=== PATIENT | female | born 1965 | race Caucasian/White ===

== ENCOUNTER → 2023-12-14 | Outpatient (CLI) | payer BC, SELFPAY ==
--- NOTE | 2023-12-14 09:46 | NM_ITS ---
CLINICAL: Female, 58 years old. STAGING BREAST CA-NEW DX -- ARTHRITIS -- PAIN IN KNEES, HANDS WHOLE BODY NUCLEAR BONE SCAN TECHNIQUE: Following the IV administration of 26.5 mCi of Tc MDP, whole body bone imaging was performed with a gamma camera following a three hour delay. COMPARISON STUDIES : NM - None. CR - Not available for review at this time. CT - Not available for review at this time. MR - Not available for review at this time. US - Not available for review at this time. FINDINGS: Focal uptake is seen along the medial compartment of the right knee joint in comparison with the osteoarthritis. No abnormal uptake suggestive of metastatic disease present. NM/Bone Scan Whole Body IMPRESSION: Focal increased uptake along the medial compartment of the right knee joint suggestive of osteoarthritis. No evidence of metastatic deposits. Electronically Signed: Zuhair Aparicio MD at 15:29 EDT ,
== END | disposition home or self-care (01) ==
LOC: NM 09:45
PROVIDERS: PCP Student in an Organized Health Care Education/Training Program; Referring Provider Internal Medicine Medical Oncology; Visit Provider Internal Medicine Medical Oncology
DX: C50.811 Malignant neoplasm of overlapping sites of right female breast (principal)
CPT/HCPCS: 78306; A9503

== ENCOUNTER → 2023-12-17 | Outpatient (CLI) | payer BC, SELFPAY ==
--- NOTE | 2023-12-17 07:03 | CT_ITS ---
EXAM: CT CHEST, ABDOMEN AND PELVIS WITH INTRAVENOUS CONTRAST CLINICAL INDICATION: STAGING BREAST CA-IV ONLY TECHNIQUE: Helically acquired images were obtained of the chest, abdomen and pelvis with intravenous contrast. This CT exam was performed using one or more of the following dose reduction techniques: automated exposure control, adjustment of the mA and/or kV according to patient size, and/or use of iterative reconstruction technique. CONTRAST: IV 100mL Isovue-300 RADIATION DOSE: CTDIvol = 14.91 mGy, DLP = 1196.77 mGy-cm COMPARISON: No relevant prior studies available. FINDINGS: CHEST: LUNGS AND PLEURAL SPACES: Unremarkable. No mass. No consolidation or edema. No pleural effusion or thickening. No pneumothorax. HEART: Unremarkable. Heart size is normal. No pericardial effusion. MEDIASTINUM: Unremarkable. No mediastinal or hilar adenopathy. Esophagus is unremarkable. No hiatal hernia. THYROID: Unremarkable. No thyroid lesions. ABDOMEN: LIVER: Unremarkable. Homogeneous. No focal mass. GALLBLADDER AND BILE DUCTS: Unremarkable. No calcified gallstones. No gallbladder distention or wall edema. No intra- or extrahepatic biliary ductal dilation. PANCREAS: Unremarkable. No focal cystic or solid mass. SPLEEN: Unremarkable. Normal size without focal cystic or solid mass. ADRENALS: Unremarkable. No nodules. KIDNEYS AND URETERS: Unremarkable. Normal renal size and position. No hydronephrosis. STOMACH AND BOWEL: Unremarkable. No stomach or bowel distention. No focal inflammatory change. PELVIS: APPENDIX: No evidence of acute appendicitis. BLADDER: Unremarkable. REPRODUCTIVE: Hysterectomy. CHEST, ABDOMEN and PELVIS: INTRAPERITONEAL SPACE: Unremarkable. No ascites or other fluid collection. No free air. BONES/JOINTS: Unremarkable. No suspicious lytic or blastic abnormality. SOFT TISSUES: Possible spiculated mass measuring up to 1.5 cm in the left breast. No discrete abdominal or pelvic wall hernia. VASCULATURE: Unremarkable. Aorta is non-dilated. No aortic dissection. No obvious central pulmonary embolism although this study was not performed with the pulmonary embolism protocol. LYMPH NODES: Unremarkable. No enlarged lymph nodes. CT/CT Chest, Abd, Pel w/Contrast IMPRESSION: 1. No evidence of metastatic disease. 2. No acute cardiopulmonary or abdominal pelvic abnormality. 3. Possible spiculated mass measuring up to 1.5 cm in the left breast. 4. Hysterectomy. Electronically Signed: Abhi Moon MD at 7:57 EDT ,
== END | disposition home or self-care (01) ==
LOC: CT 07:03
PROVIDERS: PCP Student in an Organized Health Care Education/Training Program; Referring Provider Internal Medicine Medical Oncology; Visit Provider Internal Medicine Medical Oncology
DX: C50.811 Malignant neoplasm of overlapping sites of right female breast (principal)
CPT/HCPCS: 71260; 74177; Q9967

== ENCOUNTER → 2023-12-18 | Outpatient (CLI) | payer BC, SELFPAY ==
--- NOTE | 2023-12-18 10:12 | MRI_ITS ---
STUDY: BILATERAL BREAST MR WITHOUT AND WITH CONTRAST REASON FOR EXAM: Female, 58 years old. RIGHT BREAST CA TECHNIQUE: Multi-sequence multi-echo imaging of both breasts was performed with a dedicated breast coil. T1-weighted and T2-weighted images were performed before the administration of contrast. T1-weighted images were also performed after the intravenous administration of 15 cc of Clariscan contrast. COMPARISON: Nuclear medicine bone scan dated December 14, 2023, right mammogram for clip placement dated November 21, 2023, right breast ultrasound core biopsy dated November 21, 2023, right breast ultrasound dated December 16, 2023, coned-down compression spot views of the right breast dated October 16, 2023 and 3-D bilateral mammogram dated October 11, 2023. FINDINGS: RIGHT BREAST: Scattered fibroglandular densities with minimal background enhancement. Irregular enhancing mass in the upper outer quadrant of the right breast measuring approximately 3.5 cm x 1.5 cm x 1.7 cm with a tissue clip artifact within the central portion of the enhancing mass. This lesion represents the known breast cancer. LEFT BREAST: Scattered fibroglandular density with minimal background enhancement. An 11 mm x 8 mm x 5 mm in diameter lobulated enhancing mass at the 12:00 to 1:00 position of the left breast approximately 5.2 cm behind the nipple. No corresponding correlate is seen on the comparison mammogram of October 11, 2023. Therefore, a second look ultrasound of the left breast is recommended for further evaluation. No enlarged or abnormal lymph nodes. No abnormality in the visualized regions of the chest or liver. MRI/Breast Bilateral W/O and W IMPRESSION: Irregular enhancing mass in the upper outer quadrant of the right breast corresponding to the index lesion measuring 3.5 cm x 1.5 cm x 1.7 cm. 11 mm x 8 mm x 5 mm in diameter lobulated enhancing mass at the 12:00 to 1:00 position of the left breast 5.2 cm behind the nipple. A second look ultrasound of the left breast in this region is recommended for further evaluation. CATEGORY: BIRADS Category 3: Probably Benign - Short-Interval Follow-up Suggested. A letter regarding these results will be sent to the patient by the facility within 30 days. Electronically Signed: Ruddy Osman MD at 13:38 EDT ,
== END | disposition home or self-care (01) ==
PROVIDERS: PCP Student in an Organized Health Care Education/Training Program; Referring Provider Internal Medicine Medical Oncology; Visit Provider Internal Medicine Medical Oncology
DX: C50.811 Malignant neoplasm of overlapping sites of right female breast (principal)
CPT/HCPCS: 77049; A9575; A4216; C8908

== ENCOUNTER → 2024-02-20 | Outpatient (CLI) | payer BC, SELFPAY ==
--- NOTE | 2024-02-20 09:46 | BD_ITS ---
STUDY: DUAL ENERGY X-RAY ABSORPTIOMETRY / DXA REASON FOR EXAM: Female, 58 years old. SCREENING/BREAST CA TECHNIQUE: Bone Mineral Density (BMD) measurements of lumbar spine and bilateral hips were obtained. COMPARISON: None. FINDINGS: Lumbar Spine (L1-L4): g/cm2 (0.849) / T-score (-1.9) / Z-score (-0.5) Findings are suggestive of osteopenia with a moderate fracture risk. Left Femur Total: g/cm2 (0.881) / T-score (-0.5) / Z-score (0.5) Left Femoral Neck: g/cm2 (0.699) / T-score (-1.3) / Z-score (-0.1) Right Femur Total: g/cm2 (0.853) / T-score (-0.7) / Z-score (0.2) Right Femoral Neck: g/cm2 (0.702) / T-score (-1.3) / Z-score (0.0) BD/Dexa Bone Density Study IMPRESSION: The patient is considered osteopenic as outlined below according to World Chris Organization (WHO) criteria with a moderate fracture risk. Reference Information: The T-score is the number of standard deviations above or below the standard which is normal for young adults at their peak bone mineral density. The World Health Organization (WHO) interprets the T-scores as follows: Above -1 Normal bone density Between -1 and -2.5 Osteopenia Equal to / or below -2.5 Osteoporosis As a practical clinical guideline, osteopenia may be graded as follows: Mild -1 through -1.5 Moderate -1.6 through -2.0 Severe -2.1 through -2.4 The Z-score is the number of standard deviations above or below age-matched controls. A Z-score of less than -1.5 would be considered abnormal. References: 1. NIH Osteoporosis and Related Bone Diseases www osteo.org 2. International Society for Clinical Densitometry www iscd.org 3. National Osteoporosis Foundation www nof.org Electronically Signed: Zuhair Aparicio MD at 9:54 EDT ,
== END | disposition home or self-care (01) ==
PROVIDERS: PCP Student in an Organized Health Care Education/Training Program; Referring Provider Internal Medicine Medical Oncology; Visit Provider Internal Medicine Medical Oncology
DX: I74.9 Embolism and thrombosis of unspecified artery (principal); C50.811 Malignant neoplasm of overlapping sites of right female breast; Z17.0 Estrogen receptor positive status [ER+]; Z13.820 Encounter for screening for osteoporosis; M85.88 Other specified disorders of bone density and structure, other site
CPT/HCPCS: 77080

== ENCOUNTER → 2024-02-28 | Outpatient (CLI) | payer BC, SELFPAY | END | disposition home or self-care (01) | LOC: LAB 16:45 | PROVIDERS: PCP Student in an Organized Health Care Education/Training Program; Referring Provider Internal Medicine Medical Oncology; Visit Provider Internal Medicine Medical Oncology | DX: C50.811 Malignant neoplasm of overlapping sites of right female breast (principal); Z17.0 Estrogen receptor positive status [ER+] | CPT/HCPCS: 36415 ==

== ENCOUNTER → 2024-04-18 | Outpatient (CLI) | payer BC, SELFPAY ==
--- NOTE | 2024-04-18 08:38 | VDLE_ITS ---
Reason For Study: BLE Swelling RIGHT LEFT GSV is normal. GSV is normal. CFV is compressible, spontaneous, phasic, CFV is compressible, spontaneous, phasic, competent and demonstrates normal competent, and demonstrates normal augmentation. augmentation. FV is compressible, spontaneous, phasic, FV is compressible, spontaneous, phasic, competent and demonstrates normal competent and demonstrates normal augmentation. augmentation. POP V is compressible, spontaneous, phasic, POP V is compressible, spontaneous, phasic, competent and demonstrates normal competent and demonstrates normal augmentation. augmentation. T/P Trunk is compressible. T/P Trunk is compressible. PTV is compressible. PTV is compressible. RT PerV is compressible. LT PerV is compressible. Procedure This is a venous duplex using B-mode, color flow and spectral Doppler. Exam performed in department. The exam was diagnostic. VL/Venous Duplex US - [place] Extrem Interpretation Summary Deep veins of the lower extremities are bilaterally patent and compressible seg mentally. There is no evidence of deep vein thrombosis on either side. Valvular competence appears in tact within the proximal deep venous systems bilaterally. The great saphenous veins appear bila terally patent and compressible segmentally. Ordering Physician: Brown Woody Referring Physician: Gertrudis Gage Performed By: Dean De La Cruz RVT
== END | disposition home or self-care (01) ==
LOC: CVS 08:37
PROVIDERS: PCP Student in an Organized Health Care Education/Training Program; Referring Provider Internal Medicine Medical Oncology; Visit Provider Internal Medicine Medical Oncology
DX: R06.02 Shortness of breath (principal); M79.89 Other specified soft tissue disorders
CPT/HCPCS: 93970

== ENCOUNTER → 2024-04-23 | Outpatient (CLI) | payer BC, SELFPAY ==
--- NOTE | 2024-04-23 12:53 | ECHODONC_ITS ---
Version 2 Reason For Study: Cardio Toxic Drug Therapy Procedure This was a 2D Doppler, Color Flow transthoracic echocardiogram. Myocardial strain analysis was performed in this exam to aid in the assessment of cardiac function. Exam performed in department. Left Ventricle Normal left ventricle. Severe concentric left ventricular hypertrophy. Left ventricular systolic function is normal. The left ventricular ejection fraction is 65 %. No regional wall motion abnormalities noted. Right Ventricle Normal RV size. Normal systolic function. Atria Normal left atrium. Normal right atrium. Mitral Valve Normal mitral valve. Mild (1+) eccentric mitral valve insufficiency. Tricuspid Valve Normal tricuspid valve. Mild tricuspid valve insufficiency. Pulmonary artery systolic pressure is 25 mmHg. Aortic Valve Trisinus/trileaflet aortic valve. Pulmonic Valve Normal pulmonic valve. Great Vessels Normal aortic root. The pulmonary artery is normal size. Normal inferior vena cava. Pericardium/Pleural No pericardial effusion. MMode/2D Measurements & Calculations LVIDd: 3.7 cm IVSd: 2.0 cm LVOT diam: 2.3 cm LVIDs: 2.4 cm LVPWd: 1.5 cm LVOT area: 4.1 cm2 RVDd: 3.2 cm FS: 35.0 % Ao root diam: 3.4 cm asc Aorta Diam: 3.2 cm LAV(MOD-bp): 41.6 ml LA dimension: 3.3 cm LAV(MOD-bp) Indexed: 23.0 ml/m2 LAV(MOD-sp2): 41.1 ml LAV(MOD-sp4): 41.4 ml SV(MOD-sp4): 48.6 ml SV(sp4-el): 51.4 ml LVAd ap4: 25.8 cm2 LVLd ap4: 7.1 cm EDV(MOD-sp4): 78.6 ml EDV(sp4-el): 80.3 ml LVAs ap4: 14.2 cm2 LVLs ap4: 5.9 cm ESV(MOD-sp4): 30.0 ml ESV(sp4-el): 29.0 ml EF(MOD-sp4): 61.9 % EF(sp4-el): 63.9 % Ao sinus diam: 2.[address] Junction: 2.4 cm LA A4 area: 15.2 cm2 RA A4 area: 10.9 cm2 Time Measurements MV dec time: 0.22 sec Doppler Measurements & Calculations MV E max munir: 72.6 cm/sec Lat Peak E' Munir: 11.2 cm/sec Med Peak E' Munir: 7.0 cm/sec MV A max munir: 97.6 cm/sec E/E' lat: 6.5 E/E' med: 10.4 MV E/A: 0.74 MV V2 max: 109.7 cm/sec MV P1/2t max munir: 82.6 cm/sec Ao V2 max: 143.3 cm/sec MV max P.8 mmHg MV P1/2t: 79.7 msec Ao max P.2 mmHg MV V2 mean: 64.6 cm/sec MV dec slope: 303.5 cm/sec2 Ao V2 mean: 98.1 cm/sec MV mean P.0 mmHg Ao mean P.4 mmHg MV V2 VTI: 22.6 cm MVA(P1/2t): 2.8 cm2 Ao V2 VTI: 26.6 cm MVA(VTI): 3.6 cm2 AV (velocity ratio): 0.74 MICHEL(I,D): 3.1 cm2 MICHEL(V,D): 3.0 cm2 LV V1 max: 103.7 cm/sec SV(LVOT): 81.4 ml PA V2 max: 108.1 cm/sec LV V1 max P.3 mmHg PA max PG (full): 0.56 mmHg LV V1 mean P.5 mmHg LV V1 mean: 73.8 cm/sec LV V1 VTI: 19.8 cm TR max munir: 234.9 cm/sec TR max P.1 mmHg ECHO/ONC Echo Complete Interpretation Summary Normal left ventricle. Left ventricular systolic function is normal. Severe concentric left ventricular hypertrophy. The left ventricular ejection fraction is 65 %. The global longitudinal strain is mildly abnormal. The global longitudinal stra in = -15.8% (abnormal). Ordering Physician: Brown Woody Referring Physician: Brown Woody Performed By: Cole Urrutia and Student
== END | disposition home or self-care (01) ==
LOC: CVS 12:53
PROVIDERS: PCP Student in an Organized Health Care Education/Training Program; Referring Provider Internal Medicine Medical Oncology; Visit Provider Internal Medicine Medical Oncology
DX: R06.02 Shortness of breath (principal); M79.89 Other specified soft tissue disorders
CPT/HCPCS: 93306; 93356

== ENCOUNTER 2024-05-29 16:08 | Observation (INO) | payer BC, SELFPAY ==
[2024-05-29] VITALS (7 sets, daily range): BP systolic 99–150; BP diastolic 62–77; PULSE 74–91; RESP 15–20; TEMP 36.3–36.8; O2SAT 95–100; BMI 29.2; BMI 27.6
--- NOTE | 2024-05-29 16:28 | EKG12_ITS ---
Test Reason : ABN LAB Blood Pressure : */* mmHG Vent. Rate : 89 BPM Atrial Rate : 89 BPM P-R Int : 176 ms QRS Dur : 106 ms QT Int : 388 ms P-R-T Axes : 49 -8 44 degrees QTcB Int : 472 ms Sinus rhythm with occasional Premature ventricular complexes Otherwise normal ECG Confirmed by TAMRA ADAMSON, PRADEEP ([id number]), international editorial producer SHALA SHULTZ ([id number]) on 05/30/2024 8:21:59 AM Referred By: Confirmed By: PRADEEP BARBOZA MD
--- NOTE | 2024-05-29 16:28 | CT_ITS ---
STUDY: CTA HEAD AND NECK WITH CONTRAST REASON FOR EXAM: Female, 58 years old. dizziness RADIATION DOSAGE (If Supplied By Facility): CTDIvol = ( 23.82 ) mGy, DLP = ( 1356.37 ) mGycm TECHNIQUE: CT angiography was performed with a multi-detector CT scanner. Data acquisition was obtained from the skull base through the vertex following intravenous administration of IV 100mL Isovue-370. MIP images were reconstructed from the axial data set. Post-processing of the angiographic images was performed, with multiplanar reformation and 3D reconstruction. Individualized dose optimization techniques were used for this CT. The protocol utilizes one or more of the following dose reduction techniques: automated exposure control, adjustment of mA and/or kV according to patient size,and/or use of iterative reconstruction technique. COMPARISON: No relevant priors. FINDINGS: Normal bilateral petrous carotid arteries. Normal right cavernous carotid artery with a normal supraclinoid bifurcation. Normal left cavernous carotid artery with a normal supraclinoid bifurcation. Normal right A1 segments of the anterior cerebral artery. Normal left A1 segments of the anterior cerebral artery. There is non-visualization of the anterior communicating artery (ACOM). Normal bilateral A2 segments of the anterior cerebral arteries. Normal right M1 and M2 segments of the middle cerebral arteries, with a normal M1 bifurcation. Normal left M1 and M2 segments of the middle cerebral arteries, with a normal M1 bifurcation. There is non-visualization of the right posterior communicating artery (PCOM). 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 Normal bilateral vertebral arteries. Normal basilar artery with a normal basilar bifurcation. The visualized bilateral superior cerebellar (SCA) arteries are normal. Normal bilateral P1, P2 and visualized P3 segments of the posterior cerebral arteries. There is no demonstrated aneurysm of the [place]. There is no demonstrated abnormality of the visualized brain. AORTIC ARCH: Normal visualized aortic arch. Normal origins of the brachiocephalic, left common carotid, and left subclavian arteries. RIGHT CAROTID ARTERIES: Normal right common carotid artery (CCA). Normal right common carotid bulb. Normal origin of the right internal carotid (ICA) artery without a hemodynamically significant stenosis. Normal visualized cervical portion of the right internal carotid artery. Normal origin of the right external carotid artery (ECA). LEFT CAROTID ARTERIES: Normal left common carotid artery (CCA). Normal left common carotid bulb. Normal origin of the left internal carotid (ICA) artery without a hemodynamically significant stenosis. Normal visualized cervical portion of the left internal carotid artery. Normal origin of the left external carotid artery (ECA). VERTEBRAL ARTERIES: Normal bilateral vertebral arteries. CT/CTA Head AND Neck W/ Contrast IMPRESSION: Normal CTA Head and neck with contrast. Electronically Signed: Antony Fermin MD at 18:22 EDT ,
--- NOTE | 2024-05-29 16:41 | EDS_ITS ---
HPI History of Present Illness Chief Complaint: Abn Labs Informant: patient Narrative Narrative: Sent in from oncology office for concerns for strokelike symptoms. Diagnosed with stage II invasive ductal carcinoma right breast. Diagnosis past September. She finished her fourth cycle of TC therapy 2 weeks ago. Generalized weakness secondary to this. However over last 3 days dizzy spinning sensations and off balance along with paresthesia from the left axillary down her hand. No weakness. She had a TIA in 2017 with left-sided weakness and numbness that resolved spontaneously. Currently not on aspirin therapy. A week ago had a lot of diarrhea that has since then resolved. Seen today had a potassium 2.8. Magnesium was normal at 2.2. No headache. She was sent here with her TIA history for workup. Discussion reported to me her chemotherapy of TC can cause neuropathy however not presenting with the symptoms that she has. Prior similar symptoms: No PFSH PFSH Medical History LUE numbness Bone pain due to G-CSF CINV (chemotherapy-induced nausea and vomiting) Diarrhea due to drug Hypokalemia Port-A-Cath in place Encounter for education Invasive ductal carcinoma of right breast Obesity Hyperlipidemia Major depression Anxiety TIA (transient ischemic attack) Essential hypertension GERD (gastroesophageal reflux disease) Osteoarthritis Tobacco use History of sarcoidosis Breast cancer Home Medications ?Medication ?Instructions ?Recorded ?Last Taken ?Type amlodipine 5 mg tablet 5 mg PO DAILY 12/07/23 Unknown History lisinopril 20 1 tab PO DAILY 12/07/23 Unknown History mg-hydrochlorothiazide 25 mg tablet metoprolol succinate 50 mg 50 mg PO DAILY 12/07/23 Unknown History tablet,extended release 24 hr rosuvastatin 10 mg tablet 10 mg PO DAILY 12/07/23 Unknown History ibuprofen 200 mg tablet (Advil) 200 mg PO Q6H PRN 12/10/23 Unknown History sertraline 50 mg tablet 25 mg PO DAILY 01/07/24 Unknown History lidocaine-prilocaine 2.5 %-2.5 % 1 applic topical ONCE PRN port 03/10/24 Unknown Rx topical cream access 30 days #30 grams ondansetron 8 mg disintegrating 8 mg PO Q8H PRN nausea and 03/10/24 Unknown Rx tablet vomiting #30 tabs prochlorperazine maleate 10 mg 10 mg PO Q6H PRN nausea and 03/10/24 Unknown Rx tablet vomiting #30 tabs loratadine 10 mg tablet 10 mg PO DAILY PRN 03/13/24 Unknown History pantoprazole 40 mg tablet,delayed 40 mg PO DAILY #30 TABLETS 05/27/24 Unknown Rx release Allergy/AdvReac Type Severity Reaction Status Date / Time Latex, Natural Rubber Allergy Unknown hives Verified 05/29/24 16:09 Family History Father Elevated platelet count Basal cell carcinoma Hypertension Macular degeneration Mother Hypertension Surgical History History of lumpectomy History of tonsillectomy and adenoidectomy H/O: hysterectomy History of lung surgery S/P breast lumpectomy Social History Smoking Status: Current every day smoker tobacco type: cigarettes alcohol intake: current alcohol intake frequency: other details: occassional substance use type: does not use ROS ROS ED Constitutional Constitutional ED: Denies chills, fever(s) or sweats Eyes Eyes: Denies change in vision ENT ENT ED: Denies dysphagia or sore throat Cardiovascular Cardiovascular: Denies chest pain, leg edema, palpitations or racing heartbeat Respiratory/Chest Respiratory/Chest: Denies cough, dyspnea or dyspnea on exertion Gastrointestinal Gastrointestinal: Reports diarrhea; Denies abdominal pain, nausea or vomiting Genitourinary Genitourinary ED: Denies dysuria, hematuria or urinary frequency Musculoskeletal Musculoskeletal: Denies back pain, extremity pain or neck pain Integumentary Denies rash or wounds Neurologic Neurologic: Reports paresthesias and other Details: Dizziness ; Denies headache(s) or weakness EXAM Physical Exam Const Vital Signs: 05/29/24 16:09 05/29/24 16:28 05/29/24 16:28 Temperature 98.3 F Temperature Source Oral Pulse Rate 91 Respiratory Rate 15 Respiratory Effort Normal Non-Labored Blood Pressure 150/77 H Blood Pressure Mean 101 Pulse Ox 100 Oxygen Delivery Method Room Air Room Air 05/29/24 18:09 05/29/24 18:30 Temperature Temperature Source Pulse Rate 85 85 Respiratory Rate 20 H 15 Respiratory Effort Blood Pressure 103/65 103/65 Blood Pressure Mean 77 77 Pulse Ox 96 95 Oxygen Delivery Method Positive well nourished and well developed General Appearance ED: well developed and NAD HEENT Reports moist mucous membranes normocephalic and atraumatic Eyes EOMs intact bilaterally and conjunctivae normal Eyes Narrative: No nystagmus of the eyes. Visual dominguez intact in all 4 quadrants to finger counting. General Eye ED: Yes normal appearance of both eyes Neck no lymphadenopathy and supple General: Negative for tenderness Chest Wall Chest: Negative for tenderness Resp normal respiratory effort and normal air movement Effort and Inspection: symmetric chest movement; Negative for respiratory distress Cardio regular rate, regular rhythm and no murmurs Peripheral Pulses: pulses 2+ throughout GI normal to inspection, nondistended, normoactive bowel sounds and non-tender Palpation: Negative for guarding or rebound tenderness present Back/Spine no CVA tenderness and no thoracic nor lumbar tenderness Extremity normal to inspection General Extremety ED: Negative for edema or tenderness General Extremity: Negative for edema Neuro oriented x3 Neuro Narrative: NIH of 1 for paresthesia upper extremity forearm and upper arm compared to the right. Strength equal and symmetric upper extremities bilaterally. Cerebellar testing upper and lower symmetric and intact. Sensorium / Orientation: awake and alert Skin no rashes or lesions noted and no wounds MDM MDM MDM Narrative Medical decision making narrative: Interventions / MDM: Differential diagnosis: Dizziness, left upper extremity paresthesia, stage II invasive ductal carcinoma, CVA, hypokalemia Diagnosis considered but do not suspect: N/A My EKG interpretation: Sinus rate of 89, no ST or T wave changes, PVCs noted. Imaging independently reviewed and interpreted by myself: CTA head and neck: No acute process. External documents reviewed: N/A Test considered but not ordered:N/A ED course: Patient presented with dizziness left upper extremity paresthesia NIH of 1. Symptoms for 3 days, she is outside the window for TNK. However with vertigo symptoms during for posterior circulation, sent for CT angiogram head and neck. Stroke workup initiated. EKG sinus rhythm. Labs consistent with no potassium 2.8 magnesium 2.2. Normal creatinine. CBC stable slight anemia at 9.9. CT angiogram head and neck negative. Bedside swallow eval. Oral potassium started. NIH still 1. I discussed with hospitalist Dr. Calvo for admission to PCU. Re-evaluation: stable Disposition discussed with patient/family/significant other: Patient and family Case discussed with consulting clinician: Hospitalist This note was generated with [employer] dictation software. It may contain incorrect words, spelling, and punctuation that were not noted in checking the note before signing. Lab Data Attestation: I reviewed the patient's lab results. Labs: Laboratory Results - last 24 hr 05/29/24 16:40 PT 13.4 INR 1.0 APTT 27.3 Troponin I High Sens 6 Radiography Diagnostic Testing: Clinical Impression(s) from Imaging Studies Head/Neck CTA 05/29/24 16:28 IMPRESSION: Normal CTA Head and neck with contrast. Electronically Signed: Antony Fermin MD at 18:22 EDT Reading Location ID and State: [employer] / [place] Tel , Service support , Chest X-Ray 05/29/24 17:05 IMPRESSION: New left Mediport. No pneumothorax. Electronically Signed: Antony Fermin MD at 17:37 EDT , Discharge Plan Dx/Rx/DC Orders Clinical Impression: LUE numbness, Vertigo, Breast cancer, right, Hypokalemia Disposition Disposition: Acute Care [facility] Discharge Date/Time: 05/29/24 19:48
[2024-05-29 17:04] LABS: Partial Thromboplast Time 27.3 Seconds (24.1-36.2); Prothrombin Time (Protime)PT. 13.4 SECONDS (11.7-14.9)
[2024-05-29 17:05] LABS: Troponin-I HS 6 pg/mL (3.0-54.0)
--- NOTE | 2024-05-29 17:05 | RAD_ITS ---
STUDY: X-RAY CHEST REASON FOR EXAM: Female, 58 years old. Neuro deficit, acute, stroke suspected TECHNIQUE: Single frontal view of the chest. COMPARISON: CT chest December 17, 2023. March 18, 2011 chest x-ray FINDINGS: New left IJ MediPort terminates near the atrial caval junction. Skin balwinder right axilla. The lungs are clear and expanded. There is no demonstrated pleural abnormality. Normal size heart. Normal mediastinum and jennifer. Normal visualized pulmonary arteries. Normal visualized aortic arch and descending thoracic aorta. Normal visualized thoracic spine. Normal visualized ribs, clavicles, and shoulders. There is no demonstrated abnormality of the visualized soft tissue structures of the upper abdomen. RAD/Chest 1 View IMPRESSION: New left Mediport. No pneumothorax. Electronically Signed: Antony Fermin MD at 17:37 EDT ,
--- NOTE | 2024-05-29 18:55 | HP.PCM.HOS_ITS ---
[facility] - General General Date of Service: 05/29/24 Chief Complaint: Left arm paresthesia HPI Narrative HECTOR LUIS, is a 58 F who presents with a 3-day history of dizziness and left arm paresthesias. States that his been more or less persistent, with the paresthesias, but does slightly wax and wane somewhat but still remains constant. Also has been feeling dizzy during this time. States that she feels dizzy whenever she opens her eyes. Never had symptoms like this in the past, however patient did have a TIA in 2017 where she had a left arm and leg weakness. She denies any involvement of her leg at this time. Patient presented to the emergency room where she did have a CTA of the head and neck that was unremarkable. The hospitalist service was contacted for admission for further evaluation. [facility] Medical History LUE numbness Bone pain due to G-CSF CINV (chemotherapy-induced nausea and vomiting) Diarrhea due to drug Hypokalemia Port-A-Cath in place Encounter for education Invasive ductal carcinoma of right breast Obesity Hyperlipidemia Major depression Anxiety TIA (transient ischemic attack) Essential hypertension GERD (gastroesophageal reflux disease) Osteoarthritis Tobacco use History of sarcoidosis Breast cancer Home Medications ?Medication ?Instructions ?Recorded ?Last Taken ?Type amlodipine 5 mg tablet 5 mg PO DAILY 12/07/23 Unknown History lisinopril 20 1 tab PO DAILY 12/07/23 Unknown History mg-hydrochlorothiazide 25 mg tablet metoprolol succinate 50 mg 50 mg PO DAILY 12/07/23 Unknown History tablet,extended release 24 hr rosuvastatin 10 mg tablet 10 mg PO DAILY 12/07/23 Unknown History ibuprofen 200 mg tablet (Advil) 200 mg PO Q6H PRN 12/10/23 Unknown History sertraline 50 mg tablet 25 mg PO DAILY 01/07/24 Unknown History lidocaine-prilocaine 2.5 %-2.5 % 1 applic topical ONCE PRN port 03/10/24 Unknown Rx topical cream access 30 days #30 grams ondansetron 8 mg disintegrating 8 mg PO Q8H PRN nausea and 03/10/24 Unknown Rx tablet vomiting #30 tabs prochlorperazine maleate 10 mg 10 mg PO Q6H PRN nausea and 03/10/24 Unknown Rx tablet vomiting #30 tabs loratadine 10 mg tablet 10 mg PO DAILY PRN 03/13/24 Unknown History pantoprazole 40 mg tablet,delayed 40 mg PO DAILY #30 TABLETS 05/27/24 Unknown Rx release Allergy/AdvReac Type Severity Reaction Status Date / Time Latex, Natural Rubber Allergy Unknown hives Verified 05/29/24 16:09 Family History Father Elevated platelet count Basal cell carcinoma Hypertension Macular degeneration Mother Hypertension Surgical History History of lumpectomy History of tonsillectomy and adenoidectomy H/O: hysterectomy History of lung surgery S/P breast lumpectomy Social History Smoking Status: Current every day smoker tobacco type: cigarettes alcohol intake: current alcohol intake frequency: other details: occassional substance use type: does not use ROS ROS Narrative Week ago patient was having severe diarrhea related with her chemotherapy. All review of systems were negative except as mentioned above in the history of present illness and the other review of systems. Vital Signs Vital Signs Vital Signs: 05/29/24 16:09 05/29/24 16:28 05/29/24 16:28 Temperature 36.8 C Temperature Source Oral Pulse Rate 91 Respiratory Rate 15 Respiratory Effort Normal Non-Labored Blood Pressure 150/77 H Blood Pressure Mean 101 Pulse Ox 100 Oxygen Delivery Method Room Air Room Air Weight Weight: 72.575 kg Body Mass Index (BMI) 29.2 Physical Exam Narrative - Physical Exam General: Alert, Oriented x3, Cooperative HEENT: Atraumatic, PERRLA, EOMI, Normocephalic Oral: Moist Mucosa, No Gingival or Mucosal Lesions/ Ulcerations Neck: Supple, No JVD, Negative Carotid Bruits Lungs: Clear to auscultation, Normal air movement Cardiovascular: Regular rate, Normal S1, Normal S2, No murmurs Abdomen: Bowel Sounds Present, Soft, Non Tender, Non-Distended, No Hepato- splenomegaly Extremities: No clubbing, No cyanosis, No edema, Capillary Refill Less than 3 Seconds Skin: No rashes, No breakdown Musculoskeletal: No Tenderness to Palpation of Joints or Extremities Neurological: Slight diminished sensation on the left upper extremity. Strength is 5-5 throughout. Cranial nerves II through XII grossly intact. Does have some slight drift of her left lower extremity. Psych/Mental Status: Normal Affect, Appropriate Results Lab / Micro Data Attestation: I reviewed the patient's lab results. Labs: Laboratory Results - last 24 hr 05/29/24 16:40: PT 13.4, INR 1.0, APTT 27.3, Troponin I High Sens 6 Imaging Radiology Impression Head/Neck CTA 05/29/24 16:28 IMPRESSION: Normal CTA Head and neck with contrast. Electronically Signed: Antony Fermin MD at 18:22 EDT , Chest X-Ray 05/29/24 17:05 IMPRESSION: New left Mediport. No pneumothorax. Electronically Signed: Antony Fermin MD at 17:37 EDT , Assessment & Plan Assessment/Plan (1) LUE numbness: PLAN: Concern for CVA as symptoms began days ago. Will start the patient on aspirin and continue daily. Check an MRI of the brain, 2D echocardiogram, physical, Occupational Therapy evaluation. Additionally will consult neurology for further recommendations. Patient is on rosuvastatin. Based on her findings, if she does have a stroke, patient may need to be started on atorvastatin. (2) Vertigo: PLAN: Unclear if patient is having a peripheral or central event. Stroke workup as above. Start as needed meclizine (3) Hypokalemia: PLAN: Secondary to diarrhea that she was having last week. Replaced in emergency room. Will follow-up labs in the morning to see if she does need further replacement. Is likely due to the profuse diarrhea that she had last week. Diarrhea has since improved I do not feel an infectious workup is necessary at this time as this most likely chemotherapy-induced. PLAN: Plan Chronic conditions * Breast cancer: Patient just finished up her last chemotherapy for her right- sided breast cancer. She does have a port in her chest. I do not feel that the port is causing her left-sided symptoms, however. Patient follow-up with medical and radiation oncology. * Hypertension: Stable. Continue with amlodipine, lisinopril (hold HCTZ given hypokalemia), metoprolol succinate VTE prophylaxis: Not indicated given current observation status Case discussed with the patient's family at bedside Charges/Coding Visit Charges Inpatient E&M: 27717 Init Hosp L3
[2024-05-29] MEDS: Potassium Chloride Oral Tablet 20 MEQ 40 MEQ PO (19:05)
--- NOTE | 2024-05-29 20:25 | MRI_ITS ---
HISTORY: left arm paresthesia, hx of previous TIA, dizzy, stroke eval, currently in treatment for breast cancer, previous CT. TECHNIQUE: Multiplanar and multisequence MR images of the brain were obtained without contrast. 276 images. COMPARISON: CT prior day. FINDINGS: BRAIN PARENCHYMA: Mild foci of increased T2 FLAIR signal in the bilateral cerebral white matter and elfego. No abnormal focus of restricted diffusion. No acute intracranial hemorrhage identified. CSF SPACES: Cerebral ventricles, cortical sulci, and other extra-axial CSF spaces within normal limits in size for age. No significant midline shift or other mass effect.No extra-axial fluid collection. VASCULAR SYSTEM: Major intracranial flow voids are maintained. PARANASAL SINUSES AND MASTOID AIR CELLS: No significant air fluid levels. ORBITS: Symmetric contents. MRI/Brain without Contrast IMPRESSION: No evidence for acute infarct. Mild chronic small vessel ischemic gliosis. Electronically Signed: Kanwal Johnson MD at 11:44 EDT ,
--- NOTE | 2024-05-29 20:25 | ECHOL_ITS ---
Reason For Study: TIA/CVA (BUBBLE STUDY). Procedure This was a limited 2D transthoracic echocardiogram. Exam performed portable in patient room. Left Ventricle Normal LV size. Left ventricular systolic function is normal. The left ventricular ejection fraction is 60 %. No regional wall motion abnormalities noted. Right Ventricle Normal RV size. Normal systolic function. Atria Normal left atrium. Normal right atrium. Bubble contrast study negative for right to left interatrial shunt. Mitral Valve Normal mitral valve. Tricuspid Valve Normal tricuspid valve. Aortic Valve Trisinus/trileaflet aortic valve. Pulmonic Valve Normal pulmonic valve. Great Vessels Normal aortic root. The pulmonary artery is normal size. Normal inferior vena cava. Pericardium/Pleural No pericardial effusion. Medication Performed a rapid injection of agitated mix of 9 cc saline and 1cc air to assess for atrial septal defect. MMode/2D Measurements & Calculations LVIDd: 5.2 cm IVSd: 1.1 cm Ao root diam: 3.4 cm LVIDs: 3.4 cm LVPWd: 1.1 cm LA dimension: 3.3 cm FS: 35.5 % LAV(MOD-bp): 35.7 ml LVAd ap4: 21.1 cm2 LVAd ap2: 19.3 cm2 LAV(MOD-bp) Indexed: 21.1 ml/m2 LVLd ap4: 6.8 cm LVLd ap2: 6.6 cm LAV(MOD-sp2): 32.2 ml EDV(MOD-sp4): 53.5 ml EDV(MOD-sp2): 46.0 ml LAV(MOD-sp4): 32.7 ml EDV(sp4-el): 55.6 ml EDV(sp2-el): 48.0 ml LVAs ap4: 12.7 cm2 LVAs ap2: 12.0 cm2 LVLs ap4: 6.0 cm LVLs ap2: 5.9 cm ESV(MOD-sp4): 24.5 ml ESV(MOD-sp2): 20.8 ml ESV(sp4-el): 22.9 ml ESV(sp2-el): 20.5 ml EF(MOD-sp4): 54.2 % EF(MOD-sp2): 54.8 % EF(sp4-el): 58.8 % SV(MOD-sp4): 29.0 ml SV(MOD-sp2): 25.2 ml SV(sp4-el): 32.7 ml SI(MOD-sp4): 17.1 ml/m2 SI(MOD-sp2): 14.9 ml/m2 LA A4 area: 12.2 cm2 RA A4 area: 9.6 cm2 ECHO/Echo, Limited Study Interpretation Summary Normal LV size. Left ventricular systolic function is normal. The left ventricular ejection fraction is 60 %. Bubble contrast study negative for right to left interatrial shunt. Ordering Physician: Dajuan Calvo Referring Physician: Gertrudis Watts Performed By: Rahel Shine, KERRI, RVT
[2024-05-29] MEDS: Aspirin 81 MG TAB.CHEW PO (21:04)
[2024-05-30] VITALS (9 sets, daily range): BP systolic 92–119; BP diastolic 59–86; PULSE 70–93; RESP 14–18; TEMP 36.1–36.9; O2SAT 92–99
[2024-05-30 05:05] LABS: Anion Gap 3 (5-15); BUN 13 mg/dL (7-18); BUN/Creat Ratio 17.1 RATIO (10-20); Calcium,Total 8.8 mg/dL (8.5-10.1); Chloride 106 mmol/L (98-107); Cholesterol 115 mg/dL (200); Creatinine, Serum 0.76 mg/dL (0.55-1.02); EST Glomerular Filtration Rate 83 mL/min (>60); Est Glom Filt Rate - Afr Amer 100 mL/min (>60); Estimated Creatinine Clearance 71.36 ml/min; Glucose 100 mg/dL (74-106); High Density Lipoprotein 26 mg/dL; Potassium 3.1 mmol/L (3.5-5.1); Sodium Level 140 mmol/L (136-145); Triglycerides 152 mg/dL; Very Low Density Lipoprotein 30 mg/dL (5-40)
[2024-05-30] MEDS: Potassium Chloride Oral Tablet 20 MEQ 40 MEQ PO ×2 (06:12→08:33)
[2024-05-30] MEDS: Aspirin 81 MG TAB.CHEW PO (08:33)
[2024-05-30] MEDS: Atorvastatin Calcium 20 MG Tablet PO (08:33)
[2024-05-30] MEDS: amLODIPine 5 MG Tablet PO (08:33)
[2024-05-30] MEDS: Pantoprazole Sodium 40 MG Tablet PO (08:33)
[2024-05-30] MEDS: LORazepam 1 MG Tablet PO (10:03)
--- NOTE | 2024-05-30 13:09 | CASEMGMT ---
Social Work SW met with pt and completed a PHQ9 depression screening as pt admitted for TIA. Pt score of 5. Pt stating she recently was able to stop taking zoloft and mood is feeling better. SW encourage pt to speak with PCP should mood start to decline. Antonella Goodrich, GREGOR
--- NOTE | 2024-05-30 15:05 | DS.PCM_ITS ---
Providers Date of Admission: 05/29/24 Date of Discharge: 05/31/24 Primary Care Physician: Dr. Gertrudis Gage MD Consultations 05/29/24 20:25 Consult: Tele-Neurology Routine Consulting Provider: [facility] Reason for Consult: Acute Ischemic Stroke/TIA EMERGENT Consult: No MD Notified: Yes Date Notified: 05/29/24 Time Notified: 21:00 Method of Notification: Answering Service Nursing Unit Staff Notify [facility] of Tele-Neurology Consult: Yes Reason For Visit: LEFT ARM PARESTHESIA Diagnosis Discharge Diagnosis (1) LUE numbness: Status: Acute Code(s): R20.0 - Anesthesia of skin (2) Vertigo: Status: Acute Code(s): R42 - Dizziness and giddiness (3) Hypokalemia: Status: Acute Code(s): E87.6 - Hypokalemia Medications at Discharge Home Medications amlodipine 5 mg tablet 5 mg PO DAILY blood pressure 12/07/23 lisinopril 20 mg-hydrochlorothiazide 25 mg tablet 1 tab PO DAILY blood pressure 12/07/23 metoprolol succinate 50 mg tablet,extended release 24 hr 50 mg PO DAILY blood pressure 12/07/23 rosuvastatin 10 mg tablet 10 mg PO DAILY cholesterol 12/07/23 lidocaine-prilocaine 2.5 %-2.5 % topical cream 1 applic topical ONCE PRN port access 30 days #30 grams 03/10/24 ondansetron 8 mg disintegrating tablet 8 mg PO Q8H PRN nausea and vomiting #30 tabs 03/10/24 prochlorperazine maleate 10 mg tablet 10 mg PO Q6H PRN nausea and vomiting #30 tabs 03/10/24 pantoprazole 40 mg tablet,delayed release 40 mg PO DAILY reflux #30 TABLETS 05/27/24 aspirin 81 mg chewable tablet 81 mg PO BREAKFAST #30 tabs 05/30/24 Hospital Course Operations None Procedures 2-D Echocardiogram Summary of Care Provided Minutes Spent on Discharge: 55 Hospital Course: Patient is a 58-year-old female with an extensive past medical history as outlined including breast cancer which follows up with oncology and has a left- sided port placed for chemotherapy. She was admitted through the ED on 05/29/2024 with a complaint of left arm paresthesia which have been going on for about 3 days. She had a state dizziness but denied any focal weakness. Review of systems otherwise negative. She did have a TIA back in 2017 at which time she had a left arm and left leg weakness. Review of systems otherwise negative. CT of the brain showed no acute intracranial pathology and CTA of the head and neck showed no evidence of hemodynamically significant stenosis. She was admitted for strokelike symptoms to rule out a stroke. She had MRI of the brain which showed no evidence of stroke. She had had a 2D echo done on 04/23/2024 which showed normal left ventricular size and systolic function and severe concentric left ventricular hypertrophy with EF of 65%. She therefore had a limited echo ordered during this admission. Lipid panel done did not show any elevation of her LDL. She remained stable and was discharged home on 05/30/2024. She was discharged on p.o. aspirin 81 mg daily and her ibuprofen was discontinued as she had been started on aspirin. Neurology reviewed her and was concerned about possible metastatic disease. MRI of the brain with contrast and MRI of the cervical spine with and without contrast were ordered which both showed no evidence of metastatic disease. A urinalysis was also ordered but patient was not very interested in having this done as she did not have any urinary symptoms. She was therefore discharged home on 05/31/2024. She was counseled to follow-up with her primary care doctor within 1 to 2 weeks and was also referred to neurology on outpatient basis. She is also to follow-up with her oncologist. Patient seen and examined prior to discharge. He had no complaints and had an uneventful night. Review of systems otherwise negative. Labs and vitals reviewed. Home medication reviewed and reconciled. Physical Exam Const alert, oriented x3 and no apparent distress General Appearance: cooperative and comfortable Orientation / Consciousness: awake Exam Limitations: no limitations HEENT normocephalic, head/scalp atraumatic, hearing grossly normal bilaterally and moist oral mucous membranes Mouth: oral and palatal mucosa normal Eyes PERRL, EOMs intact bilaterally and conjunctivae normal Neck no lymphadenopathy and supple Resp normal respiratory effort, no retractions, no use of accessory muscles and clear to auscultation bilaterally Cardio regular rate, regular rhythm, S1 normal heart sound, S2 normal heart sound and no murmurs GI normal to inspection, nondistended, normoactive bowel sounds, soft to palpation, non-tender and non-distended Extremity normal to inspection, full ROM and no clubbing, cyanosis or edema Skin no rashes or lesions noted Skin Narrative: chemo port in situ Neuro oriented x3, CN's II-XII intact bilaterally and moves all extremities Sensorium / Orientation: awake and alert Psych affect normal Weight / BMI Weight Weight: 150 lb 12.739 oz Body Mass Index (BMI) 27.6 ABG / Lab / Microbiology Data 05/31/24 06:30 05/31/24 06:30 Laboratory: Laboratory Results - last 24 hr 05/29/24 16:40: PT 13.4, INR 1.0, APTT 27.3, Troponin I High Sens 6 05/30/24 04:00: Sodium 140, Potassium 3.1 L, Chloride 106, Carbon Dioxide 31.0, Anion Gap 3 L, BUN 13, Creatinine 0.76, Estim Creat Clear Calc 71.36, Est GFR (MDRD) Af Amer 100, Est GFR (MDRD) Non-Af 83, BUN/Creatinine Ratio 17.1, Glucose 100, Calcium 8.8, Triglycerides 152, Cholesterol 115, LDL Cholesterol 59, VLDL Cholesterol 30, HDL Cholesterol 26 L Radiography Diagnostic Testing: Radiology Impression Head/Neck CTA 05/29/24 16:28 IMPRESSION: Normal CTA Head and neck with contrast. Electronically Signed: Antony Fermin MD at 18:22 EDT , Chest X-Ray 05/29/24 17:05 IMPRESSION: New left Mediport. No pneumothorax. Electronically Signed: Antony Fermin MD at 17:37 EDT , Brain MRI 05/29/24 20:25 IMPRESSION: No evidence for acute infarct. Mild chronic small vessel ischemic gliosis. Electronically Signed: aKnwal Johnson MD at 11:44 EDT , D/C Instructions Discharge Diet: Low fat / Low cholesterol Discharge Activity: Return to Normal Activity Weight Bearing Status: Weight bearing as tolerated Call your doctor if you observe: Fever of 101 or Higher, Shortness of breath, Dizziness and - (worsening numbness and weakness of LUE) Meaningful Use Info Meaningful Use Meaningful Use Diagnoses (Choose all that apply): None applicable Ischemic Stroke Statin Dosing Therapy Reference: STATIN DOSE THERAPY REFERENCE: * Patients > 75 years receive moderate or high dose statin therapy. * Patients 75 years or YOUNGER should receive HIGH intensity statin dose unless contraindicated. You will be required to document reason for non-treatment if statin daily dose does not meet guidelines. HIGH DOSE STATIN THERAPY DAILY Atorvastatin > than or = to 40 mg Rosuvastatin > than or = to 20 mg Amlodipine + Atorvastatin > than or = to 2.5/40 mg Ezetimibe + Simvastatin 10/80 mg Simvastatin 80mg Discharge Plan Admission Admit Date/Time: 05/29/24 18:47 Primary Reason for Your Visit: left arm numbness Attending Provider: Macey Hagen Primary Care Provider: Gertrudis Gage Consulting Providers: Oscar Booker; Mohit Summers; Elmira Bobby; Hellen Zacarias; Grisel Mccann; Tom Scott; Rhea Mayen; Rajan King; Miguelangel Nava; Jeffery Curran; Janelle Gallego; Remigio Vigil; Nya Chmaberlain; Evi Arreaga; Chanelle Cox; Billy Mcrcary; Javier Echevarria; Veto Horn; Eryn Marc; Alicia Doherty; Dajuan Calvo Instructions Patient Instructions: TIA Dc Discharge Orders/Prescriptions Prescriptions: New aspirin 81 mg Tablet,Chewable 81 mg PO BREAKFAST Qty: 30 1RF Continued amlodipine 5 mg tablet 5 mg PO DAILY rosuvastatin 10 mg tablet 10 mg PO DAILY metoprolol succinate 50 mg tablet extended release 24 hr 50 mg PO DAILY lisinopril-hydrochlorothiazide 20-25 mg tablet 1 tab PO DAILY lidocaine-prilocaine 2.5-2.5 % cream 1 applic topical ONCE PRN (Reason: port access) 30 Days Qty: 30 2RF ondansetron 8 mg tablet,disintegrating 8 mg PO Q8H PRN (Reason: nausea and vomiting) Qty: 30 2RF prochlorperazine maleate 10 mg tablet 10 mg PO Q6H PRN (Reason: nausea and vomiting) Qty: 30 2RF pantoprazole 40 mg tablet,delayed release (DR/EC) 40 mg PO DAILY Qty: 30 1RF Discontinued ibuprofen [Advil] 200 mg tablet 200 mg PO Q6H PRN (Reason: pain) Referrals / Follow Up: Ras Dial MD [Non-Staff -Ordering Privileges] - Within 2 Weeks Gertrudis Gage MD [Primary Care Provider] - Within 1 Week Disposition Disposition (needs filled in before D/C Order can be placed): Home, Self Care Charges/Coding Visit Charges Inpatient E&M: 60724 Disch Hosp >30min
--- NOTE | 2024-05-30 15:19 | DCINST_ITS ---
Discharge Instructions Diet Discharge Diet: Low fat / Low cholesterol Activity Discharge Activity: Return to Normal Activity Weight Bearing Status: Weight bearing as tolerated Dressing / Incision Call your doctor if you observe: Fever of 101 or Higher, Shortness of breath, Dizziness and - (worsening numbness and weakness of LUE) Follow Up Care Test Results: Test results from this visit will be discussed in further detail at your follow- up appointment, if applicable. Discharge Plan Admission Admit Date/Time: 05/29/24 18:47 Primary Reason for Your Visit: left arm numbness Attending Provider: Macey Hagen Primary Care Provider: Gertrudis Gage Consulting Providers: Oscar Booker; Mohit Summers; Elmira Bobby; Hellen Zacarias; Grisel Mccann; Tom Scott; Rhea Mayen; Rajan King; Miguelangel Nava; Jeffery Curran; Janelle Gallego; Remigio Vigil; Nya Chamberlain; Evi Arreaga; Chanelle Cox; Billy Mccrary; Javier Echevarria; Veto Horn; Eryn Marc; Alicia Doherty; Dajuan Calvo Instructions Patient Instructions: TIA Dc Discharge Orders/Prescriptions Prescriptions: New aspirin 81 mg Tablet,Chewable 81 mg PO BREAKFAST Qty: 30 1RF Continued amlodipine 5 mg tablet 5 mg PO DAILY rosuvastatin 10 mg tablet 10 mg PO DAILY metoprolol succinate 50 mg tablet extended release 24 hr 50 mg PO DAILY lisinopril-hydrochlorothiazide 20-25 mg tablet 1 tab PO DAILY lidocaine-prilocaine 2.5-2.5 % cream 1 applic topical ONCE PRN (Reason: port access) 30 Days Qty: 30 2RF ondansetron 8 mg tablet,disintegrating 8 mg PO Q8H PRN (Reason: nausea and vomiting) Qty: 30 2RF prochlorperazine maleate 10 mg tablet 10 mg PO Q6H PRN (Reason: nausea and vomiting) Qty: 30 2RF pantoprazole 40 mg tablet,delayed release (DR/EC) 40 mg PO DAILY Qty: 30 1RF Discontinued ibuprofen [Advil] 200 mg tablet 200 mg PO Q6H PRN (Reason: pain) Referrals / Follow Up: Ras Dial MD [Non-Staff -Ordering Privileges] - Within 2 Weeks Gertrudis Gage MD [Primary Care Provider] - Within 1 Week Disposition Disposition (needs filled in before D/C Order can be placed): Home, Self Care
--- NOTE | 2024-05-30 15:36 | CASEMGMT ---
Patient has order for discharge. RN CM in to discuss needs at discharge, family at bedside. Patient denies needs or help at discharge. Patient had no further questions or concerns.
--- NOTE | 2024-05-30 16:10 | NEURO.CONS ---
Assessment and Plan: Neuro Assessment/Plan HECTOR LUIS is a 58 F with a past medical history of breast cancer being actively treated with chemo, being evaluated by Teleneurology for acute onset vertigo and L arm parasthesias. Pt denies headaches and there is no history of metastatic disease. Acute onset and persistence suggests there is a lesion present. There could be peripheral cause for neuropathy in the L arm, however usually chemo induced neuropathy is usually length dependent. At this time, exam with L sided weakness and in the setting of normal MRI Brain 3 days into symptoms, likely there is no stroke present. Given history, biggest concern is for metastatic disease. - recommend MRI Brain with con and MRI Cervical spine w/wo con I personally attended this patient and spent a total time of 45minutes evaluating this patient including clinical assessment, review of chart, medical history imaging, and determining appropriate treatment and workup. HPI Consult Data Date of Consult: 05/30/24 HPI Narrative HPI Narrative: HECTOR LUIS, is a 58 F who presents with a 3-day history of dizziness and left arm paresthesias. States that his been more or less persistent, with the paresthesias, but does slightly wax and wane somewhat but still remains constant. Also has been feeling dizzy during this time. States that she feels dizzy whenever she opens her eyes. Never had symptoms like this in the past, however patient did have a TIA in 2017 where she had a left arm and leg weakness. She denies any involvement of her leg at this time. Patient presented to the emergency room where she did have a CTA of the head and neck that was unremarkable. The hospitalist service was contacted for admission for further evaluation. 58-year-old woman had screening mammogram on 10/11/2023 at [facility], it showed 2 nodules in the right breast. Ultrasound of the right breast on 10/16/2023 showed 2 nodules in the 11 and 12 o'clock positions, 1 is 21 mm the other 1 is 24 mm. Ultrasound-guided biopsy of the 2 nodes on 11/21/2023 showed invasive ductal carcinoma at the 11 o'clock position, invasive ductal carcinoma at 12 o'clock position, ER 81 to 91% positive, CT 2% positive, HER2 2+. She has seen Dr. Polo. Bone scan on 12/14/2023 showed no evidence of metastatic disease. CT scan on 12/17/2023 showed no evidence of metastatic disease. MRI of the breasts on 12/18/2023 showed irregular enhancing mass in the upper outer quadrant of right breast 3.5 cm, 11 mm enhancing mass in the left breast at 12 o'clock position. No abnormal lymph nodes noted. She saw Dr. Padilla and was referred for image guided biopsy of the left breast at [facility] in [place]. Pathology was negative. She had right breast lumpectomy and sentinel node biopsy on 02/04/2024. Pathology showed invasive ductal carcinoma, grade 2, tumor size 36 mm single focus of invasive carcinoma, no lymphovascular invasion, margins negative, lymph nodes 7 negative, ER greater than 95% positive, CT positive 10%, HER2 1+. Pathologic staging pT2 pN0. She is therefore diagnosed with prognostic stage IB right breast invasive ductal carcinoma. Port placed on 03/12/2024. Began adjuvant chemotherapy with TC on 03/13/24. Bilateral venous dopplers obtained 04/19/2024 negative for DVT. Completed cycle 4 on 05/15/24. Neurologic History Pt was at work when symptoms started. Had a TIA in 2018, since then she will have intermittent numbness that is mostly int he L hand. Continues to still feel the numbness. The dizziness is better today. When had dizziness is described as room spinning and had lightheadedness. Had dizziness first when woke up . Never had this type of dizziness before. Today is a lot better because of potassium replaceemnt. Did not have headache with symptomss. Numbness just the arm and hand shoulder down. Pins and needles feelings. The arm is moving well, feels odd. Denies any neck pain. Finished chemo 2 weeks ago last sunday. Patient with breast cancer, started chemo in middle january. Has had MRI Brain prior to chemo that was normal. Pt denies any numbness or tingling in the feet FOR[facility]LY [facility], [facility] Medical History LUE numbness Bone pain due to G-CSF CINV (chemotherapy-induced nausea and vomiting) Diarrhea due to drug Hypokalemia Port-A-Cath in place Encounter for education Invasive ductal carcinoma of right breast Obesity Hyperlipidemia Major depression Anxiety TIA (transient ischemic attack) Essential hypertension GERD (gastroesophageal reflux disease) Osteoarthritis Tobacco use History of sarcoidosis Breast cancer Home Medications ?Medication ?Instructions ?Recorded ?Last Taken ?Type amlodipine 5 mg tablet 5 mg PO DAILY blood pressure 12/07/23 05/29/24 History lisinopril 20 1 tab PO DAILY blood pressure 12/07/23 05/29/24 History mg-hydrochlorothiazide 25 mg tablet metoprolol succinate 50 mg 50 mg PO DAILY blood pressure 12/07/23 05/29/24 History tablet,extended release 24 hr rosuvastatin 10 mg tablet 10 mg PO DAILY cholesterol 12/07/23 05/29/24 History lidocaine-prilocaine 2.5 %-2.5 % 1 applic topical ONCE PRN port 03/10/24 05/29/24 Rx topical cream access 30 days #30 grams ondansetron 8 mg disintegrating 8 mg PO Q8H PRN nausea and 03/10/24 05/29/24 Rx tablet vomiting #30 tabs prochlorperazine maleate 10 mg 10 mg PO Q6H PRN nausea and 03/10/24 05/29/24 Rx tablet vomiting #30 tabs pantoprazole 40 mg tablet,delayed 40 mg PO DAILY reflux #30 TABLETS 05/27/24 05/29/24 Rx release aspirin 81 mg chewable tablet 81 mg PO BREAKFAST #30 tabs 05/30/24 Unknown Rx Allergy/AdvReac Type Severity Reaction Status Date / Time Latex, Natural Rubber Allergy Unknown hives Verified 05/29/24 16:09 Family History Father Elevated platelet count Basal cell carcinoma Hypertension Macular degeneration Mother Hypertension Surgical History History of lumpectomy History of tonsillectomy and adenoidectomy H/O: hysterectomy History of lung surgery S/P breast lumpectomy Social History Smoking Status: Never smoker alcohol intake: current alcohol intake frequency: other details: occassional substance use type: does not use Vital Signs Vital Signs Vital Signs: 05/29/24 16:28 05/29/24 16:28 05/29/24 18:09 Temperature Temperature Source Pulse Rate 85 Respiratory Rate 20 H Respiratory Effort Normal Non-Labored Respiratory Depth Respiratory Pattern Blood Pressure 103/65 Blood Pressure Mean 77 Blood Pressure Source Blood Pressure Position Blood Pressure Location Pulse Ox 96 Oxygen Delivery Method Room Air 05/29/24 18:30 05/29/24 19:00 05/29/24 19:30 Temperature Temperature Source Pulse Rate 85 88 74 Respiratory Rate 15 18 18 Respiratory Effort Respiratory Depth Respiratory Pattern Blood Pressure 103/65 111/72 99/62 Blood Pressure Mean 77 85 74 Blood Pressure Source Blood Pressure Position Blood Pressure Location Pulse Ox 95 95 99 Oxygen Delivery Method Room Air 05/29/24 19:34 05/29/24 20:00 05/29/24 20:00 Temperature 97.9 F 97.4 F L Temperature Source Temporal Pulse Rate 74 84 Respiratory Rate 18 18 Respiratory Effort Normal Non-Labored Respiratory Depth Normal Respiratory Pattern Normal Blood Pressure 99/62 107/71 Blood Pressure Mean 74 83 Blood Pressure Source Monitor Blood Pressure Position Blood Pressure Location Pulse Ox 99 99 Oxygen Delivery Method Room Air 05/30/24 00:00 05/30/24 00:10 05/30/24 02:00 Temperature 97.1 F L Temperature Source Temporal Pulse Rate 73 Respiratory Rate 14 Respiratory Effort Normal Non-Labored Respiratory Depth Normal Respiratory Pattern Normal Blood Pressure 97/59 L Blood Pressure Mean 71 Blood Pressure Source Monitor Blood Pressure Position Blood Pressure Location Pulse Ox 93 95 Oxygen Delivery Method Room Air Room Air 05/30/24 04:00 05/30/24 07:28 05/30/24 08:00 Temperature 96.9 F L 97.7 F L Temperature Source Temporal Temporal Pulse Rate 70 80 Respiratory Rate 14 16 Respiratory Effort Respiratory Depth Respiratory Pattern Blood Pressure 116/75 103/69 Blood Pressure Mean 88 80 Blood Pressure Source Monitor Monitor Blood Pressure Position Sitting Blood Pressure Location Left Arm Pulse Ox 92 95 97 Oxygen Delivery Method Room Air Room Air Room Air 05/30/24 08:00 05/30/24 08:23 05/30/24 14:00 Temperature 97.7 F L Temperature Source Oral Pulse Rate 80 81 Respiratory Rate 16 Respiratory Effort Normal Non-Labored Respiratory Depth Normal Respiratory Pattern Normal Blood Pressure 103/69 92/65 Blood Pressure Mean 74 Blood Pressure Source Monitor Blood Pressure Position Semi-Fowlers Blood Pressure Location Left Arm Pulse Ox 98 Oxygen Delivery Method Room Air Room Air 05/30/24 14:00 Temperature Temperature Source Pulse Rate Respiratory Rate Respiratory Effort Normal Non-Labored Respiratory Depth Normal Respiratory Pattern Normal Blood Pressure Blood Pressure Mean Blood Pressure Source Blood Pressure Position Blood Pressure Location Pulse Ox Oxygen Delivery Method Room Air Weight Weight: 68.4 kg Body Mass Index (BMI) 27.6 EEG Results Procedure Details EEG Procedure Details: HECTOR LUIS is a 58 year old F with a past medical history of , who presents for evaluation of Electroencephalogram on DATE at TIME NIHSS NIHSS Nursing Documentation NIHSS Nursing Documentation: NIHSS: Ischemic Stroke/TIA Start: 05/29/24 20:25 Text: For PCU Patients: NIH and Neuro Check every 4 Status: Complete hours, PRN and with change in RN caregiver. Freq: Q4H Protocol: Activity Type Activity Date Activity User E-sign Co-sign Detail Recorded Client Recorded Date Recorded By Document 05/30/24 08:00 [id number] 05/30/24 08:11 05/30/24 08:00 NIH Stroke Scale [NIHSS] A score of 0 is normal or asymptomatic . Total possible score is 42. Inpatient: RN or Physician to activate a stroke alert for onset of new stroke symptoms or with NIHSS increase >/= 3 points. Following change in neurological status, NIHSS will be performed per physician order or more frequently PRN. -1a. Level of Consciousness Alert; keenly responsive -1b. LOC Questions Answers BOTH questions correctly. -1c. LOC Commands Performs both tasks correctly . -2. Best Gaze Normal -3. Visual No visual loss -4. Facial Palsy Normal symmetrical movements -5a. Left Arm No drift; arm holds 90 (or 45 ) degrees for full 10 seconds -5b. Right Arm No drift; arm holds 90 (or 45 ) degrees for full 10 seconds -6a. Left Leg No drift; leg holds 30-degree position for full 5 seconds -6b. Right Leg No drift; leg holds 30-degree position for full 5 seconds -7. Limb Ataxia Absent -8. Sensory Mild-to- moderate sensory loss; -9. Best Language No aphasia; normal -10. Dysarthria Normal -11. Extinction and Inattention No abnormality -Total 1 Query Text:A score of 0 is normal or asymptomatic. Total possible score is 42 . ED: Notify Physician for NIHSS increase by > / = 3 points. Inpatient: RN or Physician to activate a stroke alert for NIHSS increase of > / = 3 points. Coma Scale [Assess] -Eye Opening Spontaneous -Motor Obeys Commands -Verbal Oriented [Total] -Coma Scale Total 15 Physical Exam Narrative -? General: Laying comfortably in bed; in no acute distress. -? HENT: Normal oropharynx and mucosa. Normal external appearance of ears and nose. Exophthalmos. -? Neck: Supple, no pain or tenderness -? CV:? No peripheral edema. -? Pulmonary:? Normal respiratory effort. -? Ext: No cyanosis, edema, or deformity -? Skin: No rash. Normal palpation of skin.? -? Musculoskeletal: full range of motion; no joint tenderness. Normal digits and nails by inspection. No clubbing. -? NEURO: -? Mental Status: The patient was alert and oriented to time, place, and person. Normal recent/remote memory, concentration, and general fund of knowledge. -? Language: speech is clear? Naming, repetition, fluency, and comprehension intact. -? Cranial Nerves: PERRL 4 mm/brisk. EOMI, visual dominguez full, no facial asymmetry, facial sensation intact, hearing intact, tongue midline, no evidence of atrophy or fibrillations -? Motor: normal bulk, tone, and strength throughout. No pronator drift or satelliting. Upper and lower extremities equal bilaterally. -?Detailed strength exam as performed by the nurse/ROSI and witnessed by the physician: R L SA 5 4 EE 5 5 EF 5 4 WE WF Funeral Counselor HF 5 4 KE KF 5 5 DF 5 4 PF 5 5 -? Tone: is normal and bulk is normal -? Sensation- Intact to light touch bilaterally -? Coordination: No dysmetria on [id number], finger follow finger or [id number]. -? Gait- deferred Lab / Micro Data 05/30/24 04:00 Labs: Laboratory Results - last 24 hr 05/29/24 16:40: PT 13.4, INR 1.0, APTT 27.3, Troponin I High Sens 6 05/30/24 04:00: Sodium 140, Potassium 3.1 L, Chloride 106, Carbon Dioxide 31.0, Anion Gap 3 L, BUN 13, Creatinine 0.76, Estim Creat Clear Calc 71.36, Est GFR (MDRD) Af Amer 100, Est GFR (MDRD) Non-Af 83, BUN/Creatinine Ratio 17.1, Glucose 100, Calcium 8.8, Triglycerides 152, Cholesterol 115, LDL Cholesterol 59, VLDL Cholesterol 30, HDL Cholesterol 26 L Imaging Radiology Impression Head/Neck CTA 05/29/24 16:28 IMPRESSION: Normal CTA Head and neck with contrast. Electronically Signed: Antony Fermin MD at 18:22 EDT Reading Location ID and State: [facility] / [place] Tel , Service support , Chest X-Ray 05/29/24 17:05 IMPRESSION: New left Mediport. No pneumothorax. Electronically Signed: Antony Fermin MD at 17:37 EDT , Brain MRI 05/29/24 20:25 IMPRESSION: No evidence for acute infarct. Mild chronic small vessel ischemic gliosis. Electronically Signed: Kanwal Johnson MD at 11:44 EDT , Active Medications Active Medications Active Medications: Current Medications Generic Name Dose Route Start Last Admin Trade Name Freq PRN Reason Stop Dose Admin Acetaminophen 650 mg 05/29/24 20:25 Acetaminophen 325 Mg Tablet PO Q6H PRN PRN Pain 1-10 Or Fever>100.7 Amlodipine Besylate 5 mg 05/30/24 10:00 05/30/24 08:33 Amlodipine 5 Mg Tablet PO 5 mg DAILY NATI Administration Protocol Aspirin 81 mg 05/30/24 08:00 05/30/24 08:33 Aspirin 81 Mg Tab.Chew PO 81 mg BREAKFAST NATI Administration Atorvastatin Calcium 20 mg 05/30/24 10:00 05/30/24 08:33 Atorvastatin Calcium 20 Mg Tablet PO 20 mg DAILY NATI Administration Heparin Sodium (Beef Lung) 50 units 05/29/24 20:05 Heparin Pf Lock 10 Units/Ml 50 Units/5 Ml Syringe IV UD PRN Port-a-Cath (VAD)Heparin Flush Hydralazine HCl 5 mg 05/29/24 20:25 Hydralazine 20 Mg/Ml Vial IV 05/30/24 20:25 Q30M PRN maintain BP parameters with HR <60 Labetalol HCl 10 - 20 mg 05/29/24 20:25 Labetalol (Prefilled) 20 Mg/4 Ml Vial IV 05/30/24 20:25 Q10M PRN PRN maintain BP parameters with HR >/=60 Lidocaine/Prilocaine 1 gm 05/29/24 20:25 Lidocaine/Prilocaine Hcl 5 Gm Tube TOPICAL DAILY PRN PORT ACCESS Protocol Meclizine HCl 12.5 mg 05/29/24 20:25 Meclizine 12.5 Mg Tablet PO 4X/DAY PRN PRN DIZZINESS Metoprolol Succinate 50 mg 05/30/24 10:00 05/30/24 08:23 Metoprolol(Xl)Succ 50 Mg Tablet PO Not Given DAILY [facility] Protocol Ondansetron HCl 8 mg 05/29/24 20:34 Ondansetron Odt 4 Mg Tablet PO Q8H PRN nausea and vomiting Ondansetron HCl 4 mg 05/29/24 20:25 Ondansetron 4 Mg/2 Ml Vial IV Q8H PRN PRN NAUSEA/VOMITING Pantoprazole Sodium 40 mg 05/30/24 10:00 05/30/24 08:33 Pantoprazole Sodium 40 Mg Tablet PO 40 mg DAILY NATI Administration Prochlorperazine Maleate 10 mg 05/29/24 20:34 Prochlorperazine 5 Mg Tablet PO Q6H PRN nausea and vomiting Sertraline HCl 25 mg 05/30/24 10:00 05/30/24 08:24 Sertraline 50 Mg Tablet PO Not Given DAILY NATI Sodium Chloride 10 - 40 ml 05/29/24 20:05 0.9 % Nacl (Sterile) Posiflush 10 Ml IV UD PRN Port access or dressing change Sodium Chloride 10 - 40 ml 05/29/24 20:05 0.9% Saline Lock 10 Ml Syringe IV UD PRN Port-a-Cath (VAD) Flush
--- NOTE | 2024-05-30 16:50 | MRI_ITS ---
EXAM: MR CERVICAL SPINE WITHOUT AND WITH INTRAVENOUS CONTRAST CLINICAL INDICATION: left arm weakness in setting of breast cancer TECHNIQUE: Multiplanar and multisequence MR images of the cervical spine without and with intravenous contrast were performed. CONTRAST: 14 cc of Clariscan IV. COMPARISON: No relevant prior studies available. FINDINGS: VERTEBRAE: Unremarkable. Normal vertebral bodies and posterior elements. Normal alignment. Normal craniocervical junction and cervicothoracic junction. No spondylolisthesis. There is preservation of the normal cervical lordosis. SPINAL CORD: Unremarkable in signal and morphology. SOFT TISSUES: Unremarkable. No prevertebral soft tissue swelling. LYMPH NODES: Unremarkable. There is no cervical adenopathy. /SPINAL CANAL/NEURAL FORAMINA: C2-C3: Unremarkable. Normal disc height and morphology. Normal spinal canal. Normal neuroforamina. C3-C4: Unremarkable. Normal disc height and morphology. Normal spinal canal. Normal neuroforamina. C4-C5: Mild disc space narrowing. Slight generalized disc bulge. No spinal canal or foraminal stenosis. C5-C6: Disc space narrowing. Mild generalized disc bulge. No spinal stenosis. Moderate left neural foraminal narrowing due to uncovertebral joint osteophytes. C6-C7: Moderate disc space narrowing. Mild generalized disc bulge. No spinal canal or foraminal stenosis. C7-T1: Unremarkable. Normal disc height and morphology. Normal spinal canal. Normal neuroforamina. MRI/Spine Cervical W/WO Contrast IMPRESSION: 1. No metastatic disease. 2. C5-C6 mild spondylosis without spinal stenosis. Moderate left neural foraminal narrowing due to uncovertebral joint osteophytes. 3. C6-C7 mild spondylosis and mild generalized disc bulge. No spinal canal or foraminal stenosis. 4. C4-C5 mild spondylosis. No spinal canal or foraminal stenosis. Electronically Signed: Abhi Moon MD at 2:05 EDT ,
--- NOTE | 2024-05-30 16:50 | MRI_ITS ---
EXAM: MR HEAD WITH INTRAVENOUS CONTRAST CLINICAL INDICATION: left arm weakness, HX OF CANCER, PREVIOUS WITHOUT BRAIN DONE TODAY TECHNIQUE: Multiplanar and multisequence MR images of the brain were obtained with intravenous contrast. CONTRAST: 14 cc of Clariscan IV. COMPARISON: MRI brain without contrast 05/30/2024 at 10:25 AM. FINDINGS: BRAIN AND EXTRA-AXIAL SPACES: Unremarkable. No intra- or extra-axial hemorrhage. No evidence of acute infarct. No intracranial mass or mass effect. There is preservation of the morrell/white matter interface. Posterior fossa structures are unremarkable. Ventricles are appropriate for age. No hydrocephalus. Basal cisterns are patent. No abnormal enhancement postgadolinium. SELLA: Unremarkable. Normal sella turcica, pituitary gland, infundibular stalk, optic chiasm and hypothalamus. AUDITORY SYSTEM: Unremarkable. The internal auditory canals are patent. BONES/JOINTS: Unremarkable. No discrete lytic or blastic abnormalities. SINUSES: Unremarkable as visualized. Clear. MASTOID AIR CELLS: Unremarkable as visualized. Clear. ORBITS: Unremarkable as visualized. Both globes, extraocular muscles, optic nerves and retrobulbar fat appear unremarkable. VASCULATURE: Unremarkable as visualized. Normal flow voids in the major intracranial circulation. MRI/Brain WITH Contrast IMPRESSION: Normal brain. No abnormal enhancement post gadolinium. Electronically Signed: Abhi Moon MD at 23:13 EDT ,
--- NOTE | 2024-05-30 16:52 | PN_ITS ---
Subjective Subjective Patient seen and examined. She had no complaints. She still did have the left upper extremity numbness. Review of systems otherwise negative. She did have the CT of the brain which showed no evidence of a stroke. MRI of the brain without contrast was also negative for any evidence of stroke. However neurology reviewed and is worried about a possible mets and so wants MRI with and without contrast. Objective Data Objective Data Vital Signs: Vital Signs Temp Pulse Resp BP Pulse Ox O2 Del Method 97.7 F L 81 16 92/65 98 Room Air 05/30/24 14:00 05/30/24 14:00 05/30/24 14:00 05/30/24 14:00 05/30/24 14:00 05/30/24 14:00 Oxygen Delivery Method Room Air Weight: 150 lb 12.739 oz Body Mass Index (BMI) 27.6 Intake & Output: Intake and Output for Last 24 Hours 05/28/24 05/29/24 05/30/24 23:59 23:59 23:59 Intake Total 480 / 480 Balance 480 / 480 Lab / Micro Data 05/30/24 04:00 Labs: Laboratory Results - last 24 hr 05/29/24 16:40: PT 13.4, INR 1.0, APTT 27.3, Troponin I High Sens 6 05/30/24 04:00: Sodium 140, Potassium 3.1 L, Chloride 106, Carbon Dioxide 31.0, Anion Gap 3 L, BUN 13, Creatinine 0.76, Estim Creat Clear Calc 71.36, Est GFR (MDRD) Af Amer 100, Est GFR (MDRD) Non-Af 83, BUN/Creatinine Ratio 17.1, Glucose 100, Calcium 8.8, Triglycerides 152, Cholesterol 115, LDL Cholesterol 59, VLDL Cholesterol 30, HDL Cholesterol 26 L Radiography Diagnostic Testing: Radiology Impression Head/Neck CTA 05/29/24 16:28 IMPRESSION: Normal CTA Head and neck with contrast. Electronically Signed: Antony Fermin MD at 18:22 EDT , Chest X-Ray 05/29/24 17:05 IMPRESSION: New left Mediport. No pneumothorax. Electronically Signed: Antony Fermin MD at 17:37 EDT , Brain MRI 05/29/24 20:25 IMPRESSION: No evidence for acute infarct. Mild chronic small vessel ischemic gliosis. Electronically Signed: Kanwal Johnson MD at 11:44 EDT , Physical Exam Const alert, oriented x3, no apparent distress and well nourished General Appearance: cooperative and well developed HEENT normocephalic, head/scalp atraumatic and moist oral mucous membranes Eyes PERRL and EOMs intact bilaterally Neck no lymphadenopathy and supple Lymph Lymphatic: no lymphadenopathy noted and no lymphedema noted Resp normal respiratory effort, normal air movement and clear to auscultation bilaterally Cardio regular rate, regular rhythm, S1 normal heart sound, S2 normal heart sound and no murmurs GI normal to inspection, nondistended, normoactive bowel sounds, soft to palpation, non-tender and non-distended Extremity normal capillary refill, no clubbing, cyanosis or edema and no calf tenderness General Extremity: no tenderness to palpation of joints or extremities Neuro CN's II-XII intact bilaterally and no focal motor deficits Neuro Narrative: mild sensory deficit of the LUE Motor Exam: strength 5/5 throughout and general weakness Psych thought process normal, cooperative and affect normal Appearance: appropriate Assessment & Plan Assessment/Plan (1) LUE numbness: (2) Vertigo: PLAN: Plan # Strokelike symptoms * Patient admitted for left upper extremity numbness with started a few days ago. * CT of the brain showed no acute intracranial pathology. MRI of the brain without contrast also showed no evidence of a stroke. * Neurology reviewed patient and is concerned about possible mets and so wants MRI with and without contrast of the brain as well as the cervical spine. * PT OT on board. * Urinalysis also ordered. Neurology. * #Vertigo: Currently improved. Feels much better. MRI of the brain with and without contrast pending. #Hypokalemia: Had been having diarrhea at home so this may be the cause. Will monitor. Potassium today is 3.1. Will replace and trend. #Leukocytosis: WBC is 12.1. Unclear why. Urinalysis ordered and pending. # Hypertension: On lisinopril and hydrochlorothiazide as well as metoprolol and amlodipine. DVT prophylaxis; SCDs. Code status: full code Charges/Coding Visit Charges Inpatient E&M: 21571 Subs Hosp L2
[2024-05-31 03:45] VITALS: BP 124/78; PULSE 76; RESP 18; TEMP 36.5; O2SAT 98
[2024-05-31 06:47] LABS: Absolute Lymphocyte Count 1.42 X10^3/uL (0.83-4.51); Basophil# 0.06 X10^3/uL; Eosinophil# 0.01 X10^3/uL; Eosinophils% 0.2 % (0-5); Hematocrit 28.9 % (37-47); Hemoglobin 9.5 g/dL (12.0-15.0); Lymphocyte # 1.42 X10^3/ul (0.83-4.51); Lymphocyte % 24.2 % (19-41); Mean Corp Hgb Conc 32.9 g/dL (32-36); Mean Corpuscular Hgb 29.7 pg (27.0-32.0); Mean Corpuscular Volume 90.3 fL (81-99); Mean Platelet Vol. 10.6 fl (6.2-12.0); Monocyte# 0.39 X10^3/uL; Monocyte% 6.6 % (0-10); NRBC Flagged by Analyzer 0 % (0-5); Neutrophil # 3.95 X10^3/uL (2.7-7.7); Neutrophil % 67.3 % (47-70); POSITIVE MORPHOLOGY YES; Platelet Count 202 K/mm3 (150-450); RBC Distribution Width CV 18.3 % (11.6-14.6); White Blood Count 5.9 K/mm3 (4.4-11.0)
[2024-05-31 06:50] LABS: Differential Indicated SCAN CRITERIA MET
[2024-05-31 07:16] LABS: Anion Gap 2 (5-15); BUN 18 mg/dL (7-18); BUN/Creat Ratio 25.4 RATIO (10-20); Calcium,Total 8.9 mg/dL (8.5-10.1); Chloride 111 mmol/L (98-107); Creatinine, Serum 0.71 mg/dL (0.55-1.02); EST Glomerular Filtration Rate 89 mL/min (>60); Est Glom Filt Rate - Afr Amer 108 mL/min (>60); Estimated Creatinine Clearance 76.38 ml/min; Glucose 96 mg/dL (74-106); Potassium 4.1 mmol/L (3.5-5.1); Sodium Level 142 mmol/L (136-145)
[2024-05-31 07:20] LABS: Reactive Lymphocyte 2+
[2024-05-31 08:32] VITALS: O2SAT 95
[2024-05-31 10:06] VITALS: BP 126/74; PULSE 76; RESP 18; TEMP 36.4; O2SAT 97
[2024-05-31 10:10] VITALS: PULSE 76
[2024-05-31] MEDS: amLODIPine 5 MG Tablet PO (10:10)
[2024-05-31] MEDS: Metoprolol(XL)Succ 50 MG Tablet PO (10:10)
[2024-05-31] MEDS: Pantoprazole Sodium 40 MG Tablet PO (10:10)
[2024-05-31] MEDS: Aspirin 81 MG TAB.CHEW PO (10:10)
[2024-05-31] MEDS: Atorvastatin Calcium 20 MG Tablet PO (10:12)
[2024-05-31] MEDS: 0.9 % NaCl (Sterile) Posiflush 10 mL IV (11:18)
== END 2024-05-31 10:44 | disposition home or self-care (01) ==
LOC: ED 17:14 → PCU 19:01
PROVIDERS: Emergency Provider Emergency Medicine; PCP Student in an Organized Health Care Education/Training Program; Visit Provider Student in an Organized Health Care Education/Training Program
DX: E87.6 Hypokalemia (principal); C50.911 Malignant neoplasm of unspecified site of right female breast; R29.898 Other symptoms and signs involving the musculoskeletal system; I10 Essential (primary) hypertension; E78.5 Hyperlipidemia, unspecified; Z92.21 Personal history of antineoplastic chemotherapy; D64.9 Anemia, unspecified; R42 Dizziness and giddiness; R20.0 Anesthesia of skin; Z79.899 Other long term (current) drug therapy; F17.210 Nicotine dependence, cigarettes, uncomplicated; Z86.73 Personal history of transient ischemic attack (TIA), and cerebral infarction without residual deficits; I49.3 Ventricular premature depolarization
CPT/HCPCS: 36591; 70496; 70498; 70551; 70552; 71045; 72156; 80048; 80061; 84484; 85025; 85610; 85730; 93005; 93308; 94762; 96372; 97162; 97165; 97802; 99221; 99285; A9575; Q9967; A4216; G0378

== ENCOUNTER 2024-09-27 11:00 | Emergency (ER) | payer BC, SELFPAY ==
[2024-09-27 11:00] VITALS: BP 139/97; PULSE 99; RESP 18; TEMP 36.3; O2SAT 91; BMI 27.7
--- NOTE | 2024-09-27 11:21 | EDS_ITS ---
<Statement entered by Luis Carlos Simons DO - 09/27/24 15:07> Patient was seen and examined with nurse juan pablo Daniel All components of the history and physical confirmed and agreed. History of present illness and physical exam: Patient is a 58-year-old female past medical history of breast cancer finished chemotherapy at the end of April and radiation June, depression, anxiety, TIA, hypertension, GERD who presents to the emergency department with a chief complaint of headache and not feeling well for the past 3 to 4 days. States that at work several work members have been ill with similar symptoms. She states that 3 days ago she developed a headache that had come on gradually and notes that she attempt take [id number] medication it was not improving therefore she came here for the valuation management. Review of systems: Agree with above Physical exam: Agree with above will add on patient completed finger-nose test and [id number] test bilaterally thigh difficulty and patient has full range of motion of her neck no concern for meningitis MDM Patient is a 58-year-old female who presented to the emerged part with a chief complaint of headache and generalized not feeling well. On the differential diagnose includes but limited to intracranial hemorrhage, COVID, flu, other viral illness, electrolyte abnormality, dehydration, tension headache, migraine headache. Once workup is obtained reviewed she will be reevaluated. Patient CBC was reviewed showed no evidence leukocytosis white blood count was noted be 3.5, hemoglobin 13.7, platelet count was noted be 181. Patient's absolute neutrophil count was noted be 1.7. Patient's ESR normal at 22, CRP was noted to be 13. Patient sodium normal 130, potassium normal at 3.2, creatinine was normal at 0.91. Patient AST and ALT were 32 and 25 respectively. Patient chest x-ray reviewed by myself by radiology showed no acute cardiopulmonary processes. Patient CTA head and neck showed no hemodynamically significant stenosis. Patient was originally given morphine Zofran for her pain. On reevaluation patient she was still having pain noted therefore migraine cocktail was added on Reglan, Benadryl, Toradol. Reevaluation of the patient she is feeling better. Patient did test positive for influenza A. She would like to go home at this point time. She is encouraged to continue supportive care and return with worsening symptoms or concerns. She is vies follow-up with primary care physician outpatient setting. All question concerns answered she was discharged home in stable condition. Final impression: Headache Influenza A Disposition: Patient will be discharged home in stable condition Supervising attending attestation: Luis Carlos LEONE History of Present Illness Chief Complaint: Headache Narrative Narrative: Patient is a 58-year-old female with history of breast cancer, recently finishing chemotherapy at the end of April, radiation in June. 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 She states the pain is always there however there are some shooting sensations which she describes as stabbing. She states she does have nausea. She denies any neurological symptoms. Patient does have a cough however no fever chills [facility] Medical History (Updated 09/27/24 @ 13:47 by WILEY Chino) Osteopenia LUE numbness Bone pain due to G-CSF CINV (chemotherapy-induced nausea and vomiting) Diarrhea due to drug Hypokalemia Port-A-Cath in place Encounter for education Invasive ductal carcinoma of right breast Obesity Hyperlipidemia Major depression Anxiety TIA (transient ischemic attack) Essential hypertension GERD (gastroesophageal reflux disease) Osteoarthritis Tobacco use History of sarcoidosis Breast cancer Home Medications ?Medication ?Instructions ?Recorded ?Last Taken ?Type amlodipine 5 mg tablet 5 mg PO DAILY blood pressure 12/07/23 05/29/24 History metoprolol succinate 50 mg 50 mg PO DAILY blood pressu re 12/07/23 05/29/24 History tablet,extended release 24 hr rosuvastatin 10 mg tablet 10 mg PO DAILY cholesterol 0 12/07/23 05/29/24 History lisinopril 20 0.5 tab PO DAILY blood press ure 07/02/24 Unknown History mg-hydrochlorothiazide 25 mg tablet anastrozole 1 mg tablet 1 mg PO DAILY #90 tabs 08/25 Unknown Rx Allergy/AdvReac Type Severity Reaction Status Date / Time Latex, Natural Rubber Allergy Unknown hives Verified 09/27/24 11:00 Family History Father Elevated platelet count Basal cell carcinoma Hypertension Macular degeneration Mother Hypertension Surgical History History of lumpectomy History of tonsillectomy and adenoidectomy H/O: hysterectomy History of lung surgery S/P breast lumpectomy Social History Smoking Status: Current every day smoker tobacco type: cigarettes alcohol intake: current alcohol intake frequency: other details: occassional substance use type: does not use ROS ROS ED ROS Narrative Constitutional: Negative for fever, chills, weight loss. Positive for weakness Eyes: Negative for vision loss, vision change, double vision ENT: Negative for any sore throat, ear pain, congestion Cardiovascular: Negative for any chest pain, tightness, palpitations Respiratory: Negative for any sputum production, hemoptysis, dyspnea, dyspnea on exertion, orthopnea. Positive for cough Gastrointestinal: Negative for any abdominal pain, nausea, vomiting, diarrhea, constipation, blood in stool, blood in vomit : Negative for any urinary frequency, dysuria, retention, blood in urine Muscle skeletal: Negative for any neck pain, back pain Neurological: Negative for any syncope, dizziness. Positive for headache Skin: Negative for any rashes, itching, abrasions, lacerations Psychiatric: Negative for any depression, anxiety, stress, suicidal ideation, homicidal ideation Hematologic: Negative for any excessive bruising, easy bleeding EXAM Physical Exam Narrative Exam Narrative: Vital signs reviewed. HEET: Head normocephalic atraumatic, TMs clear bilaterally. Posterior pharynx is clear, moist mucous membranes. Nares clear bilaterally. Pupils are equal round reactive to light. There is no rash, right tympanic membrane looks well- appearing, there is no signs or symptoms of any infection. The skin the scalp looks well-appearing. Patient does have pain on palpation of her states the pain is also more internal. Neck: Supple with no lymphadenopathy or tenderness. No signs of meningismus. Cardiac: Regular rate and rhythm no murmurs gallops or rubs, equal peripheral pulses bilaterally. Respiratory: Patient does have expiratory wheezes the right upper lobe. No chest tenderness. Abdomen: Soft, nontender, nondistended. No abdominal bruit or pulsatile masses. No hepatosplenomegaly Extremities: No peripheral edema, no signs of gross trauma or deformity. Active full range of motion of all extremities. Neuro: Cranial nerves II through XII intact, no focal neurological deficits. NIH stroke scale 0 Skin: Clean dry and intact with no rash, purpura, petechiae, vesicles or pustules. Backs/flank: No CVA tenderness, no midline spinal tenderness, no deformity. Psych: Normal mood and affect. No SI, HI or acute psychosis. Const Vital Signs: 09/27/24 11:00 09/27/24 13:03 Temperature 97.4 F L Temperature Source Temporal Pulse Rate 99 78 Respiratory Rate 18 18 Blood Pressure 139/97 H 128/77 H Blood Pressure Mean 111 94 Pulse Ox 91 98 Oxygen Delivery Method Room Air Room Air Positive well nourished and well developed General Appearance ED: well developed MDM MDM Lab Data Labs: Laboratory Results - last 24 hr 09/27/24 11:30 WBC 3.5 L RBC 5.06 Hgb 13.7 Hct 41.7 MCV 82.4 MCH 27.1 MCHC 32.9 RDW Std Deviation 42.9 RDW Coeff of Buster 14.3 Plt Count 181 MPV 10.8 Immature Gran % (Auto) 0.600 Neut % (Auto) 49.7 Lymph % (Auto) 36.8 [place] % (Auto) 10.3 H Eos % (Auto) 2.0 Baso % (Auto) 0.6 Absolute Neuts (auto) 1.7 L Absolute Lymphs (auto) 1.28 Nucleated RBC % 0 ESR 22 Sodium 138 Potassium 3.2 L Chloride Direct 101 Carbon Dioxide 26.9 Anion Gap 11 BUN 15 Creatinine 0.91 Estim Creat Clear Calc 59.76 Est GFR (MDRD) Non-Af 73 BUN/Creatinine Ratio 16.2 Glucose 124 H Calcium 9.3 Total Bilirubin 0.20 AST 32 ALT 25 Alkaline Phosphatase 76 C-React Prot Ext Range 13.70 H Total Protein 7.0 Albumin 4.2 Globulin 2.9 Albumin/Globulin Ratio 1.5 Radiography Diagnostic Testing: Clinical Impression(s) from Imaging Studies Chest X-Ray 09/27/24 11:24 IMPRESSION: No radiographic evidence of acute cardiopulmonary disease Reading Location: [facility] Head/Neck CTA 09/27/24 11:52 IMPRESSION: No hemodynamically significant stenosis in the arteries of the head and neck. One or more dose reduction techniques were used (e.g., Automated exposure control, adjustment of the mA and/or kV according to patient size, use of iterative reconstruction technique). [facility] Treatment and Re-Evaluation :: Differential diagnosis includes however is not limited to: Giant cell arteritis, shingles, viral syndrome, brain mass, migraine headache, intracranial bleeding Patient appears generally well, vital signs are stable, patient is nontoxic- appearing. Presenting to the emerged part with complaints of right sided headache pain. Secondary to the patient's history of cancer, patient will see the CTA of the head and neck. Inflammatory markers will be ordered as well as basic labs. Patient be given IV morphine, Zofran. All radiologic examinations were read, reviewed by the emergency department attending. From these reads, a plan of care will be put in place. Patient will need to be reevaluated On reevaluation, the patient did not have much relief with the IV morphine. Patient's laboratory values showed a slight leukopenia with a white blood count 3.5, patient remainder of the CBC was unremarkable, sedimentation rate was negative. Chemistries were unremarkable, CRP was only slightly elevated 13.7, patient's chest x-ray was negative for any acute process. CTA of the head and neck shows no hemodynamically significant stenosis in the arteries of the head or neck. No intracranial aneurysm or large vascular malformations are identified. At this time, patient will be given a migraine cocktail, 10 mg of Reglan, IV Benadryl, IV Toradol. Patient will need to be reevaluated. On reevaluation, the patient felt improved. Patient was positive for influenza A. This does describe some the patient's symptoms. At this time, is no evidence of any tumor, giant cell arteritis. Patient will continue to stay hydrated, use [id number] Tylenol. She is happy the plan of care, all questions answered, stable for discharge. Discharge Plan Triage Chief Complaint: Headache ED Midlevel Provider: Fredy Ramos ED Provider: Luis Carlos Simons Dx/Rx/DC Orders Clinical Impression: Headache, Influenza A Instructions: Understanding Headache Pain, ED Influenza (Adult) Prescriptions: No Action amlodipine 5 mg tablet 5 mg PO DAILY rosuvastatin 10 mg tablet 10 mg PO DAILY metoprolol succinate 50 mg tablet extended release 24 hr 50 mg PO DAILY lisinopril-hydrochlorothiazide 20-25 mg tablet 0.5 tab PO DAILY anastrozole 1 mg tablet 1 mg PO DAILY Qty: 90 3RF Primary Care Provider: Gertrudis Gage Referrals: Gertrudis Gage MD [Primary Care Provider] - Activity Restrictions/Additional Instructions: You are positive for influenza A. Continue to take Tylenol, maintain hydration. Go home and rest today. Print Language: German Disposition Disposition: Home, Self Care
--- NOTE | 2024-09-27 11:24 | RAD_ITS ---
PROCEDURE: CHEST 1 VIEW (PORTABLE) REASON FOR EXAM: Cough TECHNIQUE: Frontal view of the chest. COMPARISON: 05/29/2024. FINDINGS: Left IJ chest port with tip in the SVC/right atrial junction The heart size is normal. The mediastinal contour is unremarkable. The lungs are clear. The bones are unremarkable. RAD/Chest 1 View (Portable) IMPRESSION: No radiographic evidence of acute cardiopulmonary disease Reading Location: [facility]
[2024-09-27] MEDS: Morphine 4 MG/ML Syringe IV (11:38)
[2024-09-27] MEDS: Ondansetron 4 MG/2 ML Vial IV (11:38)
[2024-09-27] MEDS: 0.9% Normal Saline (1000mL) 1,000 ML 999 ML IV (11:39)
[2024-09-27 11:43] LABS: Absolute Lymphocyte Count 1.28 X10^3/uL (0.83-4.51); Absolute Neutrophil Count 1.7 X10^3/uL (2.0-7.7); Basophil# 0.02 X10^3/uL; Basophil% 0.6 % (0-1); Eosinophil# 0.07 X10^3/uL; Hematocrit 41.7 % (37-47); Hemoglobin 13.7 g/dL (12.0-15.0); Lymphocyte # 1.28 X10^3/ul (0.83-4.51); Lymphocyte % 36.8 % (19-41); Mean Corp Hgb Conc 32.9 g/dL (32-36); Mean Corpuscular Hgb 27.1 pg (27.0-32.0); Mean Corpuscular Volume 82.4 fL (81-99); Mean Platelet Vol. 10.8 fl (6.2-12.0); Monocyte# 0.36 X10^3/uL; Monocyte% 10.3 % (0-10); NRBC Flagged by Analyzer 0 % (0-5); Neutrophil # 1.73 X10^3/uL (2.7-7.7); Neutrophil % 49.7 % (47-70); Platelet Count 181 K/mm3 (150-450); RBC Distribution Width CV 14.3 % (11.6-14.6); RBC Distribution Width SD 42.9 fl (35.1-43.9); Red Blood Count 5.06 M/mm3 (4.2-5.4); White Blood Count 3.5 K/mm3 (4.4-11.0)
--- NOTE | 2024-09-27 11:52 | CT_ITS ---
PROCEDURE: CTA HEAD AND NECK W/ CONTRAST REASON FOR EXAM: Head pain TECHNIQUE: CTA imaging of the head and neck from the aortic arch to the skull vertex with intravenous contrast. 3D reconstructions. COMPARISON: None. # of known CTs in the past 12 months: 0 # of known Cardiac Nuclear Medicine Studies in the past 12 months: 0 FINDINGS: Aortic Arch: Normal size and branching pattern. No significant atherosclerotic plaque. Brachiocephalic and Subclavians: Unremarkable RIGHT Carotid: Right CCA: Unremarkable. Right ICA: Mild calcified and soft plaque. Maximum stenosis (NASCET): 0-49 % Right ECA: Unremarkable. LEFT Carotid: Left CCA: Unremarkable. Left ICA: Mild calcified and soft plaque. Maximum stenosis (NASCET): 0-49 % Left ECA: Unremarkable. Vertebrals: Codominant. Arise from the subclavians. Both vertebrals form the basilar. RIGHT Vertebral: Unremarkable. LEFT Vertebral: Unremarkable. No intracranial aneurysms or large vascular malformations are identified. Anterior cerebral arteries: Unremarkable. Middle cerebral arteries: Unremarkable. Basilar artery: Unremarkable. Posterior cerebral arteries: Unremarkable. Other major branches of the posterior circulation: Unremarkable. Major venous structures: Unremarkable. Other findings: No lymphadenopathy. Lung apices are clear. Bones are unremarkable. CT/CTA Head AND Neck W/ Contrast IMPRESSION: No hemodynamically significant stenosis in the arteries of the head and neck. One or more dose reduction techniques were used (e.g., Automated exposure contr ol, adjustment of the mA and/or kV according to patient size, use of iterative reconstruction technique). Reading Location: [facility]
[2024-09-27 11:55] LABS: Erythrocyte Sedimentation Rate 22 mm/hr (0-30)
[2024-09-27 12:07] LABS: ALB/GLOB Ratio 1.5 RATIO (0.9-2.4); AST(SGOT) 32 U/L (<=31); Alanine Aminotransfer ALT/SGPT 25 U/L (<=34); Albumin, Serum 4.2 g/dL (3.4-4.8); Alkaline Phosphatase 76 U/L (35-104); Anion Gap 11 (5-15); BUN 15 mg/dL (4-19); BUN/Creat Ratio 16.2 RATIO (10-20); Calcium 9.3 mg/dL (7.6-11.0); Carbon Dioxide 26.9 mmol/L (22.0-29.0); Chloride 101 mmol/L (96-108); Creatinine, Serum 0.91 mg/dL (0.70-1.20); EST Glomerular Filtration Rate 73 (>60); Estimated Creatinine Clearance 59.76 ml/min; Globulin 2.9 g/dL (2.2-4.2); Glucose 124 mg/dL (70-99); Potassium 3.2 mmol/L (3.3-5.1); Sodium Level 138 mmol/L (133-145)
[2024-09-27] MEDS: Metoclopramide 10 MG/2 ML Vial IV (12:55)
[2024-09-27] MEDS: Ketorolac 15 MG/ML Vial IV (12:55)
[2024-09-27] MEDS: DiphenhydrAMINE 50 MG/ML Syringe 25 MG IV (12:55)
[2024-09-27 13:03] VITALS: BP 128/77; PULSE 78; RESP 18; O2SAT 98
[2024-09-27 13:56] VITALS: BP 119/79; PULSE 81; RESP 14; TEMP 36.6; O2SAT 98
== END 2024-09-27 14:00 | disposition home or self-care (01) ==
PROVIDERS: Nurse Practitioner; Emergency Provider Emergency Medicine; PCP Student in an Organized Health Care Education/Training Program; Visit Provider Emergency Medicine
DX: J10.1 Influenza due to other identified influenza virus with other respiratory manifestations (principal); I10 Essential (primary) hypertension; E78.5 Hyperlipidemia, unspecified; F17.210 Nicotine dependence, cigarettes, uncomplicated; Z79.899 Other long term (current) drug therapy
CPT/HCPCS: 70496; 70498; 71045; 80053; 85025; 85652; 86140; 87631; 96361; 96374; 96375; 99282; Q9967; A4216; J2405

== ENCOUNTER → 2025-01-26 | Outpatient (CLI) | payer BC, SELFPAY ==
--- NOTE | 2025-01-26 13:30 | BI_ITS ---
EXAM: DIAG MAMM W/CAD, BILAT; BILAT BRST JOSE D STAND ALONE; BREAST LIMITED UNILATERAL 01/26/2025 CLINICAL HISTORY: 59-year-old female with history of right breast cancer in 2023, status post lumpectomy and chemotherapy. The patient is currently on anastrozole. TECHNIQUE: DIAG MAMM W/CAD, BILAT; BILAT BRST JOSE D STAND ALONE; BREAST LIMITED UNILATERAL. COMPARISON: Prior exam(s) dated mammograms 11/21/2023, 10/11/2023. MRI 12/18/2023 FINDINGS: MAMMOGRAM: TISSUE DENSITY: The breasts are heterogeneously dense, which may obscure small masses. The mammogram demonstrates that the patient has dense breasts. Supplemental screening with whole breast ultrasound or MRI may be considered for further evaluation. Bilateral Breast Mammographic Findings: Right breast: There are new postsurgical changes in the upper-outer right breast at middle depth. Partially visualized postsurgical changes in the right axilla. Otherwise, there are no suspicious findings in the right breast. Left breast: There is a focal asymmetry in the upper-outer left breast at posterior depth, that persists on the examinations on the supplemental images. ULTRASOUND: 1. There is an irregular heterogeneous mass with adjacent vascular flow in the left breast at 2 o'clock 4 cm from the nipple measuring 2.3 x 2.1 x 1.6 cm. There is a surgical clip centrally. 2. There is an irregular hypoechoic mass in the left breast at 1 o'clock 7 cm from the nipple measuring 0.8 x 0.5 x 0.6 cm. 3. There are 2 prominent architecturally normal left axillary lymph nodes with cortical thickness measuring up to 0.2 cm. BI/Bilat Brst Jose D Stand Alone IMPRESSION: 1. Postsurgical changes in the right breast and right axilla are benign. 2. Irregular left breast mass at 2 o'clock is suspicious. 3. Irregular left breast mass at 1 o'clock is suspicious. Recommend tissue sampling with ultrasound-guided biopsy of the left breast mass at 2 o'clock and 1 o'clock. OVERALL FINAL ASSESSMENT BI-RADS 4: SUSPICIOUS ABNORMALITY. RECOMMENDATION: Biopsy Recommended A letter with findings and recommendations will be mailed to the patient. Reading Location: [id number]
--- OUTSIDE RECORDS SUMMARY | 2025-01-26 23:34 | XMS RPT_ITS | CCD ---
Author Organization [facility] Care Team Providers Care Project Management It Specialist Name Role Phone Unavailable Primary Care Provider UnavailHARRIETT Mcgarry Attending Unavailable HARRIETT NEWELL Referring Unavailable CYNDI JON Attending Unavailable CYNDI JON Admitting Unavailable Haley ADAMSON, Gertrudis Primary Care Provider [phone] TING POLO Referring Unavailable GERTRUDIS DE LEON Primary Care Unavailable TING POLO Referring Unavailable GERTRUDIS DE LEON Primary Care Unavailable GERTRUDIS DE LEON Primary Care Unavailable TING POLO Referring Unavailable GERTRUDIS DE LEON Primary Care Unavailable CADEN JOLLEY Attending Unavailable CADEN JOLLEY Admitting Unavailable TING POLO Referring Unavailable DEBORAH GONGORA Attending Unavailable GERTRUDIS DE LEON Primary Care Unavailable GERTRUDIS DE LEON Primary Care Unavailable TING POLO Admitting Unavailable TING POLO Attending Unavailable TING POLO Referring Unavailable KRIS POLANCO Referring Unavailable GERTRUDIS DE LEON Primary Care Unavailable GERTRUDIS DE LEON Primary Care Unavailable TING POLO Referring Unavailable TING POOL Admitting Unavailable GERTRUDIS DE LEON Primary Care Unavailable TING POLO Attending Unavailable TING POLO Referring Unavailable TING POLO Admitting Unavailable GERTRUDIS DE LEON Primary Care Unavailable TING POLO Attending Unavailable TING POLO Attending Unavailable GERTRUDIS DE LEON Primary Care Unavailable TING POLO Attending Unavailable GERTRUDIS DE LEON Primary Care Unavailable SARAI PALAFOX Referring Unavailable GERTRUDIS DE LEON Primary Care Unavailable GERTRUDIS DE LEON Primary Care Unavailable TING POLO Attending Unavailable GERTRUDIS DE LEON Primary Care Unavailable TING POLO Attending Unavailable KALISETTI, GERTRUDIS Primary Care Unavailable KALISETTI, GERTRUDIS Primary Care Unavailable TING POLO Attending Unavailable TING POLO Attending Unavailable KALISETTI, GERTRUDIS Primary Care Unavailable TING POLO Referring Unavailable KALISETTI, GERTRUDIS Primary Care Unavailable KALISETTI, GERTRUDIS Primary Care Unavailable TING POLO Referring Unavailable GERTRUDIS DE LEON MD Attending Unavailable GERTRUDIS DE LEON MD Consulting Unavailable GERTRUDIS DE LEON MD Primary Care Unavailable GERTRUDIS DE LEON MD Admitting Unavailable PROVIDER, UNKNOWN Consulting Unavailable PROVIDER, UNKNOWN Consulting Unavailable James Liu Attending Unavailable Kalheaventti, Gertrudis Primary Care Unavailable Brown Woody Attending Unavailable Brown Woody Referring Unavailable Kalisetti, Gertrudis Primary Care Unavailable James Liu Attending Unavailable James Liu Referring Unavailable Kalisetti, Gertrudis Primary Care Unavailable KalcharismaiBridgetGertrudis Referring Unavailable Kalisetti, Gertrudis Primary Care Unavailable Brown Woody Attending Unavailable Brown Woody Attending Unavailable Brown Woody Referring Unavailable Kalisetti, Gertrudis Primary Care Unavailable James Liu Attending Unavailable Kalisetti, Gertrudis Primary Care Unavailable Kalisesepidehi, Gertrudis Referring Unavailable Kalisetti, Gertrudis Primary Care Unavailable Macey Hagen Attending Unavailable Oscar Booker Consulting Unavailable Dajuan Calvo Admitting Unavailable Adeli, Amir Consulting Unavailable Hinduja, Elmira Consulting Unavailable Rell, Hellen Consulting Unavailable Zha, Grisel Consulting Unavailable Tyler, Tom Consulting Unavailable Tiarra, Rhea Consulting Unavailable Rajan King Consulting Unavailable Mary Anne Nava Consulting Unavailable Jeffery Curran Consulting Unavailable Janelle Gallego Consulting Unavailable Remigio Vigil Consulting Unavailable Nya Chamberlain Consulting Unavailable Evi Arreaga Consulting Unavailable Chanelle Cox Consulting UnavailBilly Philippe Consulting Unavailable Javier Echevarria Consulting Unavailable Veto Horn Consulting Unavailable Eryn Marc Consulting Unavailable Alicia Doherty Consulting Unavailable Dajuan Calvo Consulting Unavailable Macey Hagen Consulting Unavailable Kalcharismai, Gertrudis Primary Care Unavailable Nixon Mata Attending Unavailable Cji, Gertrudis Primary Care Unavailable Nixon Mata Attending Unavailable Kalisetti, Gertrudis Referring Unavailable James Liu Attending Unavailable Kalisetti, Gertrudis Primary Care Unavailable Kalisetti, Gertrudis Referring Unavailable Kalisetti, Gertrudis Primary Care Unavailable Bonnie IT SUPPORT TECHNICIAN, Cheryl Attending Unavailable Dajuan Calvo Attending Unavailable Brown Woody Attending Unavailable Kalisetti, Gertrudis Primary Care Unavailable Kalisetti, Gertrudis Referring Unavailable Bonnie IT SUPPORT TECHNICIAN, Cheryl Attending Unavailable Kalisetti, Gertrudis Referring Unavailable Kalisetti, Gertrudis Primary Care Unavailable Bonnie IT SUPPORT TECHNICIAN, Cheryl Attending Unavailable Kalisetti, Gertrudis Referring Unavailable Kalisetti, Gertrudis Primary Care Unavailable Bonnie IT SUPPORT TECHNICIAN, Cheryl Attending Unavailable Kalisetti, Gertrudis Referring Unavailable Kalisetti, Gertrudis Primary Care Unavailable Kalisetti, Gertrudis Referring Unavailable Kalisetti, Gertrudis Primary Care Unavailable Brown Woody Attending Unavailable Brown Woody Referring Unavailable Kimmie Ozuna Primary Care Unavailable Brown Woody Attending Unavailable Kalisetti, Gertrudis Primary Care Unavailable Kalisetti, Gertrudis Referring Unavailable Brown Woody Attending Unavailable Kalisetti, Gertrudis Primary Care Unavailable Noe, James Referring Unavailable Otilio Liue Attending Unavailable Kalisetti, Gertrudis Primary Care Unavailable Otilio Liue Attending Unavailable Noe, James Referring Unavailable Noe James Attending Unavailable Noe, James Referring Unavailable Kalisetti, Gertrudis Primary Care Unavailable Kalisetti, Gertrudis Primary Care Unavailable Macey Hagen Attending Unavailable Dajuan Calvo Admitting Unavailable Oscar Booker Consulting Unavailable Adeli, Amir Consulting Unavailable Hinduja, [place] Consulting Unavailable Rell, Hellen Consulting Unavailable Zha, Grisel Consulting Unavailable Tyler, Tom Consulting Unavailable Tiarra, Rhea Consulting Unavailable Bitvalentín Rajan Consulting Unavailable Mary Anne Nava Consulting Unavailable Jeffery Curran Consulting Unavailable Janelle Gallego Consulting Unavailable Remigio Vigil Consulting Unavailable Nya Chamberlain Consulting Unavailable Evi Arreaga Consulting Unavailable Chanelle Cox Consulting UnavailBilly Philippe Consulting Unavailable Javier Echevarria Consulting Unavailable Veto Horn Consulting Unavailable Eryn Marc Consulting Unavailable Alicia Doherty Consulting Unavailable Dajuan Calvo Consulting Unavailable Kalisetti, Gertrudis Primary Care Unavailable Noe, James Referring Unavailable James Lui Attending Unavailable Kalisetti, Gertrudis Primary Care Unavailable Luis Carlos Simons Attending Unavailable Kalisetti, Gertrudis Primary Care Unavailable Noe, James Referring Unavailable NoeJames mosqueda Attending Unavailable Kalisetti, Gertrudis Primary Care Unavailable Noe, James Referring Unavailable NoeJames Attending Unavailable Kalisetti, Gertrudis Referring Unavailable Bonnie IT SUPPORT TECHNICIAN, Cheryl Attending Unavailable Kalisetti, Gertrudis Primary Care Unavailable Brown Woody Attending Unavailable Kalisetti, Gertrudis Primary Care Unavailable Kalisetti, Gertrudis Referring Unavailable Kalisetti, Gertrudis Primary Care Unavailable Bonnie IT SUPPORT TECHNICIAN, Cheryl Attending Unavailable Kalisetti, Gertrudis Referring Unavailable PraBrown lugo Attending Unavailable Kalisetti, Gertrudis Primary Care Unavailable Kalisetti, Gertrudis Referring Unavailable Kalisetti, Gertrudis Primary Care Unavailable Bonnie IT SUPPORT TECHNICIAN, Cheryl Attending Unavailable Kalisetti, Gertrudis Referring Unavailable Kalisetti, Gertrudis Primary Care Unavailable Brown Woody Attending Unavailable Kalisetti, Gertrudis Referring Unavailable Kalisetti, Gertrudis Referring Unavailable Kalisetti, Gertrudis Primary Care Unavailable Brown Woody Attending Unavailable Brown Woody Referring Unavailable Kalisetti, Gertrudis Primary Care Unavailable Brown Woody Attending Unavailable Brown Woody Attending Unavailable Brown Woody Referring Unavailable Kalisetti, Gertrudis Primary Care Unavailable Allergies Allergy Classification Reported Allergen(s) Allergy Type Date of Onset Reaction(s) Facility Latex (1 source) Latex Substance Allergy 4 [facility] (20 sources) Latex; Translations: [LATEX] Propensity to adverse reactions to drug 4 [facility] (1 source) natural latex rubber Drug allergy (disorder) 5 [facility] Repository Medications Current Medications Medication Drug Class(es) Dates Sig (Normalized) Sig (Original) amLODIPine 5 mg oral tablet (20 sources) Dihydropyridine Calcium Channel Cecil amLODIPine (NORVASC) 5 mg tablet Take by mouth as directed. Active amLODIPine Besyl ate (NORVASC PO) Take by mouth. 0 Active dexamethasone 4 mg oral tablet (3 sources) Corticosteroid take 1 tablet by mouth twice daily at mealtime dexAMETHasone (DECADRON) 4 mg tablet Take 4 mg by mouth two times a day with meals. Active hydroCHLOROthiazide 25 mg / lisinopril 20 mg oral tablet (20 sources) Thiazide Diuretic, Angiotensin Converting Enzyme Inhibitor take 1 tablet by mouth once daily lisinopril-hydroCHLO ROthiazide (ZESTORETIC) 20-25 mg per tablet Take 1 tablet by mouth once daily. Active End: 01-17-2024 take 10-12.5 mg by mouth once lisinopril-hydroCHLOROthiazide (ZESTORET IC) 10-12.5 mg per tablet Take 1 tablet by mouth once daily. 0 01/17/2024 Discontinued (Course of therapy completed) ibuprofen 200 mg oral tablet (13 sources) Nonsteroidal Anti-inflammatory Drug take 1 tablet by mouth every six hours as needed ibuprofen (ADVIL) 200 mg tablet Take 200 mg by mouth every 6 hours as needed for pain. Active iv contrast (will be provided with radiology test) (1 source) Start: 12-25-19 End: 12-26-19 iv contrast (will be provided with radiology test) MRI LT Breast Bx Inject, intravenously, once for 1 dose. No IV access, insert saline lock prior to the beginning of sedation, infusion, injection of imaging exam. Discontinue saline lock post exam. If Pt has a central line or IVAD, may access for administration according to line specific nursing protocol. Once exam is complete flush line and de-access according to line specific nursing protocol in the MR contrast administration guidelines link 1 Each 0 12/25/2023 12/26/2023 Active loratadine 10 mg oral tablet (3 sources) take 1 tablet by mouth once daily loratadine (CLARITIN) 10 mg tablet Take 10 mg by mouth once daily. Active 24 hr metoprolol succinate 50 mg extended release oral tablet (20 sources) beta-Adrenergic Cecil Start: 01-21-20 take 1 tablet by mouth once daily metoprolol succinate ER (TOPROL XL) 50 mg 24 hr tablet Take 50 mg by mouth once daily. 01/21/2024 Active End: 01-28-2024 take 50 mg by mouth once daily metoprolol succinate ER (TOPROL XL) 100 mg Take 50 mg by mouth once daily. 0 01/28/2024 Discontinued (Dosage adjustment) End: 01-17-2024 metoprolol tartrate, short a cting, (LOPRESSOR) 50 mg tablet Take by mouth as directed. 0 01/17/2024 Discontinued (Course of therapy completed) Metoprolol Tartr ate (LOPRESSOR PO) Take by mouth. 0 Active rosuvastatin calcium 10 mg oral tablet (20 sources) HMG-CoA Reductase Inhibitor take 1 tablet by mouth once daily rosuvastatin (CRESTOR) 10 mg tablet Take 10 mg by mouth once daily. Active sertraline 50 mg oral tablet (20 sources) Serotonin Reuptake Inhibitor take 1 tablet by mouth once daily sertraline (ZOLOFT) 50 mg tablet Take 50 mg by mouth once daily. Active Sertraline HCl ( ZOLOFT PO) Take by mouth. 0 Active Completed/Discontinued Medications Medication Drug Class(es) Dates Sig (Normalized) Sig (Original) 10 ml lidocaine hydrochloride 10 mg/ml injection (1 source) Antiarrhythmic, Amide Local Anesthetic Start: 01-29-2024 End: 01-30-2024 lidocaine (PF) 10 mg/mL (1 %) injection (XYLOCAINE) simvastatin 40 mg oral tablet (13 sources) HMG-CoA Reductase Inhibitor End: 01-17-2024 take 1 tablet by mouth once daily at bedtime simvastatin (ZOCOR) 40 mg tablet Take 40 mg by mouth daily at bedtime. 0 01/17/2024 Discontinued (Course of therapy completed) Problems Active Problems Problem Classification Problem Date Documented Date Episodic/Chronic Administrative/social admission (1 source) Disappearance and of family member; Translations: [Disappearance and of family member] Onset: 10-20-2023 Episodic Alcohol-related disorders (1 source) Alcohol abuse with intoxication, unspecified; Translations: [Alcohol abuse with intoxication, unspecified] Onset: 10-20-2023 Chronic Alcohol-related disorders (1 source) Alcohol intoxication delirium ; Translations: [Alcohol use, unspecified with intoxication delirium] 10-20-2023 Episodic Allergic reactions (1 source) Latex allergy status; Translations: [Latex allergy status] Onset: 10-20-2023 Episodic Aortic and peripheral arterial embolism or thrombosis (1 source) Embolism and thrombosis of unspecified artery; Translations: [Embolism and thrombosis of unspecified artery] Onset: 03-13-2024 Chronic Cancer of breast (20 sources) Malignant neoplasm of female breast; Translations: [Malignant neoplasm of unspecified site of unspecified female breast] Onset: 10-20-2023 10-20-2023 Chronic Disorders of lipid metabolism (13 sources) Hyperlipidemia; Translations: [Hyperlipidemia, unspecified] Onset: 01-28-2024 01-28-2024 Chronic Esophageal disorders (1 source) Winslow's esophagus without dysplasia; Translations: [Winslow's esophagus with esophagitis] Onset: 01-17-2024 Chronic Essential hypertension (17 sources) Essential (primary) hypertension; Translations: [Benign hypertension] Onset: 10-20-2023 01-25-2024 Chronic Headache; including migraine (1 source) Headache; including migraine; Translations: [Headache, unspecified] Onset: 10-09-2024 Immunity disorders (15 sources) Sarcoidosis; Translations: [Sarcoidosis, unspecified] Onset: 01-25-2024 01-25-2024 Chronic Impulse control disorders, NEC (1 source) Homicidal ideations; Translations: [Homicidal ideations] Onset: 10-20-2023 Episodic Maintenance chemotherapy; radiotherapy (1 source) Encounter for antineoplastic chemotherapy; Translations: [Encounter for antineoplastic chemotherapy] Onset: 04-03-2024 Chronic Mood disorders (16 sources) Mild major depression; Translations: [Major depressive disorder, single episode, mild] Onset: 01-25-2024 01-25-2024 Chronic Other aftercare (1 source) Other snf (current) drug therapy; Translations: [Other snf (current) drug therapy] Onset: 10-20-2023 Episodic Other non-traumatic joint disorders (2 sources) Pain in right shoulder; Translations: [Pain in right shoulder] Onset: 11-24-2024 Episodic Other non-traumatic joint disorders (2 sources) Pain in left shoulder; Translations: [Pain in left shoulder] Onset: 11-24-2024 Episodic Other screening for suspected conditions (not mental disorders or infectious disease) (5 sources) Abnormal findings on diagnostic imaging of breast; Translations: [Other abnormal and inconclusive findings on diagnostic imaging of breast] Onset: 01-08-2024 12-25-2023 Episodic Residual codes; unclassified (14 sources) Obstructive sleep apnea syndrome; Translations: [Obstructive sleep apnea (adult) (pediatric)] Onset: 01-28-2024 01-28-2024 Chronic Residual codes; unclassified (1 source) Obstructive sleep apnea (adult) (pediatric); Translations: [MELECIO (obstructive sleep apnea)] Onset: 01-28-2024 Chronic Residual codes; unclassified (9 sources) Estrogen receptor positive status [ER+]; Translations: [Malignant neoplasm of overlapping 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, estrogen receptor positive (HCC)] Onset: 12-25-2023 Episodic Residual codes; unclassified (1 source) Family history of malignant neoplasm of lung; Translations: [Family history of malignant neoplasm of trachea, bronchus and lung] 03-14-2024 Episodic Residual codes; unclassified (1 source) Family history of leukemia; Translations: [Family history of leukemia] 03-14-2024 Episodic Residual codes; unclassified (1 source) Family history of cancer of colon; Translations: [Family history of malignant neoplasm of digestive organs] 03-14-2024 Episodic Residual codes; unclassified (1 source) Family history of malignant neoplasm of testis; Translations: [Family history of malignant neoplasm of testis] 03-14-2024 Episodic Residual codes; unclassified (1 source) Family history of basal cell carcinoma of skin; Translations: [Family history of malignant neoplasm of other organs or systems] 03-14-2024 Episodic Residual codes; unclassified (1 source) Estrogen receptor negative status [ER-]; Translations: [Malignant neoplasm of right breast in female, estrogen receptor negative, unspecified site of breast (HCC)] Onset: 01-25-2024 Episodic Substance-related disorders (15 sources) Smoker; Translations: [Nicotine dependence, unspecified, uncomplicated] Onset: 01-28-2024 01-28-2024 Chronic Transient cerebral ischemia (16 sources) Transient cerebral ischemia; Translations: [Transient cerebral ischemic attack, unspecified] Onset: 01-25-2024 01-25-2024 Chronic Unclassified (1 source) Alcohol abuse with withdrawal delirium; Translations: [Alcohol abuse with withdrawal delirium] Onset: 10-20-2023 Unclassified (1 source) Winslow's esophagus with esophagitis; Translations: [Winslow's esophagus with esophagitis] Onset: 01-17-2024 Past or Other Problems Problem Classification Problem Date Documented Date Episodic/Chronic Conditions associated with dizziness or vertigo (1 source) Dizziness and giddiness; Translations: [Dizziness and giddiness] Onset: 06-02-2024 Episodic E Codes: Adverse effects of medical drugs (1 source) Adverse effect of antineoplastic and immunosuppressive drugs, initial encounter; Translations: [Adverse effect of antineoplastic and immunosuppressive drugs, initial encounter] Onset: 03-10-2024 Episodic Epilepsy; convulsions (16 sources) Neurological finding; Translations: [Unspecified convulsions] Onset: 01-28-2024 01-28-2024 Episodic Fluid and electrolyte disorders (11 sources) Hypokalemia; Translations: [Hypokalemia] Onset: 03-05-2024 03-05-2024 Episodic Nausea and vomiting (1 source) Nausea with vomiting, unspecified; Translations: [Nausea with vomiting, unspecified] Onset: 03-10-2024 Episodic Nonmalignant breast conditions (1 source) Unspecified lump in the left breast, upper inner quadrant; Translations: [Unspecified lump in the left breast, upper inner quadrant] Onset: 04-03-2024 Episodic Other aftercare (1 source) Encounter for follow-up examination after completed treatment for conditions other than malignant neoplasm; Translations: [Encounter for follow-up examination after completed treatment for conditions other than malignant neoplasm] Onset: 04-17-2024 Episodic Other connective tissue disease (1 source) Other symptoms and signs involving the musculoskeletal system; Translations: [Other symptoms and signs involving the musculoskeletal system] Onset: 06-20-2024 Episodic Other connective tissue disease (1 source) Other specified soft tissue disorders; Translations: [Other specified soft tissue disorders] Onset: 04-17-2024 Episodic Other lower respiratory disease (1 source) Shortness of breath; Translations: [Shortness of breath] Onset: 05-18-2024 Episodic Other nervous system disorders (2 sources) Anesthesia of skin; Translations: [Anesthesia of skin] Onset: 05-29-2024 Episodic Results Test Name Value Interpretation Reference Range Facility [facility] with eGFRon 12-11-2024 AGE 59 years Normal [facility] Comment on above: Performed By: #### [id number] #### [facility],[address] [place] [address] Anion gap [Moles/Vol] 11 mmol/L Normal - [facility] Comment on above: Performed By: #### 2 [id number] #### [facility],[address] [place] [address]374 BMP with eGFR Normal [facility] Comment on above: Result Comment: BASI C METABOLIC PANEL Performed By: #### 2 [id number] #### [facility],[address] [place] [address] 58451 Calcium [Mass/Vol] 9.6 mg/dL Normal 8.5 - 10.1 [facility] Comment on above: Performed By: #### 2 [id number] #### [facility],[address] [place] [address] 25934 Chloride [Moles/Vol] 104 mmol/L Normal 98 - 107 [facility] Comment on above: Performed By: #### 2 [id number] #### [facility],[address] [place] [address] 64241 CO2 [Moles/Vol] 31.6 mmol/L Normal 21.0 - 32.0 [facility] Comment on above: Performed By: #### 2 [id number] #### [facility],[address] [place] [address] 78768 Creatinine [Mass/Vol] 0.91 mg/dL Normal 0.55 - 1.02 [facility] Comment on above: Performed By: #### 2 [id number] #### [facility],[address] [place] [address] 31850 GFR/1.73 sq M.predicted among non-blacks MDRD (S/P/Bld) [Vol rate/Area] mL/min/{1.73_m2} Normal 60 - 999 [facility] Comment on above: Performed By: #### 2 [id number] #### [facility],[address] [place] [address] 18454 Result Comment: ACCO RDING TO THE NATIONAL KIDNEY DISEASE EDUCATION PROGRAM(NKDE), A NORMAL eGFR IS A VALUE GREATER THAN OR EQUAL TO 60 ML/MIN/1.73 SQ METERS. CHRONIC KIDNEY DISEASE: <60mL/MIN/1.73 SQ METERS KIDNEY FAILURE: <15mL/MIN/1.73 SQ METERS THIS TEST SHOULD ONLY BE USED FOR PATIENTS 18 YEARS OF AGE AND OLDER. Glucose [Mass/Vol] 93 mg/dL Normal 74 - 106 [facility] Comment on above: Performed By: #### 2 [id number] #### [facility],[address] [place] [address] 10067 Potassium [Moles/Vol] 4.0 mmol/L Normal 3.5 - 5.1 [facility] Comment on above: Performed By: #### 2 [id number] #### [facility],[address] [place] [address] 58103 Sodium [Moles/Vol] 143 mmol/L Normal 136 - 145 [facility] Comment on above: Performed By: #### 2 [id number] #### [facility],[address] [place] [address] 45462 Urea nitrogen [Mass/Vol] 12 mg/dL Normal 7 - 18 [facility] Comment on above: Performed By: #### 2 [id number] #### [facility],[address] [place] [address] 22817 CA 15-3on 11-26-2024 CA 15-3 9.7 U/mL Normal 0.0-25.0 [facility] Comment on above: Order Comment: ADD O N FROM [facility], THANKS Result Comment: [facility] Electrochemiluminescence Immunoassay(ECLIA)Values obtained with different assay methods or kits cannotbe used interchangeably. Results cannot be interpreted asabsolute evidence of the presence or absence of malignantdisease.Performed at: - [facility] [id number] [place], [place] [id number] Director: Boubacar Gonzalez PhD, Phone: [phone] Performed By: #### L 315.3451, I8969.6452, L3100.7777, H035.0900, L503.6214 ####[facility] [id number] [place], [place], [address] CA 27.29on 11-26-2024 CA 27.29 14.7 U/mL Normal 0.0-38.6 [facility] Comment on above: Order Comment: ADD O N FROM [facility] [facility], THANKS Result Comment: [facility] Immunochemiluminometric Methodology (ICMA)Values obtained with different assay methods or kits cannotbe used interchangeably. Results cannot be interpreted asabsolute evidence of the presence or absence of malignantdisease. Performed By: #### L 501.5200, L3100.5040, L3100.5030, L503.6550, L503.6030 ####[facility] [id number] [place], [address] CBC W/Diff, Automatedon 10-29 Absolute Lymph 2.14 X10 3/uL Normal 0.83-4.51 [facility] Comment on above: Performed By: #### L 500.4050, L100.0100 ####[facility] [id number] [place], [address] Absolute Neut 3.1 X10 3/uL Normal 2.0-7.7 [facility] Comment on above: Performed By: #### L 500.4050, L100.0100 ####[facility] [address] [place], [address] Basophils/100 WBC (Bld) 0.8 % Normal 0-1 [facility] Comment on above: Performed By: #### L 500.4050, L100.0100 ####[facility] [address] [place], [address] Eosinophils/100 WBC (Bld) 3.1 % Normal 0-5 [facility] Comment on above: Performed By: #### L 500.4050, L100.0100 ####[facility] [address] [place], [address] Erythrocyte distribution width (RBC) [Ratio] 14.9 % High 11.6-14.6 [facility] Comment on above: Performed By: #### L 500.4050, L100.0100 ####[facility] [address] [place], [address] Hematocrit (Bld) [Volume fraction] 37.6 % Normal 37-47 [facility] Comment on above: Performed By: #### L 500.4050, L100.0100 ####[facility] [address] [place], [address] Hemoglobin (Bld) [Mass/Vol] 12.7 g/dL Normal 12.0-15.0 [facility] Comment on above: Performed By: #### L 500.4050, L100.0100 ####[facility] [address] [place], [address] IG% 0.500 Normal 0.0-0.9 [facility] Comment on above: Result Comment: IG% - Immature Granulocytes (promyelocytes, myelocytes andmetamyelocytes) > 1% indicates that a LEFT SHIFT is Present. Performed By: #### L 500.4050, L100.0100 ####[facility] [address] [place], [address] Lymphocytes/100 WBC (Bld) 35.3 % Normal 19-41 [facility] Comment on above: Performed By: #### L 500.4050, L100.0100 ####[facility] [address] [place], [address] MCH (RBC) [Entitic mass] 28.5 pg Normal 27.0-32.0 [facility] Comment on above: Performed By: #### L 500.4050, L100.0100 ####[facility] [address] [place], [address] MCHC (RBC) [Mass/Vol] 33.8 g/dL Normal 32-36 [facility] Comment on above: Performed By: #### L 500.4050, L100.0100 ####[facility] [address] [place], [address] MCV (RBC) [Entitic vol] 84.3 fL Normal 81-99 [facility] Comment on above: Performed By: #### L 500.4050, L100.0100 ####[facility] [address] [place], [address] Monocytes/100 WBC (Bld) 8.6 % Normal 0-10 [facility] Comment on above: Performed By: #### L 500.4050, L100.0100 ####[facility] [address] [place], [address] Neutrophils/100 WBC (Bld) 51.7 % Normal 47-70 [facility] Comment on above: Performed By: #### L 500.4050, L100.0100 ####[facility] [address] [place], [address] Nucleated RBC (Bld) [#/Vol] 0 10*3/uL Normal 0-5 [facility] Comment on above: Performed By: #### L 500.4050, L100.0100 ####[facility] [address] [place], [address] Platelet mean volume (Bld) [Entitic vol] 10.5 fL Normal 6.2-12.0 [facility] Comment on above: Performed By: #### L 500.4050, L100.0100 ####[facility] [address] [place], [address] Platelets (Bld) [#/Vol] 227 10*3/uL Normal 150-450 [facility] Comment on above: Performed By: #### L 500.4050, L100.0100 ####[facility] [address] [place], [address] RBC (Bld) [#/Vol] 4.46 10*6/uL Normal 4.2-5.4 [facility] Comment on above: Performed By: #### L 500.4050, L100.0100 ####[facility] [address] [place], [address] RDW SD 45.7 fl High 35.1-43.9 [facility] Comment on above: Performed By: #### L 500.4050, L100.0100 ####[facility] [address] [place], [address] WBC (Bld) [#/Vol] 6.1 10*3/uL Normal 4.4-11.0 [facility] Comment on above: Performed By: #### L 500.4050, L100.0100 ####[facility] [address] [place], [address] Comprehensive Metabolic Prof [facility] 11-24-2024 Albumin [Mass/Vol] 4.2 g/dL Normal 3.4-4.8 [facility] Comment on above: Performed By: #### L 500.4050, L100.0100 ####[facility] [address] [place], [address] Albumin/Globulin [Mass ratio] 1.6 {ratio} Normal 0.9-2.4 [facility] Comment on above: Performed By: #### L 500.4050, L100.0100 ####[facility] [address] [place], [address] ALK PHOS 84 U/L Normal 35-104 [facility] Comment on above: Performed By: #### L 500.4050, L100.0100 ####[facility] [address] [place], [address] ALT [Catalytic activity/Vol] 15 U/L Normal <=34 [facility] Comment on above: Performed By: #### L 500.4050, L100.0100 ####[facility] [address] [place], [address] AST [Catalytic activity/Vol] 21 U/L Normal <=31 [facility] Comment on above: Performed By: #### L 500.4050, L100.0100 ####[facility] [address] [place], [address] Bilirubin [Mass/Vol] 0.25 mg/dL Normal 0.00-1.30 [facility] Comment on above: Performed By: #### L 500.4050, L100.0100 ####[facility] [address] [place], [address] BUN/CRE 20.2 RATIO High 10-20 [facility] Comment on above: Performed By: #### L 500.4050, L100.0100 ####[facility] [address] [place], [address] Calcium [Mass/Vol] 9.4 mg/dL Normal 7.6-11.0 [facility] Comment on above: Performed By: #### L 500.4050, L100.0100 ####[facility] [address] [place], [address] Chloride [Moles/Vol] 105 mmol/L Normal 98-108 [facility] Comment on above: Performed By: #### L 500.4050, L100.0100 ####[facility] [address] [place], [address] CO2 [Moles/Vol] 24.9 mmol/L Normal 21.0-32.0 [facility] Comment on above: Performed By: #### L 500.4050, L100.0100 ####[facility] [address] [place], [address] Creatinine [Mass/Vol] 0.80 mg/dL Normal 0.70-1.20 [facility] Comment on above: Performed By: #### L 500.4050, L100.0100 ####[facility] [address] [place], [address] ECRCL 69.36 ml/min Normal 50-250 [facility] Comment on above: Performed By: #### L 500.4050, L100.0100 ####[facility] [address] [place], [address] GAP 11 Normal 5-15 [facility] Comment on above: Performed By: #### L 500.4050, L100.0100 ####[facility] [address] [place], [address] GFR/1.73 sq M.predicted among non-blacks MDRD (S/P/Bld) [Vol rate/Area] 84 mL/min/{1.73_m2} Normal >60 [facility] Comment on above: Result Comment: mL/m in/1.73m2 CKD-EPI Creatinine Equation (2020) Performed By: #### L 500.4050, L100.0100 ####[facility] [address] [place], [address] Globulin (S) [Mass/Vol] 2.7 g/dL Normal 2.2-4.2 [facility] Comment on above: Performed By: #### L 500.4050, L100.0100 ####[facility] [address] [place], [address] Glucose [Mass/Vol] 105 mg/dL High 70-99 [facility] Comment on above: Performed By: #### L 500.4050, L100.0100 ####[facility] [address] [place], [address] Potassium [Moles/Vol] 3.4 mmol/L Normal 3.3-5.1 [facility] Comment on above: Performed By: #### L 500.4050, L100.0100 ####[facility] [address] [place], [address] Sodium [Moles/Vol] 140 mmol/L Normal 133-145 [facility] Comment on above: Performed By: #### L 500.4050, L100.0100 ####[facility] [address] [place], [address] T PROT 7.0 g/dL Normal 5.9-8.4 [facility] Comment on above: Performed By: #### L 500.4050, L100.0100 ####[facility] [address] [place], [address] Urea nitrogen [Mass/Vol] 16 mg/dL Normal 4-19 [facility] Comment on above: Performed By: #### L 500.4050, L100.0100 ####[facility] [address] [place], [address] Ferritinon 11-24-2024 Ferritin [Mass/Vol] 163 ng/mL Normal 22-378 [facility] Comment on above: Order Comment: ADD O N FROM [facility], THANKS Performed By: #### L 501.5200, L3100.5040, L3100.5030, L503.6550, L503.6030 ####[facility] [address] [place], [address] Iron+Iron Binding Capacityon 11-24-2024 Iron [Mass/Vol] 76 ug/dL Normal 50-170 [facility] Comment on above: Order Comment: ADD O N FROM [facility], THANKS Performed By: #### L 501.5200, L3100.5040, L3100.5030, L503.6550, L503.6030 ####[facility] [address] [place], [address] IRON SATURATION 28.0 Normal 13-59 [facility] Comment on above: Order Comment: ADD O N FROM [facility], THANKS Performed By: #### L 501.5200, L3100.5040, L3100.5030, L503.6550, L503.6030 ####[facility] [address] [place], [address] TIBC 267 ug/dL Normal 250-450 [facility] Comment on above: Order Comment: [facility] Performed By: #### L 501.5200, L3100.5040, L3100.5030, L503.6550, L503.6030 ####[facility] [address] [place], [address] UIBC 191 ug/dL Low 228-428 [facility] Comment on above: Order Comment: ADD O N FROM [employer], THANKS Performed By: #### L 501.5200, L3100.5040, L3100.5030, L503.6550, L503.6030 ####[facility] [address] [place], [address] Magnesiumon 11-24-2024 Magnesium [Mass/Vol] 2.1 mg/dL Normal 1.5-2.2 [facility] Comment on above: Order Comment: ADD O N [facility] Performed By: #### L 501.5200, L3100.5040, L3100.5030, L503.6550, L503.6030 ####[facility] [address] [place], [address] Oncology Visit Reporton 10-29 Oncology Visit Report Normal [facility] Phosphoruson 11-24-2024 Phosphate [Mass/Vol] 2.8 mg/dL Normal 2.7-4.5 [facility] Comment on above: Order Comment: ADD O N MG TODAY Performed By: #### L 501.2300 ####[facility] [address] [place], [address] CBC W/Diff, Automatedon 03-0 Absolute Lymph 1.28 X10 3/uL Normal 0.83-4.51 [facility] Comment on above: Performed By: #### L 100.0100, L101.9900, L500.4050, L501.6710 ####[facility] [address] [place], [address] Absolute Neut 1.7 X10 3/uL Low 2.0-7.7 [facility] Comment on above: Performed By: #### L 100.0100, L101.9900, L500.4050, L501.6710 ####[facility] [address] [place], [address] Basophils/100 WBC (Bld) 0.6 % Normal 0-1 [facility] Comment on above: Performed By: #### L 100.0100, L101.9900, L500.4050, L501.6710 ####[facility] [address] [place], [address] Eosinophils/100 WBC (Bld) 2.0 % Normal 0-5 [facility] Comment on above: Performed By: #### L 100.0100, L101.9900, L500.4050, L501.6710 ####[facility] [address] [place], [address] Erythrocyte distribution width (RBC) [Ratio] 14.3 % Normal 11.6-14.6 [facility] Comment on above: Performed By: #### L 100.0100, L101.9900, L500.4050, L501.6710 ####[facility] [address] [place], [address] Hematocrit (Bld) [Volume fraction] 41.7 % Normal 37-47 [facility] Comment on above: Performed By: #### L 100.0100, L101.9900, L500.4050, L501.6710 ####[facility] [address] [place], [address] Hemoglobin (Bld) [Mass/Vol] 13.7 g/dL Normal 12.0-15.0 [facility] Comment on above: Performed By: #### L 100.0100, L101.9900, L500.4050, L501.6710 ####[facility] [address] [place], [address] IG% 0.600 Normal 0.0-0.9 [facility] Comment on above: Result Comment: IG% - Immature Granulocytes (promyelocytes, myelocytes andmetamyelocytes) > 1% indicates that a LEFT SHIFT is Present. Performed By: #### L 100.0100, L101.9900, L500.4050, L501.6710 ####[facility] [address] [place], [address] Lymphocytes/100 WBC (Bld) 36.8 % Normal 19-41 [facility] Comment on above: Performed By: #### L 100.0100, L101.9900, L500.4050, L501.6710 ####[facility] [address] [place], [address] MCH (RBC) [Entitic mass] 27.1 pg Normal 27.0-32.0 [facility] Comment on above: Performed By: #### L 100.0100, L101.9900, L500.4050, L501.6710 ####[facility] [address] [place], [address] MCHC (RBC) [Mass/Vol] 32.9 g/dL Normal 32-36 [facility] Comment on above: Performed By: #### L 100.0100, L101.9900, L500.4050, L501.6710 ####[facility] [address] [place], [address] MCV (RBC) [Entitic vol] 82.4 fL Normal 81-99 [facility] Comment on above: Performed By: #### L 100.0100, L101.9900, L500.4050, L501.6710 ####[facility] [address] [place], [address] Monocytes/100 WBC (Bld) 10.3 % High 0-10 [facility] Comment on above: Performed By: #### L 100.0100, L101.9900, L500.4050, L501.6710 ####[facility] [address] [place], [address] Neutrophils/100 WBC (Bld) 49.7 % Normal 47-70 [facility] Comment on above: Performed By: #### L 100.0100, L101.9900, L500.4050, L501.6710 ####[facility] [address] [place], [address] Nucleated RBC (Bld) [#/Vol] 0 10*3/uL Normal 0-5 [facility] Comment on above: Performed By: #### L 100.0100, L101.9900, L500.4050, L501.6710 ####[facility] [address] [place], [address] Platelet mean volume (Bld) [Entitic vol] 10.8 fL Normal 6.2-12.0 [facility] Comment on above: Performed By: #### L 100.0100, L101.9900, L500.4050, L501.6710 ####[facility] [address] [place], [address] Platelets (Bld) [#/Vol] 181 10*3/uL Normal 150-450 [facility] Comment on above: Performed By: #### L 100.0100, L101.9900, L500.4050, L501.6710 ####[facility] [address] [place], [address] RBC (Bld) [#/Vol] 5.06 10*6/uL Normal 4.2-5.4 [facility] Comment on above: Performed By: #### L 100.0100, L101.9900, L500.4050, L501.6710 ####[facility] [address] [place], [address] RDW SD 42.9 fl Normal 35.1-43.9 [facility] Comment on above: Performed By: #### L 100.0100, L101.9900, L500.4050, L501.6710 ####[facility] [address] [place], [address] WBC (Bld) [#/Vol] 3.5 10*3/uL Low 4.4-11.0 [facility] Comment on above: Performed By: #### L 100.0100, L101.9900, L500.4050, L501.6710 ####[facility] [address] [place], [address] CRPon 09-27-2024 C-REACTIVE PROT 13.70 mg/L High 0.0-3.0 [facility] Comment on above: Performed By: #### L 100.0100, L101.9900, L500.4050, L501.6710 ####[facility] [address] [place], [address] CTA Head AND Neck W/ Contras ton 09-27-2024 CTA Head AND Neck W/ Contrast Normal [facility] Chest 1 View (Portable)on Chest 1 View (Portable) Normal [facility] Comprehensive Metabolic Prof ilon 09-27-2024 Albumin [Mass/Vol] 4.2 g/dL Normal 3.4-4.8 [facility] Comment on above: Performed By: #### L 100.0100, L101.9900, L500.4050, L501.6710 ####[facility] [address] [place], [address] Albumin/Globulin [Mass ratio] 1.5 {ratio} Normal 0.9-2.4 [facility] Comment on above: Performed By: #### L 100.0100, L101.9900, L500.4050, L501.6710 ####[facility] [address] [place], [address] ALK PHOS 76 U/L Normal 35-104 [facility] Comment on above: Performed By: #### L 100.0100, L101.9900, L500.4050, L501.6710 ####[facility] [address] [place], [address] ALT [Catalytic activity/Vol] 25 U/L Normal <=34 [facility] Comment on above: Performed By: #### L 100.0100, L101.9900, L500.4050, L501.6710 ####[facility] [address] [place], [address] Anion gap [Moles/Vol] 11 mmol/L Normal 5-15 [facility] Comment on above: Performed By: #### L 100.0100, L101.9900, L500.4050, L501.6710 ####[facility] [address] [place], [address] AST [Catalytic activity/Vol] 32 U/L Normal <=31 [facility] Comment on above: Performed By: #### L 100.0100, L101.9900, L500.4050, L501.6710 ####[facility] [address] [place], [address] Bilirubin [Mass/Vol] 0.20 mg/dL Normal 0.00-1.30 [facility] Comment on above: Performed By: #### L 100.0100, L101.9900, L500.4050, L501.6710 ####[facility] [address] [place], [address] BUN/CRE 16.2 RATIO Normal 10-20 [facility] Comment on above: Performed By: #### L 100.0100, L101.9900, L500.4050, L501.6710 ####[facility] [address] [place], [address] Calcium [Mass/Vol] 9.3 mg/dL Normal 7.6-11.0 [facility] Comment on above: Performed By: #### L 100.0100, L101.9900, L500.4050, L501.6710 ####[facility] [address] [place], [address] Chloride [Moles/Vol] 101 mmol/L Normal 96-108 [facility] Comment on above: Performed By: #### L 100.0100, L101.9900, L500.4050, L501.6710 ####[facility] [address] [place], [address] CO2 [Moles/Vol] 26.9 mmol/L Normal 22.0-29.0 [facility] Comment on above: Performed By: #### L 100.0100, L101.9900, L500.4050, L501.6710 ####[facility] [address] [place], [address] Creatinine [Mass/Vol] 0.91 mg/dL Normal 0.70-1.20 [facility] Comment on above: Performed By: #### L 100.0100, L101.9900, L500.4050, L501.6710 ####[facility] [address] [place], [address] ECRCL 59.76 ml/min Normal [facility] Comment on above: Performed By: #### L 100.0100, L101.9900, L500.4050, L501.6710 ####[facility] [address] [place], [address] GFR/1.73 sq M.predicted among non-blacks MDRD (S/P/Bld) [Vol rate/Area] 73 mL/min/{1.73_m2} Normal >60 [facility] Comment on above: Result Comment: mL/m in/1.73m2 CKD-EPI Creatinine Equation (2020) Performed By: #### L 100.0100, L101.9900, L500.4050, L501.6710 ####[facility] [address] [place], [address] Globulin (S) [Mass/Vol] 2.9 g/dL Normal 2.2-4.2 [facility] Comment on above: Performed By: #### L 100.0100, L101.9900, L500.4050, L501.6710 ####[facility] [address] [place], [address] Glucose [Mass/Vol] 124 mg/dL High 70-99 [facility] Comment on above: Performed By: #### L 100.0100, L101.9900, L500.4050, L501.6710 ####[facility] [address] [place], [address] Potassium [Moles/Vol] 3.2 mmol/L Low 3.3-5.1 [facility] Comment on above: Performed By: #### L 100.0100, L101.9900, L500.4050, L501.6710 ####[facility] [address] [place], [address] Sodium [Moles/Vol] 138 mmol/L Normal 133-145 [facility] Comment on above: Performed By: #### L 100.0100, L101.9900, L500.4050, L501.6710 ####[facility] [id number] [place], [address] T PROT 7.0 g/dL Normal 5.9-8.4 [facility] Comment on above: Performed By: #### L 100.0100, L101.9900, L500.4050, [id number] ####[facility] [address] [place], [address] Urea nitrogen [Mass/Vol] 15 mg/dL Normal 4-19 [facility] Comment on above: Performed By: #### L 100.0100, L101.9900, L500.4050, [id number] ####[facility] [address] [place], [address] Emergency Department Summary on 09-27-2024 Emergency Department Summary Normal [facility] Erythrocyte Sed Rateon 09-27 SED RATE 22 mm/hr Normal 0-30 [facility] Comment on above: Performed By: #### L 100.0100, L101.9900, L500.4050, L501.6710 ####[facility] [facility] [address] [place], [address] M100.678on 09-27-2024 M100.678 Normal [facility] Comment on above: Performed By: #### M 100.678 ####[facility] [address] [place], [address] Oncology Visit Reporton -2 Oncology Visit Report Normal [facility] Radiation Oncology Visiton 0 - Radiation Oncology Visit Normal [facility] NATERAon 08-06-2024 NATURA SEE SCANNED REPORT Normal [facility] Comment on above: Performed By: #### L 900.0098 ####[facility] [address] [place], [address] CBC W/Diff, Automatedon 01-0 2-5 Absolute Lymph 1.75 X10 3/uL Normal 0.83-4.51 [facility] Comment on above: Performed By: #### L 504.2610, L100.0100, L500.4050 ####[facility] [address] [place], [address] Absolute Neut 3.3 X10 3/uL Normal 2.0-7.7 [facility] Comment on above: Performed By: #### L 504.2610, L100.0100, L500.4050 ####[facility] [address] [place], [address] Basophils/100 WBC (Bld) 0.7 % Normal 0-1 [facility] Comment on above: Performed By: #### L 504.2610, L100.0100, L500.4050 ####[facility] [address] [place], [address] Eosinophils/100 WBC (Bld) 5.3 % High 0-5 [facility] Comment on above: Performed By: #### L 504.2610, L100.0100, L500.4050 ####[facility] [address] [place], [address] Erythrocyte distribution width (RBC) [Ratio] 13.2 % Normal 11.6-14.6 [facility] Comment on above: Performed By: #### L 504.2610, L100.0100, L500.4050 ####[facility] [address] [place], [address] Hematocrit (Bld) [Volume fraction] 38.2 % Normal 37-47 [facility] Comment on above: Performed By: #### L 504.2610, L100.0100, L500.4050 ####[facility] [address] [place], [address] Hemoglobin (Bld) [Mass/Vol] 12.4 g/dL Normal 12.0-15.0 [facility] Comment on above: Performed By: #### L 504.2610, L100.0100, L500.4050 ####[facility] [address] [place], [address] IG% 0.200 Normal 0.0-0.9 [facility] Comment on above: Result Comment: IG% - Immature Granulocytes (promyelocytes, myelocytes andmetamyelocytes) > 1% indicates that a LEFT SHIFT is Present. Performed By: #### L 504.2610, L100.0100, L500.4050 ####[facility] [address] [place], [address] Lymphocytes/100 WBC (Bld) 29.9 % Normal 19-41 [facility] Comment on above: Performed By: #### L 504.2610, L100.0100, L500.4050 ####[facility] [address] [place], [address] MCH (RBC) [Entitic mass] 28.5 pg Normal 27.0-32.0 [facility] Comment on above: Performed By: #### L 504.2610, L100.0100, L500.4050 ####[facility] [address] [place], [address] MCHC (RBC) [Mass/Vol] 32.5 g/dL Normal 32-36 [facility] Comment on above: Performed By: #### L 504.2610, L100.0100, L500.4050 ####[facility] [address] [place], [address] MCV (RBC) [Entitic vol] 87.8 fL Normal 81-99 [facility] Comment on above: Performed By: #### L 504.2610, L100.0100, L500.4050 ####[facility] [address] [place], [address] Monocytes/100 WBC (Bld) 8.4 % Normal 0-10 [facility] Comment on above: Performed By: #### L 504.2610, L100.0100, L500.4050 ####[facility] [address] [place], [address] Neutrophils/100 WBC (Bld) 55.5 % Normal 47-70 [facility] Comment on above: Performed By: #### L 504.2610, L100.0100, L500.4050 ####[facility] [address] [place], [address] Nucleated RBC (Bld) [#/Vol] 0 10*3/uL Normal 0-5 [facility] Comment on above: Performed By: #### L 504.2610, L100.0100, L500.4050 ####[facility] [address] [place], [address] Platelet mean volume (Bld) [Entitic vol] 10.5 fL Normal 6.2-12.0 [facility] Comment on above: Performed By: #### L 504.2610, L100.0100, L500.4050 ####[facility] [address] [place], [address] Platelets (Bld) [#/Vol] 252 10*3/uL Normal 150-450 [facility] Comment on above: Performed By: #### L 504.2610, L100.0100, L500.4050 ####[facility] [address] [place], [address] RBC (Bld) [#/Vol] 4.35 10*6/uL Normal 4.2-5.4 [facility] Comment on above: Performed By: #### L 504.2610, L100.0100, L500.4050 ####[facility] [address] [place], [address] RDW SD 43.0 fl Normal 35.1-43.9 [facility] Comment on above: Performed By: #### L 504.2610, L100.0100, L500.4050 ####[facility] [address] [place], [address] WBC (Bld) [#/Vol] 5.9 10*3/uL Normal 4.4-11.0 [facility] Comment on above: Performed By: #### L 504.2610, L100.0100, L500.4050 ####[facility] [address] [place], [address] Comprehensive Metabolic Prof ilon 07-31-2024 Albumin [Mass/Vol] 3.9 g/dL Normal 3.2-5.0 [facility] Comment on above: Order Comment: 1 Performed By: #### L 504.2610, L100.0100, L500.4050 ####[facility] [address] [place], [address] Albumin/Globulin [Mass ratio] 1.1 {ratio} Normal 0.9-2.4 [facility] Comment on above: Order Comment: 1 Performed By: #### L 504.2610, L100.0100, L500.4050 ####[facility] [address] [place], [address] ALK P 79 U/L Normal 45-117 [facility] Comment on above: Order Comment: 1 Performed By: #### L 504.2610, L100.0100, L500.4050 ####[facility] [address] [place], [address] ALT [Catalytic activity/Vol] 30 U/L Normal 13-56 [facility] Comment on above: Order Comment: 1 Performed By: #### L 504.2610, L100.0100, L500.4050 ####[facility] [address] [place], [address] AST [Catalytic activity/Vol] 21 U/L Normal 15-37 [facility] Comment on above: Order Comment: 1 Performed By: #### L 504.2610, L100.0100, L500.4050 ####[facility] [address] [place], [address] Bilirubin [Mass/Vol] 0.30 mg/dL Normal 0.20-1.00 [facility] Comment on above: Order Comment: 1 Result Comment: For patients on eltrombopag therapy, use of Dimension [place] TBIL is not recommended. Performed By: #### L 504.2610, L100.0100, L500.4050 ####[facility] [address] [place], [address] BUN/CRE 17.2 RATIO Normal 10-20 [facility] Comment on above: Order Comment: 1 Performed By: #### L 504.2610, L100.0100, L500.4050 ####[facility] [address] [place], [address] CA,Total 9.1 mg/dL Normal 8.5-10.1 [facility] Comment on above: Order Comment: 1 Performed By: #### L 504.2610, L100.0100, L500.4050 ####[facility] [address] [place], [address] Chloride [Moles/Vol] 104 mmol/L Normal 98-107 [facility] Comment on above: Order Comment: 1 Performed By: #### L 504.2610, L100.0100, L500.4050 ####[facility] [address] [place], [address] CO2 [Moles/Vol] 29.0 mmol/L Normal 21.0-32.0 [facility] Comment on above: Order Comment: 1 Performed By: #### L 504.2610, L100.0100, L500.4050 ####[facility] [address] [place], [address] Creatinine [Mass/Vol] 0.81 mg/dL Normal 0.55-1.02 [facility] Comment on above: Order Comment: 1 Result Comment: The validity of the calculated GFR GFRAA in patients over70 years has not been determined. Clinical correlation isessential. Performed By: #### L 504.2610, L100.0100, L500.4050 ####[facility] [address] [place], [address] ECRCL 70.17 ml/min Normal [facility] Comment on above: Order Comment: 1 Performed By: #### L 504.2610, L100.0100, L500.4050 ####[facility] [address] [place], [address] EST GFR - AA 92 mL/min Normal >60 [facility] Comment on above: Order Comment: 1 Result Comment: Afri can [place] GFR Calc Performed By: #### L 504.2610, L100.0100, L500.4050 ####[facility] [address] [place], [address] GAP 6 Normal 5-15 [facility] Comment on above: Order Comment: 1 Performed By: #### L 504.2610, L100.0100, L500.4050 ####[facility] [address] [place], [address] GFR/1.73 sq M.predicted among non-blacks MDRD (S/P/Bld) [Vol rate/Area] 76 mL/min/{1.73_m2} Normal >60 [facility] Comment on above: Order Comment: 1 Result Comment: Non- GFR Calc Performed By: #### L 504.2610, L100.0100, L500.4050 ####[facility] [address] [place], [address] Globulin (S) [Mass/Vol] 3.4 g/dL Normal 2.2-4.2 [facility] Comment on above: Order Comment: 1 Performed By: #### L 504.2610, L100.0100, L500.4050 ####[facility] [address] [place], [address] Glucose [Mass/Vol] 120 mg/dL High 74-106 [facility] Comment on above: Order Comment: 1 Result Comment: Fast ing Glucose result from 100 to 125 mg/dLsuggests IMPAIRED HOMEOSTASIS per A.D.A. criteria. Performed By: #### L 504.2610, L100.0100, L500.4050 ####[facility] [address] [place], [address] Potassium [Moles/Vol] 3.2 mmol/L Low 3.5-5.1 [facility] Comment on above: Order Comment: 1 Performed By: #### L 504.2610, L100.0100, L500.4050 ####[facility] [address] [place], [address] Sodium [Moles/Vol] 139 mmol/L Normal 136-145 [facility] Comment on above: Order Comment: 1 Performed By: #### L 504.2610, L100.0100, L500.4050 ####[facility] [address] [place], [address] T PROT 7.3 g/dL Normal 6.4-8.2 [facility] Comment on above: Order Comment: 1 Performed By: #### L 504.2610, L100.0100, L500.4050 ####[facility] [address] [place], [address] Urea nitrogen [Mass/Vol] 14 mg/dL Normal -18 [facility] Comment on above: Order Comment: 1 Performed By: #### L 504.2610, L100.0100, L500.4050 ####[facility] [address] [place], [address] LDHon 07-31-2024 LDH 207 U/L Normal 84-246 [facility] Comment on above: Order Comment: 1 Performed By: #### L 504.2610, L100.0100, L500.4050 ####[facility] [address] [place], [address] Oncology Visit Reporton Oncology Visit Report Normal [facility] Radiation Oncology Visiton 1 09-18-2023 Radiation Oncology Visit Normal [facility] Radiation Oncology Visiton 1 09-16-2023 Radiation Oncology Visit Normal [facility] Radiation Oncology Visiton 1 09-09-2023 Radiation Oncology Visit Normal [facility] Radiation Oncology Visiton 1 09-02-2023 Radiation Oncology Visit Normal [facility] Basic Metabolic Profile (BMP )on 06-07-2024 BUN Normal 02-13 [facility] Comment on above: Result Comment: Canc elled via OM: Order cancelled - Patient discharged Performed By: #### L 100.0100, L500.2500 ####[facility] [address] [place], [address] BUN/CRE Normal - [facility] Comment on above: Result Comment: Canc elled via OM: Order cancelled - Patient discharged Performed By: #### L 100.0100, L500.2500 ####[facility] [address] [place], [address] CA,Total Normal 8.5-10.1 [facility] Comment on above: Result Comment: Canc elled via OM: Order cancelled - Patient discharged Performed By: #### L 100.0100, L500.2500 ####[facility] [address] [place], [address] CL Normal 98-107 [facility] Comment on above: Result Comment: Canc elled via OM: Order cancelled - Patient discharged Performed By: #### L 100.0100, L500.2500 ####[facility] [address] [place], [address] CO2 Normal 21.0-32.0 [facility] Comment on above: Result Comment: Canc elled via OM: Order cancelled - Patient discharged Performed By: #### L 100.0100, L500.2500 ####[facility] [address] [place], [address] CREAT,SERUM Normal 0.55-1.02 [facility] Comment on above: Result Comment: Canc elled via OM: Order cancelled - Patient discharged Performed By: #### L 100.0100, L500.2500 ####[facility] [address] [place], [address] EST GFR Normal >60 [facility] Comment on above: Result Comment: Canc elled via OM: Order cancelled - Patient discharged Performed By: #### L 100.0100, L500.2500 ####[facility] [address] [place], [address] EST GFR - AA Normal >60 [facility] Comment on above: Result Comment: Canc elled via OM: Order cancelled - Patient discharged Performed By: #### L 100.0100, L500.2500 ####[facility] [address] [place], [address] GAP Normal 5-15 [facility] Comment on above: Result Comment: Canc elled via OM: Order cancelled - Patient discharged Performed By: #### L 100.0100, L500.2500 ####[facility] [address] [place], [address] GLU Normal 74-106 [facility] Comment on above: Result Comment: Canc elled via OM: Order cancelled - Patient discharged Performed By: #### L 100.0100, L500.2500 ####[facility] [address] [place], [address] Potassium Normal 3.5-5.1 [facility] Comment on above: Result Comment: Canc elled via OM: Order cancelled - Patient discharged Performed By: #### L 100.0100, L500.2500 ####[facility] [address] [place], [address] Basic Metabolic Profile (BMP) Normal 136-145 [facility] Comment on above: Result Comment: Canc elled via OM: Order cancelled - Patient discharged Performed By: #### L 100.0100, L500.2500 ####[facility] [address] [place], [address] CBC W/Diff, Automatedon 11-0 Absolute Neut Normal 2.0-7.7 [facility] Comment on above: Result Comment: Canc elled via OM: Order cancelled - Patient discharged Performed By: #### L 100.0100, L500.2500 ####[facility] [address] [place], [address] HCT Normal 37-47 [facility] Comment on above: Result Comment: Canc elled via OM: Order cancelled - Patient discharged Performed By: #### L 100.0100, L500.2500 ####[facility] [address] [place], [address] HGB Normal 12.0-15.0 [facility] Comment on above: Result Comment: Canc elled via OM: Order cancelled - Patient discharged Performed By: #### L 100.0100, L500.2500 ####[facility] [address] [place], [address] MCH Normal 27.0-32.0 [facility] Comment on above: Result Comment: Canc elled via OM: Order cancelled - Patient discharged Performed By: #### L 100.0100, L500.2500 ####[facility] [address] [place], [address] MCHC Normal 32-36 [facility] Comment on above: Result Comment: Canc elled via OM: Order cancelled - Patient discharged Performed By: #### L 100.0100, L500.2500 ####[facility] [address] [place], [address] MCV Normal 81-99 [facility] Comment on above: Result Comment: Canc elled via OM: Order cancelled - Patient discharged Performed By: #### L 100.0100, L500.2500 ####[facility] [address] [place], [address] NEUT% Normal 47-70 [facility] Comment on above: Result Comment: Canc elled via OM: Order cancelled - Patient discharged Performed By: #### L 100.0100, L500.2500 ####[facility] [address] [place], [address] PLT Normal 150-450 [facility] Comment on above: Result Comment: Canc elled via OM: Order cancelled - Patient discharged Performed By: #### L 100.0100, L500.2500 ####[facility] [address] [place], [address] RBC Normal 4.2-5.4 [facility] Comment on above: Result Comment: Canc elled via OM: Order cancelled - Patient discharged Performed By: #### L 100.0100, L500.2500 ####[facility] [address] [place], [address] RDW CV Normal 11.6-14.6 [facility] Comment on above: Result Comment: Canc elled via OM: Order cancelled - Patient discharged Performed By: #### L 100.0100, L500.2500 ####[facility] [address] [place], [address] RDW SD Normal 35.1-43.9 [facility] Comment on above: Result Comment: Canc elled via OM: Order cancelled - Patient discharged Performed By: #### L 100.0100, L500.2500 ####[facility] [address] [place], [address] WBC Normal 4.4-11.0 [facility] Comment on above: Result Comment: Canc elled via OM: Order cancelled - Patient discharged Performed By: #### L 100.0100, L500.2500 ####[facility] [address] [place], [address] Basic Metabolic Profile (BMP )on 06-06-2024 BUN Normal 7-18 [facility] Comment on above: Result Comment: Canc elled via OM: Order cancelled - Patient discharged Performed By: #### L 100.0100, L500.2500 ####[facility] [address] [place], [address] BUN/CRE Normal 10-20 [facility] Comment on above: Result Comment: Canc elled via OM: Order cancelled - Patient discharged Performed By: #### L 100.0100, L500.2500 ####[facility] [address] [place], [address] CA,Total Normal 8.5-10.1 [facility] Comment on above: Result Comment: Canc elled via OM: Order cancelled - Patient discharged Performed By: #### L 100.0100, L500.2500 ####[facility] [address] [place], [address] CL Normal 98-107 [facility] Comment on above: Result Comment: Canc elled via OM: Order cancelled - Patient discharged Performed By: #### L 100.0100, L500.2500 ####[facility] [address] [place], [address] CO2 Normal 21.0-32.0 [facility] Comment on above: Result Comment: Canc elled via OM: Order cancelled - Patient discharged Performed By: #### L 100.0100, L500.2500 ####[facility] [address] [place], [address] CREAT,SERUM Normal 0.55-1.02 [facility] Comment on above: Result Comment: Canc elled via OM: Order cancelled - Patient discharged Performed By: #### L 100.0100, L500.2500 ####[facility] [address] [place], [address] EST GFR Normal >60 [facility] Comment on above: Result Comment: Canc elled via OM: Order cancelled - Patient discharged Performed By: #### L 100.0100, L500.2500 ####[facility] [address] [place], [address] EST GFR - AA Normal >60 [facility] Comment on above: Result Comment: Canc elled via OM: Order cancelled - Patient discharged Performed By: #### L 100.0100, L500.2500 ####[facility] [address] [place], [address] GAP Normal 5-15 [facility] Comment on above: Result Comment: Canc elled via OM: Order cancelled - Patient discharged Performed By: #### L 100.0100, L500.2500 ####[facility] [address] [place], [address] GLU Normal 74-106 [facility] Comment on above: Result Comment: Canc elled via OM: Order cancelled - Patient discharged Performed By: #### L 100.0100, L500.2500 ####[facility] [address] [place], [address] Potassium Normal 3.5-5.1 [facility] Comment on above: Result Comment: Canc elled via OM: Order cancelled - Patient discharged Performed By: #### L 100.0100, L500.2500 ####[facility] [address] [place], [address] Basic Metabolic Profile (BMP) Normal 136-145 [facility] Comment on above: Result Comment: Canc elled via OM: Order cancelled - Patient discharged Performed By: #### L 100.0100, L500.2500 ####[facility] [address] [place], [address] CBC W/Diff, Automatedon 11-0 Absolute Neut Normal 2.0-7.7 [facility] [facility] Comment on above: Result Comment: Canc elled via OM: Order cancelled - Patient discharged Performed By: #### L 100.0100, L500.2500 ####[facility] [address] [place], [address] HCT Normal 37-47 [facility] Comment on above: Result Comment: Canc elled via OM: Order cancelled - Patient discharged Performed By: #### L 100.0100, L500.2500 ####[facility] [address] [place], [address] HGB Normal 12.0-15.0 [facility] Comment on above: Result Comment: Canc elled via OM: Order cancelled - Patient discharged Performed By: #### L 100.0100, L500.2500 ####[facility] [address] [place], [address] MCH Normal 27.0-32.0 [facility] Comment on above: Result Comment: Canc elled via OM: Order cancelled - Patient discharged Performed By: #### L 100.0100, L500.2500 ####[facility] [address] [place], [address] MCHC Normal 32-36 [facility] Comment on above: Result Comment: Canc elled via OM: Order cancelled - Patient discharged Performed By: #### L 100.0100, L500.2500 ####[facility] [address] [place], [address] MCV Normal 81-99 [facility] Comment on above: Result Comment: Canc elled via OM: Order cancelled - Patient discharged Performed By: #### L 100.0100, L500.2500 ####[facility] [address] [place], [address] NEUT% Normal 47-70 [facility] Comment on above: Result Comment: Canc elled via OM: Order cancelled - Patient discharged Performed By: #### L 100.0100, L500.2500 ####[facility] [address] [place], [address] PLT Normal 150-450 [facility] Comment on above: Result Comment: Canc elled via OM: Order cancelled - Patient discharged Performed By: #### L 100.0100, L500.2500 ####[facility] [address] [place], [address] RBC Normal 4.2-5.4 [facility] Comment on above: Result Comment: Canc elled via OM: Order cancelled - Patient discharged Performed By: #### L 100.0100, L500.2500 ####[facility] [address] [place], [address] RDW CV Normal 11.6-14.6 [facility] Comment on above: Result Comment: Canc elled via OM: Order cancelled - Patient discharged Performed By: #### L 100.0100, L500.2500 ####[facility] [address] [place], [address] RDW SD Normal 35.1-43.9 [facility] Comment on above: Result Comment: Canc elled via OM: Order cancelled - Patient discharged Performed By: #### L 100.0100, L500.2500 ####[facility] [address] [place], [address] WBC Normal 4.4-11.0 [facility] Comment on above: Result Comment: Canc elled via OM: Order cancelled - Patient discharged Performed By: #### L 100.0100, L500.2500 ####[facility] [address] [place], [address] Basic Metabolic Profile (BMP )on 06-05-2024 BUN Normal 7-18 [facility] Comment on above: Result Comment: Canc elled via OM: Order cancelled - Patient discharged Performed By: #### L 500.2500, L100.0100 ####[facility] [address] [place], [address] BUN/CRE Normal 10-20 [facility] Comment on above: Result Comment: Canc elled via OM: Order cancelled - Patient discharged Performed By: #### L 500.2500, L100.0100 ####[facility] [address] [place], [address] CA,Total Normal 8.5-10.1 [facility] Comment on above: Result Comment: Canc elled via OM: Order cancelled - Patient discharged Performed By: #### L 500.2500, L100.0100 ####[facility] [address] [place], [address] CL Normal 98-107 [facility] Comment on above: Result Comment: Canc elled via OM: Order cancelled - Patient discharged Performed By: #### L 500.2500, L100.0100 ####[facility] [address] [place], [address] CO2 Normal 21.0-32.0 [facility] Comment on above: Result Comment: Canc elled via OM: Order cancelled - Patient discharged Performed By: #### L 500.2500, L100.0100 ####[facility] [address] [place], [address] CREAT,SERUM Normal 0.55-1.02 [facility] Comment on above: Result Comment: Canc elled via OM: Order cancelled - Patient discharged Performed By: #### L 500.2500, L100.0100 ####[facility] [address] [place], [address] EST GFR Normal >60 [facility] Comment on above: Result Comment: Canc elled via OM: Order cancelled - Patient discharged Performed By: #### L 500.2500, L100.0100 ####[facility] [address] [place], [address] EST GFR - AA Normal >60 [facility] Comment on above: Result Comment: Canc elled via OM: Order cancelled - Patient discharged Performed By: #### L 500.2500, L100.0100 ####[facility] [address] [place], [address] GAP Normal 5-15 [facility] Comment on above: Result Comment: Canc elled via OM: Order cancelled - Patient discharged Performed By: #### L 500.2500, L100.0100 ####[facility] [address] [place], [address] GLU Normal 74-106 [facility] Comment on above: Result Comment: Canc elled via OM: Order cancelled - Patient discharged Performed By: #### L 500.2500, L100.0100 ####[facility] [address] [place], [address] Potassium Normal 3.5-5.1 [facility] Comment on above: Result Comment: Canc elled via OM: Order cancelled - Patient discharged Performed By: #### L 500.2500, L100.0100 ####[facility] [address] [place], [address] Basic Metabolic Profile (BMP) Normal 136-145 [facility] Comment on above: Result Comment: Canc elled via OM: Order cancelled - Patient discharged Performed By: #### L 500.2500, L100.0100 ####[facility] [address] [place], [address] CBC W/Diff, Automatedon 11-0 7-2023 Absolute Lymph 2.06 X10 3/uL Normal 0.83-4.51 [facility] Comment on above: Performed By: #### L 100.0100, L500.4050, L501.5200 ####[facility] [address] [place], [address] Absolute Neut 4.2 X10 3/uL Normal 2.0-7.7 [facility] Comment on above: Performed By: #### L 100.0100, L500.4050, L501.5200 ####[facility] [address] [place], [address] Basophils/100 WBC (Bld) 0.6 % Normal 0-1 [facility] Comment on above: Performed By: #### L 100.0100, L500.4050, L501.5200 ####[facility] [address] [place], [address] Eosinophils/100 WBC (Bld) 1.0 % Normal 0-5 [facility] Comment on above: Performed By: #### L 100.0100, L500.4050, L501.5200 ####[facility] [address] [place], [address] Erythrocyte distribution width (RBC) [Ratio] 18.6 % High 11.6-14.6 [facility] Comment on above: Performed By: #### L 100.0100, L500.4050, L501.5200 ####[facility] [address] [place], [address] Hematocrit (Bld) [Volume fraction] 30.7 % Low 37-47 [facility] Comment on above: Performed By: #### L 100.0100, L500.4050, L501.5200 ####[facility] [address] [place], [address] Hemoglobin (Bld) [Mass/Vol] 9.7 g/dL Low 12.0-15.0 [facility] Comment on above: Performed By: #### L 100.0100, L500.4050, L501.5200 ####[facility] [address] [place], [address] IG% 0.400 Normal 0.0-0.9 [facility] Comment on above: Result Comment: IG% - Immature Granulocytes (promyelocytes, myelocytes andmetamyelocytes) > 1% indicates that a LEFT SHIFT is Present. Performed By: #### L 100.0100, L500.4050, L501.5200 ####[facility] [address] [place], [address] Lymphocytes/100 WBC (Bld) 29.5 % Normal 19-41 [facility] Comment on above: Performed By: #### L 100.0100, L500.4050, L501.5200 ####[facility] [address] [place], [address] MCH (RBC) [Entitic mass] 29.0 pg Normal 27.0-32.0 [facility] Comment on above: Performed By: #### L 100.0100, L500.4050, L501.5200 ####[facility] [address] [place], [address] MCHC (RBC) [Mass/Vol] 31.6 g/dL Low 32-36 [facility] Comment on above: Performed By: #### L 100.0100, L500.4050, L501.5200 ####[facility] [address] [place], [address] MCV (RBC) [Entitic vol] 91.6 fL Normal 81-99 [facility] Comment on above: Performed By: #### L 100.0100, L500.4050, L501.5200 ####[facility] [address] [place], [address] Monocytes/100 WBC (Bld) 9.0 % Normal 0-10 [facility] Comment on above: Performed By: #### L 100.0100, L500.4050, L501.5200 ####[facility] [address] [place], [address] Neutrophils/100 WBC (Bld) 59.5 % Normal 47-70 [facility] Comment on above: Performed By: #### L 100.0100, L500.4050, L501.5200 ####[facility] [address] [place], [address] Nucleated RBC (Bld) [#/Vol] 0 10*3/uL Normal 0-5 [facility] Comment on above: Performed By: #### L 100.0100, L500.4050, L501.5200 ####[facility] [address] [place], [address] Platelet mean volume (Bld) [Entitic vol] 10.3 fL Normal 6.2-12.0 [facility] Comment on above: Performed By: #### L 100.0100, L500.4050, L501.5200 ####[facility] [address] [place], [address] Platelets (Bld) [#/Vol] 242 10*3/uL Normal 150-450 [facility] Comment on above: Performed By: #### L 100.0100, L500.4050, L501.5200 ####[facility] [address] [place], [address] RBC (Bld) [#/Vol] 3.35 10*6/uL Low 4.2-5.4 [facility] Comment on above: Performed By: #### L 100.0100, L500.4050, L501.5200 ####[facility] [address] [place], [address] RDW SD 61.2 fl High 35.1-43.9 [facility] Comment on above: Performed By: #### L 100.0100, L500.4050, L501.5200 ####[facility] [address] [place], [address] WBC (Bld) [#/Vol] 7.0 10*3/uL Normal 4.4-11.0 [facility] Comment on above: Performed By: #### L 100.0100, L500.4050, L501.5200 ####[facility] [address] [place], [address] Absolute Neut Normal 2.0-7.7 [facility] Comment on above: Result Comment: Canc elled via OM: Order cancelled - Patient discharged Performed By: #### L 500.2500, L100.0100 ####[facility] [address] [place], [address] HCT Normal 37-47 [facility] Comment on above: Result Comment: Canc elled via OM: Order cancelled - Patient discharged Performed By: #### L 500.2500, L100.0100 ####[facility] [address] [place], [address] HGB Normal 12.0-15.0 [facility] Comment on above: Result Comment: Canc elled via OM: Order cancelled - Patient discharged Performed By: #### L 500.2500, L100.0100 ####[facility] [address] [place], [address] MCH Normal 27.0-32.0 [facility] Comment on above: Result Comment: Canc elled via OM: Order cancelled - Patient discharged Performed By: #### L 500.2500, L100.0100 ####[facility] [address] [place], [address] MCHC Normal 32-36 [facility] Comment on above: Result Comment: Canc elled via OM: Order cancelled - Patient discharged Performed By: #### L 500.2500, L100.0100 ####[facility] [address] [place], [address] MCV Normal 81-99 [facility] Comment on above: Result Comment: Canc elled via OM: Order cancelled - Patient discharged Performed By: #### L 500.2500, L100.0100 ####[facility] [address] [place], [address] NEUT% Normal 47-70 [facility] Comment on above: Result Comment: Canc elled via OM: Order cancelled - Patient discharged Performed By: #### L 500.2500, L100.0100 ####[facility] [address] [place], [address] PLT Normal 150-450 [facility] Comment on above: Result Comment: Canc elled via OM: Order cancelled - Patient discharged Performed By: #### L 500.2500, L100.0100 ####[facility] [address] [place], [address] RBC Normal 4.2-5.4 [facility] Comment on above: Result Comment: Canc elled via OM: Order cancelled - Patient discharged Performed By: #### L 500.2500, L100.0100 ####[facility] [address] [place], [address] RDW CV Normal 11.6-14.6 [facility] Comment on above: Result Comment: Canc elled via OM: Order cancelled - Patient discharged Performed By: #### L 500.2500, L100.0100 ####[facility] [address] [place], [address] RDW SD Normal 35.1-43.9 [facility] Comment on above: Result Comment: Canc elled via OM: Order cancelled - Patient discharged Performed By: #### L 500.2500, L100.0100 ####[facility] [address] [place], [address] WBC Normal 4.4-11.0 [facility] Comment on above: Result Comment: Canc elled via OM: Order cancelled - Patient discharged Performed By: #### L 500.2500, L100.0100 ####[facility] [address] [place], [address] Comprehensive Metabolic Prof tnon 06-05-2024 Albumin [Mass/Vol] 3.4 g/dL Normal 3.2-5.0 [facility] Comment on above: Performed By: #### L 100.0100, L500.4050, L501.5200 ####[facility] [address] [place], [address] Albumin/Globulin [Mass ratio] 1.1 {ratio} Normal 0.9-2.4 [facility] Comment on above: Performed By: #### L 100.0100, L500.4050, L501.5200 ####[facility] [address] [place], [address] ALK P 81 U/L Normal 45-117 [facility] Comment on above: Performed By: #### L 100.0100, L500.4050, L501.5200 ####[facility] [address] [place], [address] ALT [Catalytic activity/Vol] 20 U/L Normal 13-56 [facility] Comment on above: Performed By: #### L 100.0100, L500.4050, L501.5200 ####[facility] [address] [place], [address] AST [Catalytic activity/Vol] 17 U/L Normal 15-37 [facility] Comment on above: Performed By: #### L 100.0100, L500.4050, L501.5200 ####[facility] [address] [place], [address] Bilirubin [Mass/Vol] 0.30 mg/dL Normal 0.20-1.00 [facility] Comment on above: Result Comment: For patients on eltrombopag therapy, use of Dimension [place] TBIL is not recommended. Performed By: #### L 100.0100, L500.4050, L501.5200 ####[facility] [address] [place], [address] BUN/CRE 16.0 RATIO Normal 10-20 [facility] Comment on above: Performed By: #### L 100.0100, L500.4050, L501.5200 ####[facility] [address] [place], [address] CA,Total 9.0 mg/dL Normal 8.5-10.1 [facility] Comment on above: Performed By: #### L 100.0100, L500.4050, L501.5200 ####[facility] [address] [place], [address] Chloride [Moles/Vol] 108 mmol/L High 98-107 [facility] Comment on above: Performed By: #### L 100.0100, L500.4050, L501.5200 ####[facility] [address] [place], [address] CO2 [Moles/Vol] 28.0 mmol/L Normal 21.0-32.0 [facility] Comment on above: Performed By: #### L 100.0100, L500.4050, L501.5200 ####[facility] [address] [place], [address] Creatinine [Mass/Vol] 0.87 mg/dL Normal 0.55-1.02 [facility] Comment on above: Result Comment: The validity of the calculated GFR GFRAA in patients over70 years has not been determined. Clinical correlation isessential. Performed By: #### L 100.0100, L500.4050, L501.5200 ####[facility] [address] [place], [address] ECRCL 64.34 ml/min Normal [facility] Comment on above: Performed By: #### L 100.0100, L500.4050, L501.5200 ####[facility] [address] [place], [address] EST GFR - AA 85 mL/min Normal >60 [facility] Comment on above: Result Comment: Afri can [place] GFR Calc Performed By: #### L 100.0100, L500.4050, L501.5200 ####[facility] [address] [place], [address] GAP 4 Low 5-15 [facility] Comment on above: Performed By: #### L 100.0100, L500.4050, L501.5200 ####[facility] [address] [place], [address] GFR/1.73 sq M.predicted among non-blacks MDRD (S/P/Bld) [Vol rate/Area] 70 mL/min/{1.73_m2} Normal >60 [facility] Comment on above: Result Comment: Non- GFR Calc Performed By: #### L 100.0100, L500.4050, L501.5200 ####[facility] [address] [place], [address] Globulin (S) [Mass/Vol] 3.1 g/dL Normal 2.2-4.2 [facility] Comment on above: Performed By: #### L 100.0100, L500.4050, L501.5200 ####[facility] [address] [place], [address] Glucose [Mass/Vol] 102 mg/dL Normal 74-106 [facility] Comment on above: Result Comment: Fast ing Glucose result from 100 to 125 mg/dLsuggests IMPAIRED HOMEOSTASIS per A.D.A. criteria. Performed By: #### L 100.0100, L500.4050, L501.5200 ####[facility] [address] [place], [address] Potassium [Moles/Vol] 3.6 mmol/L Normal 3.5-5.1 [facility] Comment on above: Performed By: #### L 100.0100, L500.4050, L501.5200 ####[facility] [address] [place], [address] Sodium [Moles/Vol] 140 mmol/L Normal 136-145 [facility] Comment on above: Performed By: #### L 100.0100, L500.4050, L501.5200 ####[facility] [address] [place], [address] T PROT 6.5 g/dL Normal 6.4-8.2 [facility] Comment on above: Performed By: #### L 100.0100, L500.4050, L501.5200 ####[facility] [address] [place], [address] Urea nitrogen [Mass/Vol] 14 mg/dL Normal 7-18 [facility] Comment on above: Performed By: #### L 100.0100, L500.4050, L501.5200 ####[facility] [address] [place], [address] Ferritinon 06-05-2024 Ferritin [Mass/Vol] 236 ng/mL Normal 8-252 [facility] Comment on above: Order Comment: ADD O N Performed By: #### L 503.6550, L503.6030 ####[facility] [address] [place], [address] Iron+Iron Binding Capacityon 06-05-2024 Iron [Mass/Vol] 48 ug/dL Low 50-170 [facility] Comment on above: Order Comment: ADD O N Performed By: #### L 503.6550, L503.6030 ####[facility] [address] [place], [address] IRON SATURATION 16.5 Normal 15.0-55.0 [facility] Comment on above: Order Comment: ADD O N Performed By: #### L 503.6550, L503.6030 ####[facility] [address] [place], [address] TIBC 291 ug/dL Normal 250-450 [facility] Comment on above: Order Comment: ADD O N Performed By: #### L 503.6550, L503.6030 ####[facility] [address] [place], [address] Magnesiumon 06-05-2024 Magnesium [Mass/Vol] 2.2 mg/dL Normal 1.6-2.6 [facility] Comment on above: Performed By: #### L 100.0100, L500.4050, L501.5200 ####[facility] [address] [place], [address] Oncology Visit Reporton Oncology Visit Report Normal [facility] Basic Metabolic Profile (BMP )on 06-04-2024 BUN Normal 7-18 [facility] Comment on above: Result Comment: Canc elled via OM: Order cancelled - Patient discharged Performed By: #### L 500.2500, L100.0100 ####[facility] [address] [place], [address] BUN/CRE Normal 10-20 [facility] Comment on above: Result Comment: Canc elled via OM: Order cancelled - Patient discharged Performed By: #### L 500.2500, L100.0100 ####[facility] [address] [place], [address] CA,Total Normal 8.5-10.1 [facility] Comment on above: Result Comment: Canc elled via OM: Order cancelled - Patient discharged Performed By: #### L 500.2500, L100.0100 ####[facility] [address] [place], [address] CL Normal 98-107 [facility] Comment on above: Result Comment: Canc elled via OM: Order cancelled - Patient discharged Performed By: #### L 500.2500, L100.0100 ####[facility] [address] [place], [address] CO2 Normal 21.0-32.0 [facility] Comment on above: Result Comment: Canc elled via OM: Order cancelled - Patient discharged Performed By: #### L 500.2500, L100.0100 ####[facility] [address] [place], [address] CREAT,SERUM Normal 0.55-1.02 [facility] Comment on above: Result Comment: Canc elled via OM: Order cancelled - Patient discharged Performed By: #### L 500.2500, L100.0100 ####[facility] [address] [place], [address] EST GFR Normal >60 [facility] Comment on above: Result Comment: Canc elled via OM: Order cancelled - Patient discharged Performed By: #### L 500.2500, L100.0100 ####[facility] [address] [place], [address] EST GFR - AA Normal >60 [facility] Comment on above: Result Comment: Canc elled via OM: Order cancelled - Patient discharged Performed By: #### L 500.2500, L100.0100 ####[facility] [address] [place], [address] GAP Normal 5-15 [facility] Comment on above: Result Comment: Canc elled via OM: Order cancelled - Patient discharged Performed By: #### L 500.2500, L100.0100 ####[facility] [address] [place], [address] GLU Normal 74-106 [facility] Comment on above: Result Comment: Canc elled via OM: Order cancelled - Patient discharged Performed By: #### L 500.2500, L100.0100 ####[facility] [address] [place], [address] Potassium Normal 3.5-5.1 [facility] Comment on above: Result Comment: Canc elled via OM: Order cancelled - Patient discharged Performed By: #### L 500.2500, L100.0100 ####[facility] [address] [place], [address] Basic Metabolic Profile (BMP) Normal 136-145 [facility] Comment on above: Result Comment: Canc elled via OM: Order cancelled - Patient discharged Performed By: #### L 500.2500, L100.0100 ####[facility] [address] [place], [address] CBC W/Diff, Automatedon 11-0 -2023 Absolute Neut Normal 2.0-7.7 [facility] Comment on above: Result Comment: Canc elled via OM: Order cancelled - Patient discharged Performed By: #### L 500.2500, L100.0100 ####[facility] [address] [place], [address] HCT Normal 37-47 [facility] Comment on above: Result Comment: Canc elled via OM: Order cancelled - Patient discharged Performed By: #### L 500.2500, L100.0100 ####[facility] [address] [place], [address] HGB Normal 12.0-15.0 [facility] Comment on above: Result Comment: Canc elled via OM: Order cancelled - Patient discharged Performed By: #### L 500.2500, L100.0100 ####[facility] [address] [place], [address] MCH Normal 27.0-32.0 [facility] Comment on above: Result Comment: Canc elled via OM: Order cancelled - Patient discharged Performed By: #### L 500.2500, L100.0100 ####[facility] [address] [place], [address] MCHC Normal 32-36 [facility] Comment on above: Result Comment: Canc elled via OM: Order cancelled - Patient discharged Performed By: #### L 500.2500, L100.0100 ####[facility] [address] [place], [address] MCV Normal 81-99 [facility] Comment on above: Result Comment: Canc elled via OM: Order cancelled - Patient discharged Performed By: #### L 500.2500, L100.0100 ####[facility] [address] [place], [address] NEUT% Normal 47-70 [facility] Comment on above: Result Comment: Canc elled via OM: Order cancelled - Patient discharged Performed By: #### L 500.2500, L100.0100 ####[facility] [address] [place], [address] PLT Normal 150-450 [facility] Comment on above: Result Comment: Canc elled via OM: Order cancelled - Patient discharged Performed By: #### L 500.2500, L100.0100 ####[facility] [address] [place], [address] RBC Normal 4.2-5.4 [facility] Comment on above: Result Comment: Canc elled via OM: Order cancelled - Patient discharged Performed By: #### L 500.2500, L100.0100 ####[facility] [address] [place], [address] RDW CV Normal 11.6-14.6 [facility] Comment on above: Result Comment: Canc elled via OM: Order cancelled - Patient discharged Performed By: #### L 500.2500, L100.0100 ####[facility] [address] [place], [address] RDW SD Normal 35.1-43.9 [facility] Comment on above: Result Comment: Canc elled via OM: Order cancelled - Patient discharged Performed By: #### L 500.2500, L100.0100 ####[facility] [address] [place], [address] WBC Normal 4.4-11.0 [facility] Comment on above: Result Comment: Canc elled via OM: Order cancelled - Patient discharged Performed By: #### L 500.2500, L100.0100 ####[facility] [address] [place], [address] Basic Metabolic Profile (BMP )on 06-03-2024 BUN Normal 7-18 [facility] Comment on above: Result Comment: Canc elled via OM: Order cancelled - Patient discharged Performed By: #### L 100.0100, L500.2500 ####[facility] [address] [place], [address] BUN/CRE Normal 10-20 [facility] Comment on above: Result Comment: Canc elled via OM: Order cancelled - Patient discharged Performed By: #### L 100.0100, L500.2500 ####[facility] [address] [place], [address] CA,Total Normal 8.5-10.1 [facility] Comment on above: Result Comment: Canc elled via OM: Order cancelled - Patient discharged Performed By: #### L 100.0100, L500.2500 ####[facility] [address] [place], [address] CL Normal 98-107 [facility] Comment on above: Result Comment: Canc elled via OM: Order cancelled - Patient discharged Performed By: #### L 100.0100, L500.2500 ####[facility] [address] [place], [address] CO2 Normal 21.0-32.0 [facility] Comment on above: Result Comment: Canc elled via OM: Order cancelled - Patient discharged Performed By: #### L 100.0100, L500.2500 ####[facility] [address] [place], [address] CREAT,SERUM Normal 0.55-1.02 [facility] Comment on above: Result Comment: Canc elled via OM: Order cancelled - Patient discharged Performed By: #### L 100.0100, L500.2500 ####[facility] [address] [place], [address] EST GFR Normal >60 [facility] Comment on above: Result Comment: Canc elled via OM: Order cancelled - Patient discharged Performed By: #### L 100.0100, L500.2500 ####[facility] [address] [place], [address] EST GFR - AA Normal >60 [facility] Comment on above: Result Comment: Canc elled via OM: Order cancelled - Patient discharged Performed By: #### L 100.0100, L500.2500 ####[facility] [address] [place], [address] GAP Normal 5-15 [facility] Comment on above: Result Comment: Canc elled via OM: Order cancelled - Patient discharged Performed By: #### L 100.0100, L500.2500 ####[facility] [address] [place], [address] GLU Normal 74-106 [facility] Comment on above: Result Comment: Canc elled via OM: Order cancelled - Patient discharged Performed By: #### L 100.0100, L500.2500 ####[facility] [address] [place], [address] Potassium Normal 3.5-5.1 [facility] Comment on above: Result Comment: Canc elled via OM: Order cancelled - Patient discharged Performed By: #### L 100.0100, L500.2500 ####[facility] [address] [place], [address] Basic Metabolic Profile (BMP) Normal 136-145 [facility] Comment on above: Result Comment: Canc elled via OM: Order cancelled - Patient discharged Performed By: #### L 100.0100, L500.2500 ####[facility] [address] [place], [address] CBC W/Diff, Automatedon 11-0 Absolute Neut Normal 2.0-7.7 [facility] Comment on above: Result Comment: Canc elled via OM: Order cancelled - Patient discharged Performed By: #### L 100.0100, L500.2500 ####[facility] [address] [place], [address] HCT Normal 37-47 [facility] Comment on above: Result Comment: Canc elled via OM: Order cancelled - Patient discharged Performed By: #### L 100.0100, L500.2500 ####[facility] [address] [place], [address] HGB Normal 12.0-15.0 [facility] Comment on above: Result Comment: Canc elled via OM: Order cancelled - Patient discharged Performed By: #### L 100.0100, L500.2500 ####[facility] [address] [place], [address] MCH Normal 27.0-32.0 [facility] Comment on above: Result Comment: Canc elled via OM: Order cancelled - Patient discharged Performed By: #### L 100.0100, L500.2500 ####[facility] [address] [place], [address] MCHC Normal 32-36 [facility] Comment on above: Result Comment: Canc elled via OM: Order cancelled - Patient discharged Performed By: #### L 100.0100, L500.2500 ####[facility] [address] [place], [address] MCV Normal 81-99 [facility] Comment on above: Result Comment: Canc elled via OM: Order cancelled - Patient discharged Performed By: #### L 100.0100, L500.2500 ####[facility] [address] [place], [address] NEUT% Normal 47-70 [facility] Comment on above: Result Comment: Canc elled via OM: Order cancelled - Patient discharged Performed By: #### L 100.0100, L500.2500 ####[facility] [address] [place], [address] PLT Normal 150-450 [facility] Comment on above: Result Comment: Canc elled via OM: Order cancelled - Patient discharged Performed By: #### L 100.0100, L500.2500 ####[facility] [address] [place], [address] RBC Normal 4.2-5.4 [facility] Comment on above: Result Comment: Canc elled via OM: Order cancelled - Patient discharged Performed By: #### L 100.0100, L500.2500 ####[facility] [address] [place], [address] RDW CV Normal 11.6-14.6 [facility] Comment on above: Result Comment: Canc elled via OM: Order cancelled - Patient discharged Performed By: #### L 100.0100, L500.2500 ####[facility] [address] [place], [address] RDW SD Normal 35.1-43.9 [facility] Comment on above: Result Comment: Canc elled via OM: Order cancelled - Patient discharged Performed By: #### L 100.0100, L500.2500 ####[facility] [address] [place], [address] WBC Normal 4.4-11.0 [facility] Comment on above: Result Comment: Canc elled via OM: Order cancelled - Patient discharged Performed By: #### L 100.0100, L500.2500 ####[facility] [address] [place], [address] Basic Metabolic Profile (BMP )on 06-02-2024 BUN Normal 7-18 [facility] Comment on above: Result Comment: Canc elled via OM: Order cancelled - Patient discharged Performed By: #### L 100.0100, L500.2500 ####[facility] [address] [place], [address] BUN/CRE Normal 10-20 [facility] Comment on above: Result Comment: Canc elled via OM: Order cancelled - Patient discharged Performed By: #### L 100.0100, L500.2500 ####[facility] [address] [place], [address] CA,Total Normal 8.5-10.1 [facility] Comment on above: Result Comment: Canc elled via OM: Order cancelled - Patient discharged Performed By: #### L 100.0100, L500.2500 ####[facility] [address] [facility] [address] CL Normal 98-107 [facility] Comment on above: Result Comment: Canc elled via OM: Order cancelled - Patient discharged Performed By: #### L 100.0100, L500.2500 ####[facility] [address] [facility] [address] CO2 Normal 21.0-32.0 [facility] Comment on above: Result Comment: Canc elled via OM: Order cancelled - Patient discharged Performed By: #### L 100.0100, L500.2500 ####[facility] [address] [place], [address] CREAT,SERUM Normal 0.55-1.02 [facility] Comment on above: Result Comment: Canc elled via OM: Order cancelled - Patient discharged Performed By: #### L 100.0100, L500.2500 ####[facility] [address] [place], [address] EST GFR Normal >60 [facility] Comment on above: Result Comment: Canc elled via OM: Order cancelled - Patient discharged Performed By: #### L 100.0100, L500.2500 ####[facility] [address] [place], [address] EST GFR - AA Normal >60 [facility] Comment on above: Result Comment: Canc elled via OM: Order cancelled - Patient discharged Performed By: #### L 100.0100, L500.2500 ####[facility] [address] [place], [address] GAP Normal 5-15 [facility] Comment on above: Result Comment: Canc elled via OM: Order cancelled - Patient discharged Performed By: #### L 100.0100, L500.2500 ####[facility] [address] [place], [address] GLU Normal 74-106 [facility] Comment on above: Result Comment: Canc elled via OM: Order cancelled - Patient discharged Performed By: #### L 100.0100, L500.2500 ####[facility] [address] [place], [address] Potassium Normal 3.5-5.1 [facility] Comment on above: Result Comment: Canc elled via OM: Order cancelled - Patient discharged Performed By: #### L 100.0100, L500.2500 ####[facility] [address] [place], [address] Basic Metabolic Profile (BMP) Normal 136-145 [facility] Comment on above: Result Comment: Canc elled via OM: Order cancelled - Patient discharged Performed By: #### L 100.0100, L500.2500 ####[facility] [address] [place], [address] CBC W/Diff, Automatedon 11-0 -2023 Absolute Neut Normal 2.0-7.7 [facility] Comment on above: Result Comment: Canc elled via OM: Order cancelled - Patient discharged Performed By: #### L 100.0100, L500.2500 ####[facility] [address] [place], [address] HCT Normal 37-47 [facility] Comment on above: Result Comment: Canc elled via OM: Order cancelled - Patient discharged Performed By: #### L 100.0100, L500.2500 ####[facility] [address] [place], [address] HGB Normal 12.0-15.0 [facility] Comment on above: Result Comment: Canc elled via OM: Order cancelled - Patient discharged Performed By: #### L 100.0100, L500.2500 ####[facility] [address] [place], [address] MCH Normal 27.0-32.0 [facility] Comment on above: Result Comment: Canc elled via OM: Order cancelled - Patient discharged Performed By: #### L 100.0100, L500.2500 ####[facility] [address] [place], [address] MCHC Normal 32-36 [facility] Comment on above: Result Comment: Canc elled via OM: Order cancelled - Patient discharged Performed By: #### L 100.0100, L500.2500 ####[facility] [address] [place], [address] MCV Normal 81-99 [facility] Comment on above: Result Comment: Canc elled via OM: Order cancelled - Patient discharged Performed By: #### L 100.0100, L500.2500 ####[facility] [address] [place], [address] NEUT% Normal 47-70 [facility] Comment on above: Result Comment: Canc elled via OM: Order cancelled - Patient discharged Performed By: #### L 100.0100, L500.2500 ####[facility] [address] [place], [address] PLT Normal 150-450 [facility] Comment on above: Result Comment: Canc elled via OM: Order cancelled - Patient discharged Performed By: #### L 100.0100, L500.2500 ####[facility] [address] [place], [address] RBC Normal 4.2-5.4 [facility] Comment on above: Result Comment: Canc elled via OM: Order cancelled - Patient discharged Performed By: #### L 100.0100, L500.2500 ####[facility] [address] [place], [address] RDW CV Normal 11.6-14.6 [facility] Comment on above: Result Comment: Canc elled via OM: Order cancelled - Patient discharged Performed By: #### L 100.0100, L500.2500 ####[facility] [address] [place], [address] RDW SD Normal 35.1-43.9 [facility] Comment on above: Result Comment: Canc elled via OM: Order cancelled - Patient discharged Performed By: #### L 100.0100, L500.2500 ####[facility] [address] [place], [address] WBC Normal 4.4-11.0 [facility] Comment on above: Result Comment: Canc elled via OM: Order cancelled - Patient discharged Performed By: #### L 100.0100, L500.2500 ####[facility] [address] [place], [address] Basic Metabolic Profile (BMP )on 06-01-2024 BUN Normal 7-18 [facility] Comment on above: Result Comment: Canc elled via OM: Order cancelled - Patient discharged Performed By: #### L 100.0100, L500.2500 ####[facility] [address] [place], [address] BUN/CRE Normal 10-20 [facility] Comment on above: Result Comment: Canc elled via OM: Order cancelled - Patient discharged Performed By: #### L 100.0100, L500.2500 ####[facility] [address] [place], [address] CA,Total Normal 8.5-10.1 [facility] Comment on above: Result Comment: Canc elled via OM: Order cancelled - Patient discharged Performed By: #### L 100.0100, L500.2500 ####[facility] [address] [place], [address] CL Normal 98-107 [facility] Comment on above: Result Comment: Canc elled via OM: Order cancelled - Patient discharged Performed By: #### L 100.0100, L500.2500 ####[facility] [address] [place], [address] CO2 Normal 21.0-32.0 [facility] Comment on above: Result Comment: Canc elled via OM: Order cancelled - Patient discharged Performed By: #### L 100.0100, L500.2500 ####[facility] [address] [place], [address] CREAT,SERUM Normal 0.55-1.02 [facility] Comment on above: Result Comment: Canc elled via OM: Order cancelled - Patient discharged Performed By: #### L 100.0100, L500.2500 ####[facility] [address] [place], [address] EST GFR Normal >60 [facility] Comment on above: Result Comment: Canc elled via OM: Order cancelled - Patient discharged Performed By: #### L 100.0100, L500.2500 ####[facility] [address] [place], [address] EST GFR - AA Normal >60 [facility] Comment on above: Result Comment: Canc elled via OM: Order cancelled - Patient discharged Performed By: #### L 100.0100, L500.2500 ####[facility] [address] [place], [address] GAP Normal 5-15 [facility] Comment on above: Result Comment: Canc elled via OM: Order cancelled - Patient discharged Performed By: #### L 100.0100, L500.2500 ####[facility] [address] [place], [address] GLU Normal 74-106 [facility] Comment on above: Result Comment: Canc elled via OM: Order cancelled - Patient discharged Performed By: #### L 100.0100, L500.2500 ####[facility] [address] [place], [address] Potassium Normal 3.5-5.1 [facility] Comment on above: Result Comment: Canc elled via OM: Order cancelled - Patient discharged Performed By: #### L 100.0100, L500.2500 ####[facility] [facility] [address] [place], [address] Basic Metabolic Profile (BMP) Normal 136-145 [facility] Comment on above: Result Comment: Canc elled via OM: Order cancelled - Patient discharged Performed By: #### L 100.0100, L500.2500 ####[facility] [address] [place], [address] CBC W/Diff, Automatedon 11-0 Absolute Neut Normal 2.0-7.7 [facility] Comment on above: Result Comment: Canc elled via OM: Order cancelled - Patient discharged Performed By: #### L 100.0100, L500.2500 ####[facility] [address] [place], [address] HCT Normal 37-47 [facility] Comment on above: Result Comment: Canc elled via OM: Order cancelled - Patient discharged Performed By: #### L 100.0100, L500.2500 ####[facility] [address] [place], [address] HGB Normal 12.0-15.0 [facility] Comment on above: Result Comment: Canc elled via OM: Order cancelled - Patient discharged Performed By: #### L 100.0100, L500.2500 ####[facility] [address] [place], [address] MCH Normal 27.0-32.0 [facility] Comment on above: Result Comment: Canc elled via OM: Order cancelled - Patient discharged Performed By: #### L 100.0100, L500.2500 ####[facility] [address] [place], [address] MCHC Normal 32-36 [facility] Comment on above: Result Comment: Canc elled via OM: Order cancelled - Patient discharged Performed By: #### L 100.0100, L500.2500 ####[facility] [address] [place], [address] MCV Normal 81-99 [facility] Comment on above: Result Comment: Canc elled via OM: Order cancelled - Patient discharged Performed By: #### L 100.0100, L500.2500 ####[facility] [address] [place], [address] NEUT% Normal 47-70 [facility] Comment on above: Result Comment: Canc elled via OM: Order cancelled - Patient discharged Performed By: #### L 100.0100, L500.2500 ####[facility] [address] [place], [address] PLT Normal 150-450 [facility] Comment on above: Result Comment: Canc elled via OM: Order cancelled - Patient discharged Performed By: #### L 100.0100, L500.2500 ####[facility] [address] [place], [address] RBC Normal 4.2-5.4 [facility] Comment on above: Result Comment: Canc elled via OM: Order cancelled - Patient discharged Performed By: #### L 100.0100, L500.2500 ####[facility] [address] [place], [address] RDW CV Normal 11.6-14.6 [facility] Comment on above: Result Comment: Canc elled via OM: Order cancelled - Patient discharged Performed By: #### L 100.0100, L500.2500 ####[facility] [address] [place], [address] RDW SD Normal 35.1-43.9 [facility] Comment on above: Result Comment: Canc elled via OM: Order cancelled - Patient discharged Performed By: #### L 100.0100, L500.2500 ####[facility] [address] [place], [address] WBC Normal 4.4-11.0 [facility] Comment on above: Result Comment: Canc elled via OM: Order cancelled - Patient discharged Performed By: #### L 100.0100, L500.2500 ####[facility] [address] [place], [address] Basic Metabolic Profile (BMP )on 05-31-2024 BUN/CRE 25.4 RATIO High 10-20 [facility] Comment on above: Performed By: #### L 500.2500, L100.0100 ####[facility] [address] [place], [address] CA,Total 8.9 mg/dL Normal 8.5-10.1 [facility] Comment on above: Performed By: #### L 500.2500, L100.0100 ####[facility] [address] [place], [address] Chloride [Moles/Vol] 111 mmol/L High 98-107 [facility] Comment on above: Performed By: #### L 500.2500, L100.0100 ####[facility] [address] [place], [address] CO2 [Moles/Vol] 29.0 mmol/L Normal 21.0-32.0 [facility] Comment on above: Performed By: #### L 500.2500, L100.0100 ####[facility] [address] [place], [address] Creatinine [Mass/Vol] 0.71 mg/dL Normal 0.55-1.02 [facility] Comment on above: Result Comment: The validity of the calculated GFR GFRAA in patients over70 years has not been determined. Clinical correlation isessential. Performed By: #### L 500.2500, L100.0100 ####[facility] [address] [place], [address] ECRCL 76.38 ml/min Normal [facility] Comment on above: Performed By: #### L 500.2500, L100.0100 ####[facility] [address] [place], [address] EST GFR - AA 108 mL/min Normal >60 [facility] Comment on above: Result Comment: Afri can [place] GFR Calc Performed By: #### L 500.2500, L100.0100 ####[facility] [address] [place], [address] GAP 2 Low 5-15 [facility] Comment on above: Performed By: #### L 500.2500, L100.0100 ####[facility] [address] [place], [address] GFR/1.73 sq M.predicted among non-blacks MDRD (S/P/Bld) [Vol rate/Area] 89 mL/min/{1.73_m2} Normal >60 [facility] Comment on above: Result Comment: Non- GFR Calc Performed By: #### L 500.2500, L100.0100 ####[facility] [address] [place], [address] Glucose [Mass/Vol] 96 mg/dL Normal 74-106 [facility] Comment on above: Performed By: #### L 500.2500, L100.0100 ####[facility] [address] [place], [address] Potassium [Moles/Vol] 4.1 mmol/L Normal 3.5-5.1 [facility] Comment on above: Performed By: #### L 500.2500, L100.0100 ####[facility] [address] [place], [address] Sodium [Moles/Vol] 142 mmol/L Normal 136-145 [facility] Comment on above: Performed By: #### L 500.2500, L100.0100 ####[facility] [address] [place], [address] Urea nitrogen [Mass/Vol] 18 mg/dL Normal 7-18 [facility] Comment on above: Performed By: #### L 500.2500, L100.0100 ####[facility] [address] [place], [address] CBC W/Diff, Automatedon 11-0 REACTIVE LYMPH 2+ Normal [facility] Comment on above: Performed By: #### L 500.2500, L100.0100 ####[facility] [address] [place], [address] Basic Metabolic Profile (BMP )on 05-30-2024 BUN/CRE 17.1 RATIO Normal 10-20 [facility] Comment on above: Order Comment: Comme nts: NPO at [place] prior to lipid panel Performed By: #### L 500.4100, L500.2500 ####[facility] [address] [place], [address] CA,Total 8.8 mg/dL Normal 8.5-10.1 [facility] Comment on above: Order Comment: Comme nts: NPO at [place] prior to lipid panel Performed By: #### L 500.4100, L500.2500 ####[facility] [address] [place], [address] Chloride [Moles/Vol] 106 mmol/L Normal 98-107 [facility] Comment on above: Order Comment: Comme nts: NPO at [place] prior to lipid panel Performed By: #### L 500.4100, L500.2500 ####[facility] [address] [place], [address] CO2 [Moles/Vol] 31.0 mmol/L Normal 21.0-32.0 [facility] Comment on above: Order Comment: Comme nts: NPO at [place] prior to lipid panel Performed By: #### L 500.4100, L500.2500 ####[facility] [address] [place], [address] Creatinine [Mass/Vol] 0.76 mg/dL Normal 0.55-1.02 [facility] Comment on above: Order Comment: Comme nts: NPO at [place] prior to lipid panel Result Comment: The validity of the calculated GFR GFRAA in patients over70 years has not been determined. Clinical correlation isessential. Performed By: #### L 500.4100, L500.2500 ####[facility] [address] [place], [address] ECRCL 71.36 ml/min Normal [facility] Comment on above: Order Comment: Comme nts: NPO at [place] prior to lipid panel Performed By: #### L 500.4100, L500.2500 ####[facility] [address] [place], [address] EST GFR - AA 100 mL/min Normal >60 [facility] Comment on above: Order Comment: Comme nts: NPO at [place] prior to lipid panel Result Comment: Afri can [place] GFR Calc Performed By: #### L 500.4100, L500.2500 ####[facility] [address] [place], [address] GAP 3 Low 5-15 [facility] Comment on above: Order Comment: Comme nts: NPO at [place] prior to lipid panel Performed By: #### L 500.4100, L500.2500 ####[facility] [address] [place], [address] GFR/1.73 sq M.predicted among non-blacks MDRD (S/P/Bld) [Vol rate/Area] 83 mL/min/{1.73_m2} Normal >60 [facility] Comment on above: Order Comment: Comme nts: NPO at [place] prior to lipid panel Result Comment: Non- GFR Calc Performed By: #### L 500.4100, L500.2500 ####[facility] [address] [place], [address] Glucose [Mass/Vol] 100 mg/dL Normal 74-106 [facility] Comment on above: Order Comment: Comme nts: NPO at [place] prior to lipid panel Result Comment: Fast ing Glucose result from 100 to 125 mg/dLsuggests IMPAIRED HOMEOSTASIS per A.D.A. criteria. Performed By: #### L 500.4100, L500.2500 ####[facility] [address] [place], [address] Potassium [Moles/Vol] 3.1 mmol/L Low 3.5-5.1 [facility] Comment on above: Order Comment: Comme nts: NPO at [place] prior to lipid panel Performed By: #### L 500.4100, L500.2500 ####[facility] [address] [place], [address] Sodium [Moles/Vol] 140 mmol/L Normal 136-145 [facility] Comment on above: Order Comment: Comme nts: NPO at [place] prior to lipid panel Performed By: #### L 500.4100, L500.2500 ####[facility] [address] [place], [address] Urea nitrogen [Mass/Vol] 13 mg/dL Normal 7-18 [facility] Comment on above: Order Comment: Comme nts: NPO at [place] prior to lipid panel Performed By: #### L 500.4100, L500.2500 ####[facility] [address] [place], [address] Brain WITH Contraston 2023 Brain WITH Contrast Normal [facility] Discharge Instructionon 11-0 Discharge Instruction Normal [facility] Lipid Profileon 05-30-2024 Cholesterol [Mass/Vol] 115 mg/dL Normal 200 [facility] Comment on above: Order Comment: Comme nts: NPO at [place] prior to lipid panel Result Comment: <200 mg/dL Desirable 200-240 mg/dL Borderline >240 mg/dL High Risk Performed By: #### L 500.4100, L500.2500 ####[facility] [address] [place], [address] Cholesterol in HDL [Mass/Vol] 26 mg/dL Low [facility] Comment on above: Order Comment: Comme nts: NPO at [place] prior to lipid panel Result Comment: The drugs N-Acetylcysteine and Metamizole may falselydepress this assay. Reference Range HDL <40 mg/dL Low HDL Cholesterol HDL >or= 60 mg/dL High HDL Cholesterol Performed By: #### L 500.4100, L500.2500 ####[facility] [address] [place], [address] Cholesterol in LDL [Mass/Vol] 59 mg/dL Normal 0-130 [facility] Comment on above: Order Comment: Comme nts: NPO at [place] prior to lipid panel Performed By: #### L 500.4100, L500.2500 ####[facility] [address] [place], [address] Cholesterol in VLDL [Mass/Vol] 30 mg/dL Normal 5-40 [facility] Comment on above: Order Comment: Comme nts: NPO at [place] prior to lipid panel Performed By: #### L 500.4100, L500.2500 ####[facility] [address] [place], [address] Triglyceride [Mass/Vol] 152 mg/dL Normal [facility] Comment on above: Order Comment: Comme nts: NPO at [place] prior to lipid panel Result Comment: The drugs N-Acetylcysteine and Metamizole may falselydepress this assay.Serum Triglycerides Reference Interval Normal <150 mg/dL Borderline high 150 - 199 mg/dL High 200 - 499 mg/dL Very High > or = 500 mg/dL Performed By: #### L 500.4100, L500.2500 ####[facility] [address] [place], [address] MR/CON.PCM.NEon 05-30-2024 MR/CON.PCM.NE Normal [facility] Spine Cervical W/WO Contrast on 05-30-2024 Spine Cervical W/WO Contrast Normal [facility] 12 Lead EKGon 05-29-2024 12 Lead EKG Normal [facility] Basic Metabolic Profile (BMP )on 05-29-2024 BUN/CRE 18.4 RATIO Normal -20 [facility] Comment on above: Performed By: #### L 100.0100, L500.2500, L501.5200 ####[facility] [address] [place], [address] CA,Total 8.6 mg/dL Normal 8.5-10.1 [facility] Comment on above: Performed By: #### L 100.0100, L500.2500, L501.5200 ####[facility] [address] [place], [address] Chloride [Moles/Vol] 104 mmol/L Normal 98-107 [facility] Comment on above: Performed By: #### L 100.0100, L500.2500, L501.5200 ####[facility] [address] [place], [address] CO2 [Moles/Vol] 30.0 mmol/L Normal 21.0-32.0 [facility] Comment on above: Performed By: #### L 100.0100, L500.2500, L501.5200 ####[facility] [address] [place], [address] Creatinine [Mass/Vol] 0.98 mg/dL Normal 0.55-1.02 [facility] Comment on above: Result Comment: The validity of the calculated GFR GFRAA in patients over70 years has not been determined. Clinical correlation isessential. Performed By: #### L 100.0100, L500.2500, L501.5200 ####[facility] [address] [place], [address] ECRCL 57.15 ml/min Normal [facility] Comment on above: Performed By: #### L 100.0100, L500.2500, L501.5200 ####[facility] [address] [place], [address] EST GFR - AA 74 mL/min Normal >60 [facility] Comment on above: Result Comment: Afri can [place] GFR Calc Performed By: #### L 100.0100, L500.2500, L501.5200 ####[facility] [address] [place], [address] GAP 6 Normal 5-15 [facility] Comment on above: Performed By: #### L 100.0100, L500.2500, L501.5200 ####[facility] [address] [place], [address] GFR/1.73 sq M.predicted among non-blacks MDRD (S/P/Bld) [Vol rate/Area] 61 mL/min/{1.73_m2} Normal >60 [facility] Comment on above: Result Comment: Non- GFR Calc Performed By: #### L 100.0100, L500.2500, L501.5200 ####[facility] [address] [place], [address] Glucose [Mass/Vol] 127 mg/dL High 74-106 [facility] Comment on above: Result Comment: Fast ing Glucose result greater than or equal to 126 mg/dLsuggests DIABETES MELLITUS per A.D.A. criteria. Performed By: #### L 100.0100, L500.2500, L501.5200 ####[facility] [address] [place], [address] Potassium [Moles/Vol] 2.8 mmol/L Low 3.5-5.1 [facility] Comment on above: Performed By: #### L 100.0100, L500.2500, L501.5200 ####[facility] [address] [place], [address] Sodium [Moles/Vol] 139 mmol/L Normal 136-145 [facility] Comment on above: Performed By: #### L 100.0100, L500.2500, L501.5200 ####[facility] [address] [place], [address] Urea nitrogen [Mass/Vol] 18 mg/dL Normal 7-18 [facility] Comment on above: Performed By: #### L 100.0100, L500.2500, L501.5200 ####[facility] [address] [place], [address] Brain without Contraston Brain without Contrast Normal [facility] CBC W/Diff, Automatedon - Absolute Neut Normal 2.0-7.7 [facility] Comment on above: Result Comment: Canc elled via OM: MD Ordered Performed By: #### L 300.4310, L300.3900, L100.0100, L501.4020 ####[facility] [address] [place], [address] HCT Normal 37-47 [facility] Comment on above: Result Comment: Canc elled via OM: MD Ordered Performed By: #### L 300.4310, L300.3900, L100.0100, L501.4020 ####[facility] [address] [place], [address] HGB Normal 12.0-15.0 [facility] Comment on above: Result Comment: Canc elled via OM: MD Ordered Performed By: #### L 300.4310, L300.3900, L100.0100, L501.4020 ####[facility] [address] [place], [address] MCH Normal 27.0-32.0 [facility] Comment on above: Result Comment: Canc elled via OM: MD Ordered Performed By: #### L 300.4310, L300.3900, L100.0100, L501.4020 ####[facility] [address] [place], [address] MCHC Normal 32-36 [facility] Comment on above: Result Comment: Canc elled via OM: MD Ordered Performed By: #### L 300.4310, L300.3900, L100.0100, L501.4020 ####[facility] [address] [place], [address] MCV Normal 81-99 [facility] Comment on above: Result Comment: Canc elled via OM: MD Ordered Performed By: #### L 300.4310, L300.3900, L100.0100, L501.4020 ####[facility] [address] [place], [address] NEUT% Normal 47-70 [facility] Comment on above: Result Comment: Canc elled via OM: MD Ordered Performed By: #### L 300.4310, L300.3900, L100.0100, L501.4020 ####[facility] [address] [place], [address] PLT Normal 150-450 [facility] Comment on above: Result Comment: Canc elled via OM: MD Ordered Performed By: #### L 300.4310, L300.3900, L100.0100, L501.4020 ####[facility] [address] [place], [address] RBC Normal 4.2-5.4 [facility] Comment on above: Result Comment: Canc elled via OM: MD Ordered Performed By: #### L 300.4310, L300.3900, L100.0100, L501.4020 ####[facility] [address] [place], [address] RDW CV Normal 11.6-14.6 [facility] Comment on above: Result Comment: Canc elled via OM: MD Ordered Performed By: #### L 300.4310, L300.3900, L100.0100, L501.4020 ####[facility] [address] [place], [address] RDW SD Normal 35.1-43.9 [facility] Comment on above: Result Comment: Canc elled via OM: MD Ordered Performed By: #### L 300.4310, L300.3900, L100.0100, L501.4020 ####[facility] [address] [place], [address] WBC Normal 4.4-11.0 [facility] Comment on above: Result Comment: Canc elled via OM: MD Ordered Performed By: #### L 300.4310, L300.3900, L100.0100, L501.4020 ####[facility] [address] [place], [address] Absolute Lymph 1.92 X10 3/uL Normal 0.83-4.51 [facility] Comment on above: Performed By: #### L 100.0100, L500.2500, L501.5200 ####[facility] [address] [place], [address] Absolute Neut 9.1 X10 3/uL High 2.0-7.7 [facility] Comment on above: Performed By: #### L 100.0100, L500.2500, L501.5200 ####[facility] [address] [place], [address] Basophils/100 WBC (Bld) 0.4 % Normal 0-1 [facility] Comment on above: Performed By: #### L 100.0100, L500.2500, L501.5200 ####[facility] [address] [place], [address] Eosinophils/100 WBC (Bld) 0.1 % Normal 0-5 [facility] Comment on above: Performed By: #### L 100.0100, L500.2500, L501.5200 ####[facility] [address] [place], [address] Erythrocyte distribution width (RBC) [Ratio] 18.4 % High 11.6-14.6 [facility] Comment on above: Performed By: #### L 100.0100, L500.2500, L501.5200 ####[facility] [address] [place], [address] Hematocrit (Bld) [Volume fraction] 31.5 % Low 37-47 [facility] Comment on above: Performed By: #### L 100.0100, L500.2500, L501.5200 ####[facility] [address] [place], [address] Hemoglobin (Bld) [Mass/Vol] 9.9 g/dL Low 12.0-15.0 [facility] Comment on above: Performed By: #### L 100.0100, L500.2500, L501.5200 ####[facility] [address] [place], [address] IG% 2.200 High 0.0-0.9 [facility] Comment on above: Result Comment: IG% - Immature Granulocytes (promyelocytes, myelocytes andmetamyelocytes) > 1% indicates that a LEFT SHIFT is Present. Performed By: #### L 100.0100, L500.2500, L501.5200 ####[facility] [address] [place], [address] Lymphocytes/100 WBC (Bld) 15.9 % Low 19-41 [facility] Comment on above: Performed By: #### L 100.0100, L500.2500, L501.5200 ####[facility] [address] [place], [address] MCH (RBC) [Entitic mass] 28.6 pg Normal 27.0-32.0 [facility] Comment on above: Performed By: #### L 100.0100, L500.2500, L501.5200 ####[facility] [address] [place], [address] MCHC (RBC) [Mass/Vol] 31.4 g/dL Low 32-36 [facility] Comment on above: Performed By: #### L 100.0100, L500.2500, L501.5200 ####[facility] [address] [place], [address] MCV (RBC) [Entitic vol] 91.0 fL Normal 81-99 [facility] Comment on above: Performed By: #### L 100.0100, L500.2500, L501.5200 ####[facility] [address] [place], [address] Monocytes/100 WBC (Bld) 6.4 % Normal 0-10 [facility] Comment on above: Performed By: #### L 100.0100, L500.2500, L501.5200 ####[facility] [address] [place], [address] Neutrophils/100 WBC (Bld) 75.0 % High 47-70 [facility] Comment on above: Performed By: #### L 100.0100, L500.2500, L501.5200 ####[facility] [address] [place], [address] Nucleated RBC (Bld) [#/Vol] 0 10*3/uL Normal 0-5 [facility] Comment on above: Performed By: #### L 100.0100, L500.2500, L501.5200 ####[facility] [address] [place], [address] Platelet mean volume (Bld) [Entitic vol] 10.9 fL Normal 6.2-12.0 [facility] Comment on above: Performed By: #### L 100.0100, L500.2500, L501.5200 ####[facility] [address] [place], [address] Platelets (Bld) [#/Vol] 235 10*3/uL Normal 150-450 [facility] Comment on above: Performed By: #### L 100.0100, L500.2500, L501.5200 ####[facility] [address] [place], [address] RBC (Bld) [#/Vol] 3.46 10*6/uL Low 4.2-5.4 [facility] Comment on above: Performed By: #### L 100.0100, L500.2500, L501.5200 ####[facility] [address] [place], [address] RDW SD 61.1 fl High 35.1-43.9 [facility] Comment on above: Performed By: #### L 100.0100, L500.2500, L501.5200 ####[facility] [address] [place], [address] WBC (Bld) [#/Vol] 12.1 10*3/uL High 4.4-11.0 [facility] Comment on above: Performed By: #### L 100.0100, L500.2500, L501.5200 ####[facility] [address] [place], [address] CTA Head AND Neck W/ Contras ton 05-29-2024 CTA Head AND Neck W/ Contrast Normal [facility] Chest 1 Viewon 05-29-2024 Chest 1 View Normal [facility] Echo, Limited Studyon 2023 Echo, Limited Study Normal [facility] Emergency Department Summary on 05-29-2024 Emergency Department Summary Normal [facility] H AND P Exam - Hospitaliston 05-29-2024 H&P Exam - Hospitalist Normal [facility] L501.4020on 05-29-2024 TROPONIN-I HS 6 pg/mL Normal 3.0-54.0 [facility] Comment on above: Order Comment: 'TROP ' Serial specimen #1, #2 or #3: 1 Result Comment: Plea se Note: New Test Units and Gender Specific Reference Ranges. For more information see Policy Stat Procedure [place] High Sensitivity Troponin (TNIH) and attachments. Performed By: #### L 300.4310, L300.3900, L100.0100, L501.4020 ####[facility] [address] [place], [address] Magnesiumon 05-29-2024 Magnesium [Mass/Vol] 2.2 mg/dL Normal 1.6-2.6 [facility] Comment on above: Performed By: #### L 100.0100, L500.2500, L501.5200 ####[facility] [address] [place], [address] Oncology Visit Reporton 05-01 Oncology Visit Report Normal [facility] Partial Thromboplast Timeon 05-29-2024 aPTT Coag (Bld) [Time] 27.3 s Normal 24.1-36.2 [facility] Comment on above: Performed By: #### L 300.4310, L300.3900, L100.0100, L501.4020 ####[facility] [address] [place], [address] Prothrombin Time w/INRon INR Coag (PPP) [Relative time] 1.0 {INR} Normal [facility] Comment on above: Performed By: #### L 300.4310, L300.3900, L100.0100, L501.4020 ####[facility] [address] [place], [address] PT Coag (PPP) [Time] 13.4 s Normal 11.7-14.9 [facility] Comment on above: Performed By: #### L 300.4310, L300.3900, L100.0100, L501.4020 ####[facility] [address] [place], [address] Radiation Oncology Visiton 1 Radiation Oncology Visit Normal [facility] CBC W/Diff, Automatedon - SMEAR COMMENT SCANNED Normal [facility] Comment on above: Result Comment: AUTO DIFF OK Performed By: #### L 100.0100, L501.2300, L500.4050 ####[facility] [address] [place], [address] Comprehensive Metabolic Prof ilon 05-15-2024 Albumin [Mass/Vol] 3.5 g/dL Normal 3.2-5.0 [facility] Comment on above: Performed By: #### L 100.0100, L501.2300, L500.4050 ####[facility] [address] [place], [address] Albumin/Globulin [Mass ratio] 1.1 {ratio} Normal 0.9-2.4 [facility] Comment on above: Performed By: #### L 100.0100, L501.2300, L500.4050 ####[facility] [address] [place], [address] ALK P 86 U/L Normal 45-117 [facility] Comment on above: Performed By: #### L 100.0100, L501.2300, L500.4050 ####[facility] [address] [place], [address] ALT [Catalytic activity/Vol] 29 U/L Normal 13-56 [facility] Comment on above: Performed By: #### L 100.0100, L501.2300, L500.4050 ####[facility] [address] [place], [address] AST [Catalytic activity/Vol] 23 U/L Normal 15-37 [facility] Comment on above: Performed By: #### L 100.0100, L501.2300, L500.4050 ####[facility] [address] [place], [address] Bilirubin [Mass/Vol] 0.30 mg/dL Normal 0.20-1.00 [facility] Comment on above: Result Comment: For patients on eltrombopag therapy, use of Dimension [place] TBIL is not recommended. Performed By: #### L 100.0100, L501.2300, L500.4050 ####[facility] [address] [place], [address] BUN/CRE 21.1 RATIO High 10-20 [facility] Comment on above: Performed By: #### L 100.0100, L501.2300, L500.4050 ####[facility] [address] [place], [address] CA,Total 9.2 mg/dL Normal 8.5-10.1 [facility] Comment on above: Performed By: #### L 100.0100, L501.2300, L500.4050 ####[facility] [address] [place], [address] Chloride [Moles/Vol] 106 mmol/L Normal 98-107 [facility] Comment on above: Performed By: #### L 100.0100, L501.2300, L500.4050 ####[facility] [address] [place], [address] CO2 [Moles/Vol] 29.0 mmol/L Normal 21.0-32.0 [facility] Comment on above: Performed By: #### L 100.0100, L501.2300, L500.4050 ####[facility] [address] [place], [address] Creatinine [Mass/Vol] 0.76 mg/dL Normal 0.55-1.02 [facility] Comment on above: Result Comment: The validity of the calculated GFR GFRAA in patients over70 years has not been determined. Clinical correlation isessential. Performed By: #### L 100.0100, L501.2300, L500.4050 ####[facility] [address] [place], [address] ECRCL 74.90 ml/min Normal [facility] Comment on above: Performed By: #### L 100.0100, L501.2300, L500.4050 ####[facility] [address] [place], [address] EST GFR - AA 100 mL/min Normal >60 [facility] Comment on above: Result Comment: Afri can [place] GFR Calc Performed By: #### L 100.0100, L501.2300, L500.4050 ####[facility] [address] [place], [address] GAP 4 Low 5-15 [facility] Comment on above: Performed By: #### L 100.0100, L501.2300, L500.4050 ####[facility] [address] [place], [address] GFR/1.73 sq M.predicted among non-blacks MDRD (S/P/Bld) [Vol rate/Area] 82 mL/min/{1.73_m2} Normal >60 [facility] Comment on above: Result Comment: Non- GFR Calc Performed By: #### L 100.0100, L501.2300, L500.4050 ####[facility] [address] [place], [address] Globulin (S) [Mass/Vol] 3.2 g/dL Normal 2.2-4.2 [facility] Comment on above: Performed By: #### L 100.0100, L501.2300, L500.4050 ####[facility] [address] [place], [address] Glucose [Mass/Vol] 119 mg/dL High 74-106 [facility] Comment on above: Result Comment: Fast ing Glucose result from 100 to 125 mg/dLsuggests IMPAIRED HOMEOSTASIS per A.D.A. criteria. Performed By: #### L 100.0100, L501.2300, L500.4050 ####[facility] [address] [place], [address] Potassium [Moles/Vol] 3.7 mmol/L Normal 3.5-5.1 [facility] Comment on above: Performed By: #### L 100.0100, L501.2300, L500.4050 ####[facility] [address] [place], [address] Sodium [Moles/Vol] 139 mmol/L Normal 136-145 [facility] Comment on above: Performed By: #### L 100.0100, L501.2300, L500.4050 ####[facility] [address] [place], [address] T PROT 6.7 g/dL Normal 6.4-8.2 [facility] Comment on above: Performed By: #### L 100.0100, L501.2300, L500.4050 ####[facility] [address] [place], [address] Urea nitrogen [Mass/Vol] 16 mg/dL Normal 7-18 [facility] Comment on above: Performed By: #### L 100.0100, L501.2300, L500.4050 ####[facility] [address] [place], [address] Oncology Visit Reporton 04-29 Oncology Visit Report Normal [facility] Phosphoruson 05-15-2024 Phosphate [Mass/Vol] 3.3 mg/dL Normal 2.5-4.9 [facility] Comment on above: Performed By: #### L 100.0100, L501.2300, L500.4050 ####[facility] [address] [place], [address] CBC W/Diff, Automatedon 10-0 PATH REV Reviewed Normal [facility] Comment on above: Result Comment: Neut rophilic leukocytosis with left shift.Normocytic anemia.Clinical correlation necessary.Alfredito Tran M.D. 05/06/24 AMENDED REPORT 05/06/24 1346 PATH REV previously reported as: November Performed By: #### L 501.5200, L100.0100, L500.4050 ####[facility] [address] [place], [address] Comprehensive Metabolic Prof ilon 05-05-2024 Albumin [Mass/Vol] 3.4 g/dL Normal 3.2-5.0 [facility] Comment on above: Performed By: #### L 501.5200, L100.0100, L500.4050 ####[facility] [address] [place], [address] Albumin/Globulin [Mass ratio] 1.0 {ratio} Normal 0.9-2.4 [facility] Comment on above: Performed By: #### L 501.5200, L100.0100, L500.4050 ####[facility] [address] [place], [address] ALK P 154 U/L High 45-117 [facility] Comment on above: Performed By: #### L 501.5200, L100.0100, L500.4050 ####[facility] [address] [place], [address] ALT [Catalytic activity/Vol] 26 U/L Normal 13-56 [facility] Comment on above: Performed By: #### L 501.5200, L100.0100, L500.4050 ####[facility] [address] [place], [address] AST [Catalytic activity/Vol] 22 U/L Normal 15-37 [facility] Comment on above: Performed By: #### L 501.5200, L100.0100, L500.4050 ####[facility] [address] [place], [address] Bilirubin [Mass/Vol] 0.40 mg/dL Normal 0.20-1.00 [facility] Comment on above: Result Comment: For patients on eltrombopag therapy, use of Dimension [place] TBIL is not recommended. Performed By: #### L 501.5200, L100.0100, L500.4050 ####[facility] [address] [place], [address] BUN/CRE 13.2 RATIO Normal 10-20 [facility] Comment on above: Performed By: #### L 501.5200, L100.0100, L500.4050 ####[facility] [address] [place], [address] CA,Total 9.1 mg/dL Normal 8.5-10.1 [facility] Comment on above: Performed By: #### L 501.5200, L100.0100, L500.4050 ####[facility] [address] [place], [address] Chloride [Moles/Vol] 104 mmol/L Normal 98-107 [facility] Comment on above: Performed By: #### L 501.5200, L100.0100, L500.4050 ####[facility] [address] [place], [address] CO2 [Moles/Vol] 30.0 mmol/L Normal 21.0-32.0 [facility] Comment on above: Performed By: #### L 501.5200, L100.0100, L500.4050 ####[facility] [address] [place], [address] Creatinine [Mass/Vol] 0.91 mg/dL Normal 0.55-1.02 [facility] Comment on above: Result Comment: The validity of the calculated GFR GFRAA in patients over70 years has not been determined. Clinical correlation isessential. Performed By: #### L 501.5200, L100.0100, L500.4050 ####[facility] [address] [place], [address] ECRCL 62.83 ml/min Normal [facility] Comment on above: Performed By: #### L 501.5200, L100.0100, L500.4050 ####[facility] [address] [place], [address] EST GFR - AA 81 mL/min Normal >60 [facility] Comment on above: Result Comment: Afri can [place] GFR Calc Performed By: #### L 501.5200, L100.0100, L500.4050 ####[facility] [address] [place], [address] GAP 5 Normal 5-15 [facility] Comment on above: Performed By: #### L 501.5200, L100.0100, L500.4050 ####[facility] [address] [place], [address] GFR/1.73 sq M.predicted among non-blacks MDRD (S/P/Bld) [Vol rate/Area] 67 mL/min/{1.73_m2} Normal >60 [facility] Comment on above: Result Comment: Non- GFR Calc Performed By: #### L 501.5200, L100.0100, L500.4050 ####[facility] [address] [place], [address] Globulin (S) [Mass/Vol] 3.3 g/dL Normal 2.2-4.2 [facility] Comment on above: Performed By: #### L 501.5200, L100.0100, L500.4050 ####[facility] [address] [place], [address] Glucose [Mass/Vol] 126 mg/dL High 74-106 [facility] Comment on above: Result Comment: Fast ing Glucose result greater than or equal to 126 mg/dLsuggests DIABETES MELLITUS per A.D.A. criteria. Performed By: #### L 501.5200, L100.0100, L500.4050 ####[facility] [address] [place], [address] Potassium [Moles/Vol] 3.3 mmol/L Low 3.5-5.1 [facility] Comment on above: Performed By: #### L 501.5200, L100.0100, L500.4050 ####[facility] [address] [place], [address] Sodium [Moles/Vol] 138 mmol/L Normal 136-145 [facility] Comment on above: Performed By: #### L 501.5200, L100.0100, L500.4050 ####[facility] [address] [place], [address] T PROT 6.7 g/dL Normal 6.4-8.2 [facility] Comment on above: Performed By: #### L 501.5200, L100.0100, L500.4050 ####[facility] [address] [place], [address] Urea nitrogen [Mass/Vol] 12 mg/dL Normal 7-18 [facility] Comment on above: Performed By: #### L 501.5200, L100.0100, L500.4050 ####[facility] [address] [place], [address] Magnesiumon 05-05-2024 Magnesium [Mass/Vol] 2.5 mg/dL Normal 1.6-2.6 [facility] Comment on above: Performed By: #### L 501.5200, L100.0100, L500.4050 ####[facility] [address] [place], [address] Oncology Visit Reporton 10-0 Oncology Visit Report Normal [facility] CBC W/Diff, Automatedon 09-2 Absolute Lymph 1.17 X10 3/uL Normal 0.83-4.51 [facility] Comment on above: Performed By: #### L 100.0100, L500.4050, L501.2300 ####[facility] [address] [place], [address] Absolute Neut 15.5 X10 3/uL High 2.0-7.7 [facility] Comment on above: Performed By: #### L 100.0100, L500.4050, L501.2300 ####[facility] [address] [place], [address] Basophils/100 WBC (Bld) 0.2 % Normal 0-1 [facility] Comment on above: Performed By: #### L 100.0100, L500.4050, L501.2300 ####[facility] [address] [place], [address] Eosinophils/100 WBC (Bld) 0.0 % Normal 0-5 [facility] Comment on above: Performed By: #### L 100.0100, L500.4050, L501.2300 ####[facility] [address] [place], [address] Erythrocyte distribution width (RBC) [Ratio] 16.2 % High 11.6-14.6 [facility] Comment on above: Performed By: #### L 100.0100, L500.4050, L501.2300 ####[facility] [address] [place], [address] Hematocrit (Bld) [Volume fraction] 34.1 % Low 37-47 [facility] Comment on above: Performed By: #### L 100.0100, L500.4050, L501.2300 ####[facility] [address] [place], [address] Hemoglobin (Bld) [Mass/Vol] 11.1 g/dL Low 12.0-15.0 [facility] Comment on above: Performed By: #### L 100.0100, L500.4050, L501.2300 ####[facility] [address] [place], [address] IG% 2.600 High 0.0-0.9 [facility] Comment on above: Result Comment: IG% - Immature Granulocytes (promyelocytes, myelocytes andmetamyelocytes) > 1% indicates that a LEFT SHIFT is Present. Performed By: #### L 100.0100, L500.4050, L501.2300 ####[facility] [address] [place], [address] Lymphocytes/100 WBC (Bld) 6.7 % Low 19-41 [facility] Comment on above: Performed By: #### L 100.0100, L500.4050, L501.2300 ####[facility] [address] [place], [address] MCH (RBC) [Entitic mass] 28.0 pg Normal 27.0-32.0 [facility] Comment on above: Performed By: #### L 100.0100, L500.4050, L501.2300 ####[facility] [address] [place], [address] MCHC (RBC) [Mass/Vol] 32.6 g/dL Normal 32-36 [facility] Comment on above: Performed By: #### L 100.0100, L500.4050, L501.2300 ####[facility] [address] [place], [address] MCV (RBC) [Entitic vol] 86.1 fL Normal 81-99 [facility] Comment on above: Performed By: #### L 100.0100, L500.4050, L501.2300 ####[facility] [address] [place], [address] Monocytes/100 WBC (Bld) 2.5 % Normal 0-10 [facility] Comment on above: Performed By: #### L 100.0100, L500.4050, L501.2300 ####[facility] [address] [place], [address] Neutrophils/100 WBC (Bld) 88.0 % High 47-70 [facility] Comment on above: Performed By: #### L 100.0100, L500.4050, L501.2300 ####[facility] [address] [place], [address] Nucleated RBC (Bld) [#/Vol] 0 10*3/uL Normal 0-5 [facility] Comment on above: Performed By: #### L 100.0100, L500.4050, L501.2300 ####[facility] [address] [place], [address] Platelet mean volume (Bld) [Entitic vol] 10.6 fL Normal 6.2-12.0 [facility] Comment on above: Performed By: #### L 100.0100, L500.4050, L501.2300 ####[facility] [address] [place], [address] Platelets (Bld) [#/Vol] 248 10*3/uL Normal 150-450 [facility] Comment on above: Performed By: #### L 100.0100, L500.4050, L501.2300 ####[facility] [address] [place], [address] RBC (Bld) [#/Vol] 3.96 10*6/uL Low 4.2-5.4 [facility] Comment on above: Performed By: #### L 100.0100, L500.4050, L501.2300 ####[facility] [address] [place], [address] RDW SD 48.4 fl High 35.1-43.9 [facility] Comment on above: Performed By: #### L 100.0100, L500.4050, L501.2300 ####[facility] [address] [place], [address] WBC (Bld) [#/Vol] 17.6 10*3/uL High 4.4-11.0 [facility] Comment on above: Performed By: #### L 100.0100, L500.4050, L501.2300 ####[facility] [address] [place], [address] Comprehensive Metabolic Prof ilon 04-24-2024 Albumin [Mass/Vol] 3.8 g/dL Normal 3.2-5.0 [facility] Comment on above: Performed By: #### L 100.0100, L500.4050, L501.2300 ####[facility] [address] [place], [address] Albumin/Globulin [Mass ratio] 1.2 {ratio} Normal 0.9-2.4 [facility] Comment on above: Performed By: #### L 100.0100, L500.4050, L501.2300 ####[facility] [address] [place], [address] ALK P 85 U/L Normal 45-117 [facility] Comment on above: Performed By: #### L 100.0100, L500.4050, L501.2300 ####[facility] [address] [place], [address] ALT [Catalytic activity/Vol] 27 U/L Normal 13-56 [facility] Comment on above: Performed By: #### L 100.0100, L500.4050, L501.2300 ####[facility] [address] [place], [address] AST [Catalytic activity/Vol] 19 U/L Normal 15-37 [facility] Comment on above: Performed By: #### L 100.0100, L500.4050, L501.2300 ####[facility] [address] [place], [address] Bilirubin [Mass/Vol] 0.30 mg/dL Normal 0.20-1.00 [facility] Comment on above: Result Comment: For patients on eltrombopag therapy, use of Dimension [place] TBIL is not recommended. Performed By: #### L 100.0100, L500.4050, L501.2300 ####[facility] [address] [place], [address] BUN/CRE 21.6 RATIO High 10-20 [facility] Comment on above: Performed By: #### L 100.0100, L500.4050, L501.2300 ####[facility] [address] [place], [address] CA,Total 9.3 mg/dL Normal 8.5-10.1 [facility] Comment on above: Performed By: #### L 100.0100, L500.4050, L501.2300 ####[facility] [address] [place], [address] Chloride [Moles/Vol] 109 mmol/L High 98-107 [facility] Comment on above: Performed By: #### L 100.0100, L500.4050, L501.2300 ####[facility] [address] [place], [address] CO2 [Moles/Vol] 25.0 mmol/L Normal 21.0-32.0 [facility] Comment on above: Performed By: #### L 100.0100, L500.4050, L501.2300 ####[facility] [address] [place], [address] Creatinine [Mass/Vol] 0.79 mg/dL Normal 0.55-1.02 [facility] Comment on above: Result Comment: The validity of the calculated GFR GFRAA in patients over70 years has not been determined. Clinical correlation isessential. Performed By: #### L 100.0100, L500.4050, L501.2300 ####[facility] [address] [place], [address] ECRCL 72.38 ml/min Normal [facility] Comment on above: Performed By: #### L 100.0100, L500.4050, L501.2300 ####[facility] [address] [place], [address] EST GFR - AA 96 mL/min Normal >60 [facility] Comment on above: Result Comment: Afri can [place] GFR Calc Performed By: #### L 100.0100, L500.4050, L501.2300 ####[facility] [address] [place], [address] GAP 5 Normal 5-15 [facility] Comment on above: Performed By: #### L 100.0100, L500.4050, L501.2300 ####[facility] [address] [place], [address] GFR/1.73 sq M.predicted among non-blacks MDRD (S/P/Bld) [Vol rate/Area] 79 mL/min/{1.73_m2} Normal >60 [facility] Comment on above: Result Comment: Non- GFR Calc Performed By: #### L 100.0100, L500.4050, L501.2300 ####[facility] [address] [place], [address] Globulin (S) [Mass/Vol] 3.1 g/dL Normal 2.2-4.2 [facility] Comment on above: Performed By: #### L 100.0100, L500.4050, L501.2300 ####[facility] [address] [place], [address] Glucose [Mass/Vol] 144 mg/dL High 74-106 [facility] Comment on above: Result Comment: Fast ing Glucose result greater than or equal to 126 mg/dLsuggests DIABETES MELLITUS per A.D.A. criteria. Performed By: #### L 100.0100, L500.4050, L501.2300 ####[facility] [address] [place], [address] Potassium [Moles/Vol] 4.0 mmol/L Normal 3.5-5.1 [facility] Comment on above: Performed By: #### L 100.0100, L500.4050, L501.2300 ####[facility] [address] [place], [address] Sodium [Moles/Vol] 139 mmol/L Normal 136-145 [facility] Comment on above: Performed By: #### L 100.0100, L500.4050, L501.2300 ####[facility] [address] [place], [address] T PROT 6.9 g/dL Normal 6.4-8.2 [facility] Comment on above: Performed By: #### L 100.0100, L500.4050, L501.2300 ####[facility] [address] [place], [address] Urea nitrogen [Mass/Vol] 17 mg/dL Normal 7-18 [facility] Comment on above: Performed By: #### L 100.0100, L500.4050, L501.2300 ####[facility] [address] [place], [address] Oncology Visit Reporton 03-31 Oncology Visit Report Normal [facility] Phosphoruson 04-24-2024 Phosphate [Mass/Vol] 3.2 mg/dL Normal 2.5-4.9 [facility] Comment on above: Performed By: #### L 100.0100, L500.4050, L501.2300 ####[facility] [address] [place], [address] ONC Echo Completeon 04-23-20 24 ONC Echo Complete Normal [facility] Venous Duplex US - Donavan Extre mon 04-18-2024 Venous Duplex US - Donavan Extrem Normal [facility] CBC W/Diff, Automatedon 03-30 Absolute Lymph 1.97 X10 3/uL Normal 0.83-4.51 [facility] Comment on above: Performed By: #### L 501.2300, L100.0100 ####[facility] [address] [place], [address] Absolute Neut 7.5 X10 3/uL Normal 2.0-7.7 [facility] Comment on above: Performed By: #### L 501.2300, L100.0100 ####[facility] [address] [place], [address] Basophils/100 WBC (Bld) 1.2 % High 0-1 [facility] Comment on above: Performed By: #### L 501.2300, L100.0100 ####[facility] [address] [place], [address] Eosinophils/100 WBC (Bld) 1.0 % Normal 0-5 [facility] Comment on above: Performed By: #### L 501.2300, L100.0100 ####[facility] [address] [place], [address] Erythrocyte distribution width (RBC) [Ratio] 15.5 % High 11.6-14.6 [facility] Comment on above: Performed By: #### L 501.2300, L100.0100 ####[facility] [address] [place], [address] Hematocrit (Bld) [Volume fraction] 37.3 % Normal 37-47 [facility] Comment on above: Performed By: #### L 501.2300, L100.0100 ####[facility] [address] [place], [address] Hemoglobin (Bld) [Mass/Vol] 11.9 g/dL Low 12.0-15.0 [facility] Comment on above: Performed By: #### L 501.2300, L100.0100 ####[facility] [address] [place], [address] IG% 4.000 High 0.0-0.9 [facility] Comment on above: Result Comment: IG% - Immature Granulocytes (promyelocytes, myelocytes andmetamyelocytes) > 1% indicates that a LEFT SHIFT is Present. Performed By: #### L 501.2300, L100.0100 ####[facility] [address] [place], [address] Lymphocytes/100 WBC (Bld) 18.4 % Low 19-41 [facility] Comment on above: Performed By: #### L 501.2300, L100.0100 ####[facility] [address] [place], [address] MCH (RBC) [Entitic mass] 27.6 pg Normal 27.0-32.0 [facility] Comment on above: Performed By: #### L 501.2300, L100.0100 ####[facility] [address] [place], [address] MCHC (RBC) [Mass/Vol] 31.9 g/dL Low 32-36 [facility] Comment on above: Performed By: #### L 501.2300, L100.0100 ####[facility] [address] [place], [address] MCV (RBC) [Entitic vol] 86.5 fL Normal 81-99 [facility] Comment on above: Performed By: #### L 501.2300, L100.0100 ####[facility] [address] [place], [address] Monocytes/100 WBC (Bld) 5.0 % Normal 0-10 [facility] Comment on above: Performed By: #### L 501.2300, L100.0100 ####[facility] [address] [place], [address] Neutrophils/100 WBC (Bld) 70.4 % High 47-70 [facility] Comment on above: Performed By: #### L 501.2300, L100.0100 ####[facility] [address] [place], [address] Nucleated RBC (Bld) [#/Vol] 0 10*3/uL Normal 0-5 [facility] Comment on above: Performed By: #### L 501.2300, L100.0100 ####[facility] [address] [place], [address] Platelet mean volume (Bld) [Entitic vol] 11.0 fL Normal 6.2-12.0 [facility] Comment on above: Performed By: #### L 501.2300, L100.0100 ####[facility] [address] [place], [address] Platelets (Bld) [#/Vol] 161 10*3/uL Normal 150-450 [facility] Comment on above: Performed By: #### L 501.2300, L100.0100 ####[facility] [address] [place], [address] RBC (Bld) [#/Vol] 4.31 10*6/uL Normal 4.2-5.4 [facility] Comment on above: Performed By: #### L 501.2300, L100.0100 ####[facility] [address] [place], [address] RDW SD 47.5 fl High 35.1-43.9 [facility] Comment on above: Performed By: #### L 501.2300, L100.0100 ####[facility] [address] [place], [address] WBC (Bld) [#/Vol] 10.7 10*3/uL Normal 4.4-11.0 [facility] Comment on above: Performed By: #### L 501.2300, L100.0100 ####[facility] [address] [place], [address] Comprehensive Metabolic Prof ilon 04-17-2024 Albumin [Mass/Vol] 3.5 g/dL Normal 3.2-5.0 [facility] Comment on above: Order Comment: 1 Performed By: #### L 501.5200, L500.4050, L504.2610 ####[facility] [address] [place], [address] Albumin/Globulin [Mass ratio] 1.1 {ratio} Normal 0.9-2.4 [facility] Comment on above: Order Comment: 1 Performed By: #### L 501.5200, L500.4050, L504.2610 ####[facility] [address] [place], [address] ALK P 117 U/L Normal 45-117 [facility] Comment on above: Order Comment: 1 Performed By: #### L 501.5200, L500.4050, L504.2610 ####[facility] [address] [place], [address] ALT [Catalytic activity/Vol] 44 U/L Normal 13-56 [facility] Comment on above: Order Comment: 1 Performed By: #### L 501.5200, L500.4050, L504.2610 ####[facility] [address] [place], [address] AST [Catalytic activity/Vol] 23 U/L Normal 15-37 [facility] Comment on above: Order Comment: 1 Performed By: #### L 501.5200, L500.4050, L504.2610 ####[facility] [address] [place], [address] Bilirubin [Mass/Vol] 0.30 mg/dL Normal 0.20-1.00 [facility] Comment on above: Order Comment: 1 Result Comment: For patients on eltrombopag therapy, use of Dimension [place] TBIL is not recommended. Performed By: #### L 501.5200, L500.4050, L504.2610 ####[facility] [address] [place], [address] BUN/CRE 22.3 RATIO High 10-20 [facility] Comment on above: Order Comment: 1 Performed By: #### L 501.5200, L500.4050, L504.2610 ####[facility] [address] [place], [address] CA,Total 9.1 mg/dL Normal 8.5-10.1 [facility] Comment on above: Order Comment: 1 Performed By: #### L 501.5200, L500.4050, L504.2610 ####[facility] [address] [place], [address] Chloride [Moles/Vol] 106 mmol/L Normal 98-107 [facility] Comment on above: Order Comment: 1 Performed By: #### L 501.5200, L500.4050, L504.2610 ####[facility] [address] [place], [address] CO2 [Moles/Vol] 27.0 mmol/L Normal 21.0-32.0 [facility] Comment on above: Order Comment: 1 Performed By: #### L 501.5200, L500.4050, L504.2610 ####[facility] [address] [place], [address] Creatinine [Mass/Vol] 0.81 mg/dL Normal 0.55-1.02 [facility] Comment on above: Order Comment: 1 Result Comment: The validity of the calculated GFR GFRAA in patients over70 years has not been determined. Clinical correlation isessential. Performed By: #### L 501.5200, L500.4050, L504.2610 ####[facility] [address] [place], [address] ECRCL 70.03 ml/min Normal [facility] Comment on above: Order Comment: 1 Performed By: #### L 501.5200, L500.4050, L504.2610 ####[facility] [address] [place], [address] EST GFR - AA 93 mL/min Normal >60 [facility] Comment on above: Order Comment: 1 Result Comment: Afri can [place] GFR Calc Performed By: #### L 501.5200, L500.4050, L504.2610 ####[facility] [address] [place], [address] GAP 5 Normal 5-15 [facility] Comment on above: Order Comment: 1 Performed By: #### L 501.5200, L500.4050, L504.2610 ####[facility] [address] [place], [address] GFR/1.73 sq M.predicted among non-blacks MDRD (S/P/Bld) [Vol rate/Area] 77 mL/min/{1.73_m2} Normal >60 [facility] Comment on above: Order Comment: 1 Result Comment: Non- GFR Calc Performed By: #### L 501.5200, L500.4050, L504.2610 ####[facility] [address] [place], [address] Globulin (S) [Mass/Vol] 3.2 g/dL Normal 2.2-4.2 [facility] Comment on above: Order Comment: 1 Performed By: #### L 501.5200, L500.4050, L504.2610 ####[facility] [address] [place], [address] Glucose [Mass/Vol] 136 mg/dL High 74-106 [facility] Comment on above: Order Comment: 1 Result Comment: Fast ing Glucose result greater than or equal to 126 mg/dLsuggests DIABETES MELLITUS per A.D.A. criteria. Performed By: #### L 501.5200, L500.4050, L504.2610 ####[facility] [address] [place], [address] Potassium [Moles/Vol] 3.3 mmol/L Low 3.5-5.1 [facility] Comment on above: Order Comment: 1 Performed By: #### L 501.5200, L500.4050, L504.2610 ####[facility] [address] [place], [address] Sodium [Moles/Vol] 138 mmol/L Normal 136-145 [facility] Comment on above: Order Comment: 1 Performed By: #### L 501.5200, L500.4050, L504.2610 ####[facility] [address] [place], [address] T PROT 6.7 g/dL Normal 6.4-8.2 [facility] Comment on above: Order Comment: 1 Performed By: #### L 501.5200, L500.4050, L504.2610 ####[facility] [address] [place], [address] Urea nitrogen [Mass/Vol] 18 mg/dL Normal 7-18 [facility] Comment on above: Order Comment: 1 Performed By: #### L 501.5200, L500.4050, L504.2610 ####[facility] [address] [place], [address] LDHon 04-17-2024 LDH 301 U/L High 84-246 [facility] Comment on above: Order Comment: 1 Performed By: #### L 501.5200, L500.4050, L504.2610 ####[facility] [address] [place], [address] Magnesiumon 04-17-2024 Magnesium [Mass/Vol] 1.9 mg/dL Normal 1.6-2.6 [facility] Comment on above: Order Comment: 1 Performed By: #### L 501.5200, L500.4050, L504.2610 ####[facility] [address] [place], [address] Oncology Visit Reporton 03-30 Oncology Visit Report Normal [facility] Phosphoruson 04-17-2024 Phosphate [Mass/Vol] 3.3 mg/dL Normal 2.5-4.9 [facility] Comment on above: Performed By: #### L 501.2300, L100.0100 ####[facility] [address] [place], [address] CNPNon 04-04-2024 CNPN Telephone (GENSWS) -- GILLIAN LUIS ([id number]) 1965 F Date Time Provider Department 04/04/24 TING POLO GENSWS During your visit today, we recorded the following information about you: Lindsay Elias RN 04/04/2024 8:43 AM Signed Scan on 04/03/2024 by Provider, Jan, PA-C: Dr. Brown Woody, Oncology @[facility] Allergies As of Date: 04/04/2024 Noted Allergy Reaction LATEX 10/20/2023 4 - Hives Date Reviewed: 03/12/2024 Reviewed by: Janelle Govea RN - Fully Assessed Reason for Visit: Received Outside Medical Records [[id number]] Cmt: [place] [facility] Prescriptions as of 04/04/2024 - dexAMETHasone (DECADRON) 4 mg tablet Take 4 mg by mouth two times a day with meals. - loratadine (CLARITIN) 10 mg tablet Take 10 mg by mouth once daily. - ibuprofen (ADVIL) 200 mg tablet Take 200 mg by mouth every 6 hours as needed for pain. - metoprolol succinate ER (TOPROL XL) 50 mg 24 hr tablet Take 50 mg by mouth once daily. - lisinopril-hydroCHLOROthia zide (ZESTORETIC) 20-25 mg per tablet Take 1 tablet by mouth once daily. - rosuvastatin (CRESTOR) 10 mg tablet Take 10 mg by mouth once daily. - amLODIPine (NORVASC) 5 mg tablet Take by mouth as directed. - sertraline (ZOLOFT) 50 mg tablet Take 50 mg by mouth once daily. Problem List As Of Date 04/04/2024 Noted Resolved Benign hypertension [I10] 01/25/2024 Breast cancer (HCC) [C50.919] 11/2023 Sarcoidosis [D86.9] 01/25/2024 TIA (transient ischemic attack) [G45.9] 01/25/2024 Mild major depression (HCC) [F32.0] 01/25/2024 Smoker [F17.200] 01/28/2024 Hyperlipidemia [E78.5] 01/28/2024 Seizure-like activity (HCC) [R56.9] 01/28/2024 MELECIO (obstructive sleep apnea) [G47.33] 01/28/2024 Hypokalemia [E87.6] 03/05/2024 Encounter Status:Closed by LINDSAY ELIAS on 04/04/24 Normal [facility] [place] CBC W/Diff, Automatedon 09-0 -2023 Absolute Lymph 1.62 X10 3/uL Normal 0.83-4.51 [facility] Comment on above: Performed By: #### L 100.0100, L500.4050, L501.2300 ####[facility] [address] [place], [address] Absolute Neut 9.8 X10 3/uL High 2.0-7.7 [facility] Comment on above: Performed By: #### L 100.0100, L500.4050, L501.2300 ####[facility] [address] [place], [address] Basophils/100 WBC (Bld) 0.4 % Normal 0-1 [facility] Comment on above: Performed By: #### L 100.0100, L500.4050, L501.2300 ####[facility] [address] [place], [address] Eosinophils/100 WBC (Bld) 0.1 % Normal 0-5 [facility] Comment on above: Performed By: #### L 100.0100, L500.4050, L501.2300 ####[facility] [address] [place], [address] Erythrocyte distribution width (RBC) [Ratio] 14.5 % Normal 11.6-14.6 [facility] Comment on above: Performed By: #### L 100.0100, L500.4050, L501.2300 ####[facility] [address] [place], [address] Hematocrit (Bld) [Volume fraction] 35.5 % Low 37-47 [facility] Comment on above: Performed By: #### L 100.0100, L500.4050, L501.2300 ####[facility] [address] [place], [address] Hemoglobin (Bld) [Mass/Vol] 11.7 g/dL Low 12.0-15.0 [facility] Comment on above: Performed By: #### L 100.0100, L500.4050, L501.2300 ####[facility] [address] [place], [address] IG% 0.600 Normal 0.0-0.9 [facility] Comment on above: Result Comment: IG% - Immature Granulocytes (promyelocytes, myelocytes andmetamyelocytes) > 1% indicates that a LEFT SHIFT is Present. Performed By: #### L 100.0100, L500.4050, L501.2300 ####[facility] [address] [place], [address] Lymphocytes/100 WBC (Bld) 13.3 % Low 19-41 [facility] Comment on above: Performed By: #### L 100.0100, L500.4050, L501.2300 ####[facility] [address] [place], [address] MCH (RBC) [Entitic mass] 28.1 pg Normal 27.0-32.0 [facility] Comment on above: Performed By: #### L 100.0100, L500.4050, L501.2300 ####[facility] [address] [place], [address] MCHC (RBC) [Mass/Vol] 33.0 g/dL Normal 32-36 [facility] Comment on above: Performed By: #### L 100.0100, L500.4050, L501.2300 ####[facility] [address] [place], [address] MCV (RBC) [Entitic vol] 85.3 fL Normal 81-99 [facility] Comment on above: Performed By: #### L 100.0100, L500.4050, L501.2300 ####[facility] [address] [place], [address] Monocytes/100 WBC (Bld) 4.9 % Normal 0-10 [facility] Comment on above: Performed By: #### L 100.0100, L500.4050, L501.2300 ####[facility] [address] [place], [address] Neutrophils/100 WBC (Bld) 80.7 % High 47-70 [facility] Comment on above: Performed By: #### L 100.0100, L500.4050, L501.2300 ####[facility] [address] [place], [place], [address] Nucleated RBC (Bld) [#/Vol] 0 10*3/uL Normal 0-5 [facility] Comment on above: Performed By: #### L 100.0100, L500.4050, L501.2300 ####[facility] [address] [place], [address] Platelet mean volume (Bld) [Entitic vol] 10.9 fL Normal 6.2-12.0 [facility] Comment on above: Performed By: #### L 100.0100, L500.4050, L501.2300 ####[facility] [address] [place], [address] Platelets (Bld) [#/Vol] 344 10*3/uL Normal 150-450 [facility] Comment on above: Performed By: #### L 100.0100, L500.4050, L501.2300 ####[facility] [address] [place], [address] RBC (Bld) [#/Vol] 4.16 10*6/uL Low 4.2-5.4 [facility] Comment on above: Performed By: #### L 100.0100, L500.4050, L501.2300 ####[facility] [address] [place], [address] RDW SD 43.4 fl Normal 35.1-43.9 [facility] Comment on above: Performed By: #### L 100.0100, L500.4050, L501.2300 ####[facility] [address] [place], [address] WBC (Bld) [#/Vol] 12.2 10*3/uL High 4.4-11.0 [facility] Comment on above: Performed By: #### L 100.0100, L500.4050, L501.2300 ####[facility] [address] [place], [address] Absolute Neut Normal 2.0-7.7 [facility] Comment on above: Result Comment: DUPL ICATES Performed By: #### L 500.4050, L100.0100 ####[facility] [address] [place], [address] HCT Normal 37-47 [facility] Comment on above: Result Comment: DUPL ICATES Performed By: #### L 500.4050, L100.0100 ####[facility] [address] [place], [address] HGB Normal 12.0-15.0 [facility] Comment on above: Result Comment: DUPL ICATES Performed By: #### L 500.4050, L100.0100 ####[facility] [address] [place], [address] MCH Normal 27.0-32.0 [facility] Comment on above: Result Comment: DUPL ICATES Performed By: #### L 500.4050, L100.0100 ####[facility] [address] [place], [address] MCHC Normal 32-36 [facility] Comment on above: Result Comment: DUPL ICATES Performed By: #### L 500.4050, L100.0100 ####[facility] [address] [place], [address] MCV Normal 81-99 [facility] Comment on above: Result Comment: DUPL ICATES Performed By: #### L 500.4050, L100.0100 ####[facility] [address] [place], [address] NEUT% Normal 47-70 [facility] Comment on above: Result Comment: DUPL ICATES Performed By: #### L 500.4050, L100.0100 ####[facility] [address] [place], [address] PLT Normal 150-450 [facility] Comment on above: Result Comment: DUPL ICATES Performed By: #### L 500.4050, L100.0100 ####[facility] [address] [place], [address] RBC Normal 4.2-5.4 [facility] Comment on above: Result Comment: DUPL ICATES Performed By: #### L 500.4050, L100.0100 ####[facility] [address] [place], [address] RDW CV Normal 11.6-14.6 [facility] Comment on above: Result Comment: DUPL ICATES Performed By: #### L 500.4050, L100.0100 ####[facility] [address] [place], [address] RDW SD Normal 35.1-43.9 [facility] Comment on above: Result Comment: DUPL ICATES Performed By: #### L 500.4050, L100.0100 ####[facility] [address] [place], [address] WBC Normal 4.4-11.0 [facility] Comment on above: Result Comment: DUPL ICATES Performed By: #### L 500.4050, L100.0100 ####[facility] [address] [place], [address] Comprehensive Metabolic Prof ilmago 04-03-2024 Albumin [Mass/Vol] 3.6 g/dL Normal 3.2-5.0 [facility] Comment on above: Performed By: #### L 100.0100, L500.4050, L501.2300 ####[facility] [address] [place], [address] Albumin/Globulin [Mass ratio] 1.0 {ratio} Normal 0.9-2.4 [facility] Comment on above: Performed By: #### L 100.0100, L500.4050, L501.2300 ####[facility] [address] [place], [address] ALK P 85 U/L Normal 45-117 [facility] Comment on above: Performed By: #### L 100.0100, L500.4050, L501.2300 ####[facility] [address] [place], [address] ALT [Catalytic activity/Vol] 27 U/L Normal 13-56 [facility] Comment on above: Performed By: #### L 100.0100, L500.4050, L501.2300 ####[facility] [address] [place], [address] AST [Catalytic activity/Vol] 14 U/L Low 15-37 [facility] Comment on above: Performed By: #### L 100.0100, L500.4050, L501.2300 ####[facility] [address] [place], [address] Bilirubin [Mass/Vol] 0.20 mg/dL Normal 0.20-1.00 [facility] Comment on above: Result Comment: For patients on eltrombopag therapy, use of Dimension [place] TBIL is not recommended. Performed By: #### L 100.0100, L500.4050, L501.2300 ####[facility] [address] [place], [address] BUN/CRE 29.7 RATIO High 10-20 [facility] Comment on above: Performed By: #### L 100.0100, L500.4050, L501.2300 ####[facility] [address] [place], [address] CA,Total 9.4 mg/dL Normal 8.5-10.1 [facility] Comment on above: Performed By: #### L 100.0100, L500.4050, L501.2300 ####[facility] [address] [place], [address] Chloride [Moles/Vol] 107 mmol/L Normal 98-107 [facility] Comment on above: Performed By: #### L 100.0100, L500.4050, L501.2300 ####[facility] [address] [place], [address] CO2 [Moles/Vol] 26.0 mmol/L Normal 21.0-32.0 [facility] Comment on above: Performed By: #### L 100.0100, L500.4050, L501.2300 ####[facility] [address] [place], [address] Creatinine [Mass/Vol] 0.77 mg/dL Normal 0.55-1.02 [facility] Comment on above: Result Comment: The validity of the calculated GFR GFRAA in patients over70 years has not been determined. Clinical correlation isessential. Performed By: #### L 100.0100, L500.4050, L501.2300 ####[facility] [address] [place], [address] ECRCL 73.85 ml/min Normal [facility] Comment on above: Performed By: #### L 100.0100, L500.4050, L501.2300 ####[facility] [address] [place], [address] EST GFR - AA 98 mL/min Normal >60 [facility] Comment on above: Result Comment: Afri can [place] GFR Calc Performed By: #### L 100.0100, L500.4050, L501.2300 ####[facility] [address] [place], [address] GAP 5 Normal 5-15 [facility] Comment on above: Performed By: #### L 100.0100, L500.4050, L501.2300 ####[facility] [address] [place], [address] GFR/1.73 sq M.predicted among non-blacks MDRD (S/P/Bld) [Vol rate/Area] 81 mL/min/{1.73_m2} Normal >60 [facility] Comment on above: Result Comment: Non- GFR Calc Performed By: #### L 100.0100, L500.4050, L501.2300 ####[facility] [address] [place], [address] Globulin (S) [Mass/Vol] 3.7 g/dL Normal 2.2-4.2 [facility] Comment on above: Performed By: #### L 100.0100, L500.4050, L501.2300 ####[facility] [address] [place], [address] Glucose [Mass/Vol] 115 mg/dL High 74-106 [facility] Comment on above: Result Comment: Fast ing Glucose result from 100 to 125 mg/dLsuggests IMPAIRED HOMEOSTASIS per A.D.A. criteria. Performed By: #### L 100.0100, L500.4050, L501.2300 ####[facility] [address] [place], [address] Potassium [Moles/Vol] 3.8 mmol/L Normal 3.5-5.1 [facility] Comment on above: Performed By: #### L 100.0100, L500.4050, L501.2300 ####[facility] [address] [place], [address] Sodium [Moles/Vol] 138 mmol/L Normal 136-145 [facility] Comment on above: Performed By: #### L 100.0100, L500.4050, L501.2300 ####[facility] [address] [place], [address] T PROT 7.3 g/dL Normal 6.4-8.2 [facility] Comment on above: Performed By: #### L 100.0100, L500.4050, L501.2300 ####[facility] [address] [place], [address] Urea nitrogen [Mass/Vol] 23 mg/dL High 7-18 [facility] Comment on above: Performed By: #### L 100.0100, L500.4050, L501.2300 ####[facility] [address] [place], [address] ALB Normal 3.2-5.0 [facility] Comment on above: Result Comment: DUPL ICATES Performed By: #### L 500.4050, L100.0100 ####[facility] [address] [place], [address] ALK P Normal 45-117 [facility] Comment on above: Result Comment: DUPL ICATES Performed By: #### L 500.4050, L100.0100 ####[facility] [address] [place], [address] ALT Normal 13-56 [facility] Comment on above: Result Comment: DUPL ICATES Performed By: #### L 500.4050, L100.0100 ####[facility] [address] [place], [address] AST Normal 15-37 [facility] Comment on above: Result Comment: DUPL ICATES Performed By: #### L 500.4050, L100.0100 ####[facility] [address] [place], [address] BUN Normal 7-18 [facility] Comment on above: Result Comment: DUPL ICATES Performed By: #### L 500.4050, L100.0100 ####[facility] [address] [place], [address] BUN/CRE Normal 10-20 [facility] Comment on above: Result Comment: DUPL ICATES Performed By: #### L 500.4050, L100.0100 ####[facility] [address] [place], [address] CA,Total Normal 8.5-10.1 [facility] Comment on above: Result Comment: DUPL ICATES Performed By: #### L 500.4050, L100.0100 ####[facility] [address] [place], [address] CL Normal 98-107 [facility] Comment on above: Result Comment: DUPL ICATES Performed By: #### L 500.4050, L100.0100 ####[facility] [address] [place], [address] CO2 Normal 21.0-32.0 [facility] Comment on above: Result Comment: DUPL ICATES Performed By: #### L 500.4050, L100.0100 ####[facility] [address] [place], [address] CREAT,SERUM Normal 0.55-1.02 [facility] Comment on above: Result Comment: DUPL ICATES Performed By: #### L 500.4050, L100.0100 ####[facility] [address] [place], [address] EST GFR Normal >60 [facility] Comment on above: Result Comment: DUPL ICATES Performed By: #### L 500.4050, L100.0100 ####[facility] [address] [place], [address] EST GFR - AA Normal >60 [facility] Comment on above: Result Comment: DUPL ICATES Performed By: #### L 500.4050, L100.0100 ####[facility] [address] [place], [address] GAP Normal 5-15 [facility] Comment on above: Result Comment: DUPL ICATES Performed By: #### L 500.4050, L100.0100 ####[facility] [address] [place], [address] GLU Normal 74-106 [facility] Comment on above: Result Comment: DUPL ICATES Performed By: #### L 500.4050, L100.0100 ####[facility] [address] [place], [address] Potassium Normal 3.5-5.1 [facility] Comment on above: Result Comment: DUPL ICATES Performed By: #### L 500.4050, L100.0100 ####[facility] [address] [place], [address] T BILI Normal 0.20-1.00 [facility] Comment on above: Result Comment: DUPL ICATES Performed By: #### L 500.4050, L100.0100 ####[facility] [address] [place], [address] T PROT Normal 6.4-8.2 [facility] Comment on above: Result Comment: DUPL ICATES Performed By: #### L 500.4050, L100.0100 ####[facility] [address] [place], [address] Comprehensive Metabolic Profil Normal 136-145 [facility] Comment on above: Result Comment: DUPL ICATES Performed By: #### L 500.4050, L100.0100 ####[facility] [address] [place], [address] Oncology Visit Reporton 09-0 Oncology Visit Report Normal [facility] Phosphoruson 04-03-2024 Phosphate [Mass/Vol] 2.5 mg/dL Normal 2.5-4.9 [facility] Comment on above: Performed By: #### L 100.0100, L500.4050, L501.2300 ####[facility] [address] [place], [address] CBC W/Diff, Automatedon 02-28 Absolute Lymph 2.05 X10 3/uL Normal 0.83-4.51 [facility] Comment on above: Performed By: #### L 100.0100, L504.2610, L500.4050 ####[facility] [address] [place], [address] Absolute Neut 3.6 X10 3/uL Normal 2.0-7.7 [facility] Comment on above: Performed By: #### L 100.0100, L504.2610, L500.4050 ####[facility] [address] [place], [address] Basophils/100 WBC (Bld) 1.7 % High 0-1 [facility] Comment on above: Performed By: #### L 100.0100, L504.2610, L500.4050 ####[facility] [address] [place], [address] Eosinophils/100 WBC (Bld) 0.9 % Normal 0-5 [facility] Comment on above: Performed By: #### L 100.0100, L504.2610, L500.4050 ####[facility] [address] [place], [address] Erythrocyte distribution width (RBC) [Ratio] 13.4 % Normal 11.6-14.6 [facility] Comment on above: Performed By: #### L 100.0100, L504.2610, L500.4050 ####[facility] [address] [place], [address] Hematocrit (Bld) [Volume fraction] 36.9 % Low 37-47 [facility] Comment on above: Performed By: #### L 100.0100, L504.2610, L500.4050 ####[facility] [address] [place], [address] Hemoglobin (Bld) [Mass/Vol] 11.8 g/dL Low 12.0-15.0 [facility] Comment on above: Performed By: #### L 100.0100, L504.2610, L500.4050 ####[facility] [address] [place], [address] IG% 2.700 High 0.0-0.9 [facility] Comment on above: Result Comment: IG% - Immature Granulocytes (promyelocytes, myelocytes andmetamyelocytes) > 1% indicates that a LEFT SHIFT is Present. Performed By: #### L 100.0100, L504.2610, L500.4050 ####[facility] [address] [place], [address] Lymphocytes/100 WBC (Bld) 30.9 % Normal 19-41 [facility] Comment on above: Performed By: #### L 100.0100, L504.2610, L500.4050 ####[facility] [address] [place], [address] MCH (RBC) [Entitic mass] 27.3 pg Normal 27.0-32.0 [facility] Comment on above: Performed By: #### L 100.0100, L504.2610, L500.4050 ####[facility] [address] [place], [address] MCHC (RBC) [Mass/Vol] 32.0 g/dL Normal 32-36 [facility] Comment on above: Performed By: #### L 100.0100, L504.2610, L500.4050 ####[facility] [address] [place], [address] MCV (RBC) [Entitic vol] 85.4 fL Normal 81-99 [facility] Comment on above: Performed By: #### L 100.0100, L504.2610, L500.4050 ####[facility] [address] [place], [address] Monocytes/100 WBC (Bld) 9.3 % Normal 0-10 [facility] Comment on above: Performed By: #### L 100.0100, L504.2610, L500.4050 ####[facility] [address] [place], [address] Neutrophils/100 WBC (Bld) 54.5 % Normal 47-70 [facility] Comment on above: Performed By: #### L 100.0100, L504.2610, L500.4050 ####[facility] [address] [place], [address] Nucleated RBC (Bld) [#/Vol] 0 10*3/uL Normal 0-5 [facility] Comment on above: Performed By: #### L 100.0100, L504.2610, L500.4050 ####[facility] [address] [place], [address] Platelet mean volume (Bld) [Entitic vol] 11.4 fL Normal 6.2-12.0 [facility] Comment on above: Performed By: #### L 100.0100, L504.2610, L500.4050 ####[facility] [address] [place], [address] Platelets (Bld) [#/Vol] 162 10*3/uL Normal 150-450 [facility] Comment on above: Performed By: #### L 100.0100, L504.2610, L500.4050 ####[facility] [address] [place], [address] RBC (Bld) [#/Vol] 4.32 10*6/uL Normal 4.2-5.4 [facility] Comment on above: Performed By: #### L 100.0100, L504.2610, L500.4050 ####[facility] [address] [place], [address] RDW SD 41.2 fl Normal 35.1-43.9 [facility] Comment on above: Performed By: #### L 100.0100, L504.2610, L500.4050 ####[facility] [address] [place], [address] WBC (Bld) [#/Vol] 6.6 10*3/uL Normal 4.4-11.0 [facility] Comment on above: Performed By: #### L 100.0100, L504.2610, L500.4050 ####[facility] [address] [place], [address] Comprehensive Metabolic Prof [facility] 03-26-2024 Albumin [Mass/Vol] 3.3 g/dL Normal 3.2-5.0 [facility] Comment on above: Order Comment: 1 Performed By: #### L 100.0100, L504.2610, L500.4050 ####[facility] [address] [place], [address] Albumin/Globulin [Mass ratio] 1.0 {ratio} Normal 0.9-2.4 [facility] Comment on above: Order Comment: 1 Performed By: #### L 100.0100, L504.2610, L500.4050 ####[facility] [address] [place], [address] ALK P 93 U/L Normal 45-117 [facility] Comment on above: Order Comment: 1 Performed By: #### L 100.0100, L504.2610, L500.4050 ####[facility] [address] [place], [address] ALT [Catalytic activity/Vol] 48 U/L Normal 13-56 [facility] Comment on above: Order Comment: 1 Performed By: #### L 100.0100, L504.2610, L500.4050 ####[facility] [address] [place], [address] AST [Catalytic activity/Vol] 28 U/L Normal 15-37 [facility] Comment on above: Order Comment: 1 Performed By: #### L 100.0100, L504.2610, L500.4050 ####[facility] [address] [place], [address] Bilirubin [Mass/Vol] 0.30 mg/dL Normal 0.20-1.00 [facility] Comment on above: Order Comment: 1 Result Comment: For patients on eltrombopag therapy, use of Dimension [place] TBIL is not recommended. Performed By: #### L 100.0100, L504.2610, L500.4050 ####[facility] [address] [place], [address] BUN/CRE 11.9 RATIO Normal 10-20 [facility] Comment on above: Order Comment: 1 Performed By: #### L 100.0100, L504.2610, L500.4050 ####[facility] [address] [place], [address] CA,Total 8.9 mg/dL Normal 8.5-10.1 [facility] Comment on above: Order Comment: 1 Performed By: #### L 100.0100, L504.2610, L500.4050 ####[facility] [address] [place], [address] Chloride [Moles/Vol] 105 mmol/L Normal 98-107 [facility] Comment on above: Order Comment: 1 Performed By: #### L 100.0100, L504.2610, L500.4050 ####[facility] [address] [place], [address] CO2 [Moles/Vol] 29.0 mmol/L Normal 21.0-32.0 [facility] Comment on above: Order Comment: 1 Performed By: #### L 100.0100, L504.2610, L500.4050 ####[facility] [address] [place], [address] Creatinine [Mass/Vol] 0.76 mg/dL Normal 0.55-1.02 [facility] Comment on above: Order Comment: 1 Result Comment: The validity of the calculated GFR GFRAA in patients over70 years has not been determined. Clinical correlation isessential. Performed By: #### L 100.0100, L504.2610, L500.4050 ####[facility] [address] [place], [address] ECRCL 74.83 ml/min Normal [facility] Comment on above: Order Comment: 1 Performed By: #### L 100.0100, L504.2610, L500.4050 ####[facility] [facility] [address] [place], [address] EST GFR - AA 100 mL/min Normal >60 [facility] Comment on above: Order Comment: 1 Result Comment: Afri can Citizen [place] GFR Calc Performed By: #### L 100.0100, L504.2610, L500.4050 ####[facility] [address] [place], [address] GAP 5 Normal 5-15 [facility] Comment on above: Order Comment: 1 Performed By: #### L 100.0100, L504.2610, L500.4050 ####[facility] [address] [place], [address] GFR/1.73 sq M.predicted among non-blacks MDRD (S/P/Bld) [Vol rate/Area] 83 mL/min/{1.73_m2} Normal >60 [facility] Comment on above: Order Comment: 1 Result Comment: Non- GFR Calc Performed By: #### L 100.0100, L504.2610, L500.4050 ####[facility] [address] [place], [address] Globulin (S) [Mass/Vol] 3.2 g/dL Normal 2.2-4.2 [facility] Comment on above: Order Comment: 1 Performed By: #### L 100.0100, L504.2610, L500.4050 ####[facility] [address] [place], [address] Glucose [Mass/Vol] 115 mg/dL High 74-106 [facility] Comment on above: Order Comment: 1 Result Comment: Fast ing Glucose result from 100 to 125 mg/dLsuggests IMPAIRED HOMEOSTASIS per A.D.A. criteria. Performed By: #### L 100.0100, L504.2610, L500.4050 ####[facility] [address] [place], [address] Potassium [Moles/Vol] 3.2 mmol/L Low 3.5-5.1 [facility] Comment on above: Order Comment: 1 Performed By: #### L 100.0100, L504.2610, L500.4050 ####[facility] [address] [place], [address] Sodium [Moles/Vol] 139 mmol/L Normal 136-145 [facility] Comment on above: Order Comment: 1 Performed By: #### L 100.0100, L504.2610, L500.4050 ####[facility] [address] [place], [address] T PROT 6.5 g/dL Normal 6.4-8.2 [facility] Comment on above: Order Comment: 1 Performed By: #### L 100.0100, L504.2610, L500.4050 ####[facility] [address] [place], [address] Urea nitrogen [Mass/Vol] 9 mg/dL Normal 7-18 [facility] Comment on above: Order Comment: 1 Performed By: #### L 100.0100, L504.2610, L500.4050 ####[facility] [address] [place], [address] LDHon 03-26-2024 LDH 245 U/L Normal 84-246 [facility] Comment on above: Order Comment: 1 Performed By: #### L 100.0100, L504.2610, L500.4050 ####[facility] [address] [place], [address] Magnesiumon 03-26-2024 Magnesium [Mass/Vol] 2.3 mg/dL Normal 1.6-2.6 [facility] Comment on above: Order Comment: ADD O N PLEASE Performed By: #### L 501.5200 ####[facility] [address] [place], [address] Oncology Visit Reporton 02-28 Oncology Visit Report Normal [facility] CBC W/Diff, Automatedon 02-27 Absolute Lymph 1.55 X10 3/uL Normal 0.83-4.51 [facility] Comment on above: Performed By: #### L 100.0100, L500.4050, L501.2300 ####[facility] [address] [place], [address] Absolute Neut 11.3 X10 3/uL High 2.0-7.7 [facility] Comment on above: Performed By: #### L 100.0100, L500.4050, L501.2300 ####[facility] [address] [place], [address] Basophils/100 WBC (Bld) 0.1 % Normal 0-1 [facility] Comment on above: Performed By: #### L 100.0100, L500.4050, L501.2300 ####[facility] [address] [place], [address] Eosinophils/100 WBC (Bld) 0.0 % Normal 0-5 [facility] Comment on above: Performed By: #### L 100.0100, L500.4050, L501.2300 ####[facility] [address] [place], [address] Erythrocyte distribution width (RBC) [Ratio] 13.5 % Normal 11.6-14.6 [facility] Comment on above: Performed By: #### L 100.0100, L500.4050, L501.2300 ####[facility] [address] [place], [address] Hematocrit (Bld) [Volume fraction] 40.1 % Normal 37-47 [facility] Comment on above: Performed By: #### L 100.0100, L500.4050, L501.2300 ####[facility] [address] [place], [address] Hemoglobin (Bld) [Mass/Vol] 13.1 g/dL Normal 12.0-15.0 [facility] Comment on above: Performed By: #### L 100.0100, L500.4050, L501.2300 ####[facility] [address] [place], [address] IG% 0.700 Normal 0.0-0.9 [facility] Comment on above: Result Comment: IG% - Immature Granulocytes (promyelocytes, myelocytes andmetamyelocytes) > 1% indicates that a LEFT SHIFT is Present. Performed By: #### L 100.0100, L500.4050, L501.2300 ####[facility] [address] [place], [address] Lymphocytes/100 WBC (Bld) 11.7 % Low 19-41 [facility] Comment on above: Performed By: #### L 100.0100, L500.4050, L501.2300 ####[facility] [address] [place], [address] MCH (RBC) [Entitic mass] 28.2 pg Normal 27.0-32.0 [facility] Comment on above: Performed By: #### L 100.0100, L500.4050, L501.2300 ####[facility] [address] [place], [address] MCHC (RBC) [Mass/Vol] 32.7 g/dL Normal 32-36 [facility] Comment on above: Performed By: #### L 100.0100, L500.4050, L501.2300 ####[facility] [address] [place], [address] MCV (RBC) [Entitic vol] 86.2 fL Normal 81-99 [facility] Comment on above: Performed By: #### L 100.0100, L500.4050, L501.2300 ####[facility] [address] [place], [address] Monocytes/100 WBC (Bld) 2.3 % Normal 0-10 [facility] Comment on above: Performed By: #### L 100.0100, L500.4050, L501.2300 ####[facility] [address] [place], [address] Neutrophils/100 WBC (Bld) 85.2 % High 47-70 [facility] Comment on above: Performed By: #### L 100.0100, L500.4050, L501.2300 ####[facility] [address] [place], [address] Nucleated RBC (Bld) [#/Vol] 0 10*3/uL Normal 0-5 [facility] Comment on above: Performed By: #### L 100.0100, L500.4050, L501.2300 ####[facility] [address] [place], [address] Platelet mean volume (Bld) [Entitic vol] 11.2 fL Normal 6.2-12.0 [facility] Comment on above: Performed By: #### L 100.0100, L500.4050, L501.2300 ####[facility] [address] [place], [address] Platelets (Bld) [#/Vol] 223 10*3/uL Normal 150-450 [facility] Comment on above: Performed By: #### L 100.0100, L500.4050, L501.2300 ####[facility] [address] [place], [address] RBC (Bld) [#/Vol] 4.65 10*6/uL Normal 4.2-5.4 [facility] Comment on above: Performed By: #### L 100.0100, L500.4050, L501.2300 ####[facility] [address] [place], [address] RDW SD 42.0 fl Normal 35.1-43.9 [facility] Comment on above: Performed By: #### L 100.0100, L500.4050, L501.2300 ####[facility] [address] [place], [address] WBC (Bld) [#/Vol] 13.3 10*3/uL High 4.4-11.0 [facility] Comment on above: Performed By: #### L 100.0100, L500.4050, L501.2300 ####[facility] [address] [place], [address] Comprehensive Metabolic Prof ilmago 03-13-2024 Albumin [Mass/Vol] 3.8 g/dL Normal 3.2-5.0 [facility] Comment on above: Performed By: #### L 100.0100, L500.4050, L501.2300 ####[facility] [address] [place], [address] Albumin/Globulin [Mass ratio] 1.0 {ratio} Normal 0.9-2.4 [facility] Comment on above: Performed By: #### L 100.0100, L500.4050, L501.2300 ####[facility] [address] [place], [address] ALK P 82 U/L Normal 45-117 [facility] Comment on above: Performed By: #### L 100.0100, L500.4050, L501.2300 ####[facility] [address] [place], [address] ALT [Catalytic activity/Vol] 23 U/L Normal 13-56 [facility] Comment on above: Performed By: #### L 100.0100, L500.4050, L501.2300 ####[facility] [address] [place], [address] AST [Catalytic activity/Vol] 15 U/L Normal 15-37 [facility] Comment on above: Performed By: #### L 100.0100, L500.4050, L501.2300 ####[facility] [address] [place], [address] Bilirubin [Mass/Vol] 0.20 mg/dL Normal 0.20-1.00 [facility] Comment on above: Result Comment: For patients on eltrombopag therapy, use of Dimension [place] TBIL is not recommended. Performed By: #### L 100.0100, L500.4050, L501.2300 ####[facility] [address] [place], [address] BUN/CRE 14.7 RATIO Normal 10-20 [facility] Comment on above: Performed By: #### L 100.0100, L500.4050, L501.2300 ####[facility] [address] [place], [address] CA,Total 9.3 mg/dL Normal 8.5-10.1 [facility] Comment on above: Performed By: #### L 100.0100, L500.4050, L501.2300 ####[facility] [address] [place], [address] Chloride [Moles/Vol] 102 mmol/L Normal 98-107 [facility] Comment on above: Performed By: #### L 100.0100, L500.4050, L501.2300 ####[facility] [address] [place], [address] CO2 [Moles/Vol] 25.0 mmol/L Normal 21.0-32.0 [facility] Comment on above: Performed By: #### L 100.0100, L500.4050, L501.2300 ####[facility] [address] [place], [address] Creatinine [Mass/Vol] 1.09 mg/dL High 0.55-1.02 [facility] Comment on above: Result Comment: The validity of the calculated GFR GFRAA in patients over70 years has not been determined. Clinical correlation isessential. Performed By: #### L 100.0100, L500.4050, L501.2300 ####[facility] [address] [place], [address] ECRCL 52.48 ml/min Normal [facility] Comment on above: Performed By: #### L 100.0100, L500.4050, L501.2300 ####[facility] [address] [place], [address] EST GFR - AA 66 mL/min Normal >60 [facility] Comment on above: Result Comment: Afri can Citizen [place] GFR Calc Performed By: #### L 100.0100, L500.4050, L501.2300 ####[facility] [address] [place], [address] GAP 10 Normal 5-15 [facility] Comment on above: Performed By: #### L 100.0100, L500.4050, L501.2300 ####[facility] [address] [place], [address] GFR/1.73 sq M.predicted among non-blacks MDRD (S/P/Bld) [Vol rate/Area] 54 mL/min/{1.73_m2} Low >60 [facility] Comment on above: Result Comment: Non- GFR Calc Performed By: #### L 100.0100, L500.4050, L501.2300 ####[facility] [address] [place], [address] Globulin (S) [Mass/Vol] 3.7 g/dL Normal 2.2-4.2 [facility] Comment on above: Performed By: #### L 100.0100, L500.4050, L501.2300 ####[facility] [address] [place], [address] Glucose [Mass/Vol] 175 mg/dL High 74-106 [facility] Comment on above: Result Comment: Fast ing Glucose result greater than or equal to 126 mg/dLsuggests DIABETES MELLITUS per A.D.A. criteria. Performed By: #### L 100.0100, L500.4050, L501.2300 ####[facility] [address] [place], [address] Potassium [Moles/Vol] 3.4 mmol/L Low 3.5-5.1 [facility] Comment on above: Performed By: #### L 100.0100, L500.4050, L501.2300 ####[facility] [address] [place], [address] Sodium [Moles/Vol] 137 mmol/L Normal 136-145 [facility] Comment on above: Performed By: #### L 100.0100, L500.4050, L501.2300 ####[facility] [address] [place], [address] T PROT 7.5 g/dL Normal 6.4-8.2 [facility] Comment on above: Performed By: #### L 100.0100, L500.4050, L501.2300 ####[facility] [address] [place], [address] Urea nitrogen [Mass/Vol] 16 mg/dL Normal 7-18 [facility] Comment on above: Performed By: #### L 100.0100, L500.4050, L501.2300 ####[facility] [address] [place], [address] Oncology Visit Reporton 02-27 Oncology Visit Report Normal [facility] Phosphoruson 03-13-2024 Phosphate [Mass/Vol] 2.5 mg/dL Normal 2.5-4.9 [facility] Comment on above: Performed By: #### L 100.0100, L500.4050, L501.2300 ####[facility] [address] [place], [address] BRIEF OP NOTon 03-12-2024 BRIEF OP NOT HNO ID: [id number] Author: CADEN JOLLEY MD Service: Interventional Radiology Author Type: Physician Type: Brief Op Note Filed: 03/12/2024 14:08 Note Text: INTERVENTIONAL RADIOLOGY BRIEF PROCEDURE NOTE LOG ID: [id number] Surgery/Procedure Date: 03/12/2024 Incision/Procedure Start Time: 1:42 PM Incision Close/Procedure End Time: 2:02 PM Surgeon(s)/Proceduralist(s ) and Melt Helper(s): Surgeon(s) and Role: * Caden Jolley MD - Primary Procedure(s): Port placement Anesthesia: Procedural Sedation Findings: Patent left internal jugular vein. 8F Bard Powerport placed and ready for immediate use. Estimated Blood Loss: 0 ml Specimens: None Complications: None Pre-Op/Pre-Procedure Diagnosis: Breast cancer Post-Op/Post-Procedure Diagnosis: Breast cancer SIGNATURE: Caden Jolley MD PATIENT NAME: Gillian Luis DATE: March 12, 2024 TIME: 2:07 PM PAGER/CONTACT #: [phone] [facility] IR FLU GD ELIJAH CVA PLACEon IR FLU GD ELIJAH CVA PLACE * * *Final Report* * * DATE OF EXAM: Mar 12 2024 2:05PM [facility] 7444 - IR FLU GD ELIJAH CVA PLACE / PROCEDURE REASON: Malignant neoplasm of right breast in female, estrogen receptor positive, unspec * * * * Physician Interpretation * * * * PROCEDURE: VENOUS PORT PLACEMENT Procedural Personnel Attending physician(s): Caden Jolley M.D. Fellow physician(s): None Resident physician(s): None Advanced practice provider(s): None Medical Student(s): None Pre-procedure diagnosis: Breast cancer Post-procedure diagnosis: Same Indication: Administration of chemotherapy Additional clinical history: None PROCEDURE SUMMARY: - Venous access with ultrasound guidance - Tunneled port insertion under fluoroscopic guidance - Additional procedure(s): None PROCEDURE DETAILS: Pre-procedure Consent: Consent obtained with the patient as documented. Medication reconciliation: Done Dora-procedure discussion: The appropriate elements of the pre-procedure discussion, safety check list and sign-out were performed. Time out was completed before start of procedure. Preparation (MIPS): The site was prepared and draped using all elements of maximal sterile barrier technique including sterile gloves, sterile gown, cap, mask, large sterile sheet, sterile ultrasound probe cover, hand hygiene and cutaneous antisepsis with 2% chlorhexidine. Medical reason for site preparation exception (MIPS): Not applicable Contrast: Contrast agent: None Contrast volume (mL): 0 Image Guidance: Fluoroscopic and sonographic guidance with digital image storage Radiation/Dose: FLUOROSCOPIC RADIATION SUMMARY: Plane A, Air Kerma: 1.3 mGy Dose Area Product (DAP): 327.1 mGy*cm2 Fluoro Time: 0:30 min:sec Radiation dose exceed 3.5 Gy: No If radiation dose exceeded 3.5 Gy, was counseling and instructional brochure provided: N/A Anesthesia/Sedation: Level of anesthesia/sedation: Moderate sedation (conscious sedation) Anesthesia/sedation administered by: Independent trained observer under attending supervision with continuous monitoring of the patient?s level of consciousness and physiologic status Total intra-service sedation time (minutes): 20 Local anesthesia: 1 % lidocaine Antibiotics and meds: Cefazolin Antibiotic infusion start time: 1225 Prophylactic antibiotic administered: None Additional med: None Additional med: None Start of procedure: 1342 End of procedure: 1402 TECHNIQUE: Patient position: Supine Access Local anesthesia was administered. The vessel was sonographically evaluated and determined to be patent. Real time ultrasound was used to visualize needle entry into the vessel and a permanent image was stored. Vein accessed: Internal jugular vein Access technique: Micropuncture set with 21 gauge needle Port placement An incision was made at the upper chest, a pocket was created, and the catheter was tunneled subcutaneously to the venous access site and trimmed to appropriate length. The port was inserted into the pocket and the catheter was advanced via a peel-away sheath into the vein under fluoroscopic guidance. The port was sutured into the pocket using absorbable suture. Catheter tip location was fluoroscopically verified and a permanent image was stored. Port placed: 8 F BARD PowerPort by - Groshong (distal valved) silicone catheter with pressure injectable titanium port. Catheter flush: Normal saline Closure The access site and incision were closed and sterile dressing(s) were applied. Sponge counts were ascertained. Access site closure technique: Tissue adhesive Incision closure technique: Absorbable suture and tissue adhesive Patient discharged from procedure suite with device accessed: No Additional Details Additional description of procedure: None Equipment details: None Number and Type of Removed Specimens: : N/A Estimated blood loss (mL): Less than 10 Standardized report: [id number] COMPLICATIONS: No immediate complications CONCLUSION: The patient was comfortable and was transferred to the recovery room in stable condition. The procedure was performed by the: attending radiologist, without an aquatics assistant department head. The attending radiologist performed the following procedural activities: Entire procedure IMPRESSION: INSERTION OF LEFT-SIDED POWER-INJECTABLE SINGLE-LUMEN TUNNELED CHEST PORT, WITH CATHETER TIP IN THE EXPECTED LOCATION OF THE CAVOATRIAL JUNCTION. PLAN: THE PORT MAY BE USED IMMEDIATELY. RECOMMEND NORMAL SALINE FLUSH INTERVAL OF 90 DAYS WHEN NOT BEING USED. ATTESTATION: Signer name: Caden Jolley MD I attest that I was present for the entire procedure. I reviewed the stored images and agree with the report as written. Sales Representative [employer]: [facility] Transcribe Date/Time: Mar 12 2024 2:09P Dictated by : CADEN JOLLEY MD This examinati (more content not included)... [facility] IR PORTOCATH PLACEMENTon IR PORTOCATH PLACEMENT * * *Final Report * * * DATE OF EXAM: Mar 12 2024 2:05PM [facility] 8966 - IR PORTOCATH PLACEMENT / PROCEDURE REASON: Malignant neoplasm of right breast in female, estrogen receptor positive, unspec * * * * Physician Interpretation * * * * PROCEDURE: VENOUS PORT PLACEMENT Procedural Personnel Attending physician(s): Caden Jolley M.D. Fellow physician(s): None Resident physician(s): None Advanced practice provider(s): None Medical Student(s): None Pre-procedure diagnosis: Breast cancer Post-procedure diagnosis: Same Indication: Administration of chemotherapy Additional clinical history: None PROCEDURE SUMMARY: - Venous access with ultrasound guidance - Tunneled port insertion under fluoroscopic guidance - Additional procedure(s): None PROCEDURE DETAILS: Pre-procedure Consent: Consent obtained with the patient as documented. Medication reconciliation: Done Dora-procedure discussion: The appropriate elements of the pre-procedure discussion, safety check list and sign-out were performed. Time out was completed before start of procedure. Preparation (MIPS): The site was prepared and draped using all elements of maximal sterile barrier technique including sterile gloves, sterile gown, cap, mask, large sterile sheet, sterile ultrasound probe cover, hand hygiene and cutaneous antisepsis with 2% chlorhexidine. Medical reason for site preparation exception (MIPS): Not applicable Contrast: Contrast agent: None Contrast volume (mL): 0 Image Guidance: Fluoroscopic and sonographic guidance with digital image storage Radiation/Dose: FLUOROSCOPIC RADIATION SUMMARY: Plane A, Air Kerma: 1.3 mGy Dose Area Product (DAP): 327.1 mGy*cm2 Fluoro Time: 0:30 min:sec Radiation dose exceed 3.5 Gy: No If radiation dose exceeded 3.5 Gy, was counseling and instructional brochure provided: N/A Anesthesia/Sedation: Level of anesthesia/sedation: Moderate sedation (conscious sedation) Anesthesia/sedation administered by: Independent trained observer under attending supervision with continuous monitoring of the patient?s level of consciousness and physiologic status Total intra-service sedation time (minutes): 20 Local anesthesia: 1 % lidocaine Antibiotics and meds: Cefazolin Antibiotic infusion start time: 1225 Prophylactic antibiotic administered: None Additional med: None Additional med: None Start of procedure: 1342 End of procedure: 1402 TECHNIQUE: Patient position: Supine Access Local anesthesia was administered. The vessel was sonographically evaluated and determined to be patent. Real time ultrasound was used to visualize needle entry into the vessel and a permanent image was stored. Vein accessed: Internal jugular vein Access technique: Micropuncture set with 21 gauge needle Port placement An incision was made at the upper chest, a pocket was created, and the catheter was tunneled subcutaneously to the venous access site and trimmed to appropriate length. The port was inserted into the pocket and the catheter was advanced via a peel-away sheath into the vein under fluoroscopic guidance. The port was sutured into the pocket using absorbable suture. Catheter tip location was fluoroscopically verified and a permanent image was stored. Port placed: 8 F BARD PowerPort by - Groshong (distal valved) silicone catheter with pressure injectable titanium port. Catheter flush: Normal saline Closure The access site and incision were closed and sterile dressing(s) were applied. Sponge counts were ascertained. Access site closure technique: Tissue adhesive Incision closure technique: Absorbable suture and tissue adhesive Patient discharged from procedure suite with device accessed: No Additional Details Additional description of procedure: None Equipment details: None Number and Type of Removed Specimens: : N/A Estimated blood loss (mL): Less than 10 Standardized report: SIR_Port_v3 COMPLICATIONS: No immediate complications CONCLUSION: The patient was comfortable and was transferred to the recovery room in stable condition. The procedure was performed by the: attending radiologist, without an aquatics assistant department head. The attending radiologist performed the following procedural activities: Entire procedure IMPRESSION: INSERTION OF LEFT-SIDED POWER-INJECTABLE SINGLE-LUMEN TUNNELED CHEST PORT, WITH CATHETER TIP IN THE EXPECTED LOCATION OF THE CAVOATRIAL JUNCTION. PLAN: THE PORT MAY BE USED IMMEDIATELY. RECOMMEND NORMAL SALINE FLUSH INTERVAL OF 90 DAYS WHEN NOT BEING USED. ATTESTATION: Signer name: Caden Jolley MD I attest that I was present for the entire procedure. I reviewed the stored images and agree with the report as written. Sales Representative [employer]: PSCB Transcribe Date/Time: Mar 12 2024 2:09P Dictated by : CADEN JOLLEY MD This examinatio (more content not included)... [facility] IR US VASCULAR ACCESS GUIDEo n 03-12-2024 IR US VASCULAR ACCESS GUIDE * * *Final Report* * * DATE OF EXAM: Mar 12 2024 2:05PM [facility] 7765 - US VASCULAR ACCESS GUIDE / PROCEDURE REASON: Malignant neoplasm of right breast in female, estrogen receptor positive, unspec * * * * Physician Interpretation * * * * PROCEDURE: VENOUS PORT PLACEMENT Procedural Personnel Attending physician(s): Caden Jolley M.D. Fellow physician(s): None Resident physician(s): None Advanced practice provider(s): None Medical Student(s): None Pre-procedure diagnosis: Breast cancer Post-procedure diagnosis: Same Indication: Administration of chemotherapy Additional clinical history: None PROCEDURE SUMMARY: - Venous access with ultrasound guidance - Tunneled port insertion under fluoroscopic guidance - Additional procedure(s): None PROCEDURE DETAILS: Pre-procedure Consent: Consent obtained with the patient as documented. Medication reconciliation: Done Dora-procedure discussion: The appropriate elements of the pre-procedure discussion, safety check list and sign-out were performed. Time out was completed before start of procedure. Preparation (MIPS): The site was prepared and draped using all elements of maximal sterile barrier technique including sterile gloves, sterile gown, cap, mask, large sterile sheet, sterile ultrasound probe cover, hand hygiene and cutaneous antisepsis with 2% chlorhexidine. Medical reason for site preparation exception (MIPS): Not applicable Contrast: Contrast agent: None Contrast volume (mL): 0 Image Guidance: Fluoroscopic and sonographic guidance with digital image storage Radiation/Dose: FLUOROSCOPIC RADIATION SUMMARY: Plane A, Air Kerma: 1.3 mGy Dose Area Product (DAP): 327.1 mGy*cm2 Fluoro Time: 0:30 min:sec Radiation dose exceed 3.5 Gy: No If radiation dose exceeded 3.5 Gy, was counseling and instructional brochure provided: N/A Anesthesia/Sedation: Level of anesthesia/sedation: Moderate sedation (conscious sedation) Anesthesia/sedation administered by: Independent trained observer under attending supervision with continuous monitoring of the patient?s level of consciousness and physiologic status Total intra-service sedation time (minutes): 20 Local anesthesia: 1 % lidocaine Antibiotics and meds: Cefazolin Antibiotic infusion start time: 1225 Prophylactic antibiotic administered: None Additional med: None Additional med: None Start of procedure: 1342 End of procedure: 1402 TECHNIQUE: Patient position: Supine Access Local anesthesia was administered. The vessel was sonographically evaluated and determined to be patent. Real time ultrasound was used to visualize needle entry into the vessel and a permanent image was stored. Vein accessed: Internal jugular vein Access technique: Micropuncture set with 21 gauge needle Port placement An incision was made at the upper chest, a pocket was created, and the catheter was tunneled subcutaneously to the venous access site and trimmed to appropriate length. The port was inserted into the pocket and the catheter was advanced via a peel-away sheath into the vein under fluoroscopic guidance. The port was sutured into the pocket using absorbable suture. Catheter tip location was fluoroscopically verified and a permanent image was stored. Port placed: 8 F BARD PowerPort by - Groshong (distal valved) silicone catheter with pressure injectable titanium port. Catheter flush: Normal saline Closure The access site and incision were closed and sterile dressing(s) were applied. Sponge counts were ascertained. Access site closure technique: Tissue adhesive Incision closure technique: Absorbable suture and tissue adhesive Patient discharged from procedure suite with device accessed: No Additional Details Additional description of procedure: None Equipment details: None Number and Type of Removed Specimens: : N/A Estimated blood loss (mL): Less than 10 Standardized report: SIR_Port_v3 COMPLICATIONS: No immediate complications CONCLUSION: The patient was comfortable and was transferred to the recovery room in stable condition. The procedure was performed by the: attending radiologist, without an aquatics assistant department head. The attending radiologist performed the following procedural activities: Entire procedure IMPRESSION: INSERTION OF LEFT-SIDED POWER-INJECTABLE SINGLE-LUMEN TUNNELED CHEST PORT, WITH CATHETER TIP IN THE EXPECTED LOCATION OF THE CAVOATRIAL JUNCTION. PLAN: THE PORT MAY BE USED IMMEDIATELY. RECOMMEND NORMAL SALINE FLUSH INTERVAL OF 90 DAYS WHEN NOT BEING USED. ATTESTATION: Signer name: Caden Jolley MD I attest that I was present for the entire procedure. I reviewed the stored images and agree with the report as written. Sales Representative [employer]: PSCB Transcribe Date/Time: Mar 12 2024 2:09P Dictated by : CADEN JOLLEY MD This exami (more content not included)... Normal [facility] CBC panel Auto (Bld)on 03-10 Erythrocyte distribution width (RBC) [Ratio] 13.6 % Normal 11.5-15.0 [facility] [place] Comment on above: Order Comment: Speci men Type: BLOOD SPECIMENOrdering Facility: [facility] Address: [address] [place] [address] Performed By: #### 5 8410-2 ####[facility] [id number] [place] [address] [place] Hematocrit (Bld) [Volume fraction] 42.3 % Normal 36.0-46.0 [facility] [place] Comment on above: Order Comment: Speci men Type: BLOOD SPECIMENOrdering Facility: [facility] Address: [address] [place] [address] Performed By: #### 5 8410-2 ####[facility] [id number] [place] [address] [place] Hemoglobin (Bld) [Mass/Vol] 13.7 g/dL Normal 11.5-15.5 [facility] [place] Comment on above: Order Comment: Speci men Type: BLOOD SPECIMENOrdering Facility: [facility] Address: [address] [place] [address] Performed By: #### 5 8410-2 ####[facility] [id number] [place] [address] [place] MCH (RBC) [Entitic mass] 27.8 pg Normal 26.0-34.0 [facility] [place] Comment on above: Order Comment: Speci men Type: BLOOD SPECIMENOrdering Facility: [facility] Address: [address] [place] [address] Performed By: #### 5 8410-2 ####[facility] [id number] [place] [address] [place] MCHC (RBC) [Mass/Vol] 32.4 g/dL Normal 30.5-36.0 [facility] Comment on above: Order Comment: Speci men Type: BLOOD SPECIMENOrdering Facility: [facility] Address: [address] [place] [address] Performed By: #### 5 8410-2 ####[facility] [id number] [place] [address] [place] MCV (RBC) [Entitic vol] 86.0 fL Normal 80.0-100.0 [facility] [place] Comment on above: Order Comment: Speci men Type: BLOOD SPECIMENOrdering Facility: [facility] Address: [address] [place] [address] Performed By: #### 5 8410-2 ####[facility] [id number] [place] [address] [place] Nucleated RBC (Bld) [#/Vol] 10*3/uL Normal <0.01 [facility] [place] Comment on above: Order Comment: Speci men Type: BLOOD SPECIMENOrdering Facility: [facility] Address: [address] [place] [address] Performed By: #### 5 8410-2 ####[facility] [id number] [place] [address] [place] Platelet mean volume (Bld) [Entitic vol] 12.4 fL Normal 9.0-12.7 [facility] [place] Comment on above: Order Comment: Speci men Type: BLOOD SPECIMENOrdering Facility: [facility] Address: [address] [place] [address] Performed By: #### 5 8410-2 ####[facility] [id number] [place] [address] [place] Platelets (Bld) [#/Vol] 207 10*3/uL Normal 150-400 [facility] [place] Comment on above: Order Comment: Speci men Type: BLOOD SPECIMENOrdering Facility: [facility] Address: [address] [place] [address] Performed By: #### 5 8410-2 ####[facility] [id number] [place] [address] [place] RBC (Bld) [#/Vol] 4.92 10*6/uL Normal 3.90-5.20 [facility] Comment on above: Order Comment: Speci men Type: BLOOD SPECIMENOrdering Facility: [facility] Address: [address] [place] [address] Performed By: #### 5 8410-2 ####[facility] [id number] [place] [address] [place] WBC (Bld) [#/Vol] 9.21 10*3/uL Normal 3.70-11.00 [facility] Comment on above: Order Comment: Speci men Type: BLOOD SPECIMENOrdering Facility: [facility] Address: [address] [place] [address] Performed By: #### 5 8410-2 ####[facility] [id number] [id number] [id number] [place] CNPRadha 03-10-2024 CNPN Telephone (AVXRPR) -- GILLIAN LUIS ([id number]) 1965 F Date Time Provider Department 03/10/24 JOSEFINA CHACON AVXRND During your visit today, we recorded the following information about you: Josefina Chacon RN 03/10/2024 9:21 AM Signed You are scheduled for a mediport placement, On 03/12/2024. You are to arrive at 12:00 pm and Report to [facility]: [facility]: Radiology Outpatient Desk AVW1- You can expect to be here for 3-4 hours. Diet: Do not eat any solid food after midnight the night before your procedure. You may drink clear liquids until 10:00 a.m., which means black coffee, apple juice, black tea, or water only. Medications: Ok to take your cardiac, blood pressure, anti-seizure, and chronic pain medications with a sip of water, please take prior to arrival. Bring your current medication list. Labs: Lab-work needs to be drawn? Yes, CBC labs need to be drawn at least one day prior to procedure. Please bring a copy of the results if they are not done at a [facility] facility. . Bulk Receiver/Transportation: How will you be arriving for your procedure? Private car. You will need a responsible adult to accompany you to and from the procedure. Please call with any questions or concerns. Allergies As of Date: 03/10/2024 Noted Allergy Reaction LATEX 10/20/2023 4 - Hives Date Reviewed: 03/07/2024 Reviewed by: Ceceila Singer RN - Fully Assessed Prescriptions as of 03/10/2024 - ibuprofen (ADVIL) 200 mg tablet Take 200 mg by mouth every 6 hours as needed for pain. - metoprolol succinate ER (TOPROL XL) 50 mg 24 hr tablet Take 50 mg by mouth once daily. - lisinopril-hydroCHLOROthia zide (ZESTORETIC) 20-25 mg per tablet Take 1 tablet by mouth once daily. - rosuvastatin (CRESTOR) 10 mg tablet Take 10 mg by mouth once daily. - amLODIPine (NORVASC) 5 mg tablet Take by mouth as directed. - sertraline (ZOLOFT) 50 mg tablet Take 50 mg by mouth once daily. Problem List As Of Date 03/10/2024 Noted Resolved Benign hypertension [I10] 01/25/2024 Breast cancer (HCC) [C50.919] 11/2023 Sarcoidosis [D86.9] 01/25/2024 TIA (transient ischemic attack) [G45.9] 01/25/2024 Mild major depression (HCC) [F32.0] 01/25/2024 Smoker [F17.200] 01/28/2024 Hyperlipidemia [E78.5] 01/28/2024 Seizure-like activity (HCC) [R56.9] 01/28/2024 MELECIO (obstructive sleep apnea) [G47.33] 01/28/2024 Hypokalemia [E87.6] 03/05/2024 Encounter Status:Closed by JOSEFINA CHACON on 03/10/24 Normal [facility] Oncology Visit Reporton 02-27 Oncology Visit Report Normal [facility] ALLIED HEALTHon 03-07-2024 ALLIED HEALTH HNO ID: [id number] Author: RASHIDA PAREKH CT Service: Radiology Author Type: Technologist Type: Allied Health Filed: 03/07/2024 14:39 Note Text: Radiology Service Progress Note PATIENT NAME: Gillian Luis DATE OF SERVICE: March 07, 2024 TIME: 2:39 PM PATIENT IDENTITY VERIFICATION COMPLETED USING TWO (2) IDENTIFIERS: Name and Date of confirmed by patient verbally and Name and Date of confirmed by identification band. FALL SCREENING: Has the patient had 2 falls in the last year or 1 fall with injury or currently using an Ambulatory Assistive Device (Walker, Cane, Wheelchair, Crutches, etc.)? Inpatient: Screened on floor PATIENT GENDER DATA: Female. status: : No status: NO. PATIENT RELEVANT IMPLANT DATA REVIEWED: Not Applicable PATIENT PRESENTS WITH AN IMPLANTABLE OR ATTACHED OPTICAL TECHNICIAN: No RADIOLOGY DEPARTMENT: General X-ray: Exam(s) Completed: Chest X-Ray PERIPHERAL IV DATA: Not applicable SIGNED BY: LUL Henry March 07, 2024 2:39 PM [facility] POSTPROC EVALon 024 [facility] POSTPROC EVAL HNO ID: [id number] Author: GLORIA KIRK MD Service: Anesthesiology Author Type: Anesthesiologist Type: Anesthesia Postprocedure Evaluation Filed: 03/07/2024 14:52 Note Text: POST ANESTHESIA EVALUATION NOTE : 1965 Procedure Summary Date: 03/07/24 Room / Location: [place] [address] / [place] Anesthesia Start: 1239 Anesthesia Stop: 1329 Procedure: INSERTION CATHETER PORT-A-CATH WITH C-ARM (Left: Neck) Diagnosis: Malignant neoplasm of right breast in female, estrogen receptor positive, unspecified site of breast (HCC) (Malignant neoplasm of right breast in female, estrogen receptor positive, unspecified site of breast (HCC) [C50.911, Z17.0]) Surgeons: Ting Polo MD Responsible Provider: Gloria Kirk MD Anesthesia Type: MAC ASA Status: 3 Anesthesia Type: MAC Last Vitals Vitals Value Taken Time BP 176/79 03/07/24 1406 Temp 36.1 ?C (97 ?F) 03/07/24 1332 Pulse 66 03/07/24 1406 Resp 16 03/07/24 1406 SpO2 95 % 03/07/24 1406 Post Anesthesia Patient Status Patient Evaluation: PACU. PACU/ICU Patient Condition: stable. Anticipated Disposition: phase 2 then home. Neurological Status: aware and responsive. Pulmonary Status: breathing comfortably on room air Airway Control: returned to baseline unsupported. Cardiovascular Status: stable. Pain Management: clinically adequate - multimodal analgesia pain management approach Postoperative Hydration: acceptable. Intraoperative Events: no significant anesthesia events Post Operative Nausea/Vomiting Status: no significant post operative nausea or vomiting Recommendation: continue current plan of care. Anesthesia Observations No Documentation SIGNATURE: Gloria Kirk MD PATIENT NAME: Gillian Luis DATE: March 07, 2024 TIME: 2:52 PM CSN: [id number] [facility] ANES PRE-OPon 03-07-2024 ANES PRE-OP HNO ID: [id number] Author: XU CHRIS DO Service: Anesthesiology Author Type: Anesthesiologist Type: Anesthesia Preprocedure Evaluation Filed: 03/07/2024 11:57 Note Text: ANESTHESIOLOGY DAY OF SURGERY NOTE : 1965 Procedure Information Date/Time: 03/07/24 1230 Procedure: INSERTION CATHETER PORT-A-CATH WITH C-ARM (Left: Neck) [place] Surgeons: Ting Polo MD Estimated body mass index is 30 kg/m? as calculated from the following: Height as of this encounter: 157.5 cm (5' 2). Weight as of this encounter: 74.4 kg (164 lb). Most recent hematocrit and potassium results: Hematocrit 43.8 01/28/2024 Potassium 3.3 01/28/2024 Relevant Problems ANESTHESIA (+) MELECIO (obstructive sleep apnea) CARDIO (+) Benign hypertension NEURO-PSYCH (+) TIA (transient ischemic attack) PULMONARY (+) MELECIO (obstructive sleep apnea) I - PHYSICAL EVALUATION AIRWAY Patient intubated: No. Tracheostomy tube not present Mallampati: II. TM distance: >3 FB. Neck ROM: full ROM without neurological symptoms. Mouth opening: adequate. Short neck: no. Thick neck: no DENTAL Dental findings: edentulous. Dentures, upper: complete. Additional exam findings: yes. CARDIOVASCULAR Rhythm: regular Rate: normal PULMONARY Breath sounds clear to auscultation. II - ANESTHESIA PLAN ASA Score: 3 Anesthetic Plan: MAC NPO Status: adequate Beta Cecil Monitoring Plan Monitoring plan: standard ASA. Post Procedure Analgesic Plan Postoperative analgesic plan: parenteral or oral opioids, multimodal analgesia and per surgical service. Informed Consent Anesthetic risks, benefits, alternatives, personnel and consent discussed: yes. Patient / Responsible Green Party agrees to proceed: yes Patient / Surrogate agrees to blood products: Yes DNR status not reviewed with patient and/or family prior to surgery. Significant changes in the patient condition since the History and Physical, not otherwise documented in primary service progress note: no. Potential Anesthesia issues that may suggest increased risk of complications or contraindication to planned procedure: none. Discussed the possibility of lip / dental damage: yes Vitals Value Taken Time BP 186/96 03/07/24 1119 Pulse 75 03/07/24 1119 Resp 16 03/07/24 1119 Temp 36.3 ?C (97.3 ?F) 03/07/24 1119 SpO2 98 % 03/07/24 1119 Facility-Administered Medications as of 03/07/2024 Medication Dose Route Frequency lidocaine (PF) 10 mg/mL (1 %) 1-2 mg injection (XYLOCAINE) 0.1-0.2 mL INTRADERMAL PRN lactated ringers iv infusion 5-30 mL/hr INTRAVENOUS CONTINUOUS NaCl 0.9% iv flush bag 20 mL INTRAVENOUS PRN ceFAZolin iv piggyback 2 g in D5W (iso-osmotic) 100 mL (ANCEF) 2 g INTRAVENOUS Pre-Op Once lactated ringers iv infusion 30 mL/hr INTRAVENOUS CONTINUOUS [COMPLETED] acetaminophen 1,000 mg tab(s) (TYLENOL) 1,000 mg ORAL Pre-Op Once Outpatient Medications as of 03/07/2024 Medication Sig ibuprofen (ADVIL) 200 mg tablet Take 200 mg by mouth every 6 hours as needed for pain. metoprolol succinate ER (TOPROL XL) 50 mg 24 hr tablet Take 50 mg by mouth once daily. lisinopril-hydroCHLOROthia zide (ZESTORETIC) 20-25 mg per tablet Take 1 tablet by mouth once daily. rosuvastatin (CRESTOR) 10 mg tablet Take 10 mg by mouth once daily. amLODIPine (NORVASC) 5 mg tablet Take by mouth as directed. sertraline (ZOLOFT) 50 mg tablet Take 50 mg by mouth once daily. I have interviewed and examined the patient. I have reviewed the medical record and/or the pre-anesthesia evaluation, pertinent labs, and test results. This contains updated information obtained within 48 hours of Surgery/Procedure. SIGNATURE: Xu Chris DO PATIENT NAME: Gillian Luis DATE: March 07, 2024 TIME: 11:54 AM CSN: [id number] [facility] BRIEF OP NOTon 03-07-2024 BRIEF OP NOT HNO ID: [id number] Author: TING POLO MD Service: ? Author Type: Physician Type: Brief Op Note Filed: 03/07/2024 13:35 Note Text: [id number] -dictation number [facility] BRIEF OP NOT HNO ID: [id number] Author: TING POLO MD Service: ? Author Type: Physician Type: Brief Op Note Filed: 03/07/2024 13:26 Note Text: BRIEF OPERATIVE NOTATION FOR SURGICAL PROCEDURE. Gillian Luis 1965 [id number] female LOG ID: [id number] Surgery/Procedure Date: 03/07/2024 Incision/Procedure Start Time: 1:02 PM Incision Close/Procedure End Time: 1:20 PM Surgeon(s)/Proceduralist(s ) and Melt Helper(s): Surgeon(s) and Role: * Ting Polo MD - Primary Physician Melt Helper: Svetlana Kaye PA-C REFERRING PHYSICIAN: [facility] Outpatient DEPT: [facility] PROVIDER: Myriam POS: [id number] ANESTHESIA: Monitored Anesthesia Care ASA CLASS: 3 - Severe DIAGNOSIS: right breast cancer PROCEDURE: failed left Internal Jugular Portacath - 48124-147, Ultrasound for vascular access - 49669-074-15, and Fluoroscopic for vascular access - 70703-323-20 IVF: 600 EBL: 10 Specimens: none ADDITIONAL DIAGNOSES: FINDINGS: wire advanced to SVC/RA, unable to enter RA with 2 separate venous access, multiple positions for advancing - wire see in vessel on ultrasound, COMPLICATIONS: None PMHx - PAST MEDICAL HISTORY No date: Benign hypertension 11/2023: Breast cancer (HCC) Comment: Right Breast No date: Decreased GFR No date: Dysphagia, pharyngeal No date: Generalized osteoarthrosis, involving multiple sites No date: GERD (gastroesophageal reflux disease) No date: High blood pressure No date: Hyperlipemia No date: Knee pain Comment: right Knee No date: Mild major depression (HCC) No date: Noncompliance with medication regimen No date: Sarcoidosis No date: TIA (transient ischemic attack) COMORBIDITIES - HTN Post Op Occurrences - None Wound Classification - Clean Operative note dictated in the dictation system. Ting Polo MD [facility] HISTORY PHYSICALon HISTORY PHYSICAL HNO ID: [id number] Author: TING POLO MD Service: ? Author Type: Physician Type: H&P Filed: 03/07/2024 11:59 Note Text: HISTORY AND PHYSICAL Gillian Luis 1965 REFERRING PHYSICIAN: No ref. provider found CHIEF COMPLAINT: Consult (Port consultation. Chemotherapy begins 03/13/2024. 1 month follow up breast surgery. ) HPI: The patient is a 58 year old female with a diagnosis of right breast cancver. Gililan is currently scheduled to undergo chemotherapy and needs vascular access for treatment. The patient denies a prior history of central venous access. The patient is right hand dominant. PAST MEDICAL HISTORY PAST MEDICAL HISTORY No date: Benign hypertension 11/2023: Breast cancer (HCC) Comment: Right Breast No date: Decreased GFR No date: Dysphagia, pharyngeal No date: Generalized osteoarthrosis, involving multiple sites No date: GERD (gastroesophageal reflux disease) No date: High blood pressure No date: Hyperlipemia No date: Knee pain Comment: right Knee No date: Mild major depression (HCC) No date: Noncompliance with medication regimen No date: Sarcoidosis No date: TIA (transient ischemic attack) PAST SURGICAL HISTORY PAST SURGICAL HISTORY No date: LIGATE FALLOPIAN TUBE 02/04/2024: MASTECTOMY, PARTIAL; Right No date: PAST SURGICAL HISTORY OF Comment: Wedge Resection, Right Lung No date: TONSILLECTOMY AND ADENOIDECTOMY No date: TOTAL ABDOM HYSTERECTOMY CURRENT MEDICATIONS Current Outpatient Medications Medication Sig Dispense Refill ibuprofen (ADVIL) 200 mg tablet Take 200 mg by mouth every 6 hours as needed for pain. metoprolol succinate ER (TOPROL XL) 50 mg 24 hr tablet Take 50 mg by mouth once daily. lisinopril-hydroCHLOROthia zide (ZESTORETIC) 20-25 mg per tablet Take 1 tablet by mouth once daily. rosuvastatin (CRESTOR) 10 mg tablet Take 10 mg by mouth once daily. amLODIPine (NORVASC) 5 mg tablet Take by mouth as directed. sertraline (ZOLOFT) 50 mg tablet Take 50 mg by mouth once daily. No current facility-administered medications for this visit. ALLERGIES: Latex PERSONAL HISTORY: SOCIAL HISTORY Social History Tobacco Use Smoking status: Every Day Packs/day: 1.00 Years: 20.00 Additional pack years: 0.00 Total pack years: 20.00 Types: Cigarettes Smokeless tobacco: Never Vaping Use Vaping Use: Never used Substance Use Topics Alcohol use: Not Currently Drug use: Never FAMILY HISTORY: FAMILY HISTORY FAMILY HISTORY Problem Relation Age of Onset Hypertension Mother Hypertension Father other (Basal Cell Carcinoma) Father Cancer Father Hypertension Maternal Grandmother Hypertension Maternal Grandfather Hypertension Paternal Grandmother Hypertension Paternal Grandfather REVIEW OF SYMPTOMS: The review of systems data was entered by the nurse and reviewed by me There are no exam notes on file for this visit. PHYSICAL EXAMINATION: General: The patient is 58 year old female, well nourished, well hydrated in no acute distress. The patient is oriented to time, place, and person. VITALS: There were no vitals taken for this visit. There is no height or weight on file to calculate BMI. HEENT: Normal cephalic, ataumatic, pupils are equally round, sclera are anicteric, mucous membranes are moist, oropharynx is clear. Neck has no masses, asymmetry or lymphadenopathy. Thyroid is unremarkable. Respiratory: Clear to auscultation and percussion. Normal respiratory excursion and pattern. Cardiac: Examination is regular rate and rhythm. Abdominal exam: Soft, nontender, with no palpable masses. No hepatosplenomegaly. No palpable hernias. Rectal exam: exam deferred Extremities: no clubbing, cyanosis or edema. No adenopathy. Other: LABORATORY VALUES: As Noted RADIOLOGIC STUDIES: As Noted Assessment IMPRESSION: right breast cancer, need for IV access PLAN: I plan to perform a left internal jugular port a cath placement. The planned surgical procedure was discussed extensively with the patient. The risks, benefits, anticipated outcomes and possible complications were mentioned. My staff has also explained the procedure in understandable terms and the patient was given the option to take printed material concerning the planned procedure. The patient had the opportunity to ask questions concerning the planned procedure. The patient freely consents to the planned procedure. Planned Procedure[facility] [id number], Ultrasound for vascular access - 80532-937-04, and Fluoroscopic for vascular access - 53084-735-21 Patient Weight Last 1 Encounter Wt Readings: Date: Wt: 01/28/2024 74.8 kg (164 lb 14.5 oz) Antibiotic: Ancef 2gm IVPB front office attendant to OR Planned Anesthetic: MAC with local I do not plan to access the port at the time of surgery. Diagnoses: (C50.911, Z17.0) Malignant neoplasm of right breast in female, estrogen receptor positive, unspecified site of breast (HC (more content not included)... Normal [facility] OPERATIVE NOon 03-07-2024 OPERATIVE NO HNO ID: [id number] Author: TING POLO MD Service: ? Author Type: Physician Type: Operative Report Filed: 03/11/2024 15:18 Note Text: [facility] - Operative Report GILLIAN LUIS : 1965 AGE: 58. SEX: F PATIENT TYPE: A [facility] [place] [facility] LOCATION: [facility] ATTENDING PHYSICIAN: Ting Polo M.D. CSN NUMBER: [id number] DATE OF SURGERY/PROCEDURE: 03/07/2024 INCISION/PROCEDURE START TIME: 1:05 p.m. INCISION CLOSE/PROCEDURE END TIME: 1:20 p.m. PREOPERATIVE DIAGNOSIS: Right breast cancer, need for IV access. POSTOPERATIVE DIAGNOSIS: Failed left internal jugular Port-A-Cath placement. Easily accessed left internal jugular vein. Unable to advance wire with multiple attempts and 2 access attempts in the vein beyond the SVC-RA region. SURGEON: Ting Polo M.D. IUSS ACOUSTIC ANALYST: none SURGERY/PROCEDURE: Failed left internal jugular Port-A-Cath placement with ultrasound and fluoroscopy. ANESTHESIA: Monitored anesthetic care. LOG ID NUMBER: [id number]. ASA: 3. INTRAVENOUS FLUIDS: 600 mL. ESTIMATED BLOOD LOSS: 10. URINE OUTPUT: No catheter. FINDINGS: As above. SPECIMENS: None. DRAINS: None. COMPLICATIONS: None. DISPOSITION: Patient was taken to PACU in stable condition with plans for postprocedure chest x-ray. DESCRIPTION OF PROCEDURE: Brief description of aborted procedure: The patient's left neck was marked in the holding area. The patient concurred this as planned operative site. Sign-in was performed verifying the patient, site, procedure, position, critical nursing information, VTE and antibiotic prophylaxis. The patient was given 2 g of Ancef and sequential compression devices placed. Following IV sedation, the left neck was prepped and draped in usual fashion. Ultrasound had to be used prior to prepping the neck to verify that the left internal jugular vein was patent and nicely distensible. Following this, the patient was positioned head down. Time-out was performed verifying the patient, site, procedure, position. Local anesthetic was injected at the center point over the left internal jugular vein, identified with ultrasound. Under ultrasound guidance, a Seldinger needle was used to access the left internal jugular vein on the 1st attempt. There was good return of venous blood. A guidewire was inserted through the wire and advanced down the internal jugular across up to the SVC-RA region, but at the SVC-RA region, the wire failed to pass down into the expected location for entering the right atrium. The wire met resistance, seemed to buckle and fold back on itself. Multiple attempts through the initial access site with the patient head up, head down, trying to rotate the wire failed to allow to advance to the right atrium. The wire and needle were removed. Ultrasound was again looked, and a 2nd access site was used. Again, the wire was identified within the jugular vein on ultrasound. The guidewire was inserted. The wire passed to the right of midline and at the SVC-RA junction, again met resistance and folded back on itself. Multiple attempts were again made to try to pass the wire distally and these failed. At this point, the needle and wire were withdrawn. The procedure was aborted. Pressure was held on the 2 needle sticks in the neck. There was good hemostasis. A dressing was applied. The patient was awakened, brought to recovery room in stable condition with plans for postprocedure chest x-ray. Ting Polo M.D. [id number] /[id number] [facility] XR CHEST 1V FRONTAL PORTon 0 03-07-2024 XR CHEST 1V FRONTAL PORT * * *Final Report* * * DATE OF EXAM: Mar 07 2024 2:38PM MDX [id number] - XR CHEST 1V FRONTAL PORT / PROCEDURE REASON: Evaluate tube, line, or lead position * * * * Physician Interpretation * * * * EXAMINATION: CHEST RADIOGRAPH (PORTABLE SINGLE VIEW AP) Exam Date/Time: 03/07/2024 2:38 PM CLINICAL HISTORY: Evaluate tube, line, or lead position Attempted left IJ central line placement. MQ: XCPR_5 Comparison: No prior chest radiograph available for comparison RESULT: Lines, tubes, and devices: None. Lungs and pleura: Right lung postsurgical changes. No acute lung consolidation. No pleural effusion. No pneumothorax. Cardiomediastinal silhouette: Normal cardiomediastinal silhouette. Other: Surgical clips at the right axilla. IMPRESSION: No acute radiographic abnormality. Sales Representative [employer]: MARIEL Transcribe Date/Time: Mar 07 2024 3:00P Dictated by : Yuliet ROBERTSON MD This examination was interpreted and the report reviewed and electronically signed by: Yuliet ROBERTSON MD on Mar 07 2024 3:06PM EST [id number] [facility] XR FLUOROSCOPYon 03-07-2024 XR FLUOROSCOPY * * *Final Report* * * DATE OF EXAM: Mar 07 2024 1:48PM MDR [id number] - XR FLUOROSCOPY / PROCEDURE REASON: LEFT PORT PLACEMENT FOR RIGHT BREAST CA * * * * Physician Interpretation * * * * EXAMINATION: XR FLUOROSCOPY CLINICAL INFORMATION: 58 years old Female with LEFT PORT PLACEMENT FOR RIGHT BREAST CA Fluoroscopic Radiation Summary: Plane A, Air Kerma: 107.0 mGy Dose Area Product (DAP): Fluoro time: 8:31 min:sec RESULT/ IMPRESSION: Fluoroscopic images obtained during attempted LEFT IJ Port-A-Cath placement. Please refer to the performing LIP's report for details. Sales Representative [employer]: MARIEL Transcribe Date/Time: Mar 07 2024 3:35P Dictated by : SKINNY FAUSTIN DO This examination was interpreted and the report reviewed and electronically signed by: SKINNY FAUSTIN DO on Mar 07 2024 3:38PM EST [id number] [facility] CNPNon 03-06-2024 CNPN Telephone ([email or web address]) -- GILLIAN LUIS ([id number]) 1965 F Date Time Provider Department 03/06/24 TING POLO During your visit today, we recorded the following information about you: Martina Loera RN 03/06/2024 9:03 AM Signed Prior authorization team reached out to us this morning and need Gillian's surgery changed from admit prior to to outpatient. Gillian is scheduled with Dr. Polo tomorrow 03/07/24. Allergies As of Date: 03/06/2024 Noted Allergy Reaction LATEX 10/20/2023 4 - Hives Date Reviewed: 03/05/2024 Reviewed by: Edis Brandon PA-C - Fully Assessed Prescriptions as of 03/06/2024 - ibuprofen (ADVIL) 200 mg tablet Take 200 mg by mouth every 6 hours as needed for pain. - metoprolol succinate ER (TOPROL XL) 50 mg 24 hr tablet Take 50 mg by mouth once daily. - lisinopril-hydroCHLOROthia zide (ZESTORETIC) 20-25 mg per tablet Take 1 tablet by mouth once daily. - rosuvastatin (CRESTOR) 10 mg tablet Take 10 mg by mouth once daily. - amLODIPine (NORVASC) 5 mg tablet Take by mouth as directed. - sertraline (ZOLOFT) 50 mg tablet Take 50 mg by mouth once daily. Problem List As Of Date 03/06/2024 Noted Resolved Benign hypertension [I10] 01/25/2024 Breast cancer (HCC) [C50.919] 11/2023 Sarcoidosis [D86.9] 01/25/2024 TIA (transient ischemic attack) [G45.9] 01/25/2024 Mild major depression (HCC) [F32.0] 01/25/2024 Smoker [F17.200] 01/28/2024 Hyperlipidemia [E78.5] 01/28/2024 Seizure-like activity (HCC) [R56.9] 01/28/2024 MELECIO (obstructive sleep apnea) [G47.33] 01/28/2024 Hypokalemia [E87.6] 03/05/2024 Encounter Status:Closed by MARTINA LOERA on 03/06/24 [facility] HISTORY PHYSICALon HISTORY PHYSICAL HNO ID: [id number] Author: EDIS BRANDON PA-C Service: ? Author Type: Physician Melt Helper Type: H&P Filed: 03/05/2024 11:22 Note Text: [facility] HISTORY AND PHYSICAL EXAMINATION SERVICE DATE: 03/05/2024 SERVICE TIME: 11:21 AM PRIMARY CARE PHYSICIAN: Gertrudis De Leon MD Assessment Patient has the following medical conditions which may affect dora-operative course: TIA (transient ischemic attack) Assessment: no deficits; occurred around Mild major depression (HCC) Assessment: Stable on RX, denies concerning symptoms Sarcoidosis Assessment: prior breast lump that was unable to get good biopsy, with further work up lesions were found in lungs, spleen, kidneys. Had right lung resection and dx with sarcoid, treated with prednisone x 1 yr. Now in remission. Denies concerning symptoms. Benign hypertension Assessment: compliant with medications. Monitored at home and typically 140/85 Smoker Assessment: current smoker 1 ppd, x 20 yrs Hyperlipidemia Assessment: Stable on RX Seizure-like activity (HCC) Assessment: reports one time event in September 2023 with shaking (about 5 minutes) and 5 hour period of amnesia prior to seizure activity. No meds, no follow up with neurology. Was assessed at local ER and unremarkable work up - believes related to stress. MELECIO (obstructive sleep apnea) Assessment: occasionally wears CPAP Hypokalemia Assessment: K+ 3.3 early January. Recommend increasing potassium rich foods daily and follow up with PCP for future monitoring Breast cancer (HCC) Assessment: s/p partial mastectomy. Starting chemo next week, scheduled for port placement on 03/07 [place] Activity Status Index: METS: Climb a flight of stairs or walk up a hill (5.50 METs) DASI Score: 5.5 Patient denies any chest pain or undue shortness of breath with the above physical activity. Clinical Frailty Scale: 3. Well, with treated comorbid disease [id number] Score: Age: <65 Sex: female CHF history: No Hypertension history: Yes Stroke/TIA/thromboembolism history: No Vascular disease history: No Diabetes history: No [id number] Score: 2 ANESTHESIA FINDINGS: Intubation History: No history of difficult intubation. No abnormal airway history Significant Anesthesia Considerations: none Airway History: No history of difficult airway No abnormal airway history I - PHYSICAL EVALUATION AIRWAY Patient intubated: No. Tracheostomy tube not present Mallampati: III. TM distance: >3 FB. Neck ROM: full ROM without neurological symptoms. Mouth opening: adequate. Short neck: no. Thick neck: no Lip Bite Test: II Microretrognathia/Micronag thia/Recessed Chin: No DENTAL Dentures, upper: complete. Dentures, lower: complete. II - ANESTHESIA PLAN Beta Cecil Monitoring Plan Post Procedure Analgesic Plan Prepared for Surgery: optimally prepared for surgery. CONSULTS: Patient does not require consults for optimization at this time Planned Anesthetic: The Following Tests/Procedures Have Been Initiated: No orders of the defined types were placed in this encounter. This is a virtual visit using Zenoss video visit. It required patient-provider interaction for the medical decision making as documented below. REASON FOR VISIT: Gillian Luis is a 58 year old female who is scheduled for Procedure(s): INSERTION CATHETER PORT-A-CATH WITH C-ARM (Left) at the request of Dr. Ting Polo for consultation. My final recommendation will be communicated back to the requesting physician by way of shared medical record or letter. Subjective The patient has the following: ACTIVE PROBLEM LIST Benign Hypertension Breast Cancer (Hcc) Sarcoidosis Tia (Transient Ischemic Attack) Mild Major Depression (Hcc) Smoker Hyperlipidemia Seizure-Like Activity (Hcc) Melecio (Obstructive Sleep Apnea) Hypokalemia COVID-19 Immunization Status Overdue - Covid-19 Vaccine ( season) Never done No completion, postpone, frequency change, or communication history exists for this topic. CHIEF COMPLAINT: Surgery HPI: Patient is a 58 year old female presenting for upcoming port placement for chemotherapy starting on 03/13 Recommended for surgery and elected to proceed. This is a virtual visit. The visit was conducted using Zenoss video visit. It required patient-provider interaction for the medical decision making as documented below. I have communicated my name and active licensure. The patient's identity and physical location were verified at the time of this visit. Either the patient or their legal financial service representative has been informed of the risks and benefits of and alternatives to treatment through a remote evaluation and consents to proceed with the evaluation remotely. REVIEW OF SYSTEMS: General: No weight loss, malaise or fevers. Neurological: Negative for: seizures, TIA (more content not included)... Normal [facility] CNOVon 03-04-2024 CNOV Office Visit (GENSWS ) -- GILLIAN LUIS ([id number]) 1965 F Date Time Provider Department 03/04/24 1:45 PM TING POLO GENSWS During your visit today, we recorded the following information about you: Ting Polo MD 03/04/2024 7:15 PM Signed HISTORY AND PHYSICAL Gillian Luis 1965 REFERRING PHYSICIAN: No ref. provider found CHIEF COMPLAINT: Consult (Port consultation. Chemotherapy begins 03/13/2024. 1 month follow up breast surgery. ) HPI: The patient is a 58 year old female with a diagnosis of right breast cancver. Gillian is currently scheduled to undergo chemotherapy and needs vascular access for treatment. The patient denies a prior history of central venous access. The patient is right hand dominant. PAST MEDICAL HISTORY No date: Benign hypertension 11/2023: Breast cancer (HCC) Comment: Right Breast No date: Decreased GFR No date: Dysphagia, pharyngeal No date: Generalized osteoarthrosis, involving multiple sites No date: GERD (gastroesophageal reflux disease) No date: High blood pressure No date: Hyperlipemia No date: Knee pain Comment: right Knee No date: Mild major depression (HCC) No date: Noncompliance with medication regimen No date: Sarcoidosis No date: TIA (transient ischemic attack) PAST SURGICAL HISTORY No date: LIGATE FALLOPIAN TUBE 02/04/2024: MASTECTOMY, PARTIAL; Right No date: PAST SURGICAL HISTORY OF Comment: Wedge Resection, Right Lung No date: TONSILLECTOMY AND ADENOIDECTOMY No date: TOTAL ABDOM HYSTERECTOMY Current Outpatient Medications Medication Sig Dispense Refill ibuprofen (ADVIL) 200 mg tablet Take 200 mg by mouth every 6 hours as needed for pain. metoprolol succinate ER (TOPROL XL) 50 mg 24 hr tablet Take 50 mg by mouth once daily. lisinopril-hydroCHLOROthia zide (ZESTORETIC) 20-25 mg per tablet Take 1 tablet by mouth once daily. rosuvastatin (CRESTOR) 10 mg tablet Take 10 mg by mouth once daily. amLODIPine (NORVASC) 5 mg tablet Take by mouth as directed. sertraline (ZOLOFT) 50 mg tablet Take 50 mg by mouth once daily. No current facility-administered medications for this visit. ALLERGIES: Latex PERSONAL HISTORY: Social History Tobacco Use Smoking status: Every Day Packs/day: 1.00 Years: 20.00 Additional pack years: 0.00 Total pack years: 20.00 Types: Cigarettes Smokeless tobacco: Never Vaping Use Vaping Use: Never used Substance Use Topics Alcohol use: Not Currently Drug use: Never FAMILY HISTORY: FAMILY HISTORY Problem Relation Age of Onset Hypertension Mother Hypertension Father other (Basal Cell Carcinoma) Father Cancer Father Hypertension Maternal Grandmother Hypertension Maternal Grandfather Hypertension Paternal Grandmother Hypertension Paternal Grandfather REVIEW OF SYMPTOMS: The review of systems data was entered by the nurse and reviewed by me There are no exam notes on file for this visit. PHYSICAL EXAMINATION: General: The patient is 58 year old female, well nourished, well hydrated in no acute distress. The patient is oriented to time, place, and person. VITALS: There were no vitals taken for this visit. There is no height or weight on file to calculate BMI. HEENT: Normal cephalic, ataumatic, pupils are equally round, sclera are anicteric, mucous membranes are moist, oropharynx is clear. Neck has no masses, asymmetry or lymphadenopathy. Thyroid is unremarkable. Respiratory: Clear to auscultation and percussion. Normal respiratory excursion and pattern. Cardiac: Examination is regular rate and rhythm. Abdominal exam: Soft, nontender, with no palpable masses. No hepatosplenomegaly. No palpable hernias. Rectal exam: exam deferred Extremities: no clubbing, cyanosis or edema. No adenopathy. Other: LABORATORY VALUES: As Noted RADIOLOGIC STUDIES: As Noted Assessment IMPRESSION: right breast cancer, need for IV access PLAN: I plan to perform a left internal jugular port a cath placement. The planned surgical procedure was discussed extensively with the patient. The risks, benefits, anticipated outcomes and possible complications were mentioned. My staff has also explained the procedure in understandable terms and the patient was given the option to take printed material concerning the planned procedure. The patient had the opportunity to ask questions concerning the planned procedure. The patient freely consents to the planned procedure. Planned Procedure: left Internal Jugular Portacath - [id number], Ultrasound for vascular access - 41983-867-16, and Fluoroscopic for vascular access - 61765-489-48 Patient Weight Last 1 Encounter Wt Readings: Date: Wt: 01/28/2024 74.8 kg (164 lb 14.5 oz) Antibiotic: Ancef 2gm IVPB front office attendant to OR Planned Anesthetic: MAC with local I do not plan to access the port at the time of surgery. Diagnoses: (C50.911, Z17.0) Sowmya (more content not included)... Normal [facility] CNPNon 02-29-2024 CNPN Telephone (GENSWS) -- GILLIAN LUIS ([id number]) 1965 F Date Time Provider Department 02/29/24 TING POLO During your visit today, we recorded the following information about you: Arianne Vogt LPN 02/29/2024 1:00 PM Signed [facility] calling to verify our office received a fax from them re: patient getting a port placement? She is scheduled to see us on 03/04 for a post op mastectomy appt. EMMA Quinones Tayler, RN 03/04/2024 11:52 AM Signed Fax received, in scanned documents in [place]. Allergies As of Date: 02/29/2024 Noted Allergy Reaction LATEX 10/20/2023 4 - Hives Date Reviewed: 02/18/2024 Reviewed by: Ting Polo MD - Fully Assessed Reason for Visit: Orders [991] Prescriptions as of 03/04/2024 - ibuprofen (ADVIL) 200 mg tablet Take 200 mg by mouth every 6 hours as needed for pain. - metoprolol succinate ER (TOPROL XL) 50 mg 24 hr tablet Take 50 mg by mouth once daily. - lisinopril-hydroCHLOROthia zide (ZESTORETIC) 20-25 mg per tablet Take 1 tablet by mouth once daily. - rosuvastatin (CRESTOR) 10 mg tablet Take 10 mg by mouth once daily. - amLODIPine (NORVASC) 5 mg tablet Take by mouth as directed. - sertraline (ZOLOFT) 50 mg tablet Take 50 mg by mouth once daily. Problem List As Of Date 02/29/2024 Noted Resolved Benign hypertension [I10] 01/25/2024 Breast cancer (HCC) [C50.919] 11/2023 Sarcoidosis [D86.9] 01/25/2024 TIA (transient ischemic attack) [G45.9] 01/25/2024 Mild major depression (HCC) [F32.0] 01/25/2024 Smoker [F17.200] 01/28/2024 Hyperlipidemia [E78.5] 01/28/2024 Seizure-like activity (HCC) [R56.9] 01/28/2024 MELECIO (obstructive sleep apnea) [G47.33] 01/28/2024 Encounter Status:Closed by VERENA MCNEAL on 03/04/24 [facility] NATERAon 02-28-2024 BRIAN SEE SCANNED REPORT Normal [facility] Comment on above: Performed By: #### L [id number] ####[facility] [id number] [place], [address] Oncology Visit Reporton Oncology Visit Report Normal [facility] Dexa Bone Density Studyon Dexa Bone Density Study Normal [facility] CNOVon 02-12-2024 CNOV Office Visit (GENSWS ) -- GILLIAN LUIS ([id number]) 1965 F Date Time Provider Department 02/12/24 3:00 PM PATRICKTING ENGLE During your visit today, we recorded the following information about you: Temperature 98.4 degrees Ting Pool MD 02/18/2024 5:59 AM Signed FOLLOW UP VISIT - POST OP BREAST CANCER NAME: Gillian Luis CLINIC NO.: [id number] DATE OF SERVICE: 02/12/2024 : 1965 REFERRING PHYSICIAN: Gertrudis De Leon MD Gillian is a patient I am following for right sided breast cancer. : Gillian Luis is a 58-year-old female who presents with right breast cancer at 2 sites. No information was received prior to the patient being seen in my office. I understand the patient had palpable masses in her right breast she underwent mammogram and ultrasound at [facility]. I have her copy of her ultrasound report dated October 16, 2023 which demonstrated suspicious solid-appearing lesions at both the 11 and 12:00 positions 2 foci are noted 1 measuring 17 x 17 x 21 mm and the additional measuring 12 x 24 x 8 mm they were uncertain whether these were 2 separate lesions or a single dumbbell shaped lesion. The patient then underwent core biopsy of this site on November 21, 2023. The 11:00 and 12:00 sites both returned as invasive ductal carcinoma-grade 2. Receptor status was estrogen positive progesterone negative HER2 indeterminant. FISH was negative for HER2 Addendum-having now received copies of her radiology reports a ribbon clip was placed at breast biopsy site a, a coil clip was placed at the breast biopsy site B. The patient notes some bruising of the site We extensively discussed her diagnosis including breast conservation surgical procedures, mastectomy without reconstruction and mastectomy with reconstruction. Reviewing care everywhere did not provide additional information however she did have ED visit on October 20, 2023 for alcohol intoxication related to anxiety and depression with what was felt to be homicidal suicidal intent initially due to the recent loss of her and the new diagnosis of breast cancer. This was not noted at the time of her visit nor discussed in the office setting The patient is being seen by me at the request of Dr. Gertrudis De Leon MD for my opinion and advice regarding locally advanced right-sided breast cancer. Bone scan was obtained on December 14, 2023 which demonstrated no evidence of metastatic deposits. The patient was also referred to Dr. Brown Woody, medical oncology at [facility]. A CT scan of the chest was obtained which demonstrated no metastatic disease, but suggested a possible 1.5cm mass in the left breast. MRI which was obtained on December 18, 2023. This demonstrated the index lesion in the right breast and measured as 3.5cm x 1.5cm x 1.7cm. There was also an 11mm x 8mm x 5mm noted in the 12-1 o'clock position of the left breast noted 5.2cm behind the nipple. I performed office-based ultrasound on December 20 and found no abnormalities. I ordered a formal ultrasound which was obtained this morning. This also demonstrated no abnormalities. Given the MRI findings my plan is to schedule the patient for an MRI based evaluation/biopsy. The patient underwent MRI imaging/biopsy of the left breast abnormality. Biopsy was performed on January 08, 2024. This returned as: FINAL DIAGNOSIS A. Left breast, upper outer quadrant mass, biopsy: - Sclerosing adenosis, columnar cell change and focal fibroadenomatoid change. - Focal intraductal microcalcifications. - No evidence of malignancy. This is felt to be concordant with the MRI findings. The patient is decided she would like to proceed with lumpectomy and sentinel lymph node biopsy. I performed a right needle localization lumpectomy with sentinel lymph node biopsy on February 04, 2024. Intraoperative findings: SPECIMENS: 1. Axillary contents with the 2nd hottest area with 80 counts. 2. [place] lymph node with 160 counts. Both were very slightly blue. 3. Lumpectomy with the single tail marking the specimen cranially, the double tail laterally, and the specimen measured 9 cm in the transverse plane, 7 cm craniocaudal plane, and 5.5 cm in the superficial deep plane. COCO marked margins were superficial 8 mm, cranial 16 mm, medial 9 mm, lateral 10 mm, caudal 11 mm, deep 12 mm. Radiographic margins were good. The pathology demonstrated: FINAL DIAGNOSIS A. Right axillary contents, excision: -- Six lymph nodes, negative for carcinoma (0/6). B. Right sentinel lymph node, hottest (count 160), excision: -- One lymph node, negative for carcinoma (0/1). C. Right breast, lumpectomy: -- Invasive ductal carcinoma, see synoptic report. D. Right breast, lateral margin medial aspect, excision: -- Negative for carcinoma. Synoptic Report INVASIVE CARCINOMA O (more content not included)... Normal [facility] [place] ANES POSTPROC EVALon 024 ANES POSTPROC EVAL HNO ID: [id number] Author: DAJUAN CHURCH MD Service: Anesthesiology Author Type: Anesthesiologist Type: Anesthesia Postprocedure Evaluation Filed: 02/04/2024 16:12 Note Text: POST ANESTHESIA EVALUATION NOTE : 1965 Procedure Summary Date: 02/04/24 Room / Location: [place] [address] / [place] OR Anesthesia Start: 1245 Anesthesia Stop: 1553 Procedures: MASTECTOMY PARTIAL (Right: Breast) BIOPSY NODE SENTINEL AXILLARY (Right: Axilla) Diagnosis: Malignant neoplasm of right breast in female, estrogen receptor positive, unspecified site of breast (HCC) (Malignant neoplasm of right breast in female, estrogen receptor positive, unspecified site of breast (HCC) [C50.911, Z17.0]) Surgeons: Ting Polo MD Responsible Provider: Dajuan Church MD Anesthesia Type: general ASA Status: 3 Anesthesia Type: general Airway Type: LMA Last Vitals Vitals Value Taken Time BP 136/86 02/04/24 1600 Temp 36.2 ?C (97.2 ?F) 02/04/24 1548 Pulse 69 02/04/24 1600 Resp 11 02/04/24 1600 SpO2 98 % 02/04/24 1600 Post Anesthesia Patient Status Patient Evaluation: bedside. Anticipated Disposition: phase 2 then home. Neurological Status: aware and responsive. Pulmonary Status: breathing comfortably on room air Airway Control: returned to baseline unsupported. Cardiovascular Status: stable. Pain Management: clinically adequate Postoperative Hydration: acceptable. Intraoperative Events: no significant anesthesia events Post Operative Nausea/Vomiting Status: no significant post operative nausea or vomiting Recommendation: continue current plan of care. Anesthesia Observations No Documentation SIGNATURE: Dajuan Church MD PATIENT NAME: Gillian Luis DATE: February 04, 2024 TIME: 4:12 PM CSN: [id number] [facility] ANES PRE-OPon 02-04-2024 ANES PRE-OP HNO ID: [id number] Author: XU CHRIS DO Service: Anesthesiology Author Type: Anesthesiologist Type: Anesthesia Preprocedure Evaluation Filed: 02/04/2024 11:24 Note Text: ANESTHESIOLOGY DAY OF SURGERY NOTE : 1965 Procedure Information Date/Time: 02/04/24 1300 Procedures: MASTECTOMY PARTIAL (Right: Breast) - MASTECTOMY PARTIAL [2572] BIOPSY NODE SENTINEL AXILLARY (Right: Axilla) - BIOPSY NODE SENTINEL AXILLARY [1219] INJ 10:15 am Location: [place] [address] / [place] Surgeons: Ting Polo MD Estimated body mass index is 30 kg/m? as calculated from the following: Height as of this encounter: 157.5 cm (5' 2). Weight as of this encounter: 74.4 kg (164 lb). Most recent hematocrit and potassium results: Hematocrit 43.8 01/28/2024 Potassium 3.3 01/28/2024 Relevant Problems No relevant active problems I - PHYSICAL EVALUATION AIRWAY Patient intubated: No. Tracheostomy tube not present Mallampati: II. TM distance: >3 FB. Neck ROM: full ROM without neurological symptoms. Mouth opening: adequate. Short neck: no. Thick neck: no DENTAL Dental findings: edentulous. Dentures, upper: complete. II - ANESTHESIA PLAN ASA Score: 3 Anesthetic Plan: general Airway type: LMA NPO Status: adequate Beta Cecil Monitoring Plan Monitoring plan: standard ASA. Post Procedure Analgesic Plan Postoperative analgesic plan: parenteral or oral opioids, multimodal analgesia and per surgical service. Informed Consent Anesthetic risks, benefits, alternatives, personnel and consent discussed: yes. Patient / Responsible [employer] Party agrees to proceed: yes Patient / Surrogate agrees to blood products: Yes DNR status not reviewed with patient and/or family prior to surgery. Significant changes in the patient condition since the History and Physical, not otherwise documented in primary service progress note: no. Potential Anesthesia issues that may suggest increased risk of complications or contraindication to planned procedure: none. Discussed the possibility of lip / dental damage: yes Vitals Value Taken Time BP 169/85 02/04/24 0915 Pulse Resp 18 02/04/24 0915 Temp 36.2 ?C (97.2 ?F) 02/04/24 0915 SpO2 98 % 02/04/24 0915 No current facility-administered medications on file as of 02/04/2024. Outpatient Medications as of 02/04/2024 Medication Sig lisinopril-hydroCHLOROthia zide (ZESTORETIC) 20-25 mg per tablet Take 1 tablet by mouth once daily. rosuvastatin (CRESTOR) 10 mg tablet Take 10 mg by mouth once daily. amLODIPine (NORVASC) 5 mg tablet Take by mouth as directed. sertraline (ZOLOFT) 50 mg tablet Take 50 mg by mouth once daily. I have interviewed and examined the patient. I have reviewed the medical record and/or the pre-anesthesia evaluation, pertinent labs, and test results. This contains updated information obtained within 48 hours of Surgery/Procedure. SIGNATURE: Xu Chris DO PATIENT NAME: Gillian Luis DATE: February 04, 2024 TIME: 11:23 AM CSN: [id number] [facility] BREAST MARKERSon 02-04-2024 AP BIOMARKER DISCLAIMER [facility] Comment on above: Order Comment: Cal mosley Type: TISSUE SPECIMENOrdering Facility: [facility] Address: [address] [place] [address] Result Comment: Gagandeep sepulveda Developed Test (LDT) Disclaimer: Performance characteristics of immunohistochemical, immunofluorescent and chromogenic in-situ hybridization tests have been determined by the performing laboratory within [facility] Pathology and Laboratory Medicine Department ([facility], [facility], [facility], [facility], [facility], [facility], or [facility]) in a manner consistent with CLIA requirements. One or more of these tests have not been cleared or approved by the FDA. [facility] is regulated under CLIA as qualified to perform high-complexity testing. These tests are used for clinical purposes. They should not be regarded as investigational or for research. Positive and negative controls stain appropriately. Performed By: #### S , [id number] ####[facility] [id number] [facility] [place] [address] [place] NADER ####SIGNATERACLIA [id number] [address] [address] AP BLOCK ID [id number] [facility] Comment on above: Order Comment: Speci melany Type: TISSUE SPECIMENOrdering Facility: [facility] Address: [address] [place] [address] Performed By: #### S , [id number] ####[facility] [id number] [place] [address] [place]#### NADER ####SIGNATERACLIA [id number] [address] [address] ASCP/CAP GUIDELINES FOR FIXATION Yes [facility] Comment on above: Order Comment: Speci men Type: TISSUE SPECIMENOrdering Facility: [facility] Address: [address] [place] [address] Performed By: #### S , [id number] ####[facility] [id number] [place] [address] [place]#### NADER ####SIGNATERACLIA [id number] [address] [address] BIOMARKER INTERPRETATION COMMENT AND REFERENCE RANGE [facility] Comment on above: Order Comment: Speci men Type: TISSUE SPECIMENOrdering Facility: [facility] Address: [address] [place] [address] Result Comment: Refe rence Range for Hormone Receptors: Staining for ND of greater than or equal to 1% of the tumor cells is considered positive. Staining for ER of 1-10% of the tumor cells is considered low positive. Staining for ER of greater than 10% of the tumor cells is considered positive. Staining for ER or ND of less than 1% is considered negative. Reference Ranges for HER2 Immunohistochemistry: Positive (3+): Complete, intense circumferential membrane staining in greater than 10% of tumor cells. Equivocal (2+): Weak to moderate complete membrane staining observed in greater than 10% of tumor cells. Negative (1+): Incomplete, faint membrane staining in greater than 10% of tumor cells. Negative (0): No staining or incomplete faint membrane staining in less than or equal to 10% of tumor cells. Interpretation Comments: Consideration of follow-up testing for HER2 (ERBB2) status by fluorescence in situ hybridization (FISH) for all equivocal (2+) results is recommended and will be ordered as a reflex test if FISH was not a testing methodology already employed. Note for ER low results. For malignancy with a low level (1%-10%) of ER expression by immunohistochemistry, there are limited data on the overall benefit of endocrine therapies for a patient with low level (1%-10%) ER expression, but they currently suggest possible benefits, so patients are considered eligible for endocrine treatment. Some data indicate that invasive cancers with these results are heterogeneous in behavior and biology and often have gene expression profiles more similar to ER-negative cancers. Performed By: #### S , [id number] ####[facility] [id number] [address] [place]#### NADER ####SIGNATERACLIA [id number] [place] [address] BIOMARKER METHOD [facility] Comment on above: Order Comment: Speci men Type: TISSUE SPECIMENOrdering Facility: [facility] Address: [address] [place] [address] Result Comment: Estr ogen Receptor: Food and Drug Administration (FDA) cleared: [employer], [place], [place] Primary Antibody: SP1 Progesterone Receptor: FDA cleared: [employer], [place], [place] Primary Antibody: IE2 HER2 (ERBB2) by IHC: FDA cleared: [employer], [place], [place] Primary Antibody:4B5 The hormone receptor tests were performed and reported in accordance with the guidelines approved by the [place] Society of Clinical Oncologists and the College of [place] Pathologists. Hellen BAUM, et al. Estrogen and Progesterone Receptor Testing in Breast Cancer: [place] Society of Clinical Oncologists and the College of [place] Pathologists Guideline Update. Arch Pathol Lab Med. 2019;144(5):545-563. PMID: [id number]. The hormone receptor assays have been internally validated on decalcified tissues (for [facility] [place] only). Estrogen and progesterone receptor results are valid if tissue was processed according to ASCO/CAP guidelines. Antibody and Detection System: [place]'s Pathway anti-HER2 rabbit monoclonal antibody (clone 4B5), [place] Confirm anti-estrogen receptor rabbit monoclonal antibody (clone SP1) and [place] anti-progesterone receptor rabbit monoclonal antibody (clone IE2) detected with the [employer] UltraView Univeral DAB Detection Kit (indirect biotin-free detection), [employer], [place], [place]. Control Slides: Cell line controls with high, equivocal, low, and negative HER2 protein expression, along with known positive control tissue and the patient's tissue, are evaluated for HER2 expression. The HER2 immunohistochemistry assay was developed, validated, scored, and reported in accordance with the guidelines approved by the [place] Society of Clinical Oncologists and the College of [place] Pathologists. Jeannette SIMON et al. Arch Pathol Lab Med. 2018;1379(9) The HER2 assay has not been validated on decalcified tissues. Given the possibility of false negative results on decalcified specimens, results should be interpreted with caution. Performed By: #### S [id number] ####[facility] [id number] [place] [address] [place]#### NADER ####SIGNATERACLPIERRE [id number] [facility] [address] [address] BREAST TUMOR GRADE Grade 2 [facility] Comment on above: Order Comment: Speci men Type: TISSUE SPECIMENOrdering Facility: [facility] Address: [address] [place] [address] Performed By: #### S [id number] ####[facility] [id number] [place] [address] [place]#### NADER ####SIGNATERACLPIERRE [id number] [id number] [place] [address] CASE NUMBER INVASIVE [id number] [facility] Comment on above: Order Comment: Speci men Type: TISSUE SPECIMENOrdering Facility: [facility] Address: [address] [place] [address] Performed By: #### S [id number] ####[facility] [id number] [place] [address] [place]#### NADER ####SIGNATERACLPIERRE [id number] [address] [address] COLD ISCHEMIA TIME <1 Hour [facility] Comment on above: Order Comment: Speci men Type: TISSUE SPECIMENOrdering Facility: [facility] Address: [address], [place] [address] Performed By: #### S , [id number] ####[facility] [id number] [place] [address] [place]#### NADER ####SIGNATERACLIA [id number] [address] [place] [address] ESTROGEN RECEPTOR (% TUMOR STAINING) >95 Normal [facility] Comment on above: Order Comment: Speci men Type: TISSUE SPECIMENOrdering Facility: [facility] Address: [address] [place] [address] Performed By: #### S , [id number] ####[facility] [id number] [place] [address] [place]#### NADER ####SIGNATERACLIA [id number] [address] [place] [address] ESTROGEN RECEPTOR (STAINING INTENSITY) Strong Normal [facility] Comment on above: Order Comment: Speci men Type: TISSUE SPECIMENOrdering Facility: [facility] Address: [address] [place] [address] Performed By: #### S , [id number] ####[facility] [id number] [place] [address] [place]#### NADER ####SIGNATERACLIA [id number] [address] [place] [address] ESTROGEN RECEPTOR EXTERNAL CONTROL Present and Stained as Expected Normal [facility] Comment on above: Order Comment: Speci men Type: TISSUE SPECIMENOrdering Facility: [facility] Address: [address] [place] [address] Performed By: #### S , [id number] ####[facility] [id number] [place] [address] [place]#### NADER ####SIGNATERACLIA [id number] [address] [place] [address] ESTROGEN RECEPTOR INTERNAL CONTROL Present and Stained as Expected Normal [facility] Comment on above: Order Comment: Speci men Type: TISSUE SPECIMENOrdering Facility: [facility] Address: [address] [place], [place] [address] Performed By: #### S , [id number] ####[facility] [id number] [place] [address] [place]#### NADER ####SIGNATERACLIA [id number] [address] [place] [address] ESTROGEN RECEPTOR STATUS (INVASIVE) Positive [facility] Comment on above: Order Comment: Speci men Type: TISSUE SPECIMENOrdering Facility: [facility] Address: [address] [place] [address] Performed By: #### S , [id number] ####[facility] [id number] [place] [address] [place]#### NADER ####SIGNATERACLIA [id number] [address] [place] [address] FINAL PERFORMING LAB [facility] Comment on above: Order Comment: Speci men Type: TISSUE SPECIMENOrdering Facility: [facility] Address: [address] [place] [address] Result Comment: Diag nostic interpretation performed at [facility], [address] [place] [address] CLIA: [id number] Driver License Technician: Kong Romo MD Electronically signed out by: Naomie Rabago MD Performed By: #### S , [id number] ####[facility] [id number] [place] [address] [place]#### NADER ####SIGNATERACLIA [id number] [address] [place] [address] FIXATIVE Formalin, 10% Neutra l Buffered [facility] Comment on above: Order Comment: Speci men Type: TISSUE SPECIMENOrdering Facility: [facility] Address: [address] [place] [address] Performed By: #### S , [id number] ####[facility] [id number] [place] [address] [place]#### NADER ####SIGNATERACLIA [id number] [address] [place] [address] HER2 SCORE 1+ [facility] Comment on above: Order Comment: Speci men Type: TISSUE SPECIMENOrdering Facility: [facility] Address: [address] [place] [address] Performed By: #### S , [id number] ####[facility] [id number] [place] [address] [place]#### NADER ####SIGNATERACLPIERRE [id number] [address] [place] [address] HER2 STATUS (INVASIVE) Negative Normal [facility] Comment on above: Order Comment: Speci men Type: TISSUE SPECIMENOrdering Facility: [facility] Address: [address] [place] [address] Performed By: #### S [id number] ####[facility] [id number] [place] [address] [place]#### NADER ####SIGNATERACLPIERRE [id number] [address] [address] PROGESTERONE RECEPTOR (% TUMOR STAINING) 10 [facility] Comment on above: Order Comment: Speci men Type: TISSUE SPECIMENOrdering Facility: [facility] Address: [address] [place] [address] Performed By: #### S , [id number] ####[facility] [id number] [place] [address] [place]#### NADER ####SIGNATERACLPIERRE [id number] [address] [place] [address] PROGESTERONE RECEPTOR (STAINING INTENSITY) Moderate [facility] Comment on above: Order Comment: Speci men Type: TISSUE SPECIMENOrdering Facility: [facility] Address: [address] [place] [address] Performed By: #### S , [id number] ####[facility] [id number] [place] [address] [place]#### NADER ####SIGNATERACLIA [id number] [address] [place] [address] PROGESTERONE RECEPTOR EXTERNAL CONTROL Present and Stained as Expected Normal [facility] Comment on above: Order Comment: Speci men Type: TISSUE SPECIMENOrdering Facility: [facility] Address: [address] [place], [place] [address] Performed By: #### S , [id number] ####[facility] [id number] [place] [address] [place]#### NADER ####SIGNATERACLIA [id number] [address] [place] [address] PROGESTERONE RECEPTOR INTERNAL CONTROL Present and Stained as Expected Normal [facility] Comment on above: Order Comment: Speci men Type: TISSUE SPECIMENOrdering Facility: [facility] Address: [address] [place], [place] [address] Performed By: #### S , [id number] ####[facility] [id number] [place] [address] [place]#### NADER ####SIGNATERACLIA [id number] [address] [place] [address] PROGESTERONE RECEPTOR STATUS (INVASIVE) Positive Normal [facility] Comment on above: Order Comment: Speci men Type: TISSUE SPECIMENOrdering Facility: [facility] Address: [address] [place], [place] [address] Performed By: #### S , [id number] ####[facility] [id number] [place] [address] [place]#### NADER ####SIGNATERACLIA [id number] [address] [place] [address] TOTAL FIXATION TIME >6 and <72 Hours Normal [facility] Comment on above: Order Comment: Speci men Type: TISSUE SPECIMENOrdering Facility: [facility] Address: [address] [place] [address] Performed By: #### S , [id number] ####[facility] [id number] [place] [address] [place]#### NADER ####SIGNATERACLIA [id number] [facility] [address] [address] TUMOR TYPE (INVASIVE) Primary Invasive B reast Carcinoma [facility] Comment on above: Order Comment: Speci men Type: TISSUE SPECIMENOrdering Facility: [facility] Address: [address] [place] [address] Performed By: #### S , [id number] ####[facility] [id number] [place] [address] [place]#### NADER ####SIGNATERACLIA [id number] [address] [address] WAS SPECIMEN DECALCIFIED No [facility] Comment on above: Order Comment: Speci men Type: TISSUE SPECIMENOrdering Facility: [facility] Address: [address] [place] [address] Performed By: #### S , [id number] ####[facility] [id number] [place] [address] [place]#### NADER ####SIGNATERACLIA [id number] [address] [address] BRIEF OP NOTon 02-04-2024 BRIEF OP NOT HNO ID: [id number] Author: TING POLO MD Service: General Surgery Author Type: Physician Type: Brief Op Note Filed: 02/04/2024 15:46 Note Text: BRIEF OPERATIVE NOTATION FOR SURGICAL PROCEDURE. Gillian Luis 1965 [id number] female LOG ID: [id number] Surgery/Procedure Date: 02/04/2024 Incision/Procedure Start Time: 1:35 PM Incision Close/Procedure End Time: 3:27 PM Surgeon(s)/Proceduralist(s ) and Melt Helper(s): Surgeon(s) and Role: * Ting Polo MD - Primary Physician Melt Helper: Nikki Fox PA-C REFERRING PHYSICIAN: Outpatient DEPT: [facility] PROVIDER: Myriam POS: [id number] ANESTHESIA: General ASA CLASS: 3 - Severe DIAGNOSIS: right breast cancer x 2 - RUO quadrant PROCEDURE: right COCO localizatrion LUMPECTOMY, WITH SENTINEL LYMPH NODE BIOPSY, Radiotracter identification - [id number], [id number], [id number], [id number], [id number] IVF: 1000 EBL: 60 Specimens: 1 - axillary contents - 80 counts, 2 - sentinel node 160 counts, 3- lumpectomy - single tail cranial, double tail lateral, 4 - lateral margin ADDITIONAL DIAGNOSES: FINDINGS: as above - specimen transverse 9cm, craniocaudal - 7cm, Superficial/deep - 5.5cm COCO margins - superficial - 8mm, cranial 16mm, medial - 9mm, lateral - 10mm, caudal - 11mm, deep - 12mm Good radiographic margins COMPLICATIONS: None PMHx - PAST MEDICAL HISTORY Diagnosis Date Benign hypertension Breast cancer (HCC) 11/2023 Right Breast Decreased GFR Dysphagia, pharyngeal Generalized osteoarthrosis, involving multiple sites GERD (gastroesophageal reflux disease) High blood pressure Hyperlipemia Knee pain right Knee Mild major depression (HCC) Noncompliance with medication regimen Sarcoidosis TIA (transient ischemic attack) COMORBIDITIES - None Post Op Occurrences - None Wound Classification - Clean Operative note dictated in the dictation system. - [id number] Ting Polo MD [facility] HISTORY PHYSICALon HISTORY PHYSICAL HNO ID: [id number] Author: TING POLO MD Service: General Surgery Author Type: Physician Type: H&P Filed: 02/04/2024 11:20 Note Text: HISTORY AND PHYSICAL - BREAST CANCER - RIGHT BREAST - 2 SITES Gillian Luis 1965 December 25, 2023 REFERRING PHYSICIAN: Gertrudis De Leon MD CHIEF COMPLAINT: BREAST CANCER - RIGHT - INVASIVE DUCTAL CARCINOMA HPI: Gillian Luis is a 58-year-old female who presents with right breast cancer at 2 sites. No information was received prior to the patient being seen in my office. I understand the patient had palpable masses in her right breast she underwent mammogram and ultrasound at [facility]. I have her copy of her ultrasound report dated October 16, 2023 which demonstrated suspicious solid-appearing lesions at both the 11 and 12:00 positions 2 foci are noted 1 measuring 17 x 17 x 21 mm and the additional measuring 12 x 24 x 8 mm they were uncertain whether these were 2 separate lesions or a single dumbbell shaped lesion. The patient then underwent core biopsy of this site on November 21, 2023. The 11:00 and 12:00 sites both returned as invasive ductal carcinoma-grade 2. Receptor status was estrogen positive progesterone negative HER2 indeterminant. FISH was negative for HER2 Addendum-having now received copies of her radiology reports a ribbon clip was placed at breast biopsy site a, a coil clip was placed at the breast biopsy site B. The patient notes some bruising of the site We extensively discussed her diagnosis including breast conservation surgical procedures, mastectomy without reconstruction and mastectomy with reconstruction. Reviewing care everywhere did not provide additional information however she did have ED visit on October 20, 2023 for alcohol intoxication related to anxiety and depression with what was felt to be homicidal suicidal intent initially due to the recent loss of her and the new diagnosis of breast cancer. This was not noted at the time of her visit nor discussed in the office setting The patient is being seen by me at the request of Dr. Gertrudis De Leon MD for my opinion and advice regarding locally advanced right-sided breast cancer. Bone scan was obtained on December 14, 2023 which demonstrated no evidence of metastatic deposits. The patient was also referred to Dr. Brown Woody, medical oncology at [facility]. A CT scan of the chest was obtained which demonstrated no metastatic disease, but suggested a possible 1.5cm mass in the left breast. MRI which was obtained on December 18, 2023. This demonstrated the index lesion in the right breast and measured as 3.5cm x 1.5cm x 1.7cm. There was also an 11mm x 8mm x 5mm noted in the 12-1 o'clock position of the left breast noted 5.2cm behind the nipple. I performed office-based ultrasound on December 20 and found no abnormalities. I ordered a formal ultrasound which was obtained this morning. This also demonstrated no abnormalities. Given the MRI findings my plan is to schedule the patient for an MRI based evaluation/biopsy. The patient underwent MRI imaging/biopsy of the left breast abnormality. Biopsy was performed on January 08, 2024. This returned as: FINAL DIAGNOSIS A. Left breast, upper outer quadrant mass, biopsy: - Sclerosing adenosis, columnar cell change and focal fibroadenomatoid change. - Focal intraductal microcalcifications. - No evidence of malignancy. This is felt to be concordant with the MRI findings. The patient is decided she would like to proceed with lumpectomy and sentinel lymph node biopsy. PAST MEDICAL HISTORY PAST MEDICAL HISTORY Diagnosis Date Benign hypertension Breast cancer (HCC) 11/2023 Right Breast Decreased GFR Dysphagia, pharyngeal Generalized osteoarthrosis, involving multiple sites GERD (gastroesophageal reflux disease) High blood pressure Hyperlipemia Knee pain right Knee Mild major depression (HCC) Noncompliance with medication regimen Sarcoidosis TIA (transient ischemic attack) PAST SURGICAL HISTORY PAST SURGICAL HISTORY Procedure Laterality Date LIGATE FALLOPIAN TUBE PAST SURGICAL HISTORY OF Wedge Resection, Right Lung TONSILLECTOMY AND ADENOIDECTOMY TOTAL ABDOM HYSTERECTOMY CURRENT MEDICATIONS Current Outpatient Medications Medication Sig Dispense Refill metoprolol succinate ER (TOPROL XL) 100 mg Take 50 mg by mouth once daily. lisinopril-hydroCHLOROthia zide (ZESTORETIC) 20-25 mg per tablet Take 1 tablet by mouth once daily. rosuvastatin (CRESTOR) 10 mg tablet Take 10 mg by mouth once daily. amLODIPine (NORVASC) 5 mg tablet Take by mouth as directed. metoprolol tartrate, short acting, (LOPRESSOR) 50 mg tablet Take by mouth as directed. lisinopril-hydroCHLOROthia zide (ZESTORETIC) 10-12.5 mg per tablet Take 1 tablet by mouth once daily. sertraline (ZOLOFT) 50 mg tablet Take 50 mg by mouth once daily. simvastatin (ZOCOR) 40 mg tablet Take 40 mg (more content not included)... Normal [facility] SURGICAL BREAST SPECIMEN RTon 02-04-2024 [facility] SURGICAL BREAST SPECIMEN RT * * *Final Report* * * DATE OF EXAM: Feb 04 2024 3:18PM ERIKA [id number] - [facility] SURGICAL BREAST SPECIMEN RT / PROCEDURE REASON: right breast IDC * * * * Physician Interpretation * * * * #[id number] - [facility] SURGICAL BREAST SPECIMEN RT SPECIMEN: 02/04/2024 HISTORY: Right Breast Idc. Correlation is made to exams dated: 01/29/2024 localization - [facility], 01/08/2024 mammogram - [facility], 12/18/2023 breast MRI, 11/21/2023 mammogram, and 10/16/2023 mammogram. The patient underwent specimen radiograph for 2 areas of invasive ductal carcinoma at 11 and 12:00 position within the RIGHT breast. The specimen radiograph contains both clips and both COCO markers. Both lesions are faintly identified. There appear to be in the center of the specimen on the single image submitted. IMPRESSION: SPECIMEN Both clips and both COCO devices are contained within the specimen radiograph. Nkechi Roman M.D. FACR, [facility] ch/elbert:02/04/2024 15:45:25 Link Assembler(s): RT Ryan(R)(M), [facility] Multiple national specialty organizations have released breast cancer screening guidelines for women at average risk for developing breast cancer - guidelines that are based on both evidence and opinion, yet differ on when to start and how often to screen for breast cancer. With representation from Breast Imaging, Internal Medicine, Women's Health, Family Medicine, and Medical/Surgical Oncology, the [facility] has carefully reviewed the data and reached the following consensus: 1) All women should engage in shared decision-making with their providers to decide when to start and how often to screen; 2) All women should have the opportunity to start screening mammography at age 40; 3) For women ages 45-55, we recommend annual screening mammograms; 4) For women ages 55 and over, we support both the transition from an annual to a biennial interval if this aligns more with patient's values and preferences, or continuation with annual screening; 5) All women should discuss with their providers when to stop screening mammograms. [employer] Representative [employer]: Elbert Transcribe Date/Time: Feb 04 2024 3:17P Dictated by : NKECHI ROMAN MD This examination was interpreted and the report reviewed and electronically signed by: NKECHI ROMAN MD on Feb 04 2024 3:45PM EST [id number] Normal [facility] NM LYMPH NODE IMAGINGon NM LYMPH NODE IMAGING * * *Final Report* * * DATE OF EXAM: Feb 04 2024 11:19AM NISSA 0033 - NM LYMPH NODE IMAGING / PROCEDURE REASON: multiple diagnoses * * * * Physician Interpretation * * * * NM LYMPH NODE IMAGING INDICATION: Malignant neoplasm of overlapping 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, estrogen receptor positive (HCC) TECHNIQUE: A total of 480 ?Ci of filtered sulfur colloid were into equal amounts into 3 separate syringes and diluted with 1% lidocaine. Intradermal injections with 25G needles were performed in 3 locations surrounding the areola. Anterior, oblique and lateral images were obtained. FINDING: Significant activity is seen in the injection sites in the periareolar region. Activity is seen within 2 axillary lymph nodes. IMPRESSION: 2 right axillary sentinel lymph nodes identified [employer] Representative [employer]: PSCB Transcribe Date/Time: Feb 04 2024 11:20A Dictated by : MARY ANNE BAILEY MD This examination was interpreted and the report reviewed and electronically signed by: MARY ANNE BAILEY MD on Feb 04 2024 11:21AM EST [id number] Normal [facility] OPERATIVE NOon 02-04-2024 OPERATIVE NO HNO ID: [id number] Author: TING POLO MD Service: ? Author Type: Physician Type: Operative Report Filed: 03/18/2024 12:55 Note Text: [facility] - Operative Report GILLIAN LUIS : 1965 AGE: 58. SEX: F PATIENT TYPE: [facility] SVC: LOCATION: ATTENDING PHYSICIAN: CAROLYN NUMBER: [id number] DATE OF SURGERY/PROCEDURE: 02/04/2024 INCISION/PROCEDURE START TIME: 1:35 p.m. INCISION CLOSE/PROCEDURE END TIME: 3:27 p.m. PREOPERATIVE DIAGNOSIS: Right upper outer quadrant breast cancer x2 sites. POSTOPERATIVE DIAGNOSIS: Successful removal of 2 active radiotracer sites in the right axilla and good radiographic margins on the lumpectomy specimen. SURGEON: Ting Polo M.D. IUSS ACOUSTIC ANALYST: Lillie Fox PA-C SURGERY/PROCEDURE: Right COCO localization, lumpectomy with sentinel lymph node biopsy using Lymphazurin and radiotracer using COCO online education manager for localization placement. ANESTHESIA: General endotracheal. LOGIN NUMBER: [id number] ANESTHESIOLOGIST: Dr. Church. INTRAVENOUS FLUIDS: 1000 mL. ESTIMATED BLOOD LOSS: 60. ASA: 3. FINDINGS: As described above. SPECIMENS: 1. Axillary contents with the 2nd hottest area with 80 counts. 2. [place] lymph node with 160 counts. Both were very slightly blue. 3. Lumpectomy with the single tail marking the specimen cranially, the double tail laterally, and the specimen measured 9 cm in the transverse plane, 7 cm craniocaudal plane, and 5.5 cm in the superficial deep plane. COCO marked margins were superficial 8 mm, cranial 16 mm, medial 9 mm, lateral 10 mm, caudal 11 mm, deep 12 mm. Radiographic margins were good. DRAINS: None. COMPLICATIONS: None. Commission on Cancer - Standard 5.3: [place] Node Biopsy Synoptic Operative Reporting Five [place] Node Biopsy for Breast Cancer - Right Operation performed with curative intent. Yes Tracer(s) used to identify sentinel nodes in the upfront surgery (non-neoadjuvant) setting (select all that apply). Dye and Radioactive tracer Tracer(s) used to identify sentinel nodes in the neoadjuvant setting (select all that apply). N/A All nodes (colored or non-colored) present at the end of a dye-filled lymphatic channel were removed. Yes All significantly radioactive nodes were removed. Yes All palpably suspicious nodes were removed. Yes Biopsy-proven positive nodes marked with clips prior to chemotherapy were identified and removed. N/A Patient was taken to PACU in stable condition. The patient had 2 COCO clips placed as she had 2 biopsy breast cancer sites in the upper outer quadrant of the right breast. These were located nearly transversely just above and then lateral to the nipple-areolar complex. The COCO clips were placed just medial to the medial clip and lateral to the lateral previous biopsy clip. The patient then presented today, had radiotracer injection, and scintigram demonstrated 2 axillary nodes. Following this, she returned to the preop area and was readied for surgery. DESCRIPTION OF PROCEDURE: The right breast was marked in the holding area. The patient concurred this was the planned operative site. Sign-in was performed verifying patient, site, procedure, position, critical nursing information, VTE, and antibiotic prophylaxis. The patient received 2 g of Ancef, had sequential compression devices placed. Following induction of LMA anesthesia, the right breast and axillary area prepped and draped in usual fashion. Prior to this, 5 mL of a 50:50 mixture of Lymphazurin diluted into sterile water was injected into Sappey plexus and the breast massaged. Neoprobe was used to identify the 2 separate COCO clip sites as the closest to the skin and both sites were felt to be consistent with the location and depth of the COCO clips noted on post clip mammogram and based on the depth of the abnormality on ultrasound and MRI. Ultrasound was then used to identify, was felt to be the either 2 separate lumps versus a dumbbell-shaped solitary tumor. Following this, after the area had been prepped and draped, local anesthetic was injected into the skin for a transverse axillary incision at the site where the hottest radiotracer nodes were identified. These were noted to have relatively low counts through the skin, 1 was below the incision, 1 was above the planned incision. This was felt to be consistent with what was seen on the scintigram. A transverse incision was made, dissected down to subcutaneous fat entering through the clavipectoral fascia into the axillary fat pad. The traversing artery was identified, clipped, and a traversing vein was double clipped proximally, singly clipped distally, and divided to allow access into the axillary contents. No significantly high counts were noted as dissection was continued. The hottest lymph node found after was dissected out had 160 counts. Clearing the remainder of the axillary fat pad had the 2nd are (more content not included)... Normal [facility] OPERATIVE NO HNO ID: [id number] Author: TING POLO MD Service: General Surgery Author Type: Physician Type: Operative Report Filed: 02/06/2024 08:20 Note Text: [facility] - Operative Report GILLIAN LUIS : 1965 AGE: 58. SEX: F PATIENT TYPE: [facility] SVC: LOCATION: ATTENDING PHYSICIAN: CAROLYN NUMBER: [id number] DATE OF SURGERY/PROCEDURE: 02/04/2024 INCISION/PROCEDURE START TIME: 1:35 p.m. INCISION CLOSE/PROCEDURE END TIME: 3:27 p.m. PREOPERATIVE DIAGNOSIS: Right upper outer quadrant breast cancer x2 sites. POSTOPERATIVE DIAGNOSIS: Successful removal of 2 active radiotracer sites in the right axilla and good radiographic margins on the lumpectomy specimen. SURGEON: Ting Polo M.D. IUSS ACOUSTIC ANALYST: Lillie Fox PA-C SURGERY/PROCEDURE: Right COCO localization, lumpectomy with sentinel lymph node biopsy using Lymphazurin and radiotracer using COCO online education manager for localization placement. ANESTHESIA: General endotracheal. LOGIN NUMBER: [id number] ANESTHESIOLOGIST: Dr. Church. INTRAVENOUS FLUIDS: 1000 mL. ESTIMATED BLOOD LOSS: 60. ASA: 3. FINDINGS: As described above. SPECIMENS: 1. Axillary contents with the 2nd hottest area with 80 counts. 2. [place] lymph node with 160 counts. Both were very slightly blue. 3. Lumpectomy with the single tail marking the specimen cranially, the double tail laterally, and the specimen measured 9 cm in the transverse plane, 7 cm craniocaudal plane, and 5.5 cm in the superficial deep plane. COCO marked margins were superficial 8 mm, cranial 16 mm, medial 9 mm, lateral 10 mm, caudal 11 mm, deep 12 mm. Radiographic margins were good. DRAINS: None. COMPLICATIONS: None. Patient was taken to PACU in stable condition. The patient had 2 COCO clips placed as she had 2 biopsy breast cancer sites in the upper outer quadrant of the right breast. These were located nearly transversely just above and then lateral to the nipple-areolar complex. The COCO clips were placed just medial to the medial clip and lateral to the lateral previous biopsy clip. The patient then presented today, had radiotracer injection, and scintigram demonstrated 2 axillary nodes. Following this, she returned to the preop area and was readied for surgery. DESCRIPTION OF PROCEDURE: The right breast was marked in the holding area. The patient concurred this was the planned operative site. Sign-in was performed verifying patient, site, procedure, position, critical nursing information, VTE, and antibiotic prophylaxis. The patient received 2 g of Ancef, had sequential compression devices placed. Following induction of LMA anesthesia, the right breast and axillary area prepped and draped in usual fashion. Prior to this, 5 mL of a 50:50 mixture of Lymphazurin diluted into sterile water was injected into Sappey plexus and the breast massaged. Neoprobe was used to identify the 2 separate COCO clip sites as the closest to the skin and both sites were felt to be consistent with the location and depth of the COCO clips noted on post clip mammogram and based on the depth of the abnormality on ultrasound and MRI. Ultrasound was then used to identify, was felt to be the either 2 separate lumps versus a dumbbell-shaped solitary tumor. Following this, after the area had been prepped and draped, local anesthetic was injected into the skin for a transverse axillary incision at the site where the hottest radiotracer nodes were identified. These were noted to have relatively low counts through the skin, 1 was below the incision, 1 was above the planned incision. This was felt to be consistent with what was seen on the scintigram. A transverse incision was made, dissected down to subcutaneous fat entering through the clavipectoral fascia into the axillary fat pad. The traversing artery was identified, clipped, and a traversing vein was double clipped proximally, singly clipped distally, and divided to allow access into the axillary contents. No significantly high counts were noted as dissection was continued. The hottest lymph node found after was dissected out had 160 counts. Clearing the remainder of the axillary fat pad had the 2nd area of 80 counts. The axillary fat pad for the 2nd area of 80 count included approximately a 3 x 3 x 4 cm area of axillary tissue. The cavity was checked for hemostasis, good hemostasis, the area was irrigated and aspirated. Subcutaneous axillary fat closed with interrupted 3-0 Vicryl suture. Superficial subcutaneous sac closed with 3-0 Vicryl sutures. Skin was closed with 4- 0 Monocryl running subcu suture. Next, a curvilinear incision was marked around the 2 previous marked skin sites from ultrasound and COCO placement. The COCO probe was again used to verify the 2 maurice sites. A skin ellipse made, dissection carried down to the subcutaneous fat and a skin ellipse was then extended cranial, mediolaterally, and caud (more content not included)... Normal [facility] SIGNATERAon 02-04-2024 SIGNATERA (NADER) RESULT Normal [facility] Comment on above: Order Comment: Speci men Type: TISSUE SPECIMENOrdering Facility: [facility] Address: [address] [place] [address] Result Comment: View results in Scanned Documents link when available. Performed By: #### S , [id number] ####[facility] [id number] [place] [address] [place]#### NADER ####SIGNATERACLIA [id number] [place] [address] SURGICAL PATHOLOGYon 024 BLOCK FOR ADDITIONAL BIOMARKERS/MOLECULAR STUDIES C9 [facility] Comment on above: Order Comment: Speci men Type: TISSUE SPECIMENOrdering Facility: [facility] Address: [address] [place] [address] Performed By: #### S , [id number] ####[facility] [id number] [place] [address] [place]#### NADER ####SIGNATERACLIA [id number] [facility] [address] [place] [address] CASE REPORT [facility] Comment on above: Order Comment: Speci men Type: TISSUE SPECIMENOrdering Facility: [facility] Address: [address] [place] [address] Result Comment: Surg ica Pathology Report Case: [id number] Authorizing Provider: Ting Polo MD Collected: 02/04/2024 02:12 PM Ordering Location: [facility] Surgery Received: 02/04/2024 04:00 PM Pathologist: Naomie Rabago MD Specimens: A) - Axillary, Right, Contents B) - Lymph Node, Right, [place], hottest sentinel node right axilla (count 160) C) - Breast, Right, Lumpectomy, marking stitch single cranial, double tail lateral D) - Breast, Margin, Right, Excision, lateral margin, medial aspect Performed By: #### S [id number] ####[facility] [id number] [place] [address] [place]#### NADER ####SIGNATERACLIA [id number] [address] [address] CLINICAL HISTORY [facility] Comment on above: Order Comment: Speci men Type: TISSUE SPECIMENOrdering Facility: [facility] Address: [address] [place] [address] Result Comment: Pre- op diagnosis: Malignant neoplasm of right breast in female, estrogen receptor positive, unspecified site of breast (HCC) [C50.911, Z17.0] Performed By: #### S , [id number] ####[facility] [id number] [place] [address] [place]#### NADER ####SIGNATERACLIA [id number] [address] [address] DIAGNOSIS COMMENT [facility] Comment on above: Order Comment: Speci men Type: TISSUE SPECIMENOrdering Facility: [facility] Address: [address] [place] [address] Result Comment: ER, ND and HER2 are pending. Results will be reported separately. Parts C-D include microscopic assessment of the inked surgical margins. Performed By: #### S [id number] ####[facility] [id number] [address] [place]#### NADER ####SIGNATERACLIA [id number] [address] [address] FINAL DIAGNOSIS [facility] Comment on above: Order Comment: Speci men Type: TISSUE SPECIMENOrdering Facility: [facility] Address: [address] [place] [address] Result Comment: A. R ight axillary contents, excision: -- Six lymph nodes, negative for carcinoma (0/6). B. Right sentinel lymph node, hottest (count 160), excision: -- One lymph node, negative for carcinoma (0/1). C. Right breast, lumpectomy: -- Invasive ductal carcinoma, see synoptic report. D. Right breast, lateral margin medial aspect, excision: -- Negative for carcinoma. Performed By: #### S , [id number] ####[facility] [id number] [place] [address] [place]#### NADER ####SIGNATERACLIA [id number] [address] [address] FINAL PERFORMING LAB [facility] Comment on above: Order Comment: Speci men Type: TISSUE SPECIMENOrdering Facility: [facility] Address: [address] [place] [address] Result Comment: Diag nostic interpretation performed at [facility], [address] [place] [address] CLIA# [id number] Driver License Technician: Kong Romo M.D. Performed By: #### S , [id number] ####[facility] [id number] [facility] [place] [address] [place]#### NADER ####SIGNATERACLIA [id number] [place] [address] GROSS DESCRIPTION [facility] Comment on above: Order Comment: Speci men Type: TISSUE SPECIMENOrdering Facility: [facility] Address: [address] [place] [address] Result Comment: A. A xillary, Right, Contents Received in formalin labeled right axillary contents is a 7.7 x 5.0 x 1.2 cm aggregate of yellow lobulated fatty tissue. Dissection reveals seven rubbery probable lymph nodes measuring 0.6 to 1.1 cm in greatest dimension. Installer Inspector Final sections to include all probable lymph nodes are submitted as follows: A1 one node sectioned, A2 one node sectioned, A3 one node sectioned, A4 one node bisected, A5 three nodes intact, A6-A10 additional soft tissue. B. Lymph Node, Right, [place] Received in formalin labeled hottest sentinel lymph node right axilla is a 3.0 x 2.0 x 1.5 cm aggregate of yellow fatty tissue. Dissection reveals a single rubbery probable lymph node measuring 1.4 x 1.1 x 0.6 cm. The specimen is entirely submitted as follows: B1-B2 lymph node sectioned, B3-B4 remaining soft tissue. C. Breast, Right, Lumpectomy Received in formalin labeled right breast lumpectomy is an oriented partial mastectomy specimen weighing 146.7 g and measuring 8.5 cm from cranial to caudal (per Dr. Price redesignated as superior to inferior), 9.1 cm from medial to lateral, and 2.6 cm from anterior to posterior. Per the requisition, a single suture garay the cranial (superior) aspect and a double tail garay the lateral aspect. The anterior surface is remarkable for a 3.5 x 1.0 cm elliptical segment of green skin. The skin surface is unremarkable with no lesions identified. The specimen is inked as follows: Superior blue, inferior green, medial orange, lateral red, anterior yellow, and deep-black. Imaging is reviewed to reveal two biopsy marker clips and two Coco-Critical Systems Technician devices to be present. The specimen is serially sectioned from medial to lateral into 17 slices. Sectioning reveals two adjacent but grossly discrete lesions to be present. Within the central aspect of slices 6-8 is an ill-defined 1.8 x 1.7 x 1.1 cm green, rubbery, firm lesion containing a coil clip in slice #8. This lesion is located 0.7 cm from the anterior margin, 1.2 cm from the posterior margin, 1.7 cm from the superior margin, and greater than 2 cm from all remaining margins. Also identified within the central aspect of slices 10-11 is an ill-defined 1.7 x 1.4 x 0.8 cm green firm lesion containing the ribbon clip in slice #10. This lesion is located 0.4 cm from the inferior margin, 0.5 cm from the anterior margin, 1.8 cm from the posterior margin, and greater than 2 cm from all remaining margins. The tissue the two lesions is located in slice #9, which is grossly moderately fibrous but not grossly continuous. The entire area with both lesions and fibrous tissue together in slices 6-11 with measure approximately 3.6 x 2.5 x 1.7 cm. The remaining breast parenchyma is fibrofatty with no additional discrete lesions identified. Installer Inspector Final sections to include entire lesions are submitted as follows: C1: Medial margin perpendicular (slice one) C2: Lateral margin perpendicular (slice 17) C3: Slice seven anterior margin closest to coil lesion C4: Slice seven posterior margin closest to coil lesion C5: Slice seven superior margin closest to coil lesion C6: Slice seven inferior margin closest to coil lesion C7-C9: Coil lesion entirely and sequentially submitted from slice six to slice eight (clip site in C9) non-marginal C10: Tissue flanking coil lesion medially slice #5 non-marginal C11: Slice #9 tissue flanking coil lesion laterally, tissue flanking ribbon lesion medially, and intervening tissue between coil and ribbon lesions entirely submitted non-marginal C12: Slice #10 posterior margin closest to ribbon lesion C13: Slice #10 superior margin closest to ribbon lesion C14: Slice #10 ribbon lesion and clip site with anterior and inferior margins C15: slice #11 remaining ribbon lesion with anterior and inferior margins C16: Slice #12 tissue flanking ribbon lesion laterally with anterior margin The specimen was removed from the patient at 2:55 PM on 02/04/2024. The specimen is placed in formalin at 3:23 PM on the same date. Gross examination performed at [facility], [address] [place] [address] CLIA# [id number] [facility] 02/05/24 D. Breast, Margin, Right, Excision Received in formalin, labeled lateral breast margin, medial aspect is a 5.0 x 3.0 x 1.2 cm portion of fibroadipose tissue. The specimen is oriented per the surgeon with a suture marking new margin. The new margin is inked black and the opposing surface is inked blue. Sectioning reveals adam, soft, homogenous cut surfaces. The specimen is entirely submitted in cassettes. The specimen was removed from the patient on 02/04/2024 at 15:07 and placed in formalin at 15:23. AKA February 05, 2024 5:47 PM Gross examination performed at [facility], [address] [place] [address] Performed By: #### S , [id number] ####[facility] [id number] [place] [address] [place]#### NADER ####SIGNATERACLIA [id number] [address] [address] SYNOPTIC REPORT Normal [facility] Comment on above: Order Comment: Speci men Type: TISSUE SPECIMENOrdering Facility: [facility] Address: [address] [place] [address] Result Comment: INVA SIVE CARCINOMA OF THE BREAST: Resection INVASIVE CARCINOMA OF THE BREAST: EXCISION - All Specimens 8th Edition - Protocol posted: 07/11/2023 SPECIMEN Procedure: Excision (less than total mastectomy) Specimen Laterality: Right TUMOR Histologic Type: Invasive carcinoma of no special type (ductal) Histologic Grade ([place] Histologic Score): Glandular (Acinar) / Tubular Differentiation: Score 3 Nuclear Pleomorphism: Score 2 Mitotic Rate: Score 1 Overall Grade: Grade 2 (scores of 6 or 7) Tumor Size: Greatest dimension of largest invasive focus (Millimeters): 36 mm Tumor Focality: Single focus of invasive carcinoma Ductal Carcinoma In Situ (DCIS): Present : Negative for extensive intraductal component (EIC) Architectural Patterns: Cribriform Nuclear Grade: Grade II (intermediate) Necrosis: Not identified Lobular Carcinoma In Situ (LCIS): Not identified Lymphatic and / or Vascular Invasion: Not identified Microcalcifications: Present in non-neoplastic tissue Treatment Effect in the Breast: No known presurgical therapy MARGINS Margin Status for Invasive Carcinoma: All margins negative for invasive carcinoma Distance from Invasive Carcinoma to Closest Margin: Greater than: 2 mm Closest Margin(s) to Invasive Carcinoma: Anterior Margin Status for DCIS: All margins negative for DCIS Distance from DCIS to Closest Margin: Greater than: 2 mm REGIONAL LYMPH NODES Regional Lymph Node Status: : All regional lymph nodes negative for tumor Total Number of Lymph Nodes Examined (sentinel and non-sentinel): 7 Number of [place] Nodes Examined: 1 pTNM CLASSIFICATION (AJCC 8th Edition) Reporting of pT, pN, and (when applicable) pM categories is based on information available to the pathologist at the time the report is issued. As per the AJCC (Chapter 1, 8th Ed.) it is the managing physician???s responsibility to establish the final pathologic stage based upon all pertinent information, including but potentially not limited to this pathology report. pT Category: pT2 pN Category: pN0 Comment(s): Grossly, two masses were identified that were connected by fibrous tissue. Microscopically the invasive carcinoma appears continuous and measures up to 36 mm in greatest dimension. Performed By: #### S , [id number] ####[facility] [id number] [place] [address] [place]#### NADER ####SIGNATERACLIA [id number] [id number] [place] [address] DIAGNOSTIC RTon 01-29-20 24 [facility] DIAGNOSTIC RT * * *Final Report* * * DATE OF EXAM: Jan 29 2024 11:04AM HCW 0626 - [facility] DIAGNOSTIC RT / PROCEDURE REASON: multiple diagnoses * * * * Physician Interpretation * * * * RESULT: #[id number] - [facility] US LOC BREAST RT #[id number] - [facility] DIAGNOSTIC RT ULTRASOUND GUIDED INFRARED ACTIVATED ELECTROMAGNETIC REFLECTOR DEVICE PLACEMENT RIGHT BREAST WITH POST DIGITAL MAMMOGRAPHIC AND ULTRASOUND IMAGIN01/29/2024 HISTORY: Multiple Diagnoses Multiple Diagnoses. PATIENT CONSENT: A time out was performed immediately prior to procedure start with the radiology team, correctly identifying the patient name, date of , procedure, anatomy (including marking of site and side), patient position, relevant diagnostic and radiology test results, safety precautions, and procedure-specific equipment needs. The procedure was explained to the patient including the risks, benefits and alternatives. Medications and allergies were also reviewed. The risks, including but not limited to infection and bleeding, were reviewed by the performing physician and the patient agreed to undergo the procedure. The radiologist and technologist were present throughout the entire procedure. Audible Time Out Time: 1021 hrs Procedure Start Time: 1026 hrs Procedure Stop Time: 1030 hrs Correlation is made to exams dated: 01/08/2024 mammogram - [facility], 12/25/2023 ultrasound - [facility], 12/18/2023 breast MRI, 11/21/2023 ultrasound, 11/21/2023 mammogram, and 10/16/2023 ultrasound. An infrared activated electromagnetic reflector device placement using ultrasound guidance was performed for the lesion located in the right breast at 11 o'clock 5 cm from the nipple. This was described on the previous mammography and ultrasound reports. The skin was prepped in the usual manner. Local anesthetic was administered to the access site. A skin lora was made in the breast. A location device was inserted into the targeted area under ultrasound guidance. A skin adhesive and a skin closure strip were applied to the access site. Post placement digital mammographic and ultrasound imaging demonstrates location device traverses the targeted area. IMPRESSION: INFRARED ACTIVATED ELECTROMAGNETIC REFLECTOR DEVICE PLACEMENT Infrared activated electromagnetic reflector device placement for the lesion in the right breast at 11 o'clock 5 cm from the nipple was successful with no apparent post procedure complications. A specimen radiograph is recommended. Aruna Joshua M.D. rs/:01/29/2024 11:11:30 Link Assembler(s): Jumana Sparks [facility] Multiple national specialty organizations have released breast cancer screening guidelines for women at average risk for developing breast cancer - guidelines that are based on both evidence and opinion, yet differ on when to start and how often to screen for breast cancer. With representation from Breast Imaging, Internal Medicine, Women's Health, Family Medicine, and Medical/Surgical Oncology, the [facility] has carefully reviewed the data and reached the following consensus: 1) All women should engage in shared decision-making with their providers to decide when to start and how often to screen; 2) All women should have the opportunity to start screening mammography at age 40; 3) For women ages 45-55, we recommend annual screening mammograms; 4) For women ages 55 and over, we support both the transition from an annual to a biennial interval if this aligns more with patient's values and preferences, or continuation with annual screening; 5) All women should discuss with their providers when to stop screening mammograms. Transcribed Using Voice Recognition Transcribe Date/Time: Jan 29 2024 10:23A Dictated by: ARUNA JOSHUA MD This examination was interpreted and the report reviewed and electronically signed by: ARUNA JOSHUA MD on Jan 29 2024 11:11AM EST [id number] Normal [facility] LOC BREAST ADDL RTon 01-29-2024 IMPRESSION: INFRARED ACTIVATED ELECTROMAGNETIC REFLECTOR DEVICE PLACEMENT Infrared activated electromagnetic reflector device placement for the lesion in the right breast at 12 o'clock 4 cm from the nipple was successful with no apparent post procedure complications. A specimen radiograph is recommended. Aruna Joshua M.D. rs/:01/29/2024 11:14:48 Link Assembler(s): Jumana Sparks [facility] Multiple national specialty organizations have released breast cancer screening guidelines for women at average risk for developing breast cancer - guidelines that are based on both evidence and opinion, yet differ on when to start and how often to screen for breast cancer. With representation from Breast Imaging, Internal Medicine, Women's Health, Family Medicine, and Medical/Surgical Oncology, the [facility] has carefully reviewed the data and reached the following consensus: 1) All women should engage in shared decision-making with their providers to decide when to start and how often to screen; 2) All women should have the opportunity to start screening mammography at age 40; 3) For women ages 45-55, we recommend annual screening mammograms; 4) For women ages 55 and over, we support both the transition from an annual to a biennial interval if this aligns more with patient's values and preferences, or continuation with annual screening; 5) All women should discuss with their providers when to stop screening mammograms. Transcribed Using Voice Recognition Transcribe Date/Time: Jan 29 2024 10:23A Dictated by: ARUNA JOSHUA MD This examination was interpreted and the report reviewed and electronically signed by: ARUNA JOSHUA MD on Jan 29 2024 11:14AM [facility] RADIOLOGY * * *Final Report* * * DATE OF EXAM: Jan 29 2024 11:04AM W 0612 - [facility] US LOC BREAST ADDL RT / PROCEDURE REASON: multiple diagnoses * * * * Physician Interpretation * * * * RESULT: #[id number] - [facility] US LOC BREAST ADDL RT ULTRASOUND GUIDED INFRARED ACTIVATED ELECTROMAGNETIC REFLECTOR DEVICE PLACEMENT RIGHT BREAST WITH POST DIGITAL MAMMOGRAPHIC AND ULTRASOUND IMAGIN01/29/2024 HISTORY: Multiple Diagnoses. PATIENT CONSENT: A time out was performed immediately prior to procedure start with the radiology team, correctly identifying the patient name, date of , procedure, anatomy (including marking of site and side), patient position, relevant diagnostic and radiology test results, safety precautions, and procedure-specific equipment needs. The procedure was explained to the patient including the risks, benefits and alternatives. Medications and allergies were also reviewed. The risks, including but not limited to infection and bleeding, were reviewed by the performing physician and the patient agreed to undergo the procedure. The radiologist and technologist were present throughout the entire procedure. Dr. Joshua performed the entire procedure without an aquatics assistant department head. Audible Time Out Time: 1021 hrs Procedure Start Time: 1035 hrs Procedure Stop Time: 1040 hrs Correlation is made to exams dated: 10/16/2023 mammogram, 10/16/2023 ultrasound, 11/21/2023 mammogram, 11/21/2023 ultrasound, and 10/11/2023 mammogram. An infrared activated electromagnetic reflector device placement using ultrasound guidance was performed for the lesion located in the right breast at 12 o'clock 4 cm from the nipple. This was described on the previous mammography and ultrasound reports. The skin was prepped in the usual manner. Local anesthetic was administered to the access site. A skin lora was made in the breast. A location device was inserted into the targeted area under ultrasound guidance. A skin adhesive and a skin closure strip were applied to the access site. Post placement digital mammographic and ultrasound imaging demonstrates location device traverses the targeted area. Clip placement/activation of both COCO light out examiner was verified with Critical Systems Technician Check following the procedure. [facility] RADIOLOGY Provider, Amari Prater - 01/29/2024 * * *Final Report* * * DATE OF EXAM: Jan 29 2024 11:04AM HCW 0612 - [facility] US LOC BREAST ADDL RT / PROCEDURE REASON: multiple diagnoses * * * * Physician Interpretation * * * * RESULT: #[id number] - [facility] US LOC BREAST ADDL RT ULTRASOUND GUIDED INFRARED ACTIVATED ELECTROMAGNETIC REFLECTOR DEVICE PLACEMENT RIGHT BREAST WITH POST DIGITAL MAMMOGRAPHIC AND ULTRASOUND IMAGIN01/29/2024 HISTORY: Multiple Diagnoses. PATIENT CONSENT: A time out was performed immediately prior to procedure start with the radiology team, correctly identifying the patient name, date of , procedure, anatomy (including marking of site and side), patient position, relevant diagnostic and radiology test results, safety precautions, and procedure-specific equipment needs. The procedure was explained to the patient including the risks, benefits and alternatives. Medications and allergies were also reviewed. The risks, including but not limited to infection and bleeding, were reviewed by the performing physician and the patient agreed to undergo the procedure. The radiologist and technologist were present throughout the entire procedure. Dr. Joshua performed the entire procedure without an aquatics assistant department head. Audible Time Out Time: 1021 hrs Procedure Start Time: 1035 hrs Procedure Stop Time: 1040 hrs Correlation is made to exams dated: 10/16/2023 mammogram, 10/16/2023 ultrasound, 11/21/2023 mammogram, 11/21/2023 ultrasound, and 10/11/2023 mammogram. An infrared activated electromagnetic reflector device placement using ultrasound guidance was performed for the lesion located in the right breast at 12 o'clock 4 cm from the nipple. This was described on the previous mammography and ultrasound reports. The skin was prepped in the usual manner. Local anesthetic was administered to the access site. A skin lora was made in the breast. A location device was inserted into the targeted area under ultrasound guidance. A skin adhesive and a skin closure strip were applied to the access site. Post placement digital mammographic and ultrasound imaging demonstrates location device traverses the targeted area. Clip placement/activation of both COCO light out examiner was verified with Critical Systems Technician Check following the procedure. IMPRESSION IMPRESSION: INFRARED ACTIVATED ELECTROMAGNETIC REFLECTOR DEVICE PLACEMENT Infrared activated electromagnetic reflector device placement for the lesion in the right breast at 12 o'clock 4 cm from the nipple was successful with no apparent post procedure complications. A specimen radiograph is recommended. Aruna Joshua M.D. rs/:01/29/2024 11:14:48 Link Assembler(s): Jumana Sparks [facility] Multiple national specialty organizations have released breast cancer screening guidelines for women at average risk for developing breast cancer - guidelines that are based on both evidence and opinion, yet differ on when to start and how often to screen for breast cancer. With representation from Breast Imaging, Internal Medicine, Women's Health, Family Medicine, and Medical/Surgical Oncology, the [facility] has carefully reviewed the data and reached the following consensus: 1) All women should engage in shared decision-making with their providers to decide when to start and how often to screen; 2) All women should have the opportunity to start screening mammography at age 40; 3) For women ages 45-55, we recommend annual screening mammograms; 4) For women ages 55 and over, we support both the transition from an annual to a biennial interval if this aligns more with patient's values and preferences, or continuation with annual screening; 5) All women should discuss with their providers when to stop screening mammograms. Transcribed Using Voice Recognition Transcribe Date/Time: Jan 29 2024 10:23A Dictated by: ARUNA JOSHUA MD This examination was interpreted and the report reviewed and electronically signed by: ARUNA JOSHUA MD on Jan 29 2024 11:14AM [facility] US LOC BREAST ADDL RT * * *Final Report* * * DATE OF EXAM: Jan 29 2024 11:04AM W 0612 - [facility] US LOC BREAST ADDL RT / PROCEDURE REASON: multiple diagnoses * * * * Physician Interpretation * * * * RESULT: #[id number] - [facility] US LOC BREAST ADDL RT ULTRASOUND GUIDED INFRARED ACTIVATED ELECTROMAGNETIC REFLECTOR DEVICE PLACEMENT RIGHT BREAST WITH POST DIGITAL MAMMOGRAPHIC AND ULTRASOUND IMAGIN01/29/2024 HISTORY: Multiple Diagnoses. PATIENT CONSENT: A time out was performed immediately prior to procedure start with the radiology team, correctly identifying the patient name, date of , procedure, anatomy (including marking of site and side), patient position, relevant diagnostic and radiology test results, safety precautions, and procedure-specific equipment needs. The procedure was explained to the patient including the risks, benefits and alternatives. Medications and allergies were also reviewed. The risks, including but not limited to infection and bleeding, were reviewed by the performing physician and the patient agreed to undergo the procedure. The radiologist and technologist were present throughout the entire procedure. Dr. Joshua performed the entire procedure without an aquatics assistant department head. Audible Time Out Time: 1021 hrs Procedure Start Time: 1035 hrs Procedure Stop Time: 1040 hrs Correlation is made to exams dated: 10/16/2023 mammogram, 10/16/2023 ultrasound, 11/21/2023 mammogram, 11/21/2023 ultrasound, and 10/11/2023 mammogram. An infrared activated electromagnetic reflector device placement using ultrasound guidance was performed for the lesion located in the right breast at 12 o'clock 4 cm from the nipple. This was described on the previous mammography and ultrasound reports. The skin was prepped in the usual manner. Local anesthetic was administered to the access site. A skin lora was made in the breast. A location device was inserted into the targeted area under ultrasound guidance. A skin adhesive and a skin closure strip were applied to the access site. Post placement digital mammographic and ultrasound imaging demonstrates location device traverses the targeted area. Clip placement/activation of both COCO light out examiner was verified with Critical Systems Technician Check following the procedure. IMPRESSION: INFRARED ACTIVATED ELECTROMAGNETIC REFLECTOR DEVICE PLACEMENT Infrared activated electromagnetic reflector device placement for the lesion in the right breast at 12 o'clock 4 cm from the nipple was successful with no apparent post procedure complications. A specimen radiograph is recommended. Aruna Joshua M.D. rs/:01/29/2024 11:14:48 Link Assembler(s): Jumana Sparks, [facility] Multiple national specialty organizations have released breast cancer screening guidelines for women at average risk for developing breast cancer - guidelines that are based on both evidence and opinion, yet differ on when to start and how often to screen for breast cancer. With representation from Breast Imaging, Internal Medicine, Women's Health, Family Medicine, and Medical/Surgical Oncology, the [facility] has carefully reviewed the data and reached the following consensus: 1) All women should engage in shared decision-making with their providers to decide when to start and how often to screen; 2) All women should have the opportunity to start screening mammography at age 40; 3) For women ages 45-55, we recommend annual screening mammograms; 4) For women ages 55 and over, we support both the transition from an annual to a biennial interval if this aligns more with patient's values and preferences, or continuation with annual screening; 5) All women should discuss with their providers when to stop screening mammograms. Transcribed Using Voice Recognition Transcribe Date/Time: Jan 29 2024 10:23A Dictated by: ARUNA JOSHUA MD This examination was interpreted and the report reviewed and electronically signed by: ARUNA JOSHUA MD on Jan 29 2024 11:14AM EST [id number] [facility] US LOC BREAST RTon 01-28 [facility] US LOC BREAST RT * * *Final Report* * * DATE OF EXAM: Jan 29 2024 11:04AM HCW 0600 - [facility] US LOC BREAST RT / PROCEDURE REASON: multiple diagnoses * * * * Physician Interpretation * * * * RESULT: #[id number] - [facility] US LOC BREAST RT #[id number] - [facility] DIAGNOSTIC RT ULTRASOUND GUIDED INFRARED ACTIVATED ELECTROMAGNETIC REFLECTOR DEVICE PLACEMENT RIGHT BREAST WITH POST DIGITAL MAMMOGRAPHIC AND ULTRASOUND IMAGIN01/29/2024 HISTORY: Multiple Diagnoses Multiple Diagnoses. PATIENT CONSENT: A time out was performed immediately prior to procedure start with the radiology team, correctly identifying the patient name, date of , procedure, anatomy (including marking of site and side), patient position, relevant diagnostic and radiology test results, safety precautions, and procedure-specific equipment needs. The procedure was explained to the patient including the risks, benefits and alternatives. Medications and allergies were also reviewed. The risks, including but not limited to infection and bleeding, were reviewed by the performing physician and the patient agreed to undergo the procedure. The radiologist and technologist were present throughout the entire procedure. Audible Time Out Time: 1021 hrs Procedure Start Time: 1026 hrs Procedure Stop Time: 1030 hrs Correlation is made to exams dated: 01/08/2024 mammogram - [facility], 12/25/2023 ultrasound - [facility], 12/18/2023 breast MRI, 11/21/2023 ultrasound, 11/21/2023 mammogram, and 10/16/2023 ultrasound. An infrared activated electromagnetic reflector device placement using ultrasound guidance was performed for the lesion located in the right breast at 11 o'clock 5 cm from the nipple. This was described on the previous mammography and ultrasound reports. The skin was prepped in the usual manner. Local anesthetic was administered to the access site. A skin lora was made in the breast. A location device was inserted into the targeted area under ultrasound guidance. A skin adhesive and a skin closure strip were applied to the access site. Post placement digital mammographic and ultrasound imaging demonstrates location device traverses the targeted area. IMPRESSION: INFRARED ACTIVATED ELECTROMAGNETIC REFLECTOR DEVICE PLACEMENT Infrared activated electromagnetic reflector device placement for the lesion in the right breast at 11 o'clock 5 cm from the nipple was successful with no apparent post procedure complications. A specimen radiograph is recommended. Aruna Joshua M.D. rs/:01/29/2024 11:11:30 Link Assembler(s): Jumana Sparks [facility] Multiple national specialty organizations have released breast cancer screening guidelines for women at average risk for developing breast cancer - guidelines that are based on both evidence and opinion, yet differ on when to start and how often to screen for breast cancer. With representation from Breast Imaging, Internal Medicine, Women's Health, Family Medicine, and Medical/Surgical Oncology, the [facility] has carefully reviewed the data and reached the following consensus: 1) All women should engage in shared decision-making with their providers to decide when to start and how often to screen; 2) All women should have the opportunity to start screening mammography at age 40; 3) For women ages 45-55, we recommend annual screening mammograms; 4) For women ages 55 and over, we support both the transition from an annual to a biennial interval if this aligns more with patient's values and preferences, or continuation with annual screening; 5) All women should discuss with their providers when to stop screening mammograms. Transcribed Using Voice Recognition Transcribe Date/Time: Jan 29 2024 10:23A Dictated by: ARUNA JOSHUA MD This examination was interpreted and the report reviewed and electronically signed by: ARUNA JOSHUA MD on Jan 29 2024 11:11AM EST [id number] Normal [facility] MG Breast - right Diagnostic for implanton 01-29-2024 * * *Final Report* * * DATE OF EXAM: Jan 29 2024 11:04AM W 0626 - [facility] DIAGNOSTIC RT / PROCEDURE REASON: multiple diagnoses * * * * Physician Interpretation * * * * RESULT: #[id number] - [facility] US LOC BREAST RT #[id number] - [facility] DIAGNOSTIC RT ULTRASOUND GUIDED INFRARED ACTIVATED ELECTROMAGNETIC REFLECTOR DEVICE PLACEMENT RIGHT BREAST WITH POST DIGITAL MAMMOGRAPHIC AND ULTRASOUND IMAGIN01/29/2024 HISTORY: Multiple Diagnoses Multiple Diagnoses. PATIENT CONSENT: A time out was performed immediately prior to procedure start with the radiology team, correctly identifying the patient name, date of , procedure, anatomy (including marking of site and side), patient position, relevant diagnostic and radiology test results, safety precautions, and procedure-specific equipment needs. The procedure was explained to the patient including the risks, benefits and alternatives. Medications and allergies were also reviewed. The risks, including but not limited to infection and bleeding, were reviewed by the performing physician and the patient agreed to undergo the procedure. The radiologist and technologist were present throughout the entire procedure. Audible Time Out Time: 1021 hrs Procedure Start Time: 1026 hrs Procedure Stop Time: 1030 hrs Correlation is made to exams dated: 01/08/2024 mammogram - [facility], 12/25/2023 ultrasound - [facility], 12/18/2023 breast MRI, 11/21/2023 ultrasound, 11/21/2023 mammogram, and 10/16/2023 ultrasound. An infrared activated electromagnetic reflector device placement using ultrasound guidance was performed for the lesion located in the right breast at 11 o'clock 5 cm from the nipple. This was described on the previous mammography and ultrasound reports. The skin was prepped in the usual manner. Local anesthetic was administered to the access site. A skin lora was made in the breast. A location device was inserted into the targeted area under ultrasound guidance. A skin adhesive and a skin closure strip were applied to the access site. Post placement digital mammographic and ultrasound imaging demonstrates location device traverses the targeted area. [facility] RAD[facility] Provider, Amari Prater - 01/29/2024 * * *Final Report* * * DATE OF EXAM: Jan 29 2024 11:04AM [facility] 0626 - [facility] DIAGNOSTIC RT / PROCEDURE REASON: multiple diagnoses * * * * Physician Interpretation * * * * RESULT: #[id number] - [facility] US LOC BREAST RT #[id number] - [facility] DIAGNOSTIC RT ULTRASOUND GUIDED INFRARED ACTIVATED ELECTROMAGNETIC REFLECTOR DEVICE PLACEMENT RIGHT BREAST WITH POST DIGITAL MAMMOGRAPHIC AND ULTRASOUND IMAGIN01/29/2024 HISTORY: Multiple Diagnoses Multiple Diagnoses. PATIENT CONSENT: A time out was performed immediately prior to procedure start with the radiology team, correctly identifying the patient name, date of , procedure, anatomy (including marking of site and side), patient position, relevant diagnostic and radiology test results, safety precautions, and procedure-specific equipment needs. The procedure was explained to the patient including the risks, benefits and alternatives. Medications and allergies were also reviewed. The risks, including but not limited to infection and bleeding, were reviewed by the performing physician and the patient agreed to undergo the procedure. The radiologist and technologist were present throughout the entire procedure. Audible Time Out Time: 1021 hrs Procedure Start Time: 1026 hrs Procedure Stop Time: 1030 hrs Correlation is made to exams dated: 01/08/2024 mammogram - [facility], 12/25/2023 ultrasound - [facility], 12/18/2023 breast MRI, 11/21/2023 ultrasound, 11/21/2023 mammogram, and 10/16/2023 ultrasound. An infrared activated electromagnetic reflector device placement using ultrasound guidance was performed for the lesion located in the right breast at 11 o'clock 5 cm from the nipple. This was described on the previous mammography and ultrasound reports. The skin was prepped in the usual manner. Local anesthetic was administered to the access site. A skin lora was made in the breast. A location device was inserted into the targeted area under ultrasound guidance. A skin adhesive and a skin closure strip were applied to the access site. Post placement digital mammographic and ultrasound imaging demonstrates location device traverses the targeted area. IMPRESSION IMPRESSION: INFRARED ACTIVATED ELECTROMAGNETIC REFLECTOR DEVICE PLACEMENT Infrared activated electromagnetic reflector device placement for the lesion in the right breast at 11 o'clock 5 cm from the nipple was successful with no apparent post procedure complications. A specimen radiograph is recommended. Aruna Joshua M.D. rs/:01/29/2024 11:11:30 Link Assembler(s): Jumana Sparks [facility] Multiple national specialty organizations have released breast cancer screening guidelines for women at average risk for developing breast cancer - guidelines that are based on both evidence and opinion, yet differ on when to start and how often to screen for breast cancer. With representation from Breast Imaging, Internal Medicine, Women's Health, Family Medicine, and Medical/Surgical Oncology, the [facility] has carefully reviewed the data and reached the following consensus: 1) All women should engage in shared decision-making with their providers to decide when to start and how often to screen; 2) All women should have the opportunity to start screening mammography at age 40; 3) For women ages 45-55, we recommend annual screening mammograms; 4) For women ages 55 and over, we support both the transition from an annual to a biennial interval if this aligns more with patient's values and preferences, or continuation with annual screening; 5) All women should discuss with their providers when to stop screening mammograms. Transcribed Using Voice Recognition Transcribe Date/Time: Jan 29 2024 10:23A Dictated by: ARUNA JOSHUA MD This examination was interpreted and the report reviewed and electronically signed by: ARUNA JOSHUA MD on Jan 29 2024 11:11AM EST [facility] No Panel Informationon 01-28 IMPRESSION: INFRARED ACTIVATED ELECTROMAGNETIC REFLECTOR DEVICE PLACEMENT Infrared activated electromagnetic reflector device placement for the lesion in the right breast at 11 o'clock 5 cm from the nipple was successful with no apparent post procedure complications. A specimen radiograph is recommended. Aruna Joshua M.D. rs/:01/29/2024 11:11:30 Link Assembler(s): Jumana Sparks [facility] Multiple national specialty organizations have released breast cancer screening guidelines for women at average risk for developing breast cancer - guidelines that are based on both evidence and opinion, yet differ on when to start and how often to screen for breast cancer. With representation from Breast Imaging, Internal Medicine, Women's Health, Family Medicine, and Medical/Surgical Oncology, the [facility] has carefully reviewed the data and reached the following consensus: 1) All women should engage in shared decision-making with their providers to decide when to start and how often to screen; 2) All women should have the opportunity to start screening mammography at age 40; 3) For women ages 45-55, we recommend annual screening mammograms; 4) For women ages 55 and over, we support both the transition from an annual to a biennial interval if this aligns more with patient's values and preferences, or continuation with annual screening; 5) All women should discuss with their providers when to stop screening mammograms. Transcribed Using Voice Recognition Transcribe Date/Time: Jan 29 2024 10:23A Dictated by: ARUNA JOSHUA MD This examination was interpreted and the report reviewed and electronically signed by: ARUNA JOSHUA MD on Jan 29 2024 11:11AM [facility] RADIOLOG[facility] Radiology Study observation (narrative) [facility] No Panel InformationOrdered By: [facility] Provider on 01-29-2024 [facility] US Guidance for localization of Breast - righton 01-29-2024 * * *Final Report* * * DATE OF EXAM: Jan 29 2024 11:04AM HCW 0600 - [facility] US LOC BREAST RT / PROCEDURE REASON: multiple diagnoses * * * * Physician Interpretation * * * * RESULT: #[id number] - [facility] US LOC BREAST RT #[id number] - [facility] DIAGNOSTIC RT ULTRASOUND GUIDED INFRARED ACTIVATED ELECTROMAGNETIC REFLECTOR DEVICE PLACEMENT RIGHT BREAST WITH POST DIGITAL MAMMOGRAPHIC AND ULTRASOUND IMAGIN01/29/2024 HISTORY: Multiple Diagnoses Multiple Diagnoses. PATIENT CONSENT: A time out was performed immediately prior to procedure start with the radiology team, correctly identifying the patient name, date of , procedure, anatomy (including marking of site and side), patient position, relevant diagnostic and radiology test results, safety precautions, and procedure-specific equipment needs. The procedure was explained to the patient including the risks, benefits and alternatives. Medications and allergies were also reviewed. The risks, including but not limited to infection and bleeding, were reviewed by the performing physician and the patient agreed to undergo the procedure. The radiologist and technologist were present throughout the entire procedure. Audible Time Out Time: 1021 hrs Procedure Start Time: 1026 hrs Procedure Stop Time: 1030 hrs Correlation is made to exams dated: 01/08/2024 mammogram - [facility], 12/25/2023 ultrasound - [facility], 12/18/2023 breast MRI, 11/21/2023 ultrasound, 11/21/2023 mammogram, and 10/16/2023 ultrasound. An infrared activated electromagnetic reflector device placement using ultrasound guidance was performed for the lesion located in the right breast at 11 o'clock 5 cm from the nipple. This was described on the previous mammography and ultrasound reports. The skin was prepped in the usual manner. Local anesthetic was administered to the access site. A skin lora was made in the breast. A location device was inserted into the targeted area under ultrasound guidance. A skin adhesive and a skin closure strip were applied to the access site. Post placement digital mammographic and ultrasound imaging demonstrates location device traverses the targeted area. [facility], [facility] 01/29/[facility]24 * * *Final Report* * * DATE OF EXAM: Jan 29 2024 11:04AM HCW 0600 - [facility] US LOC BREAST RT / PROCEDURE REASON: multiple diagnoses * * * * Physician Interpretation * * * * RESULT: #[id number] - [facility] US LOC BREAST RT #[id number] - [facility] DIAGNOSTIC RT ULTRASOUND GUIDED INFRARED ACTIVATED ELECTROMAGNETIC REFLECTOR DEVICE PLACEMENT RIGHT BREAST WITH POST DIGITAL MAMMOGRAPHIC AND ULTRASOUND IMAGIN01/29/2024 HISTORY: Multiple Diagnoses Multiple Diagnoses. PATIENT CONSENT: A time out was performed immediately prior to procedure start with the radiology team, correctly identifying the patient name, date of , procedure, anatomy (including marking of site and side), patient position, relevant diagnostic and radiology test results, safety precautions, and procedure-specific equipment needs. The procedure was explained to the patient including the risks, benefits and alternatives. Medications and allergies were also reviewed. The risks, including but not limited to infection and bleeding, were reviewed by the performing physician and the patient agreed to undergo the procedure. The radiologist and technologist were present throughout the entire procedure. Audible Time Out Time: 1021 hrs Procedure Start Time: 1026 hrs Procedure Stop Time: 1030 hrs Correlation is made to exams dated: 01/08/2024 mammogram - [facility], 12/25/2023 ultrasound - [facility], 12/18/2023 breast MRI, 11/21/2023 ultrasound, 11/21/2023 mammogram, and 10/16/2023 ultrasound. An infrared activated electromagnetic reflector device placement using ultrasound guidance was performed for the lesion located in the right breast at 11 o'clock 5 cm from the nipple. This was described on the previous mammography and ultrasound reports. The skin was prepped in the usual manner. Local anesthetic was administered to the access site. A skin lora was made in the breast. A location device was inserted into the targeted area under ultrasound guidance. A skin adhesive and a skin closure strip were applied to the access site. Post placement digital mammographic and ultrasound imaging demonstrates location device traverses the targeted area. IMPRESSION IMPRESSION: INFRARED ACTIVATED ELECTROMAGNETIC REFLECTOR DEVICE PLACEMENT Infrared activated electromagnetic reflector device placement for the lesion in the right breast at 11 o'clock 5 cm from the nipple was successful with no apparent post procedure complications. A specimen radiograph is recommended. Aruna Joshua M.D. rs/:01/29/2024 11:11:30 Link Assembler(s): Jumana Sparks [facility] Multiple national specialty organizations have released breast cancer screening guidelines for women at average risk for developing breast cancer - guidelines that are based on both evidence and opinion, yet differ on when to start and how often to screen for breast cancer. With representation from Breast Imaging, Internal Medicine, Women's Health, Family Medicine, and Medical/Surgical Oncology, the [facility] has carefully reviewed the data and reached the following consensus: 1) All women should engage in shared decision-making with their providers to decide when to start and how often to screen; 2) All women should have the opportunity to start screening mammography at age 40; 3) For women ages 45-55, we recommend annual screening mammograms; 4) For women ages 55 and over, we support both the transition from an annual to a biennial interval if this aligns more with patient's values and preferences, or continuation with annual screening; 5) All women should discuss with their providers when to stop screening mammograms. Transcribed Using Voice Recognition Transcribe Date/Time: Jan 29 2024 10:23A Dictated by: ARUNA JOSHUA MD This examination was interpreted and the report reviewed and electronically signed by: ARUNA JOSHUA MD on Jan 29 2024 11:11AM EST [facility] Radiology Study observation (narrative) [facility] Basic metabolic 2000 panelon 01-28-2024 Anion gap [Moles/Vol] 11 mmol/L 8 - 15 mmol/L [facility] Calcium [Mass/Vol] 9.9 mg/dL 8.5 - 10. 2 mg/dL [facility] Chloride [Moles/Vol] 102 mmol/L 98 - 10 7 mmol/L [facility] CO2 [Moles/Vol] 29 mmol/L 22 - 30 mmol/L [facility] Creatinine [Mass/Vol] 0.84 mg/dL 0.58 - 0.96 mg/dL [facility] GFR/1.73 sq M.predicted among non-blacks MDRD (S/P/Bld) [Vol rate/Area] 80 mL/min/{1.73_m2} - PINF [facility] Comment on above: Estimated Glomerular Filtration Rate (eGFR) is calculated using the 2020 CKD-EPI creatinine equation. This equation utilizes serum creatinine, sex, and age as parameters. The creatinine assay has traceable calibration to isotope dilution-mass spectrometry. Refer to KDIGO guidelines for clinical interpretation. In patients with unstable renal function, e.g. those with acute kidney injury, the eGFR may not accurately reflect actual GFR. Glucose [Mass/Vol] 61 mg/dL Low 74 - 99 mg/dL [facility] Comment on above: The [place] Diabete s Association (ADA) provides guidance for cutoff values for fasting glucose and random glucose. The ADA defines fasting as no caloric intake for at least 8 hours. Fasting plasma glucose results between 100 to 125 mg/dL indicate increased risk for diabetes (prediabetes). Fasting plasma glucose results greater than or equal to 126 mg/dL meet the criteria for diagnosis of diabetes. In the absence of unequivocal hyperglycemia, results should be confirmed by repeat testing. In a patient with classic symptoms of hyperglycemia or hyperglycemic crisis, random plasma glucose results greater than or equal to 200 mg/dL meet the criteria for diagnosis of diabetes. Reference: Standards of Medical Care in Diabetes 2016, [place] Diabetes Association. Diabetes Care. 2016.39(Suppl 1). Interpretation and review of laboratory results Abnormal [facility] Potassium [Moles/Vol] 3.3 mmol/L Low 3.7 - 5.1 mmol/L [facility] Sodium [Moles/Vol] 142 mmol/L 136 - 144 mmol/L [facility] Urea nitrogen [Mass/Vol] 14 mg/dL 7 - 21 mg/dL [facility] Anion gap [Moles/Vol] 11 mmol/L Normal 8-15 [facility] Comment on above: Order Comment: Speci men Type: BLOOD SPECIMENOrdering Facility: [facility] Address: [address], [place] [address] Performed By: #### 2 4321-2 ####[facility]ATORYCLIA [id number] [place] [address] [place] Calcium [Mass/Vol] 9.9 mg/dL Normal 8.5-10.2 [facility] Comment on above: Order Comment: Speci men Type: BLOOD SPECIMENOrdering Facility: [facility] Address: [address] [place] [address] Performed By: #### 2 4321-2 ####[facility]ORATORYCLIA [id number] [place] [address] [place] Chloride [Moles/Vol] 102 mmol/L Normal 98-107 [facility] Comment on above: Order Comment: Speci men Type: BLOOD SPECIMENOrdering Facility: [facility] Address: [address] [place] [address] Performed By: #### 2 4321-2 ####[facility]ORATORYCLIA [id number] [place] [address] [place] CO2 [Moles/Vol] 29 mmol/L Normal 22-30 [facility] Comment on above: Order Comment: Speci men Type: BLOOD SPECIMENOrdering Facility: [facility] Address: [address] [place] [address] Performed By: #### 2 4321-2 ####[facility]ORATORYCL[facility] [id number] [address] [place] Creatinine [Mass/Vol] 0.84 mg/dL Normal 0.58-0.96 [facility] [place] Comment on above: Order Comment: Speci men Type: BLOOD SPECIMENOrdering Facility: [facility] Address: [address] [place] [address] Performed By: #### 2 4321-2 ####[facility]ORATORYCLIA [id number] [address] Creatinine and Glomerular filtration rate.predicted panel (S/P/Bld) 80 mL/min/1.73m??? Normal >=60 [facility] Comment on above: Order Comment: Speci men Type: BLOOD SPECIMENOrdering Facility: [facility] Address: [address] [place] [address] Result Comment: Evonne mated Glomerular Filtration Rate (eGFR) is calculated using the 2020 CKD-EPI creatinine equation. This equation utilizes serum creatinine, sex, and age as parameters. The creatinine assay has traceable calibration to isotope dilution-mass spectrometry. Refer to KDIGO guidelines for clinical interpretation. In patients with unstable renal function, e.g. those with acute kidney injury, the eGFR may not accurately reflect actual GFR. Performed By: #### 2 4321-2 ####[facility]ORYCL[facility] [id number] [place] [id number] [place] Glucose [Mass/Vol] 61 mg/dL Low 74-99 [facility] Comment on above: Order Comment: Cal men Type: BLOOD SPECIMENOrdering Facility: [facility] Address: [address] [place] [address] Result Comment: The [place] Diabetes Association (ADA) provides guidance for cutoff values for fasting glucose and random glucose. The ADA defines fasting as no caloric intake for at least 8 hours. Fasting plasma glucose results between 100 to 125 mg/dL indicate increased risk for diabetes (prediabetes). Fasting plasma glucose results greater than or equal to 126 mg/dL meet the criteria for diagnosis of diabetes. In the absence of unequivocal hyperglycemia, results should be confirmed by repeat testing. In a patient with classic symptoms of hyperglycemia or hyperglycemic crisis, random plasma glucose results greater than or equal to 200 mg/dL meet the criteria for diagnosis of diabetes. Reference: Standards of Medical Care in Diabetes 2016, [place] Of [place] Diabetes Association. Diabetes Care. 2016.39(Suppl 1). Performed By: #### 2 4321-2 ####[facility]ORATORYCLIA [id number] [place] [id number] [place] Potassium [Moles/Vol] 3.3 mmol/L Low 3.7-5.1 [facility] [place] Comment on above: Order Comment: Cal men Type: BLOOD SPECIMENOrdering Facility: [facility] Address: [address] [id number] Performed By: #### 2 4321-2 ####[facility]ORATORYCLIA [id number] [place] [address] [place] Sodium [Moles/Vol] 142 mmol/L Normal 136-144 [facility] Comment on above: Order Comment: Speci men Type: BLOOD SPECIMENOrdering Facility: [facility] Address: [address] [place] [address] Performed By: #### 2 4321-2 ####[facility]ORATORYCLIA [id number] [address] STATES [facility] Urea nitrogen [Mass/Vol] 14 mg/dL Normal 7-21 [facility] Comment on above: Order Comment: Speci men Type: BLOOD SPECIMENOrdering Facility: [facility] Address: [address] [place] [address] Performed By: #### 2 4321-2 ####[facility]ORYCLIA [id number] [address] [place] CBC W Auto Differential pane l (Bld)on 01-28-2024 Basophils (Bld) [#/Vol] 0.07 10*3/uL [facility] Basophils/100 WBC (Bld) 0.8 % [facility] Differential cell count method Nom (Bld) Auto [facility] Eosinophils (Bld) [#/Vol] 0.22 10*3/uL [facility] Eosinophils/100 WBC (Bld) 2.5 % [facility] Erythrocyte distribution width (RBC) [Ratio] 13.4 % 11.5 - 15.0 % [facility] Hematocrit (Bld) [Volume fraction] 43.8 % 36.0 - 46.0 % [facility] Hemoglobin (Bld) [Mass/Vol] 14.1 g/dL 11.5 - 15.5 g/dL [facility] Immature granulocytes (Bld) [#/Vol] 0.03 10*3/uL [facility] Immature granulocytes/100 WBC (Bld) 0.3 % [facility] Lymphocytes (Bld) [#/Vol] 3.63 10*3/uL [facility] Lymphocytes/100 WBC (Bld) 41.2 % [facility] MCH (RBC) [Entitic mass] 27.7 pg 26.0 - 34.0 pg [facility] MCHC (RBC) [Mass/Vol] 32.2 g/dL 30.5 - 36.0 g/dL [facility] MCV (RBC) [Entitic vol] 86.1 fL 80.0 - 100.0 fL [facility] Monocytes (Bld) [#/Vol] 0.70 10*3/uL NINF [facility] Monocytes/100 WBC (Bld) 7.9 % [facility] Neutrophils (Bld) [#/Vol] 4.16 10*3/uL [facility] Neutrophils/100 WBC (Bld) 47.3 % [facility] Nucleated RBC (Bld) [#/Vol] NINF [facility] Nucleated RBC/100 WBC (Bld) [Ratio] 0.0 % /100 WBC [facility] Platelet mean volume (Bld) [Entitic vol] 11.8 fL 9.0 - 12.7 fL [facility] Platelets (Bld) [#/Vol] 265 10*3/uL [facility] RBC (Bld) [#/Vol] 5.09 10*6/uL 3.90 - 5.2 0 m/uL [facility] WBC (Bld) [#/Vol] 8.81 10*3/uL [facility] Basophils (Bld) [#/Vol] 0.07 10*3/uL Normal <0.11 [facility] Comment on above: Order Comment: Speci men Type: BLOOD SPECIMENOrdering Facility: [facility] Address: [address] [place] [address] Performed By: #### 5 7021-8 ####[facility]ORATORYCLIA [id number] [address] Basophils/100 WBC (Bld) 0.8 % Normal [facility] Comment on above: Order Comment: Speci men Type: BLOOD SPECIMENOrdering Facility: [facility] Address: [address] [place] [address] Performed By: #### 5 7021-8 ####[facility]ORATORYCLIA [id number] [address] Differential cell count method Nom (Bld) Auto Normal [facility] Comment on above: Order Comment: Speci men Type: BLOOD SPECIMENOrdering Facility: [facility] Address: [address] [place] [address] Performed By: #### 5 7021-8 ####[facility]ORATORYCLIA [id number] [address] [place] Eosinophils (Bld) [#/Vol] 0.22 10*3/uL Normal <0.46 [facility] Comment on above: Order Comment: Speci men Type: BLOOD SPECIMENOrdering Facility: [facility] Address: [address] [place] [address] Performed By: #### 5 7021-8 ####[facility]ORATORYCLIA [id number] [address] [place] Eosinophils/100 WBC (Bld) 2.5 % Normal [facility] Comment on above: Order Comment: Speci men Type: BLOOD SPECIMENOrdering Facility: [facility] Address: [address] [place] [address] Performed By: #### 5 7021-8 ####[facility]ORATORYCLIA [id number] [address] [place] Erythrocyte distribution width (RBC) [Ratio] 13.4 % Normal 11.5-15.0 [facility] Comment on above: Order Comment: Speci men Type: BLOOD SPECIMENOrdering Facility: [facility] Address: [address] [place] [address] Performed By: #### 5 7021-8 ####[facility]ORATORYCLIA [id number] [address] [place] Hematocrit (Bld) [Volume fraction] 43.8 % Normal 36.0-46.0 [facility] Comment on above: Order Comment: Speci men Type: BLOOD SPECIMENOrdering Facility: [facility] Address: [address] [place] [address] Performed By: #### 5 7021-8 ####[facility]ORATORYCLIA [id number] [address] [place] Hemoglobin (Bld) [Mass/Vol] 14.1 g/dL Normal 11.5-15.5 [facility] Comment on above: Order Comment: Speci men Type: BLOOD SPECIMENOrdering Facility: [facility] Address: [address] [place] [address] Performed By: #### 5 7021-8 ####[facility]ORATORYCLIA [id number] [address] Immature granulocytes (Bld) [#/Vol] 0.03 10*3/uL Normal <0.10 [facility] Comment on above: Order Comment: Speci men Type: BLOOD SPECIMENOrdering Facility: [facility] Address: [address] [place] [address] Performed By: #### 5 7021-8 ####[facility]ATORYCLIA [id number] [address] Immature granulocytes/100 WBC (Bld) 0.3 % Normal [facility] Comment on above: Order Comment: Speci men Type: BLOOD SPECIMENOrdering Facility: [facility] Address: [address] [place] [address] Performed By: #### 5 7021-8 ####[facility]ORATORYCLIA [id number] [address] [place] Lymphocytes (Bld) [#/Vol] 3.63 10*3/uL Normal 1.00-4.00 [facility] Comment on above: Order Comment: Speci men Type: BLOOD SPECIMENOrdering Facility: [facility] Address: [address] [place] [address] Performed By: #### 5 7021-8 ####[facility]ORATORYCLIA [id number] [address] Lymphocytes/100 WBC (Bld) 41.2 % Normal [facility] Comment on above: Order Comment: Speci men Type: BLOOD SPECIMENOrdering Facility: [facility] Address: [address] [place] [address] Performed By: #### 5 7021-8 ####[facility]ORATORYCLIA [id number] [address] [place] MCH (RBC) [Entitic mass] 27.7 pg Normal 26.0-34.0 [facility] Comment on above: Order Comment: Speci men Type: BLOOD SPECIMENOrdering Facility: [facility] Address: [address] [place] [address] Performed By: #### 5 7021-8 ####[facility] LABORATORYCLIA [id number] [place] [address] [place] MCHC (RBC) [Mass/Vol] 32.2 g/dL Normal 30.5-36.0 [facility] [place] Comment on above: Order Comment: Speci men Type: BLOOD SPECIMENOrdering Facility: [facility] Address: [address] [place] [address] Performed By: #### 5 7021-8 ####[facility]ORATORYCLIA [id number] [address] [place] MCV (RBC) [Entitic vol] 86.1 fL Normal 80.0-100.0 [facility] Comment on above: Order Comment: Speci men Type: BLOOD SPECIMENOrdering Facility: [facility] Address: [address] [place] [address] Performed By: #### 5 7021-8 ####[facility]ORATORYCLIA [id number] [place] [address] [place] Monocytes (Bld) [#/Vol] 0.70 10*3/uL Normal <0.87 [facility] Comment on above: Order Comment: Speci men Type: BLOOD SPECIMENOrdering Facility: [facility] Address: [address] [place] [address] Performed By: #### 5 7021-8 ####[facility]ORATORYCLIA [id number] [address] Monocytes/100 WBC (Bld) 7.9 % Normal [facility] Comment on above: Order Comment: Speci men Type: BLOOD SPECIMENOrdering Facility: [facility] Address: [address] [place] [address] Performed By: #### 5 7021-8 ####[facility]ORATORYCLIA [id number] [place] [address] [place] Neutrophils (Bld) [#/Vol] 4.16 10*3/uL Normal 1.45-7.50 [facility] Comment on above: Order Comment: Speci men Type: BLOOD SPECIMENOrdering Facility: [facility] Address: [address] [place] [address] Performed By: #### 5 7021-8 ####[facility]ORATORYCLIA [id number] [address] [place] Neutrophils/100 WBC (Bld) 47.3 % Normal [facility] Comment on above: Order Comment: Speci men Type: BLOOD SPECIMENOrdering Facility: [facility] Address: [address] [place] [address] Performed By: #### 5 7021-8 ####[facility] LABORATORYCLIA [id number] [place] [address] [place] Nucleated RBC (Bld) [#/Vol] 10*3/uL Normal <0.01 [facility] Comment on above: Order Comment: Speci men Type: BLOOD SPECIMENOrdering Facility: [facility] Address: [address] [place] [address] Performed By: #### 5 7021-8 ####[facility]ORATORYCLIA [id number] [address] [place] Nucleated RBC/100 WBC (Bld) [Ratio] 0.0 /100 WBC Normal [facility] Comment on above: Order Comment: Speci men Type: BLOOD SPECIMENOrdering Facility: [facility] Address: [address] [place] [address] Performed By: #### 5 7021-8 ####[facility]ORATORYCLIA [id number] [address] [place] Platelet mean volume (Bld) [Entitic vol] 11.8 fL Normal 9.0-12.7 [facility] Comment on above: Order Comment: Speci men Type: BLOOD SPECIMENOrdering Facility: [facility] Address: [address] [place] [address] Performed By: #### 5 7021-8 ####[facility] LABORATORYCLIA [id number] [place] [address] [place] Platelets (Bld) [#/Vol] 265 10*3/uL Normal 150-400 [facility] Comment on above: Order Comment: Speci men Type: BLOOD SPECIMENOrdering Facility: [facility] Address: [address] [place] [address] Performed By: #### 5 7021-8 ####[facility]ATORYCLIA [id number] [address] RBC (Bld) [#/Vol] 5.09 10*6/uL Normal 3.90-5.20 [facility] Comment on above: Order Comment: Speci men Type: BLOOD SPECIMENOrdering Facility: [facility] Address: [address] [place] [address] Performed By: #### 5 7021-8 ####[facility]ORATORYCLIA [id number] [address] WBC (Bld) [#/Vol] 8.81 10*3/uL Normal 3.70-11.00 [facility] Comment on above: Order Comment: Speci men Type: BLOOD SPECIMENOrdering Facility: [facility] Address: [address] [place] [address] Performed By: #### 5 7021-8 ####[facility]ORATORYCLIA [id number] [address] ECG COMPLETEon 01-28-2024 ECG COMPLETE Ventricular Rate : 7 3 BPM Atrial Rate : 73 BPM P-R Interval : 200 ms QRS Duration : 100 ms Q-T Interval : 416 ms QTC Calculation(Bazett) : 458 ms Calculated P Smithers : 71 degrees Calculated R Smithers : -25 degrees Calculated T Smithers : 63 degrees SINUS RHYTHM WITH OCCASIONAL PREMATURE VENTRICULAR COMPLEXES AND POSSIBLE PREMATURE ATRIAL COMPLEXES WITH Aberrant conduction POSSIBLE LEFT ATRIAL ENLARGEMENT SEPTAL INFARCT , AGE UNDETERMINED ABNORMAL ECG NO PREVIOUS ECGS AVAILABLE Confirmed by MD RODRIGUEZ GREGORY () on 01/29/2024 8:07:58 AM NAME : GILLIAN LUIS PID : [id number] : 1965 Gender : Female Race : ORD : [id number] Procedure Date : Jan 28 2024 15:13:51 Edit Date : Jan 29 2024 08:08:00 Diagnosis: SINUS RHYTHM WITH OCCASIONAL PREMATURE VENTRICULAR COMPLEXES AND POSSIBLE PREMATURE ATRIAL COMPLEXES WITH Aberrant conduction POSSIBLE LEFT ATRIAL ENLARGEMENT SEPTAL INFARCT , AGE UNDETERMINED ABNORMAL ECG NO PREVIOUS ECGS AVAILABLE Confirmed by MD RODRIGUEZ GREGORY () on 01/29/2024 8:07:58 AM Test Reason : HCS Location : 10 : PAT/ Overread By : MD RODRIGUEZ GREGORY Edited By : MD RODRIGUEZ GREGORY Referred By : TING POLO Acquired by : Paul FOFANA [facility] HISTORY PHYSICALon HISTORY PHYSICAL HNO ID: [id number] Author: KRIS POLANCO PA-C Service: ? Author Type: Physician Melt Helper Type: H&P Filed: 01/29/2024 17:13 Note Text: HISTORY AND PHYSICAL EXAMINATION SERVICE DATE: 01/28/2024 SERVICE TIME: 3:34 PM PRIMARY CARE PHYSICIAN: Gertrudis De Leon MD Assessment Patient has the following medical conditions which may affect dora-operative course: TIA (transient ischemic attack) Assessment: no deficits Mild major depression (HCC) Assessment: Stable on RX, denies concerning symptoms Sarcoidosis Assessment: reports breast lump that was unable to get good biopsy, with further work up lesions were found in lungs, spleen, kidneys. Had right lung resection and dx with sarcoid, treated with prednisone x 1 yr. Now in remission. Denies concerning symptoms. Benign hypertension Assessment: BP today in clinic 151/82. Stable on RX. Smoker Assessment: reports 1 ppd x 20 yrs Hyperlipidemia Assessment: Stable on RX Seizure-like activity (HCC) Assessment: reports one time event in September 2023 with shaking and 5 hour period of amnesia. No meds, no follow up with neurology. Believes related to stress. MELECIO (obstructive sleep apnea) Assessment: + CPAP [place] Activity Status Index: METS: Climb a flight of stairs or walk up a hill (5.50 METs) DASI Score: 5.5 Patient denies any chest pain or undue shortness of breath with the above physical activity. Clinical Frailty Scale: 3. Well, with treated comorbid disease STOP-Bang Score: STOP-Bang Score: (+ CPAP) [id number] Score: Age: <65 Sex: female CHF history: No Hypertension history: Yes Stroke/TIA/thromboembolism history: Yes Vascular disease history: No Diabetes history: No [id number] Score: 4 ARISCAT Score: Age: 51-80 Preoperative SpO2: >=96% Respiratory infection in the last month: No Preoperative anemia: Yes Surgical incision: peripheral Duration of surgery: <2 hrs Emergency procedure: No ARISCAT Score: 14 ANESTHESIA FINDINGS: Intubation History: No history of difficult intubation. No abnormal airway history Significant Anesthesia Considerations: none Airway History: No history of difficult airway No abnormal airway history I - PHYSICAL EVALUATION AIRWAY Patient intubated: No. Tracheostomy tube not present Mallampati: III. TM distance: >3 FB. Neck ROM: full ROM without neurological symptoms. Mouth opening: adequate. Short neck: no. Thick neck: no Lip Bite Test: I DENTAL Dentures, upper: complete. Dentures, lower: complete. Additional comments: Doesn't wear bottom plate. II - ANESTHESIA PLAN Anesthetic Plan: other Anesthetic plan additional comments: *PACC/TCI - anesthesia choice. Beta Cecil Monitoring Plan Post Procedure Analgesic Plan Prepared for Surgery: optimally prepared for surgery. Labs, EKG January 29, 2024 5:13 PM Labs and EKG reviewed. OK to proceed with procedure. Kris Polanco PA-C CONSULTS: Patient does not require consults for optimization at this time Planned Anesthetic: other anesthesia choice REASON FOR VISIT: Gillian Luis is a 58 year old female who is scheduled for Procedure(s) with comments: MASTECTOMY PARTIAL (Right) - MASTECTOMY PARTIAL [2572] BIOPSY NODE SENTINEL AXILLARY (Right) - BIOPSY NODE SENTINEL AXILLARY [1219] INJ 10:15 am at the request of Ting Thrasher MD for consultation. My final recommendation will be communicated back to the requesting physician by way of shared medical record or letter. Subjective The patient has the following: ACTIVE PROBLEM LIST Benign Hypertension Breast Cancer (Hcc) Sarcoidosis Tia (Transient Ischemic Attack) Mild Major Depression (Hcc) Smoker Hyperlipidemia Seizure-Like Activity (Hcc) Melecio (Obstructive Sleep Apnea) COVID-19 Immunization Status Overdue - Covid-19 Vaccine ( season) Never done No completion, postpone, frequency change, or communication history exists for this topic. CHIEF COMPLAINT: Pre-anesthesia optimization HPI: Gillian Luis is a 58 year old female presenting for pre-anesthesia consultation. Pt has history of right breast CA dx on mammogram with positive biopsy. Above procedure recommended to manage symptoms. Procedure scheduled on 02/04/2024 at [place]. REVIEW OF SYSTEMS: General: No weight loss, malaise or fevers. Neurological: Positive for: seizures (x 1, shaking and 5 hour period of amnesia) and TIA. Negative for: strokes. Respiratory: + sarcoidosis- breast nodule and lung nodules, right wedge resection 2003 and steroid tx x 1 yr Positive for: tobacco use (1 ppd x 20 yrs), obstructive sleep apnea and CPAP/BiPAP compliant. Negative for: asthma, COPD, current cough, dyspnea and URI < 2 weeks. Cardiovascular: Positive for: hyperlipidemia and hypertension Negative for: arrhythmia, atrial fibrillation, CAD, chest pain, DVT/PE and murmur/valvular heart disease. GI: Positive for: GERD (tums prn) Negative for: (more content not included)... Normal [facility] Oncology Visit Reporton Oncology Visit Report Normal [facility] C[facility] Telephone (GENTheTakesE) -- GILLIAN LUIS ([id number]) 1965 F Date Time Provider Department 01/18/24 TING POLO During your visit today, we recorded the following information about you: Josefina Ace 01/18/2024 9:[address] an order for TABBY pettit localization Allergies As of Date: 01/18/2024 Noted Allergy Reaction LATEX 10/20/2023 4 - Hives Date Reviewed: 01/17/2024 Reviewed by: Debra Celestin MA - Fully Assessed Prescriptions as of 01/22/2024 - metoprolol succinate ER (TOPROL XL) 100 mg Take 50 mg by mouth once daily. - lisinopril-hydroCHLOROthia zide (ZESTORETIC) 20-25 mg per tablet Take 1 tablet by mouth once daily. - rosuvastatin (CRESTOR) 10 mg tablet Take 10 mg by mouth once daily. - amLODIPine (NORVASC) 5 mg tablet Take by mouth as directed. - sertraline (ZOLOFT) 50 mg tablet Take 50 mg by mouth once daily. Problem List As Of Date: 01/18/2024 (None) Encounter Status:Closed by JOSEFINA ACE on 01/22/24 Normal [facility] CNOVon 01-17-2024 CNOV Office Visit (GENJENNIFER ) -- GILLIAN LUIS ([id number]) 1965 F Date Time Provider Department 01/17/24 11:30 AM TING POLO During your visit today, we recorded the following information about you: Ting Polo MD 01/17/2024 12:55 PM Signed HISTORY AND PHYSICAL - BREAST CANCER - RIGHT BREAST - 2 SITES Gillian Luis 1965 December 25, 2023 REFERRING PHYSICIAN: Gertrudis De Leon MD CHIEF COMPLAINT: BREAST CANCER - RIGHT - INVASIVE DUCTAL CARCINOMA HPI: Gillian Luis is a 58-year-old female who presents with right breast cancer at 2 sites. No information was received prior to the patient being seen in my office. I understand the patient had palpable masses in her right breast she underwent mammogram and ultrasound at [facility]. I have her copy of her ultrasound report dated October 16, 2023 which demonstrated suspicious solid-appearing lesions at both the 11 and 12:00 positions 2 foci are noted 1 measuring 17 x 17 x 21 mm and the additional measuring 12 x 24 x 8 mm they were uncertain whether these were 2 separate lesions or a single dumbbell shaped lesion. The patient then underwent core biopsy of this site on November 21, 2023. The 11:00 and 12:00 sites both returned as invasive ductal carcinoma-grade 2. Receptor status was estrogen positive progesterone negative HER2 indeterminant. FISH was negative for HER2 Addendum-having now received copies of her radiology reports a ribbon clip was placed at breast biopsy site a, a coil clip was placed at the breast biopsy site B. The patient notes some bruising of the site We extensively discussed her diagnosis including breast conservation surgical procedures, mastectomy without reconstruction and mastectomy with reconstruction. Reviewing care everywhere did not provide additional information however she did have ED visit on October 20, 2023 for alcohol intoxication related to anxiety and depression with what was felt to be homicidal suicidal intent initially due to the recent loss of her and the new diagnosis of breast cancer. This was not noted at the time of her visit nor discussed in the office setting The patient is being seen by me at the request of Dr. Gertrudis De Leon MD for my opinion and advice regarding locally advanced right-sided breast cancer. Bone scan was obtained on December 14, 2023 which demonstrated no evidence of metastatic deposits. The patient was also referred to Dr. Brown Woody, medical oncology at [facility]. A CT scan of the chest was obtained which demonstrated no metastatic disease, but suggested a possible 1.5cm mass in the left breast. MRI which was obtained on December 18, 2023. This demonstrated the index lesion in the right breast and measured as 3.5cm x 1.5cm x 1.7cm. There was also an 11mm x 8mm x 5mm noted in the 12-1 o'clock position of the left breast noted 5.2cm behind the nipple. I performed office-based ultrasound on December 20 and found no abnormalities. I ordered a formal ultrasound which was obtained this morning. This also demonstrated no abnormalities. Given the MRI findings my plan is to schedule the patient for an MRI based evaluation/biopsy. The patient underwent MRI imaging/biopsy of the left breast abnormality. Biopsy was performed on January 08, 2024. This returned as: FINAL DIAGNOSIS A. Left breast, upper outer quadrant mass, biopsy: - Sclerosing adenosis, columnar cell change and focal fibroadenomatoid change. - Focal intraductal microcalcifications. - No evidence of malignancy. This is felt to be concordant with the MRI findings. The patient is decided she would like to proceed with lumpectomy and sentinel lymph node biopsy. PAST MEDICAL HISTORY Diagnosis Date Benign hypertension Breast cancer (HCC) 11/2023 Right Breast Decreased GFR Dysphagia, pharyngeal Generalized osteoarthrosis, involving multiple sites GERD (gastroesophageal reflux disease) High blood pressure Hyperlipemia Knee pain right Knee Mild major depression (HCC) Noncompliance with medication regimen Sarcoidosis TIA (transient ischemic attack) PAST SURGICAL HISTORY Procedure Laterality Date LIGATE FALLOPIAN TUBE PAST SURGICAL HISTORY OF Wedge Resection, Right Lung TONSILLECTOMY AND ADENOIDECTOMY TOTAL ABDOM HYSTERECTOMY Current Outpatient Medications Medication Sig Dispense Refill metoprolol succinate ER (TOPROL XL) 100 mg Take 50 mg by mouth once daily. lisinopril-hydroCHLOROthia zide (ZESTORETIC) 20-25 mg per tablet Take 1 tablet by mouth once daily. rosuvastatin (CRESTOR) 10 mg tablet Take 10 mg by mouth once daily. amLODIPine (NORVASC) 5 mg tablet Take by mouth as directed. metoprolol tartrate, short acting, (LOPRESSOR) 50 mg tablet Take by mouth as directed. lisinopril-hydroCHLOROthia zide (ZESTORETIC) 10-12.5 mg per tablet Take 1 tablet by mout (more content not included)... Normal [facility] 01-17-2024 CNPN Telephone (GENSME) -- GILLIAN LUIS ([id number]) 1965 F Date Time Provider Department 01/17/24 TING POLO During your visit today, we recorded the following information about you: Paulina Mccain 01/17/2024 1:51 PM Signed LOCALIZATION IMAGE REVIEW (Please do NOT submit until entire workup complete) (if > 3 reflectors to be placed in one breast, please review with radiologist) Gillian Luis [id number] 1965 WORK- UP COMPLETE? Yes Order Placed Yes Right - Site 1 Location 11 oclock Clip Shape ribbon Clip Migration No Pathology [facility] Preferred Localization coco Right - Site 2 Location 11 oclock Clip Shape Coil Clip Migration No Pathology [facility] Preferred Localization coco * If clip migrated, please review with radiologist This Form Has Been Completed By Paulina Mccain On Behalf Of Aruna Jacobson MD 01/17/2024 3:16 PM Signed I reviewed the images for preoperative localization planning. The biopsy proven carcinomas are very close together (distance between the biopsy clips is less than 2 cm). Options to be considered are to place a COCO reflector between the two clips or bracket wire localization. 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 I am fine if you want to place 2 wires the day of surgery. Her surgery scheduled for SundayFebruary 03 Since the whole thing was somewhat dumbbell shaped I was wondering about 2 COCO clips placed at the far end of both dumbbells not necessarily at the clip site. What is the distance you need to not have interference between the 2 clips being too close to each other? I remember they discussed that we are looking at the various options but forgot what the actual distance was. Thanks-Aruna Pinzon MD 01/18/2024 2:29 PM Signed Thanks for getting back to me! We'll plan for 2 SAVIs bracketing the two clips - I prefer at least a 2cm distance between clips/biopsy sites. Thank you! Aruna Joshua MD 01/18/2024 2:29 PM Signed I have reviewed and approved the localization plan (bracket COCO loc). Images dated 11/21/2023 are annotated. 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 - lisinopril-hydroCHLOROthia zide (ZESTORETIC) 20-25 mg per tablet Take 1 tablet by mouth once daily. - rosuvastatin (CRESTOR) 10 mg tablet Take 10 mg by mouth once daily. - amLODIPine (NORVASC) 5 mg tablet Take by mouth as directed. - sertraline (ZOLOFT) 50 mg tablet Take 50 mg by mouth once daily. Problem List As Of Date: 01/17/2024 (None) Encounter Status:Closed by ARUNA JOSHUA on 01/18/24 [facility] Tele[facility] ([facility]) -- GILLIAN LUIS ([id number]) 1965 F Date Time Provider Department 01/17/24 TING POLO During your visit today, we recorded the following information about you: Ting Polo MD 01/17/2024 12:47 PM Signed LOCALIZATION IMAGE REVIEW (Please do NOT submit until entire workup complete) (if > 3 reflectors to be placed in one breast, please review with radiologist) Gillian Luis [id number] 1965 WORK- UP COMPLETE? Yes Order Placed Yes Right - Site 1 Location 11 oclock Clip Shape ribbon Clip Migration No Pathology [facility] Preferred Localization coco * If clip migrated, please review with radiologist - Site 2 Location 12 oclock Clip Shape coil Clip Migration No Pathology [facility] Preferred Localization coco * If clip migrated, please review with radiologist This Form Has Been Completed By Ting Polo MD On Behalf Of tn Allergies As of Date: 01/17/2024 Noted Allergy Reaction LATEX 10/20/2023 4 - Hives Date Reviewed: 01/17/2024 Reviewed by: Debra Celestin MA - Fully Assessed Reason for Visit: Breast Localization [4188] Prescriptions as of 01/17/2024 - metoprolol succinate ER (TOPROL XL) 100 mg Take 50 mg by mouth once daily. - lisinopril-hydroCHLOROthia zide (ZESTORETIC) 20-25 mg per tablet Take 1 tablet by mouth once daily. - rosuvastatin (CRESTOR) 10 mg tablet Take 10 mg by mouth once daily. - amLODIPine (NORVASC) 5 mg tablet Take by mouth as directed. - sertraline (ZOLOFT) 50 mg tablet Take 50 mg by mouth once daily. Problem List As Of Date: 01/17/2024 (None) Encounter Status:[facility] (DEDRICK[facility] -- GILLIAN LUIS ([id number]) 1965 F Date Time Provider Department 01/15/24 TING POLO During your visit today, we recorded the following information about you: Allergies As of Date: 01/15/2024 Noted Allergy Reaction LATEX 10/20/2023 4 - Hives Date Reviewed: 01/08/2024 Reviewed by: Paco Grider RN - Fully Assessed Reason for Visit: Patient Question [2717] Prescriptions as of 01/16/2024 - metoprolol succinate ER (TOPROL XL) 100 mg Take 50 mg by mouth once daily. - lisinopril-hydroCHLOROthia zide (ZESTORETIC) 20-25 mg per tablet Take 1 tablet by mouth once daily. - rosuvastatin (CRESTOR) 10 mg tablet Take 10 mg by mouth once daily. - amLODIPine (NORVASC) 5 mg tablet Take by mouth as directed. - metoprolol tartrate, short acting, (LOPRESSOR) 50 mg tablet Take by mouth as directed. - lisinopril-hydroCHLOROthia zide (ZESTORETIC) 10-12.5 mg per tablet Take 1 tablet by mouth once daily. - sertraline (ZOLOFT) 50 mg tablet Take 50 mg by mouth once daily. - simvastatin (ZOCOR) 40 mg tablet Take 40 mg by mouth daily at bedtime. Problem List As Of Date: 01/15/2024 (None) Encounter Status:Closed by MARYBETH OWEN on 01/16/24 [facility] Va[facility]hav 01-14-2024 [facility] Telephone (DEDRICK) -- GILLIAN LUIS ([id number]) 1965 F Date Time Provider Department 01/14/24 TING POLO During your visit today, we recorded the following information about you: Martina Loera, RN 01/14/2024 9:15 AM Signed Gillian calls in today and asks if she can get surgery scheduled for her lumpectomy. Marybeth Owen, LUCIA 01/15/2024 4:00 PM Signed Patient is calling to ask about surgery. Spoke with Josefina Ace- she will speak with patient. Jennifer Nova has not yet contacted patient. Patient saw Dr Polo on 12/25/23 and she will speak with patient. Patient has two breast clips placed- two in right and one left and biopsy was done 01/08/24 She may need appt with Dr Polo again and is very anxious to have this surgery scheduled. Marybeth Owen, LUCIA 01/16/2024 9:00 AM Signed Josefina Ace You49 minutes ago (8:09 AM) MS Patient scheduled for a office appt 01/16 11:30am patient was very happy for this appt. Josefina Encounter closed. Allergies As of Date: 01/14/2024 Noted Allergy Reaction LATEX 10/20/2023 4 - Hives Date Reviewed: 01/08/2024 Reviewed by: Paco Grider, LUCIA - Fully Assessed Reason for Visit: Patient Question [8075] Prescriptions as of 01/16/2024 - metoprolol succinate ER (TOPROL XL) 100 mg Take 50 mg by mouth once daily. - lisinopril-hydroCHLOROthia zide (ZESTORETIC) 20-25 mg per tablet Take 1 tablet by mouth once daily. - rosuvastatin (CRESTOR) 10 mg tablet Take 10 mg by mouth once daily. - amLODIPine (NORVASC) 5 mg tablet Take by mouth as directed. - metoprolol tartrate, short acting, (LOPRESSOR) 50 mg tablet Take by mouth as directed. - lisinopril-hydroCHLOROthia zide (ZESTORETIC) 10-12.5 mg per tablet Take 1 tablet by mouth once daily. - sertraline (ZOLOFT) 50 mg tablet Take 50 mg by mouth once daily. - simvastatin (ZOCOR) 40 mg tablet Take 40 mg by mouth daily at bedtime. Problem List As Of Date: 01/14/2024 (None) Encounter Status:Closed by MARTINA LOERA on 01/14/24 [facility] 01-08-2024 [facility] Telephone (GENSWS) -- GILLIAN LUIS ([id number]) 1965 F Date Time Provider Department 01/08/24 TING POLO [email or web address] During your visit today, we recorded the following information about you: Pardeep Nova 01/08/2024 7:38 AM Signed Received fax from patients Cancer doctor at [facility] - Dr. Woody - that stated HOLD PORT PLACEMENT SHE MAY NOT NEED CHEMOTHERAPY/MONOCLONAL ANTIBODY THERAPY Patient currently scheduled with Dr. Polo in [place] on 01/14/2024. Please see and review scanned doc and advise Pardeep Nova Merchandise Presentation Associate Allergies As of Date: 01/08/2024 Noted Allergy Reaction LATEX 10/20/2023 4 - Hives Date Reviewed: 01/08/2024 Reviewed by: Paco Grider, LUCIA - Fully Assessed Reason for Visit: Patient Update [1234] Prescriptions as of 01/15/2024 - metoprolol succinate ER (TOPROL XL) 100 mg Take 50 mg by mouth once daily. - lisinopril-hydroCHLOROthia zide (ZESTORETIC) 20-25 mg per tablet Take 1 tablet by mouth once daily. - rosuvastatin (CRESTOR) 10 mg tablet Take 10 mg by mouth once daily. - amLODIPine (NORVASC) 5 mg tablet Take by mouth as directed. - metoprolol tartrate, short acting, (LOPRESSOR) 50 mg tablet Take by mouth as directed. - lisinopril-hydroCHLOROthia zide (ZESTORETIC) 10-12.5 mg per tablet Take 1 tablet by mouth once daily. - sertraline (ZOLOFT) 50 mg tablet Take 50 mg by mouth once daily. - simvastatin (ZOCOR) 40 mg tablet Take 40 mg by mouth daily at bedtime. Problem List As Of Date: 01/08/2024 (None) Encounter Status:Closed by PARDEEP NOVA on 01/08/24 [facility] DI[facility]on 01-08-20 [facility] * * *Final Report* * * DATE OF EXAM: Jan 08 2024 2:29PM [facility] 0621 - [facility] DIAGNO[facility]IC LT / PROCEDURE REASON: post mri bx * * * * Physician Interpretation * * * * #[id number] - [facility] DIAGNO[facility]IC LT UNILATERAL LEFT DIGITAL DIAGNOSTIC MAMMOGRAM WITH CAD: 01/08/2024 HISTORY: Post Mri Bx. RESULT: TECHNIQUE: The study was acquired using full field digital technology and interpreted from soft copy. Current study was also evaluated with a Computer Aided Detection (CAD). Comparison is made to exams dated: 12/18/2023 breast MRI, 11/21/2023 mammogram, and 10/11/2023 mammogram. The left breast is almost entirely fatty. There is a marker clip in the appropriate position in the left breast at 12 o'clock middle depth. This marker clip placement is at the biopsy site. This correlates with breast MRI findings, area of clinical concern, and the biopsy. IMPRESSION: POST PROCEDURE MAMMOGRAM FOR MARKER PLACEMENT There was a successful marker clip placement in the left breast middle depth. Pathology indicates slcerosing adenosis, columnar cell change and focal fibroadenomatoid change. No evidence of malignancy. Findings are felt condordant with imaging. Soraida Mckenzie M.D. er/:01/10/2024 12:28:09 Link Assembler(s): Josefina Akins, [facility] Mammogram BI-RADS: Post-procedure mammogram for marker placement Multiple national specialty organizations have released breast cancer screening guidelines for women at average risk for developing breast cancer - guidelines that are based on both evidence and opinion, yet differ on when to start and how often to screen for breast cancer. With representation from Breast Imaging, Internal Medicine, Women's Health, Family Medicine, and Medical/Surgical Oncology, the [facility] has carefully reviewed the data and reached the following consensus: 1) All women should engage in shared decision-making with their providers to decide when to start and how often to screen; 2) All women should have the opportunity to start screening mammography at age 40; 3) For women ages 45-55, we recommend annual screening mammograms; 4) For women ages 55 and over, we support both the transition from an annual to a biennial interval if this aligns more with patient's values and preferences, or continuation with annual screening; 5) All women should discuss with their providers when to stop screening mammograms. Sales Representative [employer]: Elbert Transcribe Date/Time: Jan 08 2024 2:02P Dictated by : SORAIDA MCKENZIE MD This examination was interpreted and the report reviewed and electronically signed by: SORAIDA MCKENZIE MD on Jan 10 2024 12:28PM EST [id number] [facility] MR Breast - left WO and W co ntrast Ernesto 01-08-2024 * * *Final Report* * * DATE OF EXAM: Jan 08 2024 2:28PM [facility] 0695 - MRI BREAST BX WO/W IVCON LT / PROCEDURE REASON: multiple diagnoses * * * * Physician Interpretation * * * * MRI BREAST BIOPSY LEFT BREAST Clinical Statement: Abnormal enhancement left breast Comparison: MRI from an outside institution on 12/18/2023 FINDINGS: The procedure of MRI guided breast biopsy was discussed with the patient including possible risks and complications. Verbal and written consent was obtained. 14 cc Dotarem was administered for the postcontrast portion of the exam. The patient was placed prone within the MRI localization grid and pre and postcontrast localization imaging of the LEFT breast was acquired. Postcontrast imaging again demonstrates a nodular focus of enhancement at 12:00 middle depth. The skin overlying the lateral aspect of the LEFT breast was prepped and draped in a sterile fashion. Local anesthesia was provided by 1% lidocaine. Utilizing MRI localization technique, a trocar was advanced into the LEFT breast with an obturator placed localizing the area of concern. Following trocar placement, repeat imaging confirmed appropriate positioning of the trocar. Subsequently, multiple core biopsies were acquired from the area of interest utilizing a 9 gauge vacuum-assisted core biopsy device. Additional lidocaine was administered during sampling. Postbiopsy imaging demonstrates postbiopsy change. A marker clip was deployed into the biopsy cavity. The patient tolerated the procedure without difficulty and left the department in satisfactory condition. Postbiopsy diagnostic mammogram for marker placement demonstrates the clip in appropriate position. [facility] RADIOLOGY Provider, Amari Prater - 01/08/2024 * * *Final Report* * * DATE OF EXAM: Jan 08 2024 2:28PM M 0695 - MRI BREAST BX WO/W IVCON LT / PROCEDURE REASON: multiple diagnoses * * * * Physician Interpretation * * * * MRI BREAST BIOPSY LEFT BREAST Clinical Statement: Abnormal enhancement left breast Comparison: MRI from an outside institution on 12/18/2023 FINDINGS: The procedure of MRI guided breast biopsy was discussed with the patient including possible risks and complications. Verbal and written consent was obtained. 14 cc Dotarem was administered for the postcontrast portion of the exam. The patient was placed prone within the MRI localization grid and pre and postcontrast localization imaging of the LEFT breast was acquired. Postcontrast imaging again demonstrates a nodular focus of enhancement at 12:00 middle depth. The skin overlying the lateral aspect of the LEFT breast was prepped and draped in a sterile fashion. Local anesthesia was provided by 1% lidocaine. Utilizing MRI localization technique, a trocar was advanced into the LEFT breast with an obturator placed localizing the area of concern. Following trocar placement, repeat imaging confirmed appropriate positioning of the trocar. Subsequently, multiple core biopsies were acquired from the area of interest utilizing a 9 gauge vacuum-assisted core biopsy device. Additional lidocaine was administered during sampling. Postbiopsy imaging demonstrates postbiopsy change. A marker clip was deployed into the biopsy cavity. The patient tolerated the procedure without difficulty and left the department in satisfactory condition. Postbiopsy diagnostic mammogram for marker placement demonstrates the clip in appropriate position. IMPRESSION IMPRESSION: Technically successful MRI guided LEFT breast biopsy. [employer] Representative [employer]: PSCB Transcribe Date/Time: Jan 08 2024 4:38P Dictated by : SORAIDA MCKENZIE MD This examination was interpreted and the report reviewed and electronically signed by: SORAIDA MCKENZIE MD on Jan 08 2024 4:40PM EST [facility] Radiology Study observation (narrative) [facility] MR Unspecified body region 3 D post processingon 01-08-2024 * * *Final Report* * * DATE OF EXAM: Jan 08 2024 2:28PM [facility] 0280 - MRI 3D POST PROCESSING / PROCEDURE REASON: left sided abnormality * * * * Physician Interpretation * * * * MRI BREAST BIOPSY LEFT BREAST Clinical Statement: Abnormal enhancement left breast Comparison: MRI from an outside institution on 12/18/2023 FINDINGS: The procedure of MRI guided breast biopsy was discussed with the patient including possible risks and complications. Verbal and written consent was obtained. 14 cc Dotarem was administered for the postcontrast portion of the exam. The patient was placed prone within the MRI localization grid and pre and postcontrast localization imaging of the LEFT breast was acquired. Postcontrast imaging again demonstrates a nodular focus of enhancement at 12:00 middle depth. The skin overlying the lateral aspect of the LEFT breast was prepped and draped in a sterile fashion. Local anesthesia was provided by 1% lidocaine. Utilizing MRI localization technique, a trocar was advanced into the LEFT breast with an obturator placed localizing the area of concern. Following trocar placement, repeat imaging confirmed appropriate positioning of the trocar. Subsequently, multiple core biopsies were acquired from the area of interest utilizing a 9 gauge vacuum-assisted core biopsy device. Additional lidocaine was administered during sampling. Postbiopsy imaging demonstrates postbiopsy change. A marker clip was deployed into the biopsy cavity. The patient tolerated the procedure without difficulty and left the department in satisfactory condition. Postbiopsy diagnostic mammogram for marker placement demonstrates the clip in appropriate position. [facility] RADIOLOG[facility] Provider, Amari oliva Ecorse - 01/08/2024 * * *Final Report* * * DATE OF EXAM: Jan 08 2024 2:28PM [facility] 0280 - MRI 3D POST PROCESSING / PROCEDURE REASON: left sided abnormality * * * * Physician Interpretation * * * * MRI BREAST BIOPSY LEFT BREAST Clinical Statement: Abnormal enhancement left breast Comparison: MRI from an outside institution on 12/18/2023 FINDINGS: The procedure of MRI guided breast biopsy was discussed with the patient including possible risks and complications. Verbal and written consent was obtained. 14 cc Dotarem was administered for the postcontrast portion of the exam. The patient was placed prone within the MRI localization grid and pre and postcontrast localization imaging of the LEFT breast was acquired. Postcontrast imaging again demonstrates a nodular focus of enhancement at 12:00 middle depth. The skin overlying the lateral aspect of the LEFT breast was prepped and draped in a sterile fashion. Local anesthesia was provided by 1% lidocaine. Utilizing MRI localization technique, a trocar was advanced into the LEFT breast with an obturator placed localizing the area of concern. Following trocar placement, repeat imaging confirmed appropriate positioning of the trocar. Subsequently, multiple core biopsies were acquired from the area of interest utilizing a 9 gauge vacuum-assisted core biopsy device. Additional lidocaine was administered during sampling. Postbiopsy imaging demonstrates postbiopsy change. A marker clip was deployed into the biopsy cavity. The patient tolerated the procedure without difficulty and left the department in satisfactory condition. Postbiopsy diagnostic mammogram for marker placement demonstrates the clip in appropriate position. IMPRESSION IMPRESSION: Technically successful MRI guided LEFT breast biopsy. [employer] Representative [employer]: MARIEL Transcribe Date/Time: Jan 08 2024 4:38P Dictated by : SORAIDA MCKENZIE MD This examination was interpreted and the report reviewed and electronically signed by: SORAIDA MCKENZIE MD on Jan 08 2024 4:40PM [facility] Radiology Study observation (narrative) [facility] MRI 3D POST PROCESSINGon MRI 3D POST PROCESSING * * *Final Report * * * DATE OF EXAM: Jan 08 2024 2:28PM [facility] 0280 - MRI 3D POST PROCESSING / PROCEDURE REASON: left sided abnormality * * * * Physician Interpretation * * * * MRI BREAST BIOPSY LEFT BREAST Clinical Statement: Abnormal enhancement left breast Comparison: MRI from an outside institution on 12/18/2023 FINDINGS: The procedure of MRI guided breast biopsy was discussed with the patient including possible risks and complications. Verbal and written consent was obtained. 14 cc Dotarem was administered for the postcontrast portion of the exam. The patient was placed prone within the MRI localization grid and pre and postcontrast localization imaging of the LEFT breast was acquired. Postcontrast imaging again demonstrates a nodular focus of enhancement at 12:00 middle depth. The skin overlying the lateral aspect of the LEFT breast was prepped and draped in a sterile fashion. Local anesthesia was provided by 1% lidocaine. Utilizing MRI localization technique, a trocar was advanced into the LEFT breast with an obturator placed localizing the area of concern. Following trocar placement, repeat imaging confirmed appropriate positioning of the trocar. Subsequently, multiple core biopsies were acquired from the area of interest utilizing a 9 gauge vacuum-assisted core biopsy device. Additional lidocaine was administered during sampling. Postbiopsy imaging demonstrates postbiopsy change. A marker clip was deployed into the biopsy cavity. The patient tolerated the procedure without difficulty and left the department in satisfactory condition. Postbiopsy diagnostic mammogram for marker placement demonstrates the clip in appropriate position. IMPRESSION: Technically successful MRI guided LEFT breast biopsy. [employer] Representative [employer]: PSCB Transcribe Date/Time: Jan 08 2024 4:38P Dictated by : SORAIDA MCKENZIE MD This examination was interpreted and the report reviewed and electronically signed by: SORAIDA MCKENZIE MD on Jan 08 2024 4:40PM EST [id number] [facility] MRI BREAST BX WO/W IVCON LTo n 01-08-2024 MRI BREAST BX WO/W IVCON LT * * *Final Report* * * DATE OF EXAM: Jan 08 2024 2:28PM [facility] 0695 - MRI BREAST BX WO/W IVCON LT / PROCEDURE REASON: multiple diagnoses * * * * Physician Interpretation * * * * MRI BREAST BIOPSY LEFT BREAST Clinical Statement: Abnormal enhancement left breast Comparison: MRI from an outside institution on 12/18/2023 FINDINGS: The procedure of MRI guided breast biopsy was discussed with the patient including possible risks and complications. Verbal and written consent was obtained. 14 cc Dotarem was administered for the postcontrast portion of the exam. The patient was placed prone within the MRI localization grid and pre and postcontrast localization imaging of the LEFT breast was acquired. Postcontrast imaging again demonstrates a nodular focus of enhancement at 12:00 middle depth. The skin overlying the lateral aspect of the LEFT breast was prepped and draped in a sterile fashion. Local anesthesia was provided by 1% lidocaine. Utilizing MRI localization technique, a trocar was advanced into the LEFT breast with an obturator placed localizing the area of concern. Following trocar placement, repeat imaging confirmed appropriate positioning of the trocar. Subsequently, multiple core biopsies were acquired from the area of interest utilizing a 9 gauge vacuum-assisted core biopsy device. Additional lidocaine was administered during sampling. Postbiopsy imaging demonstrates postbiopsy change. A marker clip was deployed into the biopsy cavity. The patient tolerated the procedure without difficulty and left the department in satisfactory condition. Postbiopsy diagnostic mammogram for marker placement demonstrates the clip in appropriate position. IMPRESSION: Technically successful MRI guided LEFT breast biopsy. [employer] Representative [employer]: MARIEL Transcribe Date/Time: Jan 08 2024 4:38P Dictated by : SORAIDA MCKENZIE MD This examination was interpreted and the report reviewed and electronically signed by: SORAIDA MCKENZIE MD on Jan 08 2024 4:40PM [facility] [id number] [facility] NURSING PROGon 01-08-2024 NURSING PROG HNO ID: [id number] Author: PACO GRIDER RN Service: ? Author Type: Registered Nurse Type: Nursing Progress Note Filed: 01/08/2024 14:09 Note Text: Biopsy completed with no complications. Pressure held at biopsy site until hemostasis achieved. Steri-strips applied. Pt ambulatory for post films. Verbal and written home going instructions reviewed with with patient. Ice pack provided. Patient verbalized understanding. Patient discharged to home. [facility] No Panel Informationon 01-07 IMPRESSION: Technmaira wilder successful MRI guided LEFT breast biopsy. Sales Representative [employer]: MARIEL Transcribe Date/Time: Jan 08 2024 4:38P Dictated by : SORAIDA MCKENZIE MD This examination was interpreted and the report reviewed and electronically signed by: SORAIDA CMKENZIE MD on Jan 08 2024 4:40PM [facility] RADIOLOG[facility] No Panel InformationOrdered By: Ccf Provider on 01-08-2024 [facility] SURGICAL PATHOLOGYon 024 CASE REPORT [facility] Comment on above: Order Comment: Speci men Type: TISSUE SPECIMEN Ordering Facility: [facility] Address: [address] [place] [address] Result Comment: Surg ica Pathology Report Case: [id number] Authorizing Provider: Soraida Mckenzie MD Collected: 01/08/2024 01:36 PM Ordering Location: MR INTERVENTIONAL Received: 01/08/2024 02:13 PM RADIOLOGY Pathologist: Tamar Zurita MD Specimen: Breast, Left, Core Biopsy, Left breast biopsy, UOQ mass Performed By: #### S #### [facility] CLIA [id number] [address] [place], [place] [address] [address] CLINICAL HISTORY Abnormal MRI Normal [facility] Comment on above: Order Comment: Speci men Type: TISSUE SPECIMEN Ordering Facility: [facility] Address: [address] [place] [address] Performed By: #### S #### [facility] CLIA [id number] [address] [place] [address] OF LONNIE DIAGNOSIS COMMENT Normal [facility] Comment on above: Order Comment: Speci men Type: TISSUE SPECIMEN Ordering Facility: [facility] Address: [address] [place] [address] Result Comment: Gagandeep sepulveda Developed Test (LDT) Disclaimer: Performance characteristics of immunohistochemical, immunofluorescent and chromogenic in-situ hybridization tests have been determined by the performing laboratory within [facility]???s [facility] Pathology and Laboratory Medicine Department ([facility], [facility], [facility], [facility], [facility], [facility], or [facility]) in a manner consistent with CLIA requirements. One or more of these tests have not been cleared or approved by the FDA. [facility] is regulated under CLIA as qualified to perform high-complexity testing. These tests are used for clinical purposes. They should not be regarded as investigational or for research. Positive and negative controls stain appropriately. Performed By: #### S #### [facility] CLIA [id number] [address] [place] [address] FINAL DIAGNOSIS Normal [facility] Comment on above: Order Comment: Speci melany Type: TISSUE SPECIMEN Ordering Facility: [facility] Address: [address] [place] [address] Result Comment: A. L eft breast, upper outer quadrant mass, biopsy: - Sclerosing adenosis, columnar cell change and focal fibroadenomatoid change. - Focal intraductal microcalcifications. - No evidence of malignancy. Performed By: #### S #### [facility] CLIA [id number] [address] [place] [address] FINAL PERFORMING LAB [facility] Comment on above: Order Comment: Speci men Type: TISSUE SPECIMEN Ordering Facility: [facility] Address: [address] [place] [address] Result Comment: Diag nostic interpretation performed at [facility], [address] [place] [address] CLIA# [id number] Driver License Technician: Tamar Zurita M.D. Performed By: #### S #### [facility] CLIA [id number] [address] [place] [address] GROSS DESCRIPTION [facility] Comment on above: Order Comment: Speci men Type: TISSUE SPECIMEN Ordering Facility: [facility] Address: [address] [place] [address] Result Comment: Lennox Gooden reast, Left, Core Biopsy Received in formalin labeled as ``left breast biopsy, UOQ mass? are multiple segments of cylindrical tissue aggregating to 2.1 x 1.6 x 0.5 cm, yellow-pink and of a rubbery consistency. The specimen was removed from the patient at 1:36 PM on 01/08/2024. On the same day, the specimen was placed in formalin at 1:54 PM. Totally submitted in formalin in two cassettes. [place] [address] CLIA#[id number] 01/08/24 2:37 PM Performed By: #### S #### [facility] CLIA [id number] [address] [place] [address] MICROSCOPIC DESCRIPTION [facility] Comment on above: Order Comment: Speci men Type: TISSUE SPECIMEN Ordering Facility: [facility] Address: [address] [place] [address] Result Comment: Four H&E and two immunohistochemical stained slides with appropriate controls are examined. Immunohistochemical staining for p63 performed on section A2 demonstrates positive staining for myoepithelial cell layers and keratin AE1/AE3 is positive in the epithelial cells. No evidence of invasive tumor is identified. Performed By: #### S #### [facility] CLIA [id number] [address] [place] [address] CNOVon 12-25-2023 CNOV Office Visit (GENSWS ) -- GILLIAN LUIS ([id number]) 1965 F Date Time Provider Department 12/25/23 8:30 AM TING POLO GENSWS During your visit today, we recorded the following information about you: Ting Polo MD 12/25/2023 11:16 AM Signed HISTORY AND PHYSICAL - BREAST CANCER - RIGHT BREAST - 2 SITES Gillian Luis 1965 December 25, 2023 REFERRING PHYSICIAN: Gertrudis De Leon MD CHIEF COMPLAINT: BREAST CANCER - RIGHT - INVASIVE DUCTAL CARCINOMA HPI: Gillian Luis is a 58-year-old female who presents with right breast cancer at 2 sites. No information was received prior to the patient being seen in my office. I understand the patient had palpable masses in her right breast she underwent mammogram and ultrasound at [facility]. I have her copy of her ultrasound report dated October 16, 2023 which demonstrated suspicious solid-appearing lesions at both the 11 and 12:00 positions 2 foci are noted 1 measuring 17 x 17 x 21 mm and the additional measuring 12 x 24 x 8 mm they were uncertain whether these were 2 separate lesions or a single dumbbell shaped lesion. The patient then underwent core biopsy of this site on November 21, 2023. The 11:00 and 12:00 sites both returned as invasive ductal carcinoma-grade 2. Receptor status was estrogen positive progesterone negative HER2 indeterminant. FISH was negative for HER2 Addendum-having now received copies of her radiology reports a ribbon clip was placed at breast biopsy site a, a coil clip was placed at the breast biopsy site B. The patient notes some bruising of the site We extensively discussed her diagnosis including breast conservation surgical procedures, mastectomy without reconstruction and mastectomy with reconstruction. Reviewing care everywhere did not provide additional information however she did have ED visit on October 20, 2023 for alcohol intoxication related to anxiety and depression with what was felt to be homicidal suicidal intent initially due to the recent loss of her and the new diagnosis of breast cancer. This was not noted at the time of her visit nor discussed in the office setting The patient is being seen by me at the request of Dr. Gertrudis De Leon MD for my opinion and advice regarding locally advanced right-sided breast cancer. Bone scan was obtained on December 14, 2023 which demonstrated no evidence of metastatic deposits. The patient was also referred to Dr. Brown Woody, medical oncology at [facility]. A CT scan of the chest was obtained which demonstrated no metastatic disease, but suggested a possible 1.5cm mass in the left breast. MRI which was obtained on December 18, 2023. This demonstrated the index lesion in the right breast and measured as 3.5cm x 1.5cm x 1.7cm. There was also an 11mm x 8mm x 5mm noted in the 12-1 o'clock position of the left breast noted 5.2cm behind the nipple. I performed office-based ultrasound on December 20 and found no abnormalities. I ordered a formal ultrasound which was obtained this morning. This also demonstrated no abnormalities. Given the MRI findings my plan is to schedule the patient for an MRI based evaluation/biopsy. The patient is also considered her options and does believe she would wish to have neoadjuvant chemotherapy performed prior to surgery. Dr. Woody had asked if I place a Port-A-Cath if that would be the plan. PAST MEDICAL HISTORY Diagnosis Date Benign hypertension Breast cancer (HCC) 11/2023 Right Breast Decreased GFR Dysphagia, pharyngeal Generalized osteoarthrosis, involving multiple sites GERD (gastroesophageal reflux disease) High blood pressure Hyperlipemia Knee pain right Knee Mild major depression (HCC) Noncompliance with medication regimen Sarcoidosis TIA (transient ischemic attack) PAST SURGICAL HISTORY Procedure Laterality Date LIGATE FALLOPIAN TUBE PAST SURGICAL HISTORY OF Wedge Resection, Right Lung TONSILLECTOMY AND ADENOIDECTOMY TOTAL ABDOM HYSTERECTOMY Current Outpatient Medications Medication Sig Dispense Refill metoprolol succinate ER (TOPROL XL) 100 mg Take 50 mg by mouth once daily. lisinopril-hydroCHLOROthia zide (ZESTORETIC) 20-25 mg per tablet Take 1 tablet by mouth once daily. rosuvastatin (CRESTOR) 10 mg tablet Take 10 mg by mouth once daily. amLODIPine (NORVASC) 5 mg tablet Take by mouth as directed. sertraline (ZOLOFT) 50 mg tablet Take 50 mg by mouth once daily. iv contrast (will be provided with radiology test) MRI LT Breast Bx Inject, intravenously, once for 1 dose. No IV access, insert saline lock prior to the beginning of sedation, infusion, injection of imaging exam. Discontinue saline lock post exam. If Pt has a central line or IVAD, may access for administration according to line specific nursing protocol. Once exam is complete flush line and de-access acco (more content not included)... Normal [facility] [employer] US BREAST LTD LTon 12-24 [employer] US BREAST LTD LT * * *Final Report* * * DATE OF EXAM: Dec 25 2023 9:22AM WRU 0593 - [facility] [employer] BREAST LTD LT / PROCEDURE REASON: multiple diagnoses * * * * Physician Interpretation * * * * #[id number] - [facility] [employer] BREAST LTD LT LIMITED ULTRASOUND OF LEFT BREAST: 12/25/2023 HISTORY: Multiple Diagnoses. RESULT: No prior exams were available for comparison. Real-time ultrasound of the left breast 12-1 o'clock region was performed. Green scale images of the real-time examination were reviewed. IMPRESSION: NEGATIVE There is no sonographic evidence of malignancy. There is no abnormality seen in the left breast to correspond with the breast MRI finding, however, clinical correlation is recommended. Opal crockett/elbert:12/25/2023 09:27:20 Link Assembler(s): Tresa Larkin [facility] Ultrasound BI-RADS: 1 Negative Multiple national specialty organizations have released breast cancer screening guidelines for women at average risk for developing breast cancer - guidelines that are based on both evidence and opinion, yet differ on when to start and how often to screen for breast cancer. With representation from Breast Imaging, Internal Medicine, Women's Health, Family Medicine, and Medical/Surgical Oncology, the [facility] has carefully reviewed the data and reached the following consensus: 1) All women should engage in shared decision-making with their providers to decide when to start and how often to screen; 2) All women should have the opportunity to start screening mammography at age 40; 3) For women ages 45-55, we recommend annual screening mammograms; 4) For women ages 55 and over, we support both the transition from an annual to a biennial interval if this aligns more with patient's values and preferences, or continuation with annual screening; 5) All women should discuss with their providers when to stop screening mammograms. [employer]: Elbert Transcribe Date/Time: Dec 25 2023 9:23A Dictated by : OPAL FERRIS MD This examination was interpreted and the report reviewed and electronically signed by: OPAL FERRIS MD on Dec 25 2023 9:27AM EST [id number] Normal [facility] Breast - left limitedon 0 12-25-2023 IMPRESSION: NEGATIVE There is no sonographic evidence of malignancy. There is no abnormality seen in the left breast to correspond with the breast MRI finding, however, clinical correlation is recommended. Opal crockett/elbert:12/25/2023 09:27:20 Link Assembler(s): Tresa Larkin [facility] Ultrasound BI-RADS: 1 Negative Multiple national specialty organizations have released breast cancer screening guidelines for women at average risk for developing breast cancer - guidelines that are based on both evidence and opinion, yet differ on when to start and how often to screen for breast cancer. With representation from Breast Imaging, Internal Medicine, Women's Health, Family Medicine, and Medical/Surgical Oncology, the [facility] has carefully reviewed the data and reached the following consensus: 1) All women should engage in shared decision-making with their providers to decide when to start and how often to screen; 2) All women should have the opportunity to start screening mammography at age 40; 3) For women ages 45-55, we recommend annual screening mammograms; 4) For women ages 55 and over, we support both the transition from an annual to a biennial interval if this aligns more with patient's values and preferences, or continuation with annual screening; 5) All women should discuss with their providers when to stop screening mammograms. [employer] Representative [employer]: Elbert Transcribe Date/Time: Dec 25 2023 9:23A Dictated by : OPAL FERRIS MD This examination was interpreted and the report reviewed and electronically signed by: OPAL FERRIS MD on Dec 25 2023 9:27AM EST DIVISION OF RADIOLOGY * * *Final Report* * * DATE OF EXAM: Dec 25 2023 9:22AM U 0593 - [facility] US BREAST LTD LT / PROCEDURE REASON: multiple diagnoses * * * * Physician Interpretation * * * * #[id number] - [facility] US BREAST LTD LT LIMITED ULTRASOUND OF LEFT BREAST: 12/25/2023 HISTORY: Multiple Diagnoses. RESULT: No prior exams were available for comparison. Real-time ultrasound of the left breast 12-1 o'clock region was performed. Green scale images of the real-time examination were reviewed. DIVISION OF RADIOLOGY Provider, [facility] - 12/25/2023 * * *Final Report* * * DATE OF EXAM: Dec 25 2023 9:22AM WRU 0593 - [facility] US BREAST LTD LT / PROCEDURE REASON: multiple diagnoses * * * * Physician Interpretation * * * * #[id number] - [facility] US BREAST LTD LT LIMITED ULTRASOUND OF LEFT BREAST: 12/25/2023 HISTORY: Multiple Diagnoses. RESULT: No prior exams were available for comparison. Real-time ultrasound of the left breast 12-1 o'clock region was performed. Green scale images of the real-time examination were reviewed. IMPRESSION IMPRESSION: NEGATIVE There is no sonographic evidence of malignancy. There is no abnormality seen in the left breast to correspond with the breast MRI finding, however, clinical correlation is recommended. Opal crockett/elbert:12/25/2023 09:27:20 Link Assembler(s): Tresa Larkin [facility] Ultrasound BI-RADS: 1 Negative Multiple national specialty organizations have released breast cancer screening guidelines for women at average risk for developing breast cancer - guidelines that are based on both evidence and opinion, yet differ on when to start and how often to screen for breast cancer. With representation from Breast Imaging, Internal Medicine, Women's Health, Family Medicine, and Medical/Surgical Oncology, the [facility] has carefully reviewed the data and reached the following consensus: 1) All women should engage in shared decision-making with their providers to decide when to start and how often to screen; 2) All women should have the opportunity to start screening mammography at age 40; 3) For women ages 45-55, we recommend annual screening mammograms; 4) For women ages 55 and over, we support both the transition from an annual to a biennial interval if this aligns more with patient's values and preferences, or continuation with annual screening; 5) All women should discuss with their providers when to stop screening mammograms. [employer] Representative [employer]: Elbert Transcribe Date/Time: Dec 25 2023 9:23A Dictated by : OAPL FERRIS MD This examination was interpreted and the report reviewed and electronically signed by: OPAL FERRIS MD on Dec 25 2023 9:27AM EST [facility] Radiology Study observation (narrative) [facility] US Breast - left limitedOrde red By: Ccf Provider on 12-25-2023 [facility] CNOVon 12-21-2023 CNOV Office Visit (GENSWS ) -- GILLIAN LUIS ([id number]) 1965 F Date Time Provider Department 12/21/23 8:30 AM TING POLO GENSWS During your visit today, we recorded the following information about you: Temperature Pulse Blood pressure 97.3 degrees 82/minute 132/84 Ting Polo MD 12/22/2023 7:05 AM Signed HISTORY AND PHYSICAL - BREAST CANCER - RIGHT BREAST - 2 SITES Gillian Luis 1965 December 08, 2023 REFERRING PHYSICIAN: Gertrudis De Leon MD CHIEF COMPLAINT: BREAST CANCER - RIGHT - INVASIVE DUCTAL CARCINOMA HPI: Gillian Luis is a 58-year-old female who presents with right breast cancer at 2 sites. No information was received prior to the patient being seen in my office. I understand the patient had palpable masses in her right breast she underwent mammogram and ultrasound at [facility]. I have her copy of her ultrasound report dated October 16, 2023 which demonstrated suspicious solid-appearing lesions at both the 11 and 12:00 positions 2 foci are noted 1 measuring 17 x 17 x 21 mm and the additional measuring 12 x 24 x 8 mm they were uncertain whether these were 2 separate lesions or a single dumbbell shaped lesion. The patient then underwent core biopsy of this site on November 21, 2023. The 11:00 and 12:00 sites both returned as invasive ductal carcinoma-grade 2. Receptor status was estrogen positive progesterone negative HER2 indeterminant. FISH was negative for HER2 Addendum-having now received copies of her radiology reports a ribbon clip was placed at breast biopsy site a, a coil clip was placed at the breast biopsy site B. The patient notes some bruising of the site We extensively discussed her diagnosis including breast conservation surgical procedures, mastectomy without reconstruction and mastectomy with reconstruction. Reviewing care everywhere did not provide additional information however she did have ED visit on October 20, 2023 for alcohol intoxication related to anxiety and depression with what was felt to be homicidal suicidal intent initially due to the recent loss of her and the new diagnosis of breast cancer. This was not noted at the time of her visit nor discussed in the office setting The patient is being seen by me at the request of Dr. Gertrudis De Leon MD for my opinion and advice regarding locally advanced right-sided breast cancer. Bone scan was obtained on December 14, 2023 which demonstrated no evidence of metastatic deposits. The patient was also referred to Dr. Brown Woody, medical oncology at [facility]. A CT scan of the chest was obtained which demonstrated no metastatic disease, but suggested a possible 1.5cm mass in the left breast. MRI which was obtained on December 18, 2023. This demonstrated the index lesion in the right breast and measured as 3.5cm x 1.5cm x 1.7cm. There was also an 11mm x 8mm x 5mm noted in the 12-1 o'clock position of the left breast noted 5.2cm behind the nipple. PAST MEDICAL HISTORY Diagnosis Date Benign hypertension Breast cancer (HCC) 11/2023 Right Breast Decreased GFR Dysphagia, pharyngeal Generalized osteoarthrosis, involving multiple sites GERD (gastroesophageal reflux disease) High blood pressure Hyperlipemia Knee pain right Knee Mild major depression (HCC) Noncompliance with medication regimen Sarcoidosis TIA (transient ischemic attack) PAST SURGICAL HISTORY Procedure Laterality Date LIGATE FALLOPIAN TUBE PAST SURGICAL HISTORY OF Wedge Resection, Right Lung TONSILLECTOMY AND ADENOIDECTOMY TOTAL ABDOM HYSTERECTOMY Current Outpatient Medications Medication Sig Dispense Refill metoprolol succinate ER (TOPROL XL) 100 mg Take 50 mg by mouth once daily. lisinopril-hydroCHLOROthia zide (ZESTORETIC) 20-25 mg per tablet Take 1 tablet by mouth once daily. rosuvastatin (CRESTOR) 10 mg tablet Take 10 mg by mouth once daily. amLODIPine (NORVASC) 5 mg tablet Take by mouth as directed. sertraline (ZOLOFT) 50 mg tablet Take 50 mg by mouth once daily. metoprolol tartrate, short acting, (LOPRESSOR) 50 mg tablet Take by mouth as directed. lisinopril-hydroCHLOROthia zide (ZESTORETIC) 10-12.5 mg per tablet Take 1 tablet by mouth once daily. simvastatin (ZOCOR) 40 mg tablet Take 40 mg by mouth daily at bedtime. No current facility-administered medications for this visit. ALLERGIES: Latex PERSONAL HISTORY: Social History Tobacco Use Smoking status: Every Day Types: Cigarettes Smokeless tobacco: Never FAMILY HISTORY: FAMILY HISTORY Problem Relation Age of Onset Hypertension Mother Hypertension Father other (Basal Cell Carcinoma) Father Cancer Father Hypertension Maternal Grandmother Hypertension Maternal Grandfather Hypertension Paternal Grandmother Hypertension Paternal Grandfather REVIEW OF SYMPTOMS: The review of systems data was entered (more content not included)... Normal [facility] 12-14-2023 [facility] Telephone (GENSWS) -- TOMÁS LUISE ([id number]) 1965 F Date Time Provider Department 12/14/23 [facility] During your visit today, we recorded the following information about you: Ting Polo MD 12/19/2023 10:[address] Brown Woody called. He saw patient in consultation. MRI was ordered by him and obtained at [facility]. Patient also has a lesion in her left breast approximately 11 mm and needs to be biopsied. Discussed with Dr. Woody I will try to get the patient in her office this Sunday for evaluation and biopsy. I will have my office load imaging from [facility] into our system. Mellisa Garrison LPN 12/20/2023 2:41 PM Signed Patient scheduled for left breast biopsy 12/21/23, will schedule US when convenient for patient, images and report scanned and will be pushed by appointment. Mellisa Garrison LPN December 20, 2023 2:41 PM Allergies As of Date: 12/14/2023 Noted Allergy Reaction LATEX 10/20/2023 4 - Hives Date Reviewed: 12/08/2023 Reviewed by: Ting Polo MD - Fully Assessed Reason for Visit: Patient Update [1234] Prescriptions as of 12/20/2023 - amLODIPine (NORVASC) 5 mg tablet Take by mouth as directed. - metoprolol tartrate, short acting, (LOPRESSOR) 50 mg tablet Take by mouth as directed. - lisinopril-hydroCHLOROthia zide (ZESTORETIC) 10-12.5 mg per tablet Take 1 tablet by mouth once daily. - sertraline (ZOLOFT) 50 mg tablet Take 50 mg by mouth once daily. - simvastatin (ZOCOR) 40 mg tablet Take 40 mg by mouth daily at bedtime. Problem List As Of Date: 12/14/2023 (None) Encounter Status:Closed by TING POLO on 12/19/23 [facility] Supplemental Reporton 2023 Supplemental Report . Pathology Reports Accession: Collected Date/Time: Received Date/Time: Pathologist: [id number] 11/21/2023 13:41 EDT 11/22/2023 13:50 EDT MD TING MAYO Supplemental Report SUPPLEMENTAL: [facility] [address] [place] [id number] HER2 FISH Analysis Clinical summary and Indication: Invasive ductal carcinoma. Body Site: Breast, Right [place] O[place] Comment: FINAL HER2 INTERPRETATION: In conjunction with the equivocal (2+) HER2 immunostain result provided, the final HER2 interpretation of this specimen is NEGATIVE (in accordance with ASCO/CAP guidelines). HER2 FISH Results: 1.4 Interpretation: Negative Number of tumor cells counted: 20 + 20 Number of observers: 2 Average HER2 Copy number: 4.03 Average CEP17 copy number: 2.88 Ratio of average HER2/CEP17: 1.4 Sample adequate for analysis: YES Complete report scanned into chart. Electronically Signed by Pathology Report verified by [facility] TING MAYO MD Sign out Date: 12/11/2023 15:10 Performing Lab: [facility], [address] [place] [address] Pathology Dept Final Surgical Pathology Report DIAGNOSIS: A. RIGHT BREAST, 11:00, CORE BIOPSY: - INVASIVE DUCTAL CARCINOMA - GRADE 2 B. BREAST, RIGHT, 12:00, CORE BIOPSY: - INVASIVE DUCTAL CARCINOMA - GRADE 2 Comment: Stain for E-cadherin is positive. The histologic features on specimen A and B are similar and stains are only performed on specimen B. Breast Biomarker Reporting Template TEST(S) PERFORMED: ESTROGEN RECEPTOR (ER) STATUS: Positive (greater than 10% of cells demonstrate nuclear positivity) PERCENTAGE OF CELLS WITH NUCLEAR POSITIVITY: 81-90% AVERAGE INTENSITY OF STAINING: Strong PROGESTERONE RECEPTOR (PGR) STATUS: Positive PERCENTAGE OF CELLS WITH NUCLEAR POSITIVITY: 2% AVERAGE INTENSITY OF STAINING: Moderate Pathology Reports Accession: Collected Date/Time: Received Date/Time: Pathologist: [id number] 11/21/2023 13:41 EDT 11/22/2023 13:50 EDT MD TING MAYO DIAGNOSIS: HER2 BY IMMUNOHISTOCHEMISTRY: Equivocal (Score 2+) PERCENTAGE OF CELLS WITH UNIFORM INTENSE COMPLETE MEMBRANE STAININ% COLD ISCHEMIA AND FIXATION TIMES: Meet requirements specified in latest version of the ASCO / CAP Guidelines, unless otherwise specified in the gross description. COMMENT(S): Test types for ER, ND and Her2: All FDA cleared, Vendor: [employer]. Primary antibody clones: ER: SP1, ND:1E2, Her2:4B5 If specimens were decalcified, loss of immunoreactivity may occur; negative results should be interpreted with caution. Isolated ND positivity (in the absence of ER staining) at low levels is not a reproducible result, could be an artifact, and may not be clinically significant. Invasive carcinomas with 1 to 10% of cells staining for ER (not PgR) are reported as Low Positive and the following comment is applicable: There are limited data on the overall benefit of endocrine therapies for patients with low level (1-10%) ER expression but they currently suggest possible benefit, so patients are considered eligible for endocrine treatment. There are data that suggest invasive cancers with these results are heterogeneous in both behavior and biology and often have gene expression profiles more similar to ER negative cancers. COMMENT: [facility] - [id number] CLINICAL INFORMATION: UNSPECIFIED LUMP IN THE RIGHT BREAST SPECIMEN: A RIGHT BREAST BX POSITION 11:00 B RIGHT BREAST BX POSITION 12:00 GROSS DESCRIPTION: All parts labelled with patient name and [id number] A. Received in formalin labelled A Are 3 cylindrical fibrofatty breast cores ranging from 1.2 to 1.3 cm. Specimen removed from patient @1341. Placed in Formalin Fixative @1341. Cold Ischemia time 1 minute. Total time in formalin (in processor) 1 hrs. Total Time in Formalin Fixative 31 hrs. TS-1 B. Received in formalin labelled B Are 5 cylindrical soft tissue cores ranging from 1.1 to 1.7 cm. Specimen removed from patient @1353. Placed in Formalin Fixative @1353. Cold Ischemia time 1 minute. Total time in formalin (in processor) 1 hrs. Total Time in Formalin Fixative 31 hrs. TS-1 Cyndi Montero, Pathologists' Melt Helper (ASCP) Dictated by CYNDI MONTERO Pathology Reports Accession: Collected Date/Time: Received Date/Time: Pathologist: [id number] 11/21/2023 13:41 EDT 11/22/2023 13:50 EDT MD TING MAYO MICROSCOPIC DESCRIPTION: The microscopic examination is performed, except in the case of Gross Only. ADDITIONAL DIAGNOSTIC CODES: 3394F, 3395F x 2 Electronically Signed by Pathology Report verified by [facility] TING MAYO MD Sign out Date: 11/23/2023 14:36 Performing Lab: [facility], [address] [place] [address] Pathology Dept Disclaimer If ancillary studies were utilized, the following Laboratory (more content not included)... Normal [facility] ([place]) Vaibhav 12-10-2023 [facility] Telephone (Plasticell) -- GILLIAN LUIS ([id number]) 1965 F Date Time Provider Department 12/10/23 PATRICK, TING T GENSWS During your visit today, we recorded the following information about you: Albina Vera RN 12/10/2023 10:02 AM Signed Medical records requested from [facility] and images requested.LUCIA Zhu Billie, RN 12/11/2023 9:02 AM Signed Medical records and images received and scanned for viewing.Albina Vera RN Allergies As of Date: 12/10/2023 Noted Allergy Reaction LATEX 10/20/2023 4 - Hives Date Reviewed: 12/08/2023 Reviewed by: Ting Polo MD - Fully Assessed Prescriptions as of 12/21/2023 - metoprolol succinate ER (TOPROL XL) 100 mg Take 50 mg by mouth once daily. - lisinopril-hydroCHLOROthia zide (ZESTORETIC) 20-25 mg per tablet Take 1 tablet by mouth once daily. - rosuvastatin (CRESTOR) 10 mg tablet Take 10 mg by mouth once daily. - amLODIPine (NORVASC) 5 mg tablet Take by mouth as directed. - metoprolol tartrate, short acting, (LOPRESSOR) 50 mg tablet Take by mouth as directed. - lisinopril-hydroCHLOROthia zide (ZESTORETIC) 10-12.5 mg per tablet Take 1 tablet by mouth once daily. - sertraline (ZOLOFT) 50 mg tablet Take 50 mg by mouth once daily. - simvastatin (ZOCOR) 40 mg tablet Take 40 mg by mouth daily at bedtime. Problem List As Of Date: 12/10/2023 (None) Encounter Status:Closed by ALBINA VERA on 12/10/23 [facility] CNOVmago 12-06-2023 CNOV Office Visit (GNSWAD ) -- GILLIAN LUIS ([id number]) 1965 F Date Time Provider Department 12/06/23 10:15 AM TING POLO During your visit today, we recorded the following information about you: Pulse Blood pressure Weight Height 70/minute 164/94 77.5 kg 1.575 m Brooke Calderón LPN 12/08/2023 7:43 AM Signed REVIEW OF SYSTEMS: General: The patient denies fatigue, denies weight loss, denies weight gain, denies feeling hot, and denies feelings of cold. Eyes: The patient denies glaucoma, denies eye injury/surgery, wears glasses or contacts. Ear/Nose/Throat: The patient NOTES allergies, denies hayfever, denies ear infections, and denies bloody noses. Cardiovascular: The patient denies chest pain, denies heart disease, NOTES high blood pressure, denies high cholesterol, and denies poor circulation. Respiratory: The patient denies tuberculosis, denies pneumonia, denies frequent cough, denies shortness of breath, and denies coughing up blood. Gastrointestinal: The patient denies difficulty swallowing, denies acid reflux, denies ulcers, denies jaundice/hepatitis, denies gallbladder problems, denies vomiting, denies black or tarry stools, denies hemorrhoids, denies bleeding from rectum, denies diverticulitis, denies constipation, denies diarrhea, denies loss of stool control, and denies hernias. Kidney/Bladder: The patient denies kidney stones, denies urine infections, and denies bloody urine. Skin: The patient denies a history of skin cancer, denies bleeding/changing moles, and denies a history of skin rash. Neurologic: The patient denies a history of epilepsy/convulsions, denies headaches, denies head/spinal injuries, and NOTES stroke/TIA. Psychiatric: The patient denies psychiatric medications, NOTES depression, and denies voices. Endocrine: The patient denies thyroid disorders, denies diabetes, and denies hormonal problems. Hematologic: The patient denies a history of bruising, denies bleeding, and denies anemia. Infections: The patient NOTES a history of measles and mumps, denies rheumatic fever, and denies sexually transmitted diseases. Musculoskeletal: The patient denies back pain/injury, denies back problems, NOTES sciatica, denies knee/foot trouble, NOTES arthritis, or denies gout. Ting Polo MD 12/14/2023 7:39 AM Addendum HISTORY AND PHYSICAL - BREAST CANCER - RIGHT BREAST - 2 SITES Gillian Luis 1965 December 08, 2023 REFERRING PHYSICIAN: Gertrudis De Leon MD CHIEF COMPLAINT: BREAST CANCER - RIGHT - INVASIVE DUCTAL CARCINOMA HPI: Gillian Luis is a 58-year-old female who presents with right breast cancer at 2 sites. No information was received prior to the patient being seen in my office. I understand the patient had palpable masses in her right breast she underwent mammogram and ultrasound at [facility]. I have her copy of her ultrasound report dated October 16, 2023 which demonstrated suspicious solid-appearing lesions at both the 11 and 12:00 positions 2 foci are noted 1 measuring 17 x 17 x 21 mm and the additional measuring 12 x 24 x 8 mm they were uncertain whether these were 2 separate lesions or a single dumbbell shaped lesion. The patient then underwent core biopsy of this site on November 21, 2023. The 11:00 and 12:00 sites both returned as invasive ductal carcinoma-grade 2. I understand her receptor status was estrogen positive progesterone negative HER2 indeterminant. I understand she is waiting for Herceptin results. Again we do not have images or official reports other than what she was able to show me on her cell phone. Addendum-having now received copies of her radiology reports a ribbon clip was placed at breast biopsy site a, a coil clip was placed at the breast biopsy site B. The patient notes some bruising of the site We extensively discussed her diagnosis including breast conservation surgical procedures, mastectomy without reconstruction and mastectomy with reconstruction. Reviewing care everywhere did not provide additional information however she did have ED visit on October 20, 2023 for alcohol intoxication related to anxiety and depression with what was felt to be homicidal suicidal intent initially due to the recent loss of her and the new diagnosis of breast cancer. This was not noted at the time of her visit nor discussed in the office setting The patient is being seen by me today at the request of Dr. Gertrudis De Leon MD for my opinion and advice regarding locally advanced right-sided breast cancer. PAST MEDICAL HISTORY Diagnosis Date Breast cancer (HCC) 11/2023 Right Breast High blood pressure Knee pain right Knee Sarcoidosis TIA (transient ischemic attack) PAST SURGICAL HISTORY Procedure Laterality Date LIGATE FALLOPIAN TUBE PAST SURGICAL HISTORY OF Wedge Resection, Right L (more content not included)... Normal [facility] Final Surgical Pathology Rep ciara 11-23-2023 Final Surgical Pathology Report . Pathology Reports Accession: Collected Date/Time: Received Date/Time: Pathologist: [id number] 11/21/2023 13:41 EDT 11/22/2023 13:50 EDT MD TING MAYO Final Surgical Pathology Report DIAGNOSIS: A. RIGHT BREAST, 11:00, CORE BIOPSY: - INVASIVE DUCTAL CARCINOMA - GRADE 2 B. BREAST, RIGHT, 12:00, CORE BIOPSY: - INVASIVE DUCTAL CARCINOMA - GRADE 2 Comment: Stain for E-cadherin is positive. The histologic features on specimen A and B are similar and stains are only performed on specimen B. Breast Biomarker Reporting Template TEST(S) PERFORMED: ESTROGEN RECEPTOR (ER) STATUS: Positive (greater than 10% of cells demonstrate nuclear positivity) PERCENTAGE OF CELLS WITH NUCLEAR POSITIVITY: 81-90% AVERAGE INTENSITY OF STAINING: Strong PROGESTERONE RECEPTOR (PGR) STATUS: Positive PERCENTAGE OF CELLS WITH NUCLEAR POSITIVITY: 2% AVERAGE INTENSITY OF STAINING: Moderate HER2 BY IMMUNOHISTOCHEMISTRY: Equivocal (Score 2+) PERCENTAGE OF CELLS WITH UNIFORM INTENSE COMPLETE MEMBRANE STAININ% COLD ISCHEMIA AND FIXATION TIMES: Meet requirements specified in latest version of the ASCO / CAP Guidelines, unless otherwise specified in the gross description. COMMENT(S): Test types for ER, ND and Her2: All FDA cleared, Vendor: [employer]. Primary antibody clones: ER: SP1, ND:1E2, Her2:4B5 If specimens were decalcified, loss of immunoreactivity may occur; negative results should be interpreted with caution. Isolated ND positivity (in the absence of ER staining) at low levels is not a reproducible result, could be an artifact, and may not be clinically significant. Invasive carcinomas with 1 to 10% of cells staining for ER (not PgR) are reported as Low Positive and the following comment is applicable: There are limited data on the overall benefit of endocrine therapies for patients with low level (1-10%) ER expression but they currently suggest possible benefit, so patients are considered eligible for endocrine treatment. There are data that suggest invasive cancers with these results are heterogeneous in both behavior and biology and often have gene expression profiles more similar to ER negative cancers. COMMENT: [facility] - [id number] CLINICAL INFORMATION: UNSPECIFIED LUMP IN THE RIGHT BREAST SPECIMEN: A RIGHT BREAST BX POSITION 11:00 B RIGHT BREAST BX POSITION 12:00 GROSS DESCRIPTION: All parts labelled with patient name and [id number] Pathology Reports Accession: Collected Date/Time: Received Date/Time: Pathologist: [id number] 11/21/2023 13:41 EDT 11/22/2023 13:50 EDT MD TING MAYO GROSS DESCRIPTION: A. Received in formalin labelled A Are 3 cylindrical fibrofatty breast cores ranging from 1.2 to 1.3 cm. Specimen removed from patient @1341. Placed in Formalin Fixative @1341. Cold Ischemia time 1 minute. Total time in formalin (in processor) 1 hrs. Total Time in Formalin Fixative 31 hrs. TS-1 B. Received in formalin labelled B Are 5 cylindrical soft tissue cores ranging from 1.1 to 1.7 cm. Specimen removed from patient @1353. Placed in Formalin Fixative @1353. Cold Ischemia time 1 minute. Total time in formalin (in processor) 1 hrs. Total Time in Formalin Fixative 31 hrs. TS-1 Cyndi Montero, Pathologists' Melt Helper (ASCP) Dictated by CYNDI MONTERO MICROSCOPIC DESCRIPTION: The microscopic examination is performed, except in the case of Gross Only. ADDITIONAL DIAGNOSTIC CODES: 3394F, 3395F x 2 Electronically Signed by Pathology Report verified by [facility] TING MAYO MD Sign out Date: 11/23/2023 14:36 Performing Lab: [facility], [address] [place] [address] Pathology Dept Disclaimer If ancillary studies were utilized, the following Laboratory Developed Test (LDT) disclaimer will apply: Under CLIA requirements, [facility] Pathology Laboratory is qualified to perform high complexity testing. For all ancillary stains, positive and negative controls stain appropriately. Performance characteristics of immunohistochemical and chromogenic in-situ hybridization tests have been determined by [facility] Pathology Laboratory. These tests are used for clinical purposes, They should not be regarded as investigational or for research. Normal [facility] [place] ACETAMINOPHEN LEVELon 2023 ACETAMINOPHEN LEVEL <10.0 Normal See Comment [facility] [employer] [facility] Comment on above: Order Comment: Notes : 1. Screening results should be considered presumptive unless the presence of the analyte has been confirmed by a reference lab 2. All drug groups are analyzed on urine specimens Performed By: #### 4 [id number] #### JAILYN FRANCE (2012) [facility] [address] [place] [address] CBC AND DIFFERENTIALon 10-19 ABSOLUTE BASOPHIL 0.0 x10*3/uL Normal 0.0-0.1 [facility] Comment on above: Performed By: #### 4 [id number] #### JAILYN FRANCE (2012) [facility] [address] [place] [address] ABSOLUTE EOSINOPHIL 0.2 x10*3/uL Normal 0.1-0.3 [facility] Comment on above: Performed By: #### 4 [id number] #### JAILYN FRANCE (2012) [facility] [address] [place] [address] ABSOLUTE IMMATURE GRANULOCYTES 0.0 x10*3/uL Normal 0.0-0.1 [facility] Comment on above: Performed By: #### 4 [id number] #### JAILYN FRANCE (2012) [facility] [address] [place] [address] ABSOLUTE LYMPH 2.5 x10*3/uL Normal 1.2-3.3 [facility] Comment on above: Performed By: #### 4 [id number] #### JAILYN FRANCE (2012) [facility] [address] [place] [address] ABSOLUTE MONO 0.6 x10*3/uL Normal 0.2-0.6 [facility] Comment on above: Performed By: #### 4 [id number] #### JAILYN FRANCE (2012) [facility] [address] [place] [address] ABSOLUTE NEUTROPHIL 6.1 x10*3/uL Normal 2.4-6.6 [facility] Comment on above: Performed By: #### 4 [id number] #### JAILYN FRANCE (2012) [facility] [address] [place] [address] Basophils/100 WBC (Bld) 0.1 % Normal [facility] Comment on above: Performed By: #### 4 [id number] #### JAILYN FRANCE (2012) [facility] [address] [place] [address] Eosinophils/100 WBC (Bld) 1.8 % Normal [facility] Comment on above: Performed By: #### 4 [id number] #### JAILYN FRANCE (2012) [facility] [address] [place] [address] Erythrocyte distribution width (RBC) [Ratio] 13.7 % Normal 11.5-14.5 [facility] Comment on above: Performed By: #### 4 [id number] #### JAILYN FRANCE (2012) [facility] [address] [place] [address] Hematocrit (Bld) [Volume fraction] 45.0 % Normal 33.6-46.8 [facility] Comment on above: Performed By: #### 4 [id number] #### JAILYN FRANCE (2012) [facility] [address] [place] [address] Hemoglobin (Bld) [Mass/Vol] 14.5 g/dL Normal 11.7-15.8 [facility] Comment on above: Performed By: #### 4 [id number] #### JAILYN FRANCE (2012) [facility] [address] [place] [address] Immature granulocytes/100 WBC (Bld) 0.2 % Normal [facility] Comment on above: Performed By: #### 4 [id number] #### JAILYN FRANCE (2012) [facility] [address] [place] [address] Lymphocytes/100 WBC (Bld) 26.8 % Normal [facility] Comment on above: Performed By: #### 4 [id number] #### JAILYN FRANCE (2012) [facility] [address] [place] [address] MCH (RBC) [Entitic mass] 27.4 pg Low 27.5-32.3 [facility] Comment on above: Performed By: #### 4 [id number] #### JAILYN FRANCE (2012) [facility] [address] [place] [address] MCHC (RBC) [Mass/Vol] 32.2 g/dL Normal 30.7-35.5 [facility] Comment on above: Performed By: #### 4 [id number] #### JAILYN FRANCE (2012) [facility] [address] [place] [address] MCV (RBC) [Entitic vol] 84.9 fL Normal 80.2-99 [facility] Comment on above: Performed By: #### 4 [id number] #### JAILYN FRANCE (2012) [facility] [address] [place] [address] Monocytes/100 WBC (Bld) 6.2 % Normal [facility] Comment on above: Performed By: #### 4 [id number] #### JAILYN FRANCE (2012) [facility] [address] [place] [address] Neutrophils/100 WBC (Bld) 64.9 % Normal [facility] Comment on above: Performed By: #### 4 [id number] #### JAILYN FRANCE (2012) [facility] [address] [place] [place] [address] PLATELET COUNT 256 x10*3/uL Normal 150-400 [facility] Comment on above: Performed By: #### 4 [id number] #### JAILYN FRANCE (2012) [facility] [address] [place] [place] [address] RED BLOOD CELL COUNT 5.30 x10*6/uL High 3.60-5.20 [facility] Comment on above: Performed By: #### 4 [id number] #### JAILYN FRANCE (2012) [facility] [address] [place] [place] [address] WHITE BLOOD CELLS 9.4 x10*3/uL Normal 4.3-10.3 [facility] Comment on above: Performed By: #### 4 [id number] #### JAILYN FRANCE (2012) [facility] [address] [place] [address] CBC with DifferentialOrdered By: Background Lab on 10-20-2023 Absolute Immature Granulocytes 0.0 [facility] Age [Time] 84.9 fL 80.2 - 99 fL [facility] Age [Time] 27.4 pg Low 27.5 - 32.3 pg [facility] Age [Time] 32.2 g/dL 30.7 - 35.5 g/dL [facility] B. burgdorferi IgM IB Ql (CSF) 26.8 % [facility] Basophils (Bld) [#/Vol] 0.0 10*3/uL [facility] Basophils/100 WBC (Body fld) 0.1 % [facility] Eosinophils (Bld) [#/Vol] 2.5 10*3/uL [facility] Eosinophils (Bld) [#/Vol] 0.6 10*3/uL [facility] Eosinophils (Bld) [#/Vol] 0.2 10*3/uL [facility] Eosinophils/100 WBC (Bld) 1.8 % [facility] Erythrocyte distribution width (RBC) [Ratio] 13.7 % 11.5 - 14.5 % [facility] Hematocrit (Bld) [Volume fraction] 45.0 % 33.6 - 46.8 % [facility] Hexanoylglycine (U) [Moles/Vol] 14.5 g/dL 11.7 - 15.8 g/dL [facility] Immature granulocytes/100 WBC (Bld) 0.2 % [facility] Interpretation and review of laboratory results Abnormal [facility] Monocytes/100 WBC (Bld) 6.2 % [facility] Neurotensin (P) [Mass/Vol] 64.9 % [facility] Neutrophils (Bld) [#/Vol] 6.1 10*3/uL [facility] Platelets (Bld) [#/Vol] 256 10*3/uL [facility] RBC (Bld) [#/Vol] 5.30 10*6/uL High [facility] WBC (Bld) [#/Vol] 9.4 10*3/uL [facility] COMPREHENSIVE METABOLIC PANE Alexander 10-20-2023 Albumin [Mass/Vol] 4.9 g/dL Normal 3.5-5.0 [facility] Comment on above: Performed By: #### 4 [id number], [id number], [id number], [id number], [id number], [id number] #### JAILYN FRANCE (2013) [facility] [address] [place] [address] ALK PHOS 81 U/L Normal 24-126 [facility] Comment on above: Performed By: #### 4 [id number], [id number], [id number], [id number], [id number], [id number] #### JAILYN FRANCE (2012) [facility] [address] [place] [address] ALT [Catalytic activity/Vol] 29 U/L Normal 4-35 [facility] Comment on above: Performed By: #### 4 [id number], [id number], [id number], [id number], [id number], [id number] #### JAILYN FRANCE (2012) [facility] [address] [place] [address] Anion gap [Moles/Vol] 12 mmol/L Normal 8-12 [facility] Comment on above: Performed By: #### 4 [id number], [id number], [id number], [id number], [id number], [id number] #### JAILYN FRANCE (2012) [facility] [address] [place] [address] AST [Catalytic activity/Vol] 28 U/L Normal 3-47 [facility] Comment on above: Performed By: #### 4 [id number], [id number], [id number], [id number], [id number], [id number] #### JAILYN FRANCE (2012) [facility] [address] [place] [address] Bilirubin [Mass/Vol] 0.4 mg/dL Normal 0.2-1.6 [facility] Comment on above: Performed By: #### 4 [id number], [id number], [id number], [id number], [id number], [id number] #### JAILYN FRANCE (2012) [facility] [address] [place] [address] Calcium [Mass/Vol] 9.6 mg/dL Normal 8.4-10.4 [facility] Children Comment on above: Performed By: #### 4 [id number], [id number], [id number], [id number], [id number], [id number] #### JAILYN FRANCE (2012) [facility] [address] [place] [address] Chloride [Moles/Vol] 101 mmol/L Normal 96-109 [facility] Comment on above: Performed By: #### 4 [id number], [id number], [id number], [id number], [id number], [id number] #### JAILYN FRANCE (2012) [facility] [address] [place] [address] CO2 [Moles/Vol] 28 mmol/L Normal 22-30 [facility] Comment on above: Performed By: #### 4 [id number], [id number], [id number], [id number], [id number], [id number] #### JALIYN FRANCE (2012) [facility] [address] [place] [address] Creatinine [Mass/Vol] 0.72 mg/dL Normal 0.52-1.04 [facility] Comment on above: Performed By: #### 4 [id number], [id number], [id number], [id number], [id number], [id number] #### JAILYN FRANCE (2012) [facility] [address] [place] [address] GLOMERULAR FILTRATION RATE ML/MIN/1.73 SQ M.PREDICTED 96.5 mL/min/1.73m*2 Normal >=60.0 [facility] Comment on above: Result Comment: eGFR calculation based on the Chronic Kidney Disease Epidemiology Collaboration (CKD-EPI) equation refit without adjustment for race. Categories in Chronic Kidney Disease (CKD) Category: GFR(mL/min/1.73m^2) Interpretation: G1* 90 or greater Normal or high G2* 60-89 Mild decrease G3a 45-59 Mild to moderate decrease G3b 30-44 Moderate to severe decrease G4 15-29 Severe decrease G5 14 or less Kidney failure *G1&G2: In the absence of evidence of kidney damage, neither GFR category G1 nor G2 fulfill the criteria for CKD Kidney Int Suppl.2013;3:1-150 Performed By: #### 4 [id number], [id number], [id number], [id number], [id number], [id number] #### JAILYN FRANCE (2012) [facility] [address] [place] [address] Glucose [Mass/Vol] 99 mg/dL Normal 65-100 [facility] Comment on above: Performed By: #### 4 [id number], [id number], [id number], [id number], [id number], [id number] #### JAILYN FRANCE (2012) [facility] [address] [place] [place] [address] Potassium [Moles/Vol] 3.3 mmol/L Low 3.6-5.1 [facility] Comment on above: Performed By: #### 4 [id number], [id number], [id number], [id number], [id number], [id number] #### JAILYN FRANCE (2012) [facility] [address] [place] [address] Protein [Mass/Vol] 8.3 g/dL High 6.3-8.2 [facility] Comment on above: Performed By: #### 4 [id number], [id number], [id number], 82475069, [id number], [id number] #### JAILYN FRANCE (2012) [facility] [address] [place] [address] Sodium [Moles/Vol] 141 mmol/L Normal 135-147 [facility] Comment on above: Performed By: #### 4 [id number], [id number], [id number], [id number], [id number], [id number] #### JAILYN FRANCE (2012) [facility] [address] [place] [address] Urea nitrogen [Mass/Vol] 14 mg/dL Normal 8-26 [facility] Comment on above: Performed By: #### 4 [id number], [id number], [id number], [id number], [id number], [id number] #### JAILYN FRANCE (2012) [facility] [address] [place] [address] CT HEAD WITHOUT IV CONTRASTo n 10-20-2023 CT HEAD WITHOUT IV CONTRAST EXAMINATION: CT HEAD WITHOUT IV CONTRAST HISTORY: severe intoxication, no reported falls but unreliable history, please evaluate for clinically important TBI COMPARISON: None. TECHNIQUE: CT examination of the head without IV contrast. Dose reduction techniques were achieved by using automated exposure control and/or adjustment of mA and/or kV according to patient size and/or use of iterative reconstruction technique. FINDINGS: No acute intracranial hemorrhage. No midline shift. Green-white matter differentiation maintained. Ventricles normal for age. Basal cisterns patent. No displaced skull fracture. Mastoid air cells are clear. Imaged paranasal sinuses are clear. Orbits unremarkable. IMPRESSION: No acute intracranial findings. Normal [facility] CT Head WO contraston 2023 No acute intracranial findings. [facility] EXAMINATION: CT HEAD WITHOUT IV CONTRAST HISTORY: severe intoxication, no reported falls but unreliable history, please evaluate for clinically important TBI COMPARISON: None. TECHNIQUE: CT examination of the head without IV contrast. Dose reduction techniques were achieved by using automated exposure control and/or adjustment of mA and/or kV according to patient size and/or use of iterative reconstruction technique. FINDINGS: No acute intracranial hemorrhage. No midline shift. Green-white matter differentiation maintained. Ventricles normal for age. Basal cisterns patent. No displaced skull fracture. Mastoid air cells are clear. Imaged paranasal sinuses are clear. Orbits unremarkable. Felix Hilario MD - 10/20/2023 EXAMINATION: CT HEAD WITHOUT IV CONTRAST HISTORY: severe intoxication, no reported falls but unreliable history, please evaluate for clinically important TBI COMPARISON: None. TECHNIQUE: CT examination of the head without IV contrast. Dose reduction techniques were achieved by using automated exposure control and/or adjustment of mA and/or kV according to patient size and/or use of iterative reconstruction technique. FINDINGS: No acute intracranial hemorrhage. No midline shift. Green-white matter differentiation maintained. Ventricles normal for age. Basal cisterns patent. No displaced skull fracture. Mastoid air cells are clear. Imaged paranasal sinuses are clear. Orbits unremarkable. IMPRESSION: No acute intracranial findings. [facility] Radiology Study observation (narrative) [facility] CT Head WO contrastOrdered B y: Felix Perdomo on 10-20-2023 [facility] Work Phone: Comprehensive metabolic 2000 panelon 10-20-2023 Albumin (Syn fld) [Mass/Vol] 4.9 g/dL 3.5 - 5.0 g/dL [facility] Aldosterone (U) [Mass/Vol] 81 U/L 24 - 126 U/L [facility] ALT [Catalytic activity/Vol] 29 U/L 4 - 35 U/L [facility] Anion gap [Moles/Vol] 12 mmol/L 8 - 12 mmol/L [facility] AST [Catalytic activity/Vol] 28 U/L 3 - 47 U/L [facility] Bilirubin [Mass/Vol] 0.4 mg/dL 0.2 - 1 .6 mg/dL [facility] Calcium [Mass/Vol] 9.6 mg/dL 8.4 - 10. 4 mg/dL [facility] Calcium hydrogen phosphate dihydrate crystals LM Ql (Urine sed) 14 mg/dL 8 - 26 mg/dL [facility] Chloride [Moles/Vol] 101 mmol/L 96 - 10 9 mmol/L [facility] CO2 (BldMV) [Moles/Vol] 28 mmol/L 22 - 30 mmol/L [facility] Creatinine [Mass/Vol] 0.72 mg/dL 0.52 - 1.04 mg/dL [facility] GFR/1.73 sq M.predicted among non-blacks MDRD (S/P/Bld) [Vol rate/Area] 96.5 mL/min/{1.73_m2} - PINF [facility] Comment on above: eGFR calculation bas ed on the Chronic Kidney Disease Epidemiology Collaboration (CKD-EPI) equation refit without adjustment for race. Categories in Chronic Kidney Disease (CKD) Category: GFR(mL/min/1.73m^2) Interpretation: G1* 90 or greater Normal or high G2* 60-89 Mild decrease G3a 45-59 Mild to moderate decrease G3b 30-44 Moderate to severe decrease G4 15-29 Severe decrease G5 14 or less Kidney failure *G1&G2: In the absence of evidence of kidney damage, neither GFR category G1 nor G2 fulfill the criteria for CKD Kidney Int Suppl.2013;3:1-150 Glucose [Mass/Vol] 99 mg/dL 65 - 100 mg/dL [facility] Potassium [Moles/Vol] 3.3 mmol/L Low 3.6 - 5.1 mmol/L [facility] Protein [Mass/Vol] 8.3 g/dL High 6.3 - 8.2 g/dL [facility] Sodium [Moles/Vol] 141 mmol/L 135 - 147 mmol/L [facility] ETHANOLon 10-20-2023 ETHANOL-SERUM 120 mg/dL High 0-10 [facility] Comment on above: Performed By: #### 4 [id number], [id number], [id number], [id number], [id number], [id number] #### JAILYN FRANCE (2012) [facility] [address] [place] [address] Ethanolon 10-20-2023 Dimethylphosphatidyl ethanolamine/Total surfactant (Amn fld) [Mass fraction] 120 mg/dL High 0 - 10 mg/dL [facility] LACTATEon 10-20-2023 Lactate [Moles/Vol] 1.8 mmol/L Normal 0.7-2.0 [facility] Comment on above: Performed By: #### 4 [id number] #### JAILYN FRANCE (2012) [facility] [address] [place] [address] LIPASEon 10-20-2023 Lipase [Catalytic activity/Vol] 298 U/L Normal 23-300 [facility] Comment on above: Performed By: #### 4 [id number], [id number], [id number], [id number], [id number], [id number] #### JAILYN FRANCE (2012) [facility] [address] [place] [address] Lactate - ED and Inpatient: A result >2 mmol/L will create an auto-follow up lactate order to be drawn in 2 hours.on 10-20-2023 Interpretation and review of laboratory results Normal [facility] Lactate [Moles/Vol] 1.8 mmol/L 0.7 - 2. 0 mmol/L [facility] Lipaseon 10-20-2023 Lipase [Catalytic activity/Vol] 298 U/L 23 - 300 U/L [facility] MAGNESIUMon 10-20-2023 Magnesium [Mass/Vol] 2.0 mg/dL Normal 1.6-2.3 [facility] Comment on above: Performed By: #### 4 [id number], [id number], [id number], [id number], [id number], [id number] #### JAILYN FRANCE (2012) [facility] [address] [facility] [address] Magnesiumon 10-20-2023 Magnesium [Mass/Vol] 2.0 mg/dL 1.6 - 2 .3 mg/dL [facility] No Panel Informationon 10-19 Interpretation and review of laboratory results Abnormal [facility] Interpretation and review of laboratory results Normal [facility] PROCALCITONINon 10-20-2023 PROCALCITONIN 0.042 ng/mL Normal <=0.078 [facility] Comment on above: Result Comment: Proc alcitonin Interpretation Guidelines: Diagnosis of Systemic Bacterial Infection/Sepsis/or Septic Shock <0.50 ng/mL: Low risk for sepsis; localized infection possible. Recommend retest within 6-24hrs. >=0.50-<2.0 ng/mL: Sepsis is possible. Interpret in context of clinical condition of the patient. Recommend retest within 6-24hrs. >=2.0 ng/mL: High risk for sepsis and /or septic shock. >10.0 ng/mL: Severe sepsis or septic shock. Diagnosis of Lower Respiratory Tract Infection (LRTI) and Antibiotic Therapy Recommendation <0.10 ng/mL: Bacterial infection very unlikely. Antibiotics strongly discouraged. 0.10-0.25 ng/mL: Bacterial infection unlikely. Antibiotics discouraged. 0.26-0.50 ng/mL: Bacterial infection likely. Antibiotics encouraged. >0.51 ng/mL: Bacterial infection very likely. Antibiotics strongly encouraged. Performed By: #### 4 [id number], [id number], [id number], 69038445, [id number], [id number] #### JAILYN FRANCE (2013) [facility] [address] [place] [address] Procalcitoninon 10-20-2023 Interpretation and review of laboratory results Normal [facility] Procainamide [Mass/Vol] 0.042 ng/mL NINF - 0.078 ng/mL [facility] Comment on above: Procalcitonin Interp retation Guidelines: Diagnosis of Systemic Bacterial Infection/Sepsis/or Septic Shock <0.50 ng/mL: Low risk for sepsis; localized infection possible. Recommend retest within 6-24hrs. >=0.50-<2.0 ng/mL: Sepsis is possible. Interpret in context of clinical condition of the patient. Recommend retest within 6-24hrs. >=2.0 ng/mL: High risk for sepsis and /or septic shock. >10.0 ng/mL: Severe sepsis or septic shock. Diagnosis of Lower Respiratory Tract Infection (LRTI) and Antibiotic Therapy Recommendation <0.10 ng/mL: Bacterial infection very unlikely. Antibiotics strongly discouraged. 0.10-0.25 ng/mL: Bacterial infection unlikely. Antibiotics discouraged. 0.26-0.50 ng/mL: Bacterial infection likely. Antibiotics encouraged. >0.51 ng/mL: Bacterial infection very likely. Antibiotics strongly encouraged. [facility] SALICYLATE LEVELon SALICYLATE LEVEL <1.0 Low 15.0-29.9 [facility] Comment on above: Performed By: #### 4 [id number] #### JAILYN FRANCE (2012) [facility] [address] [place] [address] TOXICOLOGY SCREEN, URINEon 0 10-20-2023 AMPHETAMINE/METH Not detected Normal Not Detected (Cutoff <1000ng/mL) [facility] Comment on above: Order Comment: Notes : 1. Screening results should be considered presumptive unless the presence of the analyte has been confirmed by a reference lab 2. All drug groups are analyzed on urine specimens Performed By: #### 4 [id number] #### JAILYN FRANCE (2012) [facility] [address] [place] [address] BARBITURATES Not detected Normal Not Detected (Cutoff <200 ng/mL) [facility] Comment on above: Order Comment: Notes : 1. Screening results should be considered presumptive unless the presence of the analyte has been confirmed by a reference lab 2. All drug groups are analyzed on urine specimens Performed By: #### 4 [id number] #### JAILYN FRANCE (2012) [facility] [address] [place] [address] BENZODIAZEPINES Not detected Normal Not Detected (Cutoff <200 ng/mL) [facility] Comment on above: Order Comment: Notes : 1. Screening results should be considered presumptive unless the presence of the analyte has been confirmed by a reference lab 2. All drug groups are analyzed on urine specimens Performed By: #### 4 [id number] #### JAILYN FRANCE (2012) [facility] [address] [place] [address] Cocaine Ql (U) Not detected Normal Not Detected (Cutoff <300 ng/mL) [facility] Comment on above: Order Comment: Notes : 1. Screening results should be considered presumptive unless the presence of the analyte has been confirmed by a reference lab 2. All drug groups are analyzed on urine specimens Performed By: #### 4 [id number] #### JAILYN FRANCE (2012) [facility] [address] [place] [address] FENTANYL Not detected Normal Not Detected (Cutoff 1.0 ng/mL) [facility] Comment on above: Order Comment: Notes : 1. Screening results should be considered presumptive unless the presence of the analyte has been confirmed by a reference lab 2. All drug groups are analyzed on urine specimens Performed By: #### 4 [id number] #### JAILYN FRANCE (2012) [facility] [address] [place] [address] MARIJUANA/THC Not detected Normal Not Detected (Cutoff <50 ng/mL) [facility] Comment on above: Order Comment: Notes : 1. Screening results should be considered presumptive unless the presence of the analyte has been confirmed by a reference lab 2. All drug groups are analyzed on urine specimens Performed By: #### 4 [id number] #### JAILYN FRANCE (2012) [facility] [address] [place] [address] OPIATES Not detected Normal Not Detected (Cutoff <300 ng/mL) [facility] Comment on above: Order Comment: Notes : 1. Screening results should be considered presumptive unless the presence of the analyte has been confirmed by a reference lab 2. All drug groups are analyzed on urine specimens Performed By: #### 4 [id number] #### JAILYN FRANCE (2012) [facility] [address] [place] [address] PCP Not detected Normal Not Detected (Cutoff <25 ng/mL) [facility] Comment on above: Order Comment: Notes : 1. Screening results should be considered presumptive unless the presence of the analyte has been confirmed by a reference lab 2. All drug groups are analyzed on urine specimens Performed By: #### 4 [id number] #### JAILYN FRANCE (2012) [facility] [address] [place] [address] TROPONIN I SERIESon 10-20-19 24 Troponin I.cardiac [Mass/Vol] ng/mL Normal <=0.033 [facility] Comment on above: Result Comment: Nega tive: No detectable troponin-I. Performed By: #### 4 [id number], [id number], [id number], [id number], [id number], [id number] #### JAILYN FRANCE (2012) [facility] [address] [place] [address] Toxicology screen, urineon 0 10-20-2023 Amphetamines Ql (U) Not detected Not Detected (Cutoff <1000ng/mL) [facility] Barbiturates [Mass/Vol] Not detected Not Detected (Cutoff <200 ng/mL) [facility] Benzodiazepines Screen [Mass/Vol] Not detected Not Detected (Cutoff <200 ng/mL) [facility] Cannabinoids tested Screen Nom (U) Not detected Not Detected (Cutoff <50 ng/mL) [facility] CMV IgM IF Ql Not detected Not Detected (Cutoff <300 ng/mL) [facility] Felbamate [Mass/Vol] Not detected Not Detected (Cutoff 1.0 ng/mL) [facility] Interpretation and review of laboratory results Normal [facility] Opiates tested Screen Nom (U) Not detected Not Detected (Cutoff <300 ng/mL) [facility] Phencyclidine (U) [Mass/Vol] Not detected Not Detected (Cutoff <25 ng/mL) [facility] Notes: 1. Screening results should be considered presumptive unless the presence of the analyte has been confirmed by a reference lab 2. All drug groups are analyzed on urine specimens [facility] Troponin I - Series (X 3)on 10-20-2023 Interpretation and review of laboratory results Normal [facility] Troponin I.cardiac [Mass/Vol] ng/mL NINF - 0.033 ng/mL [facility] Comment on above: Negative: No detectable troponin-I. [facility] URINE CHEM STRIP ONLYon 09-28 Appearance (U) Clear Normal [facility] Comment on above: Performed By: #### 4 [id number] #### JAILYN FRANCE (2012) [facility] [address] [place] [address] BILIRUBIN UA Negative Normal Negative [facility] Comment on above: Performed By: #### 4 [id number] #### JAILYN FRANCE (2012) [facility] [address] [place] [address] Color (U) Yellow Normal [facility] Comment on above: Performed By: #### 4 [id number] #### JAILYN FRANCE (2012) [facility] [address] [place] [address] Glucose Ql (U) Negative Normal Negative [facility] Comment on above: Performed By: #### 4 [id number] #### JAILYN FRANCE (2012) [facility] [address] [place] [address] Ketones Ql (U) Negative Normal Negative [facility] Comment on above: Performed By: #### 4 [id number] #### JAILYN FRANCE (2012) [facility] [address] [place] [address] LEUKOESTERASE Negative Normal Negative [facility] Comment on above: Performed By: #### 4 [id number] #### JAILYN FRANCE (2012) [facility] [address] [place] [address] Nitrite Ql (U) Negative Normal Negative [facility] Comment on above: Performed By: #### 4 [id number] #### JAILYN FRANCE (2012) [facility] [address] [place] [address] OCCULT BLD Negative Normal Negative [facility] Comment on above: Performed By: #### 4 [id number] #### JAILYN FRANCE (2012) [facility] [address] [place] [address] PH, URINE 7.[address] [facility] Comment on above: Performed By: #### 4 [id number] #### JAILYN FRANCE (2012) [facility] [address] [place] [address] Protein Ql (U) Negative Normal Negative [facility] Comment on above: Performed By: #### 4 [id number] #### JAILYN FRANCE (2012) [facility] [address] [place] [address] SPECIFIC GRAVITY, URINE 1.[address] [facility] Comment on above: Performed By: #### 4 [id number] #### JAILYN FRANCE (2012) [facility] [address] [place] [address] UROBILINOGEN UA <2.0 Normal <2.0 [facility] Comment on above: Performed By: #### 4 [id number] #### JAILYN FRANCE (2012) [facility] [address] [place] [address] Urine Dipon 10-20-2023 Acetone [Mass/Vol] Negative Negative mg/dL [facility] Appearance (Body fld) Clear Gen [facility] Bilirubin Ql (U) Negative Negative [facility] Color (Stone) Yellow [facility] G6PD (RBC) [Catalytic activity/Vol] Negative Negative mg/dL [facility] Leukocyte esterase Test strip Ql (U) Negative Negative [facility] Nitrite Test strip (U) [Mass/Vol] Negative Negative [facility] pH (Jessi fld) 7.5 [facility] Protein (U) [Mass/Vol] Negative Negat lindy mg/dL [facility] Huntley IgE Qn (S) Negative Negative [facility] Specific gravity (U) [Rel density] 1.020 [facility] Urobilinogen Qn (U) <2.0 NINF - 2 .0 mg/dL [facility] HepB SurfaceAb,Quanton 11-05 HepB SurfaceAb,Quant 25.65 mIU/mL High <8.00 Cl [facility] Comment on above: Performed By: #### R UBIGG, MUMPSG, MEASLG, AHBSQ #### [facility] Routine Lab [address] [address] Measles IgG Antibodyon 11-05 Measles IgG Ab, Qual Abnormal Negative [facility] Comment on above: Result Comment: Posi tive Presence of detectable measles virus IgG antibodies. A positive result generally indicates exposure to measles virus or previous vaccination. Performed By: #### R UBIGG, MUMPSG, MEASLG, AHBSQ #### [facility] Routine Lab [address] [address] Measles IgG Antibody Normal [facility] Comment on above: Result Comment: 61.7 AU/mL Negative Specimens <13.5 Equivocal Specimens >=13.5 to <16.5 Positive Specimens >=16.5 The magnitude of the measured result, above the cutoff, is not indicative of the amount of antibody present. Value Negative Specimens <13.5 Equivocal Specimens >=13.5 to <16.5 Positive Specimens >=16.5 The magnitude of the measured result, above the cutoff, is not indicative of the amount of antibody present. interpreted as Negative Specimens <13.5 Equivocal Specimens >=13.5 to <16.5 Positive Specimens >=16.5 The magnitude of the measured result, above the cutoff, is not indicative of the amount of antibody present. follows: Negative Specimens <13.5 Equivocal Specimens >=13.5 to <16.5 Positive Specimens >=16.5 The magnitude of the measured result, above the cutoff, is not indicative of the amount of antibody present. Performed By: #### R UBIGG, MUMPSG, MEASLG, AHBSQ #### [facility] Routine Lab [address] [phone] Mumps IgG Abon 11-05-2020 Mumps IgG Ab 20.4 AU/mL Normal [facility] Comment on above: Performed By: #### R UBIGG, MUMPSG, MEASLG, AHBSQ #### [facility] Routine Lab [address] [place] [phone] Mumps IgG, Qual Positive Abnormal Negative [facility] Comment on above: Performed By: #### R UBIGG, MUMPSG, MEASLG, AHBSQ #### [facility] Routine Lab [address] [place] [phone] Rubella IgG Antibodyon 11-05 Rubella IgG Ab 29.50 Index Value Normal [facility] Comment on above: Performed By: #### R UBIGG, MUMPSG, MEASLG, AHBSQ #### [facility] Routine Lab [address] [phone] Rubella IgG Ab, Qual Positive Abnormal Negative [facility] Comment on above: Performed By: #### R UBIGG, MUMPSG, MEASLG, AHBSQ #### [facility] Routine Lab [address] [place] [phone] NOVEL CORONAVIRUS NASOPHARYN GEAL - [facility] SPECIMEN ONLYon 04-19-2020 SARS-COV-2 NOT DETECTED Normal NOT DETECTED [facility] Comment on above: Order Comment: Submi tter Name: Busbud Agent Suspected: SARS-COV-2 This test was performed using real time PCR and has been approved for the qualitative detection of SARS-CoV-2 nucleic acid. The test has been authorized by the FDA under an emergency use authorization for use by authorized laboratories. Result Comment: Nega tive results do not preclude SARS-CoV-2 infection and should not be used as the sole basis for treatment or other patient management decisions. Optimum specimen types and timing for peak viral levels during infections caused by SARS-CoV-2 has not been determined. The possibility of a false negative result should especially be considered if the patient's recent exposures or clinical presentation suggest that SARS-CoV-2 infection is probable, and diagnostic tests for other causes of illness (e.g., other respiratory illness) are negative. Collection of a new specimen and re-testing may be necessary if the patient is critically ill or clinically deteriorating. Performed By: #### L [id number] #### [facility] (DEFAULT) [address] [place] [address] NOVEL CORONAVIRUS NASOPHARYN GEAL - [facility] SPECIMEN ONLYon 03-08-2020 SARS-COV-2 NOT DETECTED Normal NOT DETECTED [facility] Comment on above: Order Comment: Submi tter Name: ADEN COMER Agent Suspected: SARS-COV-2 This test was performed using real time PCR and has been approved for the qualitative detection of SARS-CoV-2 nucleic acid. The test has been authorized by the FDA under an emergency use authorization for use by authorized laboratories. Result Comment: Nega tive results do not preclude SARS-CoV-2 infection and should not be used as the sole basis for treatment or other patient management decisions. Optimum specimen types and timing for peak viral levels during infections caused by SARS-CoV-2 has not been determined. The possibility of a false negative result should especially be considered if the patient's recent exposures or clinical presentation suggest that SARS-CoV-2 infection is probable, and diagnostic tests for other causes of illness (e.g., other respiratory illness) are negative. Collection of a new specimen and re-testing may be necessary if the patient is critically ill or clinically deteriorating. Performed By: #### L [id number] #### [facility] (DEFAULT) [address] [address] Vital Signs Date Time Vital Sign Value Performing Clinician Facility 03-05-2024 11:04-0400 Body height 157.5 cm Pacc Virtual Work Phone: [facility] 03-05-2024 11:04-0400 Body mass index (BMI) [Ratio] 30 kg/m2 [facility] Work Phone: [facility] 03-05-2024 11:04-0400 Body weight 74.39 kg [facility] Work Phone: [facility] 02-12-2024 15:01-0400 Body temperature 98.4 [degF] Ting Polo MD Work Phone: [facility] 01-28-2024 15:02-0400 Body height 157.5 cm Pacc 1 Work Phone: [facility] 01-28-2024 15:02-0400 Body mass index (BMI) [Ratio] 30.16 kg/m2 Pacc 1 Work Phone: [facility] 01-28-2024 15:02-0400 Body temperature 98.4 [degF] Pacc 1 Work Phone: [facility] 01-28-2024 15:02-0400 Body weight 74.8 kg Pacc 1 Work Phone: [facility] 01-28-2024 15:02-0400 Diastolic blood pressure 82 mm[Hg] Pacc 1 Work Phone: [facility] 01-28-2024 15:02-0400 Heart rate 55 /min Pacc 1 Work Phone: [facility] 01-28-2024 15:02-0400 Respiratory rate 18 /min Pacc 1 Work Phone: [facility] 01-28-2024 15:02-0400 SaO2% (BldA) [Mass fraction] 99 % Pacc 1 Work Phone: [facility] 01-28-2024 15:02-0400 Systolic blood pressure 151 mm[Hg] Pacc 1 Work Phone: [facility] 12-21-2023 08:37-0400 Body temperature 97.3 [degF] Ting Polo MD Work Phone: [facility] 12-21-2023 08:37-0400 Diastolic blood pressure 84 mm[Hg] Ting Polo MD Work Phone: [facility] 12-21-2023 08:37-0400 Heart rate 82 /min Ting Polo MD Work Phone: [facility] 12-21-2023 08:37-0400 SaO2% (BldA) [Mass fraction] 97 % Ting Polo MD Work Phone: [facility] 12-21-2023 08:37-0400 Systolic blood pressure 132 mm[Hg] Ting Polo MD Work Phone: [facility] 12-06-2023 10:55-0400 Body height 157.5 cm Ting Polo MD Work Phone: [facility] 12-06-2023 10:55-0400 Body mass index (BMI) [Ratio] 31.25 kg/m2 Ting Polo MD Work Phone: [facility] 12-06-2023 10:55-0400 Body weight 77.5 kg Ting Polo MD Work Phone: [facility] 12-06-2023 10:55-0400 Diastolic blood pressure 94 mm[Hg] Ting Polo MD Work Phone: [facility] 12-06-2023 10:55-0400 Heart rate 70 /min Ting Polo MD Work Phone: [facility] 12-06-2023 10:55-0400 SaO2% (BldA) [Mass fraction] 96 % Ting Polo MD Work Phone: [facility] 12-06-2023 10:55-0400 Systolic blood pressure 164 mm[Hg] Ting Polo MD Work Phone: [facility] 10-20-2023 21:30-0400 Body temperature 98.01 [degF] Harriett Newell MD Work Phone: [facility] 10-20-2023 21:30-0400 Heart rate 82 /min Harriett Newell MD Work Phone: [facility] 10-20-2023 21:30-0400 Respiratory rate 20 /min Harriett Newell MD Work Phone: [facility] 10-20-2023 21:30-0400 SaO2% (BldA) [Mass fraction] 95 % Harriett Newell MD Work Phone: [facility] 10-20-2023 21:28-0400 Diastolic blood pressure 99 mm[Hg] Harriett Newell MD Work Phone: [facility] 10-20-2023 21:28-0400 Systolic blood pressure 175 mm[Hg] Harriett Newell MD Work Phone: [facility] 10-20-2023 18:00-0400 Body weight 77.56 kg Harriett Newell MD Work Phone: [facility] Encounters Encounter Date Encounter Type Care Provider Facility Start: 01-26-2025 ambulatory James Noe Facility: [facility] Start: 12-11-2024 End: 12-11-2024 ambulatory GERTRUDIS DE LEON [facility] Start: 11-24-2024 End: 11-24-2024 ambulatory Gertrudis De Leon Facility:[facility] Start: 09-27-2024 End: 09-27-2024 Emergency department patient visit Gertrudis De Leon Facility:[facility] Start: 08-25-2024 End: 08-25-2024 ambulatory Gertrudis De Leon Facility:[facility] Start: 08-18-2024 End: 08-18-2024 ambulatory Gertrudis De Leon Facility:[facility] Start: 07-31-2024 End: 07-31-2024 ambulatory Gertrudis De Leon Facility:[facility] Start: 07-18-2024 ambulatory James Liu Facility: [facility] Start: 07-16-2024 End: 07-16-2024 ambulatory James Liu Facility:[facility] Start: 07-10-2024 End: 07-10-2024 ambulatory Deboarh Gongora MS Work Phone: [facility] Comment on above: Blood draw for patrick ic testing Start: 07-10-2024 End: 07-10-2024 E-mail encounter from caregiver Deborah Gongora MS Work Phone: [facility] Start: 07-09-2024 End: 07-09-2024 ambulatory Gertrudis Kalisetti Facility:[facility] Start: 07-02-2024 End: 07-02-2024 ambulatory Gertrudis Kalisetti Facility:[facility] Start: 06-30-2024 ambulatory Gertrudis Kalisetti Facili ty:[facility] Start: 06-24-2024 ambulatory Gertrudis Kalisetti Facili ty:[facility] Start: 06-19-2024 ambulatory Gertrudis Kalisetti Facili ty:[facility] Start: 06-05-2024 End: 06-05-2024 ambulatory Gertrudis Kalisetti Facility:[facility] Start: 05-30-2024 ambulatory Gertrudis Kalisetti Facili ty:[facility] Start: 05-29-2024 End: 05-31-2024 ambulatory Gertrudis Kalisetti Facility:[facility] Start: 05-29-2024 End: 05-29-2024 ambulatory Gertrudis Kalisetti Facility:[facility] Start: 05-15-2024 End: 05-15-2024 ambulatory Cheyrl Bonnie IT SUPPORT TECHNICIAN Facility:[facility] Start: 05-05-2024 End: 05-05-2024 ambulatory Cheryl Bonnie IT SUPPORT TECHNICIAN Facility:[facility] Start: 04-24-2024 End: 04-24-2024 ambulatory Cheryl Bonnie IT SUPPORT TECHNICIAN Facility:[facility] Start: 04-23-2024 ambulatory Gertrudis Kalisetti Facili ty:[facility] Start: 04-23-2024 End: 04-23-2024 ambulatory [facility] Facility:[facility] Start: 04-17-2024 End: 04-18-2024 ambulatory [facility] Facility:[facility] Start: 04-04-2024 End: 04-04-2024 Telephone encounter Ting Polo MD Work Phone: General Surgery Comment on above: Received Outside [facility] Records ([facility]) Start: 04-03-2024 End: 04-03-2024 ambulatory [facility] Facility:[facility] Start: 03-26-2024 End: 03-26-2024 ambulatory [facility] Facility:[facility] Start: 03-14-2024 End: 03-14-2024 Patient encounter procedure Deborah Gongora MS Work Phone: [facility] Comment on above: Malignant neoplasm o f right breast in female, estrogen receptor positive, unspecified site of breast (HCC) (Primary Dx); Family history of lung cancer; Family history of leukemia; Family history of colon cancer; Family history of testicular cancer; Family history of basal cell carcinoma Start: 03-14-2024 End: 03-14-2024 Telemedicine consultation with patient Deborah Gongora MS Work Phone: [facility] Start: 03-14-2024 End: 03-14-2024 ambulatory TING POLO Facility:[facility] Start: 03-13-2024 End: 03-13-2024 ambulatory [facility] Facility:[facility] Start: 03-12-2024 End: 03-12-2024 ambulatory [facility] Facility:[facility] Start: 03-10-2024 End: 03-10-2024 Orders Only Josefina Chacon RN [facility] Radiology Procedure Comment on above: Malignant neoplasm o f right breast in female, estrogen receptor negative, unspecified site of breast (HCC) (Primary Dx) Start: 03-07-2024 End: 03-07-2024 ambulatory TING POLO Facility:[facility] Start: 03-06-2024 Telephone encounter Ting Polo MD Work Phone: General Surgery Start: 03-05-2024 End: 03-05-2024 Admission to establishment [facility] Work Phone: Pre Anesthesia Start: 03-05-2024 End: 03-05-2024 Anesthesia consultation [facility] Work Phone: Pre Anesthesia Comment on above: Pre-op evaluation (P rimary Dx); Hypokalemia; Benign hypertension; Mild major depression (HCC); Seizure-like activity (HCC); TIA (transient ischemic attack) Start: 03-05-2024 End: 03-05-2024 Evaluation and management of inpatient TING POLO Facility:[facility] Start: 03-05-2024 End: 03-05-2024 Preprocedural examination done [facility] [place] [facility] Work Phone: [facility] Work Phone: Start: 03-04-2024 End: 03-04-2024 ambulatory TING POLO Facility:[facility] Start: 03-04-2024 End: 03-04-2024 Patient encounter procedure Ting Polo MD Work Phone: General Surgery Comment on above: Malignant neoplasm o f right breast in female, estrogen receptor positive, unspecified site of breast (HCC) (Primary Dx) Start: 02-29-2024 Telephone encounter Ting Polo MD Work Phone: General Surgery Comment on above: Orders Start: 02-28-2024 End: 02-28-2024 ambulatory [facility] Facility:[facility] Start: 02-28-2024 End: 02-28-2024 ambulatory [facility] Facility:[facility] Start: 02-20-2024 End: 02-20-2024 [facility] Start: 02-12-2024 End: 02-12-2024 ambulatory [facility] Facility:[facility] Start: 02-12-2024 End: 02-12-2024 Patient encounter procedure Ting Polo MD Work Phone: General Surgery Comment on above: Malignant neoplasm o f right breast in female, estrogen receptor positive, unspecified site of breast (HCC) (Primary Dx) Start: 02-04-[address] [facility] Start: 02-04-2024 End: 02-04-2024 Subsequent hospital visit by physician Ting Polo MD Work Phone: Molecular Imaging Comment on above: Malignant neoplasm o f right breast in female, estrogen receptor positive, unspecified site of breast (HCC) [C50.911, Z17.0] Start: 02-04-2024 End: 02-04-2024 ambulatory GERTRUDISSALIMA DE LEON Facility:[facility] Start: 01-29-2024 [facility] Start: 01-29-2024 End: 01-29-2024 Subsequent hospital visit by physician Procedure [facility] Work Phone: [facility] Start: 01-28-2024 Encounter for other preprocedural examination [facility] Start: 01-28-2024 End: 01-28-2024 Admission to establishment [place] [id number] Work Phone: Pre Anesthesia Start: 01-28-2024 End: 01-28-2024 Anesthesia consultation [place] [id number] Work Phone: Pre Anesthesia Comment on above: Benign hypertension (Primary Dx); Sarcoidosis; TIA (transient ischemic attack); Mild major depression (HCC); Pre-op evaluation; Smoker; Seizure-like activity (HCC); MELECIO (obstructive sleep apnea) Start: 01-28-2024 End: 01-28-2024 Preprocedural examination done [place] [address] Work Phone: [facility] Start: 01-28-2024 End: 01-28-2024 ambulatory [facility] Facility:[facility] Start: 01-28-2024 End: 01-28-2024 ambulatory Gertrudis Radhaheavenyamilet Facility:[facility] Start: 01-18-2024 Telephone encounter Ting Polo MD Work Phone: General Surgery Start: 01-17-2024 End: 01-17-2024 ambulatory GRETRUDIS HALEY Facility:[facility] Start: 01-17-2024 Telephone encounter Ting Polo MD Work Phone: General Surgery Comment on above: Breast Localization [employer] 3RD SHIFT; Breast L ocalization Start: 01-17-2024 End: 01-17-2024 ambulatory [facility] Facility:[facility] Start: 01-17-2024 End: 01-17-2024 Patient encounter procedure Ting Polo MD Work Phone: General Surgery Comment on above: Malignant neoplasm o f right breast in female, estrogen receptor positive, unspecified site of breast (HCC) (Primary Dx); Malignant neoplasm of overlapping 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, estrogen receptor positive (HCC) Start: 01-15-2024 Telephone encounter Ting Polo MD Work Phone: General Surgery Comment on above: Patient Question Start: 01-14-2024 Telephone encounter Ting Polo MD Work Phone: General Surgery Comment on above: Patient Question Start: 01-08-2024 ambulatory TING POLO Facil ity:[id number] Start: 01-08-2024 End: 01-08-2024 Subsequent hospital visit by physician Screen/Diagnostic [facility] Comment on above: Other abnormal and i nconclusive findings on diagnostic imaging of breast [R92.8] Start: 01-08-2024 Telephone encounter Ting Polo MD Work Phone: General Surgery Comment on above: Patient Update Start: 01-08-2024 ambulatory TING POLO Facil ity:[id number] Start: 01-08-2024 End: 01-08-2024 Subsequent hospital visit by physician [facility]ri [facility] Work Phone: [facility]IO [facility] Comment on above: Malignant neoplasm 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, estrogen receptor positive (HCC) [C50.811, Z17.0] Start: 12-27-2023 End: 12-27-2023 ambulatory Breast [facility] Tumor Board Comment on above: Tumor Board Breast Start: 12-25-2023 End: 12-25-2023 Subsequent hospital visit by physician [facility] 2 Work Phone: Radiology Comment on above: Malignant neoplasm 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, estrogen receptor positive (HCC) [C50.811, Z17.0] Start: 12-25-2023 End: 12-25-2023 ambulatory GERTRUDIS DE LEON Facility:[facility] Start: 12-25-2023 End: 12-25-2023 Patient encounter procedure Ting Polo MD Work Phone: General Surgery Comment on above: Malignant neoplasm 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, estrogen receptor positive (HCC) (Primary Dx); Abnormal finding on breast imaging Start: 12-21-2023 End: 12-21-2023 ambulatory TING POLO Facility:[facility] Start: 12-21-2023 End: 12-21-2023 Patient encounter procedure Ting Polo MD Work Phone: General Surgery Comment on above: Malignant neoplasm 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, estrogen receptor positive (HCC) (Primary Dx) Start: 12-14-2023 Telephone encounter Ting Polo MD Work Phone: General Surgery Comment on above: Patient Update Start: 12-10-2023 Telephone encounter Ting Polo MD Work Phone: General Surgery Start: 12-06-2023 End: 12-06-2023 ambulatory TING POLO Facility:[facility] Start: 12-06-2023 End: 12-06-2023 Patient encounter procedure Ting Polo MD Work Phone: General Surgery Comment on above: Malignant neoplasm 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, estrogen receptor positive (HCC) (Primary Dx) Start: 10-20-2023 End: 10-20-2023 Emergency department patient visit CYNDI Berman CHIDILATRELLNAZARIO [facility] Start: 10-20-2023 End: 10-20-2023 Emergency department patient visit Harriett Newell MD Work Phone: [facility] Emergency Dept Comment on above: Alcohol intoxication with delirium (HCC) (Primary Dx); Malignant neoplasm of female breast, unspecified estrogen receptor status, unspecified laterality, unspecified site of breast (HCC) Procedures Date Procedure Procedure Detail Performing Clinician Start: 01-29-2024 Diagnostic mammograp hy computer-aided detcj uni Ting Polo MD Work Phone: Start: 01-29-2024 Perq breast loc cezar ce placemt 1st lesio us imag Ting Polo MD Work Phone: Start: 01-08-2024 3d rendering w/interp&postproc diff work station Ting Polo MD Work Phone: Start: 01-08-2024 Bx breast w/device 1 st lesion magnetic res guid Ting Polo MD Work Phone: Start: 12-25-2023 Us breast uni real t william with image limited Ting Polo MD Work Phone: Start: 10-20-2023 Drug tst prsmv instr mnt chem analyzers pr date Harriett Newell MD Work Phone: Start: 10-20-2023 Urnls dip stick/tabl et rgnt non-auto w/o micrscp Harriett Newell MD Work Phone: Start: 10-20-2023 Ct head/brain w/o co ntrast material Harriett Newell MD Work Phone: Start: 10-20-2023 Ecg routine ecg w/le ast 12 lds trcg only w/o i&r Harriett Newell MD Work Phone: Start: 10-20-2023 Comprehensive metabo lic panel Harriett Newell MD Work Phone: Start: 10-20-2023 Drug screen quantita tive alcohols Harriett Newell MD Work Phone: Plan of Treatment Date Care Activity Detail Author Start: 01-27-2027 Diabetes Screening Diabetes Screenin g [facility] Start: 10-19-2026 Diabetes Screening Diabetes Screenin g [facility] Start: 03-30-2024 Covid-19 Vaccine ( season) Covid-19 Vaccine () [facility] Start: 03-30-2024 Covid-19 Vaccine ( season) Covid-19 Vaccine ( season) [facility] Start: 03-30-2024 Influenza vaccination C [facility] Start: 03-14-2024 End: 06-13-2024 [facility] SEND OUT TST 1 [facility] SEND OUT TST 1 Lab Routine Malignant neoplasm of right breast in female, estrogen receptor positive, unspecified site of breast (HCC) Family history of lung cancer Family history of leukemia Family history of colon cancer Family history of testicular cancer Family history of basal cell carcinoma Expected: 03/14/2024, Expires: 06/13/2024 [facility] Work Phone: Comment on above: Expected: 03/14/2024 , Expires: 06/13/2024 Start: 03-14-2024 End: 03-14-2024 Patient encounter procedure [facility] Comment on above: C50.911,Z17.0 (ICD-1 0-CM) - Malignant neoplasm of right breast in female, estrogen receptor positive, unspecified site of breast (HCC Start: 03-12-2024 End: 03-12-2024 Admission to same day surgery center 03/12/2024 1:00 PM EDT - 03/12/2024 2:30 PM EDT Surgery [facility] Radiology Procedure [address] [place] [address] Dayron Zuleta MD [address] [place] [address] INSERTION PORT VENOUS ACCESS ADULT [facility] Radiology Procedure Comment on above: INSERTION PORT VENOU S ACCESS ADULT Start: 03-12-2024 End: 03-12-2024 Insj tunneled ctr vad w/subq port age 3 yr/> INSERTION PORT VENOUS ACCESS ADULT Malignant neoplasm of right breast in female, estrogen receptor positive, unspecified site of breast (HCC) 03/12/2024 1:00 PM EDT AV IR Start: 03-12-2024 Subsequent hospital visit by physician 03/12/2024 1:00 PM EDT Hospital Encounter [facility] Radiology Procedure [id number] [place] [address] Dayron Zuleta MD [address] [place] [address] Malignant neoplasm of right breast in female, estrogen receptor positive, unspecified site of breast (HCC) [C50.911, Z17.0] [facility] Radiology Procedure Comment on above: Malignant neoplasm o f right breast in female, estrogen receptor positive, unspecified site of breast (HCC) [C50.911, Z17.0] Start: 03-10-2024 End: 06-09-2024 CBC panel - Blood by Automated count COMPLETE BLOOD COUNT Lab Routine Malignant neoplasm of right breast in female, estrogen receptor negative, unspecified site of breast (HCC) Expected: 03/10/2024, Expires: 06/09/2024 [facility] Work Phone: Comment on above: Expected: 03/10/2024 , Expires: 06/09/2024 Start: 03-07-2024 End: 03-07-2024 Evaluation and management of inpatient [facility] Surgery Comment on above: Malignant neoplasm o f right breast in female, estrogen receptor positive, unspecified site of breast (HCC) [C50.911, Z17.0] INSERTION CATHETER P ORT-A-CATH WITH C-ARM Start: 03-07-2024 End: 03-07-2024 Admission to same day surgery center 03/07/2024 12:30 PM EDT - 03/07/2024 1:30 PM EDT Surgery [facility] Surgery [address] [place] [address] Ting Polo MD [address] [place] [address] INSERTION CATHETER PORT-A-CATH WITH C-ARM [facility] Surgery Comment on above: INSERTION CATHETER P ORT-A-CATH WITH C-ARM Start: 03-07-2024 End: 03-07-2024 Insj tunneled ctr vad w/subq port age 3 yr/> ME OR Start: 03-07-2024 Subsequent hospital visit by physician 03/07/2024 12:30 PM EDT Hospital Encounter [facility] Surgery [address] [place] [address] Ting Polo MD [address] [address] Malignant neoplasm of right breast in female, estrogen receptor positive, unspecified site of breast (HCC) [C50.911, Z17.0] [facility] Surgery Comment on above: Malignant neoplasm o f right breast in female, estrogen receptor positive, unspecified site of breast (HCC) [C50.911, Z17.0] Start: 03-05-2024 End: 03-05-2024 Anesthesia consultation 03/05/2024 11:00 AM EDT PAT Pre Anesthesia [address] [place] [address] Virtual, [facility] [place] [address] [place] [address] VV- [phone] INSERTION CATHETER PORT-A-CATH WITH C-ARM [2253] - Neck - Left Pre Anesthesia Comment on above: VV- [phone] INS ERTION CATHETER PORT-A-CATH WITH C-ARM [2253] - Neck - Left Start: 03-04-2024 End: 03-04-2024 Patient encounter procedure 03/04/2024 1:45 PM EDT Office Visit General Surgery [address] [place], [place] [address] Ting Polo MD [address] [address] MASTECTOMY PARTIAL, right General Surgery Comment on above: MASTECTOMY PARTIAL, right Start: 02-19-2024 End: 02-19-2024 Patient encounter procedure 02/19/2024 10:00 AM EDT Office Visit General Surgery [address] [address] Yousif Green MD [address] [place] [address] MASTECTOMY PARTIAL [[id number]] General Surgery Comment on above: MASTECTOMY PARTIAL [ 2572] Start: 02-12-2024 End: 02-12-2024 Patient encounter procedure 02/12/2024 3:00 PM EDT Office Visit General Surgery [address] [place] [address] Ting Polo MD [address] [address] MASTECTOMY PARTIAL [[id number]] General Surgery Comment on above: MASTECTOMY PARTIAL [ 2572] Start: 02-04-2024 End: 02-04-2024 Admission to same day surgery center 02/04/2024 1:00 PM EDT - 02/04/2024 2:58 PM EDT Surgery [facility] Surgery [address] [place] [address] Ting Polo MD [address] [address] MASTECTOMY PARTIAL [facility] Surgery Comment on above: MASTECTOMY PARTIAL Start: 02-04-2024 End: 02-04-2024 Bx/exc lymph node open deep axillary node BIOPSY NODE SENTINEL AXILLARY Malignant neoplasm of right breast in female, estrogen receptor positive, unspecified site of breast (HCC) 02/04/2024 1:00 PM EDT [facility] OR Start: 02-04-2024 End: 02-04-2024 Mastectomy partial MASTECTOMY PARTIAL Malignant neoplasm of right breast in female, estrogen receptor positive, unspecified site of breast (HCC) 02/04/2024 1:00 PM EDT ME OR Start: 02-04-2024 Subsequent hospital visit by physician [facility] Comment on above: Malignant neoplasm o f right breast in female, estrogen receptor positive, unspecified site of breast (HCC) [C50.911, Z17.0] Start: 02-04-2024 End: 02-04-2024 Patient encounter procedure Molecular Imaging Comment on above: BIOPSY NODE SENTINEL AXILLARY [1219] SENTINEL LYMPH NODE Start: 01-29-2024 End: 01-29-2024 Patient encounter procedure 01/29/2024 10:00 AM EDT Appointment [facility] [address] [place] [address] [employer] Technician per email [facility] Comment on above: [employer] Technician per email Start: 01-17-2024 End: 01-17-2024 Patient encounter procedure 01/17/2024 11:30 AM EDT Office Visit General Surgery [address] [address] Ting Polo MD [address] [address] Patient very anxious about scheduling surgery; breast biopsy 01/07 General Surgery Comment on above: Patient very anxious about scheduling surgery; breast biopsy 01/07 Start: 01-14-2024 End: 01-14-2024 Admission to same day surgery center 01/14/2024 11:30 AM EDT - 01/14/2024 12:50 PM EDT Surgery [facility] [address] [place] [address] Ting Polo MD [address] [address] INSERTION CATHETER PORT-A-CATH WITH C-ARM [facility] Comment on above: INSERTION CATHETER P ORT-A-CATH WITH C-ARM Start: 01-14-2024 End: 01-14-2024 Insj tunneled ctr vad w/subq port age 3 yr/> INSERTION CATHETER PORT-A-CATH WITH C-ARM Malignant neoplasm of overlapping 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, estrogen receptor positive (HCC) Abnormal finding on breast imaging 01/14/2024 11:30 AM EDT ME OR Start: 01-14-2024 Subsequent hospital visit by physician 01/14/2024 11:30 AM EDT Hospital Encounter [address] [address] Ting Polo MD [address] [address] Malignant neoplasm of overlapping 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, estrogen receptor positive (HCC) [C50.811, Z17.0] [facility] Comment on above: Malignant neoplasm 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, estrogen receptor positive (HCC) [C50.811, Z17.0] Start: 12-27-2023 End: 12-27-2023 Patient encounter procedure 12/27/2023 12:45 PM EDT Appointment [facility] [address] [place] [address] Malignant neoplasm of overlapping 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, estrogen rece... [facility] Comment on above: Malignant neoplasm 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, estrogen rece... Start: 12-25-2023 End: 12-25-2023 Patient encounter procedure General Surgery Comment on above: breast mri 12/18/2023 - [facility] breast mri 12/18/2023 [facility] [place] scheduled 9:15a 12/24- stb Malignant neoplasm 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, estrogen receptor positive (HCC) [C50.811, Z17.0] Start: 12-21-2023 End: 12-21-2023 Patient encounter procedure 12/21/2023 8:30 AM EDT Office Visit General Surgery [address] [place] [address] Ting Polo MD [address] [address] LEFT breast biopsy, scheduled per RG, MRI/US images & report requested 12/18, BRITT 12/06/23- stb General Surgery Comment on above: LEFT breast biopsy, scheduled per RG, MRI/US images & report requested 12/18, BRITT 12/06/23- stb Start: 2023 RSV Vaccine (1 - 1-d ose 60+ series) RSV Vaccine (1 - 1-dose 60+ series) [facility] Start: 2023 RSV Vaccine (1 - Ris k 60-74 years 1-dose series) RSV Vaccine (1 - Risk 60-74 years 1-dose series) [facility] Start: 07-30-2023 Behavioral Health Screening Behavioral Health Screening [facility] Start: 03-30-2023 Covid-19 Vaccine ( season) Covid-19 Vaccine ( season) [facility] Start: 03-30-2023 Influenza vaccinatio n given INFLUENZA VACCINE (#1) [facility] Start: 12-04-2013 Screening for malign ant neoplasm of lung Lung Cancer Screening [facility] Start: 12-04-2013 Shingrix Vaccine (1 of 2) [place] grix Vaccine (1 of 2) [facility] Start: 12-04-2013 Zoster vaccine hzv l lindy for subcutaneous use ZOSTER (SHINGLES) VACCINE (1 of 2) [facility] Start: 12-04-2008 Lipid panel Lipid Screening [facility] Start: 12-04-2008 Screening for malign ant neoplasm of colon [facility] Start: 2003 Screening for malign ant neoplasm of breast [facility] Start: 12-04-1993 Screening for malign ant neoplasm of cervix HPV Testing [facility] Start: 12-04-1984 Screening for malign ant neoplasm of cervix [facility] Start: 12-04-1982 Urine microalbumin profile DTaP,Tdap,Td Vaccine (1 - Tdap) [facility] Start: 12-04-1981 Annual PCP Team [employer] ronald Disease Visit Annual PCP Team Chronic Disease Visit [facility] Start: 12-04-1981 ANNUAL WELLNESS VISIT ANNUAL WELLNES S VISIT [facility] Start: 12-04-1981 Anxiety Screening Anxiety Screening [facility] Start: 12-04-1981 BP Controlled (<130/80) BP Con trolled (<130/80) [facility] Start: 12-04-1981 Hepatitis C screening Hepatitis C Sc [facility] Start: 12-04-1981 HIV screening HIV Screening [facility] Start: 1975 Depression screening using PHQ-9 (Patient Health Questionnaire 9) score DEPRESSION SCREENING [facility] Start: 12-04-1974 Administration of diphtheria + tetanus + acellular pertussis vaccine DTAP/TDAP/TD VACCINE (1 - Tdap) [facility] Start: 12-04-1969 Pneumococcal vaccination Pneum ococcal Vaccine (1 of 2 - PCV) [facility] Start: 06-06-1964 COVID-19 VACCINE (#1) COVID-19 VACCI NE (#1) [facility] Start: 1963 Hepatitis C screening HEPATITIS C [facility] Start: 1963 HPV/COTEST HPV/COTEST [facility] Start: 1963 Screening for malign ant neoplasm of cervix [facility] 12 lead ECG EKG 12 lead ECG SANIA 10/20/2023 6:44 PM EDT [facility] End: 10-20-2023 Acetaminophen level [facility] Comment on above: One Time for 1 Occur rences starting 10/20/2023 until 10/20/2023, 1 completed Bx/exc lymph node op en deep axillary node BIOPSY NODE SENTINEL AXILLARY Malignant neoplasm of right breast in female, estrogen receptor positive, unspecified site of breast (HCC) [facility] End: 10-20-2023 [facility] Comment on above: Once for 1 Occurrenc es starting 10/20/2023 until 10/20/2023, 1 completed ECG COMPLETE ECG COMPLETE ECG Routine Pre-op evaluation Ordered: 01/28/2024 [facility] Work Phone: Comment on above: Ordered: 01/28/2024 End: 10-20-[address] [facility] Comment on above: Once for 1 Occurrenc es starting 10/20/2023 until 10/20/2023, 1 completed End: 10-20-2023 [facility] Comment on above: Once for 1 Occurrenc es starting 10/20/2023 until 10/20/2023, 1 completed End: 10-20-2023 [facility] Comment on above: Once for 1 Occurrenc es starting 10/20/2023 until 10/20/2023, 1 completed End: 10-20-2023 Light [facility] Comment on above: Once for 1 Occurrenc es starting 10/20/2023 until 10/20/2023, 1 completed Mastectomy partial MASTECTOMY PA RTIAL Malignant neoplasm of right breast in female, estrogen receptor positive, unspecified site of breast (HCC) [facility] End: 01-23-2025 MR Breast - left WO and W contrast IV MRI BREAST BX WO/W IVCON LEFT Radiology Routine Malignant neoplasm of overlapping 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, estrogen receptor positive (HCC) Abnormal finding on breast imaging 1 Occurrences starting 12/25/2023 until 01/23/2025 [facility] Work Phone: Comment on above: 1 Occurrences starti ng 12/25/2023 until 01/23/2025 End: 02-15-2025 NM Breast lymphatic vessels - right Views W radionuclide intra lymphatic NM LYMPH NODE IMAGING BREAST RIGHT Radiology Routine Malignant neoplasm of right breast in female, estrogen receptor positive, unspecified site of breast (HCC) 1 Occurrences starting 01/17/2024 until 02/15/2025 [facility] Comment on above: 1 Occurrences starti ng 01/17/2024 until 02/15/2025 End: 02-15-2025 NM Lymph node Views NM INJ SENTINEL NODE BREAST RIGHT Radiology Routine Malignant neoplasm of overlapping 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, estrogen receptor positive (HCC) 1 Occurrences starting 01/17/2024 until 02/15/2025 [facility] Work Phone: Comment on above: 1 Occurrences starti ng 01/17/2024 until 02/15/2025 End: 10-20-2023 RAINBOW DRAW [facility] Work Phone: Comment on above: One Time for 1 Occur rences starting 10/20/2023 until 10/20/2023 End: 10-20-2023 Salicylate level [facility] Comment on above: One Time for 1 Occur rences starting 10/20/2023 until 10/20/2023, 1 completed End: 01-19-2025 US Breast - left limited US BREAST LTD LEFT Radiology Routine Malignant neoplasm of overlapping 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, estrogen receptor positive (HCC) 1 Occurrences starting 12/21/2023 until 01/19/2025 [facility] Work Phone: Comment on above: 1 Occurrences starti ng 12/21/2023 until 01/19/2025 Payers Date Payer Category Payer Self-pay 2023 Unknown 0 2022 Unknown [id number] 2022 Unknown [id number] 1965 Unknown [id number] 2.16. [id number] 1965 Unknown [id number] 2.16. 840.1.144578.3.579.2.297 1965 Unknown [id number] 2.16.8 40.1.157329.3.579.2.651 Unknown [id number] 2.16.8 40.1.049561.3.579.2.462 Unknown [id number] 2.16.8 40.1.488010.3.579.2.462 Unknown [id number] 2.16.8 40.1.016320.3.579.2.462 Unknown [id number] 2.16.8 40.1.512805.3.579.2.462 Unknown [id number] 2.16.8 40.1.790080.3.579.2.462 Unknown [id number] 2.16.8 40.1.463071.3.579.2.462 Unknown [id number] 2.16.8 40.1.242652.3.579.2.462 Unknown [id number] 2.16.8 40.1.846761.3.579.2.462 Unknown [id number] 2.16.8 40.1.009530.3.579.2.462 Unknown [id number] 2.16.8 40.1.331975.3.579.2.462 Unknown [id number] 2.16.8 40.1.848352.3.579.2.462 Unknown [id number] 2.16.8 40.1.683810.3.579.2.462 Unknown [id number] 2.16.8 40.1.699434.3.579.2.462 Unknown [id number] 2.16.8 40.1.021242.3.579.2.462 Unknown [id number] 2.16.8 40.1.735889.3.579.2.462 Unknown [id number] 2.16.8 40.1.825222.3.579.2.462 Unknown [id number] 2.16.8 40.1.293224.3.579.2.462 Unknown [id number] 2.16.8 40.1.304359.3.579.2.462 Unknown [id number] 2.16.8 40.1.216977.3.579.2.462 Unknown [id number] 2.16.8 40.1.296827.3.579.2.462 Unknown [id number] 2.16.8 40.1.035015.3.579.2.462 Unknown [id number] 2.16.8 40.1.973840.3.579.2.462 Unknown [id number] 2.16.8 40.1.282656.3.579.2.462 Unknown [id number] 2.16.8 40.1.611581.3.579.2.462 Unknown [id number] 2.16.8 40.1.169589.3.579.2.462 Unknown [id number] 2.16.8 40.1.141154.3.579.2.462 Unknown [id number] 2.16.8 40.1.323339.3.579.2.462 Unknown [id number] 2.16.8 40.1.084783.3.579.2.462 Unknown [id number] 2.16.8 40.1.314119.3.579.2.462 Unknown [id number] 2.16.8 40.1.927941.3.579.2.462 Unknown [id number] 2.16.8 40.1.183937.3.579.2.462 Unknown [id number] 2.16.8 40.1.494387.3.579.2.462 Unknown [id number] 2.16.8 40.1.377176.3.579.2.462 Unknown [id number] 2.16.8 40.1.376997.3.579.2.462 Unknown [id number] 2.16.8 40.1.596853.3.579.2.462 Unknown [id number] 2.16.8 40.1.668777.3.579.2.462 Social History Date Type Detail Facility Tobacco smoking status NVIS Tobacco smoking consumption unknown [facility] Start: 1965 Sex Assigned At Not on file [facility] Start: 12-08-2023 End: 12-21-2023 Gender identity Not on file [facility] Start: 12-06-2023 End: 01-28-2024 Tobacco smoking status NVIS Smokes tobacco daily [facility] History of tobacco use Cigarette Smoker [facility] Start: 12-06-2023 End: 01-28-2024 Tobacco use and exposure Smokeless tobacco non-user [facility] Start: 12-08-2023 End: 12-21-2023 History of Social function [facility] National Score (1-100), lower number is lower risk 83 [facility] Start: 01-17-2024 Alcohol intake Current drinke r of alcohol (finding) [facility] Start: 01-28-2024 End: 03-07-2024 Alcohol intake Ex-drinker (finding) [facility] Start: 03-05-2024 Alcohol Comment rare [facility] Medical Equipment Procedure Code Equipment Code Equipment Origin al Text Equipment Identifier Dates Port Powerport I sp [employer] 8fr Titanium Implantable Infusion Custom - [id number] Start: 03-12-2024 Clinical Notes 10-20-2023 to 05-30-2024 Telephone Encounter - Lindsay Elias RN - 04/04/2024 8:41 AM EDTTelephone Encounter - Lindsay Elias RN - 04/04/2024 8:41 AM EDTCDeborah erwin MS - 03/14/2024 10:00 AM EDT Note Date & Type Note Facility 05-30-2024 Note [facility] 04-04-2024 Telephone encounter Note Scan on 04/03/2024 by Provider, Jan, PA-C: Dr. Brown Woody, Oncology @[facility] 04-04-2024 Miscellaneous Notes Scan on 04/03/2024 by Provider, Jan, PA-C: Dr. Brown Woody, Oncology @[facility] documented in this encounter [facility] 03-14-2024 History of Present illness Narrative Images from the original note were not included. [facility] Department of Medical Genetics Consultation Note Genetic Counselor: Deborah Gongoar MS, [facility] Patient: Gillian Luis This visit was conducted via [employer]. I have communicated my name and active licensure. The patient's identity and physical location were verified at the time of this visit. Either the patient or their legal financial service representative has been informed of the risks and benefits of -- and alternatives to -- treatment through a remote evaluation and consents to proceed with the evaluation remotely. HIGH LEVEL SUMMARY: The patient's personal and family history is potentially suggestive of a hereditary cancer syndrome. The patient provided informed consent for Multi-Cancer panel through [facility]. Results are expected in 2-3 weeks from the time of sample collection. The patient plans on having blood drawn at a [facility] lab close to home. IDENTIFICATION AND CHIEF COMPLAINT: Dr. Ting Polo requested a consultation for genetic counseling and risk assessment for Gillian Luis, a 58 year old female, for discussion of her personal and family history of cancer. She presents to clinic today to discuss the possibility of a genetic predisposition to cancer, and to further clarify her risks, as well as her family members' risks for cancer. HISTORY OF PRESENT ILLNESS: In 2023, at the age of 58, Gillian Luis was diagnosed with invasive ductal carcinoma of the right breast cancer. This is being treated with a lumpectomy, chemotherapy and radiation. PAST MEDICAL HISTORY No date: Benign hypertension 11/2023: Breast cancer (HCC) Comment: Right Breast No date: Decreased GFR No date: Dysphagia, pharyngeal No date: Generalized osteoarthrosis, involving multiple sites No date: GERD (gastroesophageal reflux disease) No date: High blood pressure No date: Hyperlipemia No date: Knee pain Comment: right Knee No date: Mild major depression (HCC) No date: Noncompliance with medication regimen No date: Sarcoidosis No date: TIA (transient ischemic attack) PAST SURGICAL HISTORY No date: LIGATE FALLOPIAN TUBE 02/04/2024: MASTECTOMY, PARTIAL; Right No date: PAST SURGICAL HISTORY OF Comment: Wedge Resection, Right Lung No date: TONSILLECTOMY & ADENOIDECTOMY <AGE 10 No date: TOTAL ABDOM HYSTERECTOMY CANCER SURVEILLANCE HISTORY: Mammograms: last 12/2023 Breast MRI's: last 12/2023 Breast Biopsies: last 01/2024 Colonoscopy: N/A EGD: N/A GI Polyps: N/A Dermatology: Yes. nnually REPRODUCTIVE HISTORY AND PERSONAL RISK ASSESSMENT FACTORS: Weight: Last 1 Encounter Wt Readings: Date: Wt: 03/05/2024 74.4 kg (164 lb) Height: Last 1 Encounter Ht Readings: Date: Ht: 03/05/2024 157.5 cm (5' 2) Menarche was at age 11 Postmenopausal around 53 Uterus Intact: No Ovaries Intact: one ovary remains First live at age 15 She has not used HRT in the past. SOCIAL HISTORY: Social History Tobacco Use Smoking status: Every Day Packs/day: 1.00 Years: 20.00 Additional pack years: 0.00 Total pack years: 20.00 Types: Cigarettes Smokeless tobacco: Never Vaping Use Vaping Use: Never used Substance Use Topics Alcohol use: Not Currently Comment: rare Drug use: Never FAMILY HISTORY: We obtained a detailed, 4-generation family history. Significant diagnoses are listed below: Father with basal cell carcinoma in 60s Paternal aunt with colon cancer in 70s Paternal uncle with leukemia at 7 Paternal male cousin with testicular cancer twice in 40s Paternal male cousin with lung cancer at 39 Paternal male cousin with leukemia at 13 Paternal male cousin with lung cancer at 47 Paternal male cousin with colon cancer at 39 FAMILY HISTORY Problem Relation Age of Onset Hypertension Mother Hypertension Father other (Basal Cell Carcinoma) Father Cancer Father Hypertension Maternal Grandmother Hypertension Maternal Grandfather Hypertension Paternal Grandmother Hypertension Paternal Grandfather Anesthesia Problems No Family History The patient's maternal ancestors are of [place] descent and paternal ancestors are of [place] descent. There is no Ashkenazi Muslim ancestry. There is no known consanguinity. A copy of the patient's pedigree will be available under the scanned documents tab following today's visit. GENETIC COUNSELING RISK ASSESSMENT, DISCUSSION, AND SUGGESTED FOLLOW UP: We reviewed the natural history and genetic etiology of sporadic, familial and hereditary cancer syndromes. The patient's personal and family history is potentially suggestive of: a hereditary cancer syndrome The patient meets NCCN testing criteria based on her family history of colon cancer in her paternal aunt in her 70s and family history of colon cancer in her paternal cousin at 39. We discussed that identification of a hereditary cancer syndrome may help her care providers tailor her medical management. If a mutation is detected, the National Comprehensive Cancer Network and/or expert opinion recommendations could include increased cancer surveillance and prophylactic surgery options. If a mutation is detected, the patient will be referred back to the referring provider and to any additional appropriate care providers to discuss the relevant options. Inheritance of hereditary cancer syndromes was discussed with the patient. If a mutation is not found in the patient, this will decrease the likelihood of a hereditary cancer syndrome as the explanation for the patient's personal and family history of cancer. However, it cannot completely rule out this possibility. Cancer surveillance options would be discussed for the patient according to the appropriate standard National Comprehensive Cancer Network and [place] Cancer Society guidelines, with consideration of their personal and family history risk factors. In this case, the patient will be referred back to their care providers for discussions of management. Based on this assessment of the patient's family and personal history, genetic testing is recommended. The patient was offered Multi-Cancer panel through [facility]. After considering the risks, benefits, and limitations, the patient chose to pursue and provided informed consent for the following testing: Multi-Cancer panel through [facility]. The Multi-Cancer Panel includes AIP, ALK, APC, MARCELO, AXIN2, BAP1, BARD1, BLM, BMPR1A, BRCA1, BRCA2, BRIP1, CDC73, CDH1, CDK4, CDKN1B, CDKN2A, CHEK2, CTNNA1, DICER1, EGFR, EPCAM, FH, FLCN, GREM1, HOXB13, KIT, LZTR1, MAX, MBD4, MEN1, MET, MITF, MLH1, MSH2, MSH3, MSH6, MUTYH, NF1, NF2, NTHL1, PALB2, PDGFRA, PMS2, POLD1, POLE, POT1, IYMJI3K, PTCH1, PTEN, RAD51C, RAD51D, RB1, RET, SDHA, SDHAF2, SDHB, SDHC, SDHD, SMAD4, SMARCA4, SMARCB1, SMARCE1, STK11, SUFU, JOEM534, TP53, TSC1, TSC2, and VHL The Multi-Cancer panel looks at genes associated with cancers of the breast, gynecologic tract (ovarian, uterine/endometrial), gastrointestinal system (colorectal, gastric, pancreatic), endocrine glands (thyroid, parathyroid, pituitary, adrenal glands), genitourinary tract (renal/urinary tract, prostate), skin (melanoma, basal cell carcinoma), and brain/nervous system. We discussed that an NGS panel can rarely result in an unexpected finding which may or may not be related to the presenting phenotype. We discussed that [employer] may call the patient regarding billing. The patient should watch for this communication and respond promptly. The patient should contact [employer] directly with any billing questions (. [phone] or [email or web address]). Per the patient's request, we will contact her by [employer] or telephone to review these results. A follow up genetic counseling visit will be scheduled if requested. The patient was seen for a total of 30 minutes, greater than 50% of which was spent [id number] counseling. This plan is being carried out under the oversight of Dr. Caryl Aquino. This note will also be sent to the referring provider via the electronic medical record. Deborah Gongora MS, [facility] CC: Dr. Ting Aquino documented in this encounter [facility] 03-14-2024 Note HNO ID: [id number] Author: DEBORAH GONGORA MS Service: ? Author Type: Genetic Counselor Type: Progress Notes Filed: 03/14/2024 12:44 Note Text: [facility] Department of Medical Genetics Consultation Note Genetic Counselor: Deborah Gongora MS, [facility] Patient: Gillian Luis This visit was conducted via [employer]. I have communicated my name and active licensure. The patient's identity and physical location were verified at the time of this visit. Either the patient or their legal financial service representative has been informed of the risks and benefits of -- and alternatives to -- treatment through a remote evaluation and consents to proceed with the evaluation remotely. HIGH LEVEL SUMMARY: The patient's personal and family history is potentially suggestive of a hereditary cancer syndrome. The patient provided informed consent for Multi-Cancer panel through [facility]. Results are expected in 2-3 weeks from the time of sample collection. The patient plans on having blood drawn at a [facility] lab close to home. IDENTIFICATION AND CHIEF COMPLAINT: Dr. Ting Polo requested a consultation for genetic counseling and risk assessment for Gillian Luis, a 58 year old female, for discussion of her personal and family history of cancer. She presents to clinic today to discuss the possibility of a genetic predisposition to cancer, and to further clarify her risks, as well as her family members' risks for cancer. HISTORY OF PRESENT ILLNESS: In 2023, at the age of 58, Gillian Luis was diagnosed with invasive ductal carcinoma of the right breast cancer. This is being treated with a lumpectomy, chemotherapy and radiation. PAST MEDICAL HISTORY No date: Benign hypertension 11/2023: Breast cancer (HCC) Comment: Right Breast No date: Decreased GFR No date: Dysphagia, pharyngeal No date: Generalized osteoarthrosis, involving multiple sites No date: GERD (gastroesophageal reflux disease) No date: High blood pressure No date: Hyperlipemia No date: Knee pain Comment: right Knee No date: Mild major depression (HCC) No date: Noncompliance with medication regimen No date: Sarcoidosis No date: TIA (transient ischemic attack) PAST SURGICAL HISTORY No date: LIGATE FALLOPIAN TUBE 02/04/2024: MASTECTOMY, PARTIAL; Right No date: PAST SURGICAL HISTORY OF Comment: Wedge Resection, Right Lung No date: TONSILLECTOMY AND ADENOIDECTOMY No date: TOTAL ABDOM HYSTERECTOMY CANCER SURVEILLANCE HISTORY: Mammograms: last 12/2023 Breast MRI's: last 12/2023 Breast Biopsies: last 01/2024 Colonoscopy: N/A EGD: N/A GI Polyps: N/A Dermatology: Yes. nnually REPRODUCTIVE HISTORY AND PERSONAL RISK ASSESSMENT FACTORS: Weight: Last 1 Encounter Wt Readings: Date: Wt: 03/05/2024 74.4 kg (164 lb) Height: Last 1 Encounter Ht Readings: Date: Ht: 03/05/2024 157.5 cm (5' 2) Menarche was at age 11 Postmenopausal around 53 Uterus Intact: No Ovaries Intact: one ovary remains First live at age 15 She has not used HRT in the past. SOCIAL HISTORY: Social History Tobacco Use Smoking status: Every Day Packs/day: 1.00 Years: 20.00 Additional pack years: 0.00 Total pack years: 20.00 Types: Cigarettes Smokeless tobacco: Never Vaping Use Vaping Use: Never used Substance Use Topics Alcohol use: Not Currently Comment: rare Drug use: Never FAMILY HISTORY: We obtained a detailed, 4-generation family history. Significant diagnoses are listed below: Father with basal cell carcinoma in 60s Paternal aunt with colon cancer in 70s Paternal uncle with leukemia at 7 Paternal male cousin with testicular cancer twice in 40s Paternal male cousin with lung cancer at 39 Paternal male cousin with leukemia at 13 Paternal male cousin with lung cancer at 47 Paternal male cousin with colon cancer at 39 FAMILY HISTORY Problem Relation Age of Onset Hypertension Mother Hypertension Father other (Basal Cell Carcinoma) Father Cancer Father Hypertension Maternal Grandmother Hypertension Maternal Grandfather Hypertension Paternal Grandmother Hypertension Paternal Grandfather Anesthesia Problems No Family History The patient's maternal ancestors are of [place] descent and paternal ancestors are of [place] descent. There is no Ashkenazi Muslim ancestry. There is no known consanguinity. A copy of the patient's pedigree will be available under the scanned documents tab following today's visit. GENETIC COUNSELING RISK ASSESSMENT, DISCUSSION, AND SUGGESTED FOLLOW UP: We reviewed the natural history and genetic etiology of sporadic, familial and hereditary cancer syndromes. The patient's personal and family history is potentially suggestive of: a hereditary cancer syndrome The patient meets NCCN testing criteria based on her family history of colon cancer in her paternal aunt in her 70s and family history of colon cancer in her paternal cousin at 39. (more content not included)... [facility] 03-10-2024 Telephone encounter Note You are scheduled for a mediport placement, On 03/12/2024. You are to arrive at 12:00 pm and Report to [facility]: [facility]: Radiology Outpatient Desk [id number] You can expect to be here for 3-4 hours. Diet: Do not eat any solid food after midnight the night before your procedure. You may drink clear liquids until 10:00 a.m., which means black coffee, apple juice, black tea, or water only. Medications: Ok to take your cardiac, blood pressure, anti-seizure, and chronic pain medications with a sip of water, please take prior to arrival. Bring your current medication list. Labs: Lab-work needs to be drawn? Yes, CBC labs need to be drawn at least one day prior to procedure. Please bring a copy of the results if they are not done at a [facility] facility. . Bulk Receiver/Transportation: How will you be arriving for your procedure? Private car. You will need a responsible adult to accompany you to and from the procedure. Please call with any questions or concerns. [facility] 03-10-2024 Miscellaneous Notes You are scheduled for a mediport placement, On 03/12/2024. You are to arrive at 12:00 pm and Report to [facility]: [facility]: Radiology Outpatient Desk [id number] You can expect to be here for 3-4 hours. Diet: Do not eat any solid food after midnight the night before your procedure. You may drink clear liquids until 10:00 a.m., which means black coffee, apple juice, black tea, or water only. Medications: Ok to take your cardiac, blood pressure, anti-seizure, and chronic pain medications with a sip of water, please take prior to arrival. Bring your current medication list. Labs: Lab-work needs to be drawn? Yes, CBC labs need to be drawn at least one day prior to procedure. Please bring a copy of the results if they are not done at a [facility] facility. . Bulk Receiver/Transportation: How will you be arriving for your procedure? Private car. You will need a responsible adult to accompany you to and from the procedure. Please call with any questions or concerns. documented in this encounter [facility] 03-06-2024 Telephone encounter Note Prior authorization team reached out to us this morning and need Gillian's surgery changed from admit prior to to outpatient. Gillian is scheduled with Dr. Polo tomorrow 03/07/24. [facility] 03-06-2024 Miscellaneous Notes Prior authorization team reached out to us this morning and need Gillian's surgery changed from admit prior to to outpatient. Gillian is scheduled with Dr. Polo tomorrow 03/07/24. documented in this encounter [facility] 03-05-2024 History and physical note Images from the original note were not included. [facility] HISTORY AND PHYSICAL EXAMINATION SERVICE DATE: 03/05/2024 SERVICE TIME: 11:21 AM PRIMARY CARE PHYSICIAN: Gertrudis De Leon MD Assessment Patient has the following medical conditions which may affect dora-operative course: TIA (transient ischemic attack) Assessment: no deficits; occurred around Mild major depression (HCC) Assessment: Stable on RX, denies concerning symptoms Sarcoidosis Assessment: prior breast lump that was unable to get good biopsy, with further work up lesions were found in lungs, spleen, kidneys. Had right lung resection and dx with sarcoid, treated with prednisone x 1 yr. Now in remission. Denies concerning symptoms. Benign hypertension Assessment: compliant with medications. Monitored at home and typically 140/85 Smoker Assessment: current smoker 1 ppd, x 20 yrs Hyperlipidemia Assessment: Stable on RX Seizure-like activity (HCC) Assessment: reports one time event in September 2023 with shaking (about 5 minutes) and 5 hour period of amnesia prior to seizure activity. No meds, no follow up with neurology. Was assessed at local ER and unremarkable work up - believes related to stress. MELECIO (obstructive sleep apnea) Assessment: occasionally wears CPAP Hypokalemia Assessment: K+ 3.3 early January. Recommend increasing potassium rich foods daily and follow up with PCP for future monitoring Breast cancer (HCC) Assessment: s/p partial mastectomy. Starting chemo next week, scheduled for port placement on 03/07 [place] Activity Status Index: METS: Climb a flight of stairs or walk up a hill (5.50 METs) DASI Score: 5.5 Patient denies any chest pain or undue shortness of breath with the above physical activity. Clinical Frailty Scale: 3. Well, with treated comorbid disease [id number] Score: Age: <65 Sex: female CHF history: No Hypertension history: Yes Stroke/TIA/thromboembolism history: No Vascular disease history: No Diabetes history: No [id number] Score: 2 ANESTHESIA FINDINGS: Intubation History: No history of difficult intubation. No abnormal airway history Significant Anesthesia Considerations: none Airway History: No history of difficult airway No abnormal airway history I - PHYSICAL EVALUATION AIRWAY Patient intubated: No. Tracheostomy tube not present Mallampati: III. TM distance: >3 FB. Neck ROM: full ROM without neurological symptoms. Mouth opening: adequate. Short neck: no. Thick neck: no Lip Bite Test: II Microretrognathia/Micronagthia/R ecessed Chin: No DENTAL Dentures, upper: complete. Dentures, lower: complete. II - ANESTHESIA PLAN Beta Cecil Monitoring Plan Post Procedure Analgesic Plan Prepared for Surgery: optimally prepared for surgery. CONSULTS: Patient does not require consults for optimization at this time Planned Anesthetic: The Following Tests/Procedures Have Been Initiated: No orders of the defined types were placed in this encounter. This is a virtual visit using Zenoss video visit. It required patient-provider interaction for the medical decision making as documented below. REASON FOR VISIT: Gillian Luis is a 58 year old female who is scheduled for Procedure(s): INSERTION CATHETER PORT-A-CATH WITH C-ARM (Left) at the request of Dr. Ting Polo for consultation. My final recommendation will be communicated back to the requesting physician by way of shared medical record or letter. Subjective The patient has the following: ACTIVE PROBLEM LIST Benign Hypertension Breast Cancer (Hcc) Sarcoidosis Tia (Transient Ischemic Attack) Mild Major Depression (Hcc) Smoker Hyperlipidemia Seizure-Like Activity (Hcc) Melecio (Obstructive Sleep Apnea) Hypokalemia COVID-19 Immunization Status Overdue - Covid-19 Vaccine ( season) Never done No completion, postpone, frequency change, or communication history exists for this topic. CHIEF COMPLAINT: Surgery HPI: Patient is a 58 year old female presenting for upcoming port placement for chemotherapy starting on 03/13 Recommended for surgery and elected to proceed. This is a virtual visit. The visit was conducted using Zenoss video visit. It required patient-provider interaction for the medical decision making as documented below. I have communicated my name and active licensure. The patient's identity and physical location were verified at the time of this visit. Either the patient or their legal financial service representative has been informed of the risks and benefits of and alternatives to treatment through a remote evaluation and consents to proceed with the evaluation remotely. REVIEW OF SYSTEMS: General: No weight loss, malaise or fevers. Neurological: Negative for: seizures, TIA and strokes. Respiratory: Positive for: obstructive sleep apnea. Negative for: current cough, home oxygen, pneumonia within 6 weeks and URI < 2 weeks. Cardiovascular: Positive for: hypertension Negative for: AICD/PPM, chest pain, DVT/PE and murmur/valvular heart disease. GI: Positive for: GERD Negative for: abdominal pain, liver disease and nausea. : Negative for: dysuria, frequent urination, hematuria and renal failure. Endocrine: Negative for: hypothyroidism and steroid for chronic problem. Hematology: Negative for: bruises/bleeds easily and chronic anti-coagulation/platelet meds. Oncology: No history of CA metastasis, chemo within 30 days, or radiotherapy within 90 days. No history of oncological symptoms or problems. Psych: Positive for: depression. Musculoskeletal: Negative for: swelling. Skin: Negative for lesions, rash and itching. Negative for: rash. PAST MEDICAL HISTORY No date: Benign hypertension 11/2023: Breast cancer (HCC) Comment: Right Breast No date: Decreased GFR No date: Dysphagia, pharyngeal No date: Generalized osteoarthrosis, involving multiple sites No date: GERD (gastroesophageal reflux disease) No date: High blood pressure No date: Hyperlipemia No date: Knee pain Comment: right Knee No date: Mild major depression (HCC) No date: Noncompliance with medication regimen No date: Sarcoidosis No date: TIA (transient ischemic attack) PAST SURGICAL HISTORY No date: LIGATE FALLOPIAN TUBE 02/04/2024: MASTECTOMY, PARTIAL; Right No date: PAST SURGICAL HISTORY OF Comment: Wedge Resection, Right Lung No date: TONSILLECTOMY & ADENOIDECTOMY No date: TOTAL ABDOM HYSTERECTOMY FAMILY HISTORY Problem Relation Age of Onset Hypertension Mother Hypertension Father other (Basal Cell Carcinoma) Father Cancer Father Hypertension Maternal Grandmother Hypertension Maternal Grandfather Hypertension Paternal Grandmother Hypertension Paternal Grandfather Anesthesia Problems No Family History Social History Tobacco Use Smoking status: Every Day Packs/day: 1.00 Years: 20.00 Additional pack years: 0.00 Total pack years: 20.00 Types: Cigarettes Smokeless tobacco: Never Vaping Use Vaping Use: Never used Substance Use Topics Alcohol use: Not Currently Comment: rare Drug use: Never Prior to Admission medications as of 03/05/24 1104 Medication Sig Last Dose Taking ibuprofen (ADVIL) 200 mg tablet Take 200 mg by mouth every 6 hours as needed for pain. Taking Yes metoprolol succinate ER (TOPROL XL) 50 mg 24 hr tablet Take 50 mg by mouth once daily. Taking Yes lisinopril-hydroCHLOROthiazide (ZESTORETIC) 20-25 mg per tablet Take 1 tablet by mouth once daily. Taking Yes rosuvastatin (CRESTOR) 10 mg tablet Take 10 mg by mouth once daily. Taking Yes amLODIPine (NORVASC) 5 mg tablet Take by mouth as directed. Taking Yes sertraline (ZOLOFT) 50 mg tablet Take 50 mg by mouth once daily. Taking Yes No medication comments found. ALLERGIES Allergen Reactions Latex Hives Objective PHYSICAL EXAM: (if completed, exam performed via video enabled technology) General: alert and oriented. Pertinent negatives noted - not distressed. Skin: normal color, no rash or lesions. HEENT: Normal ROM neck. No deformity. . Cardiovascular: Respiratory: Pertinent negatives noted - no chest deformity. No distress. No obvious wheezing. . Abdomen: Extremities: Denies edema / erythema . Neurological: normal cognition and motor skills. Pertinent negatives noted - no speech abnormality. PAIN ASSESSMENT: VITALS: Ht 5' 2 (1.58m) Wt 164 lb (74.4kg) BMI 29.99 kg/(m^2). Diagnostic tests reviewed for today's visit: Lab Value Units Date High Low HB 14.1 g/dL 01/28/2024 15.5 11.5 HCT 43.8 % 01/28/2024 46.0 36.0 WBC 8.81 k/uL 01/28/2024 11.00 3.70 PLT 265 k/uL 01/28/2024 400 150 NA 142 mmol/L 01/28/2024 144 136 K 3.3 mmol/L 01/28/2024 5.1 3.7 GLUC 61 mg/dL 01/28/2024 99 74 BUN 14 mg/dL 01/28/2024 21 7 CREAT 0.84 mg/dL 01/28/2024 0.96 0.58 PTSEC No results within date range. INR No results within date range. APTT No results within date range. ALT No results within date range. AST No results within date range. TBILI No results within date range. TSH No results within date range. Lab Value Units Date High Low HCGQT No results within date range. UHCG No results within date range. HCG, BODY* No results within date range. Lab Value Units Date High Low ABORHD No results within date range. ABSCREEN No results within date range. No results found for: HBA1C Recent Results (from the past 8760 hour(s)) ECG COMPLETE Collection Time: 01/28/24 3:13 PM Result Value Ventricular Rate 73 Atrial Rate 73 P-R Interval 200 QRS Duration 100 QT Interval 416 QTC Calculation (Bazett) 458 Calculated P Smithers 71 Calculated R Smithers -25 Calculated T Smithers 63 Impression SINUS RHYTHM WITH OCCASIONAL PREMATURE VENTRICULAR COMPLEXES AND POSSIBLE PREMATURE ATRIAL COMPLEXES WITH Aberrant conduction POSSIBLE LEFT ATRIAL ENLARGEMENT SEPTAL INFARCT , AGE UNDETERMINED ABNORMAL ECG NO PREVIOUS ECGS AVAILABLE Confirmed by MD RODRIGUEZ GREGORY () on 01/29/2024 8:07:58 AM No results found for this or any previous visit (from the past 49988 hour(s)). Instructions Given to Patient: Instructions located in the after visit summary. Patient given verbal and written preop instructions and voices comprehension and compliance. SIGNATURE: Edis Brandon PA-C PATIENT NAME: Gillian Luis DATE: March 05, 2024 TIME: 11:03 AM PAGER/CONTACT #: T [facility] 03-05-2024 History and physical note Images from the original note were not included. [facility] HISTORY AND PHYSICAL EXAMINATION SERVICE DATE: 03/05/2024 SERVICE TIME: 11:21 AM PRIMARY CARE PHYSICIAN: Gertrudis De Leon MD Assessment Patient has the following medical conditions which may affect dora-operative course: TIA (transient ischemic attack) Assessment: no deficits; occurred around Mild major depression (HCC) Assessment: Stable on RX, denies concerning symptoms Sarcoidosis Assessment: prior breast lump that was unable to get good biopsy, with further work up lesions were found in lungs, spleen, kidneys. Had right lung resection and dx with sarcoid, treated with prednisone x 1 yr. Now in remission. Denies concerning symptoms. Benign hypertension Assessment: compliant with medications. Monitored at home and typically 140/85 Smoker Assessment: current smoker 1 ppd, x 20 yrs Hyperlipidemia Assessment: Stable on RX Seizure-like activity (HCC) Assessment: reports one time event in September 2023 with shaking (about 5 minutes) and 5 hour period of amnesia prior to seizure activity. No meds, no follow up with neurology. Was assessed at local ER and unremarkable work up - believes related to stress. MELECIO (obstructive sleep apnea) Assessment: occasionally wears CPAP Hypokalemia Assessment: K+ 3.3 early January. Recommend increasing potassium rich foods daily and follow up with PCP for future monitoring Breast cancer (HCC) Assessment: s/p partial mastectomy. Starting chemo next week, scheduled for port placement on 03/07 [place] Activity Status Index: METS: Climb a flight of stairs or walk up a hill (5.50 METs) DASI Score: 5.5 Patient denies any chest pain or undue shortness of breath with the above physical activity. Clinical Frailty Scale: 3. Well, with treated comorbid disease [id number] Score: Age: <65 Sex: female CHF history: No Hypertension history: Yes Stroke/TIA/thromboembolism history: No Vascular disease history: No Diabetes history: No [id number] Score: 2 ANESTHESIA FINDINGS: Intubation History: No history of difficult intubation. No abnormal airway history Significant Anesthesia Considerations: none Airway History: No history of difficult airway No abnormal airway history I - PHYSICAL EVALUATION AIRWAY Patient intubated: No. Tracheostomy tube not present Mallampati: III. TM distance: >3 FB. Neck ROM: full ROM without neurological symptoms. Mouth opening: adequate. Short neck: no. Thick neck: no Lip Bite Test: II Microretrognathia/Micronagthia/R ecessed Chin: No DENTAL Dentures, upper: complete. Dentures, lower: complete. II - ANESTHESIA PLAN Beta Cecil Monitoring Plan Post Procedure Analgesic Plan Prepared for Surgery: optimally prepared for surgery. CONSULTS: Patient does not require consults for optimization at this time Planned Anesthetic: The Following Tests/Procedures Have Been Initiated: No orders of the defined types were placed in this encounter. This is a virtual visit using Zenoss video visit. It required patient-provider interaction for the medical decision making as documented below. REASON FOR VISIT: Gillian Luis is a 58 year old female who is scheduled for Procedure(s): INSERTION CATHETER PORT-A-CATH WITH C-ARM (Left) at the request of Dr. Ting Polo for consultation. My final recommendation will be communicated back to the requesting physician by way of shared medical record or letter. Subjective The patient has the following: ACTIVE PROBLEM LIST Benign Hypertension Breast Cancer (Hcc) Sarcoidosis Tia (Transient Ischemic Attack) Mild Major Depression (Hcc) Smoker Hyperlipidemia Seizure-Like Activity (Hcc) Melecio (Obstructive Sleep Apnea) Hypokalemia COVID-19 Immunization Status Overdue - Covid-19 Vaccine ( season) Never done No completion, postpone, frequency change, or communication history exists for this topic. CHIEF COMPLAINT: Surgery HPI: Patient is a 58 year old female presenting for upcoming port placement for chemotherapy starting on 03/13 Recommended for surgery and elected to proceed. This is a virtual visit. The visit was conducted using Zenoss video visit. It required patient-provider interaction for the medical decision making as documented below. I have communicated my name and active licensure. The patient's identity and physical location were verified at the time of this visit. Either the patient or their legal financial service representative has been informed of the risks and benefits of and alternatives to treatment through a remote evaluation and consents to proceed with the evaluation remotely. REVIEW OF SYSTEMS: General: No weight loss, malaise or fevers. Neurological: Negative for: seizures, TIA and strokes. Respiratory: Positive for: obstructive sleep apnea. Negative for: current cough, home oxygen, pneumonia within 6 weeks and URI < 2 weeks. Cardiovascular: Positive for: hypertension Negative for: AICD/PPM, chest pain, DVT/PE and murmur/valvular heart disease. GI: Positive for: GERD Negative for: abdominal pain, liver disease and nausea. : Negative for: dysuria, frequent urination, hematuria and renal failure. Endocrine: Negative for: hypothyroidism and steroid for chronic problem. Hematology: Negative for: bruises/bleeds easily and chronic anti-coagulation/platelet meds. Oncology: No history of CA metastasis, chemo within 30 days, or radiotherapy within 90 days. No history of oncological symptoms or problems. Psych: Positive for: depression. Musculoskeletal: Negative for: swelling. Skin: Negative for lesions, rash and itching. Negative for: rash. PAST MEDICAL HISTORY No date: Benign hypertension 11/2023: Breast cancer (HCC) Comment: Right Breast No date: Decreased GFR No date: Dysphagia, pharyngeal No date: Generalized osteoarthrosis, involving multiple sites No date: GERD (gastroesophageal reflux disease) No date: High blood pressure No date: Hyperlipemia No date: Knee pain Comment: right Knee No date: Mild major depression (HCC) No date: Noncompliance with medication regimen No date: Sarcoidosis No date: TIA (transient ischemic attack) PAST SURGICAL HISTORY No date: LIGATE FALLOPIAN TUBE 02/04/2024: MASTECTOMY, PARTIAL; Right No date: PAST SURGICAL HISTORY OF Comment: Wedge Resection, Right Lung No date: TONSILLECTOMY & ADENOIDECTOMY <AGE 10 No date: TOTAL ABDOM HYSTERECTOMY FAMILY HISTORY Problem Relation Age of Onset Hypertension Mother Hypertension Father other (Basal Cell Carcinoma) Father Cancer Father Hypertension Maternal Grandmother Hypertension Maternal Grandfather Hypertension Paternal Grandmother Hypertension Paternal Grandfather Anesthesia Problems No Family History Social History Tobacco Use Smoking status: Every Day Packs/day: 1.00 Years: 20.00 Additional pack years: 0.00 Total pack years: 20.00 Types: Cigarettes Smokeless tobacco: Never Vaping Use Vaping Use: Never used Substance Use Topics Alcohol use: Not Currently Comment: rare Drug use: Never Prior to Admission medications as of 03/05/24 1104 Medication Sig Last Dose Taking ibuprofen (ADVIL) 200 mg tablet Take 200 mg by mouth every 6 hours as needed for pain. Taking Yes metoprolol succinate ER (TOPROL XL) 50 mg 24 hr tablet Take 50 mg by mouth once daily. Taking Yes lisinopril-hydroCHLOROthiazide (ZESTORETIC) 20-25 mg per tablet Take 1 tablet by mouth once daily. Taking Yes rosuvastatin (CRESTOR) 10 mg tablet Take 10 mg by mouth once daily. Taking Yes amLODIPine (NORVASC) 5 mg tablet Take by mouth as directed. Taking Yes sertraline (ZOLOFT) 50 mg tablet Take 50 mg by mouth once daily. Taking Yes No medication comments found. ALLERGIES Allergen Reactions Latex Hives Objective PHYSICAL EXAM: (if completed, exam performed via video enabled technology) General: alert and oriented. Pertinent negatives noted - not distressed. Skin: normal color, no rash or lesions. HEENT: Normal ROM neck. No deformity. . Cardiovascular: Respiratory: Pertinent negatives noted - no chest deformity. No distress. No obvious wheezing. . Abdomen: Extremities: Denies edema / erythema . Neurological: normal cognition and motor skills. Pertinent negatives noted - no speech abnormality. PAIN ASSESSMENT: VITALS: Ht 5' 2 (1.58m) Wt 164 lb (74.4kg) BMI 29.99 kg/(m^2). Diagnostic tests reviewed for today's visit: Lab Value Units Date High Low HB 14.1 g/dL 01/28/2024 15.5 11.5 HCT 43.8 % 01/28/2024 46.0 36.0 WBC 8.81 k/uL 01/28/2024 11.00 3.70 PLT 265 k/uL 01/28/2024 400 150 NA 142 mmol/L 01/28/2024 144 136 K 3.3 mmol/L 01/28/2024 5.1 3.7 GLUC 61 mg/dL 01/28/2024 99 74 BUN 14 mg/dL 01/28/2024 21 7 CREAT 0.84 mg/dL 01/28/2024 0.96 0.58 PTSEC No results within date range. INR No results within date range. APTT No results within date range. ALT No results within date range. AST No results within date range. TBILI No results within date range. TSH No results within date range. Lab Value Units Date High Low HCGQT No results within date range. UHCG No results within date range. HCG, BODY* No results within date range. Lab Value Units Date High Low ABORHD No results within date range. ABSCREEN No results within date range. No results found for: HBA1C Recent Results (from the past 8760 hour(s)) ECG COMPLETE Collection Time: 01/28/24 3:13 PM Result Value Ventricular Rate 73 Atrial Rate 73 P-R Interval 200 QRS Duration 100 QT Interval 416 QTC Calculation (Bazett) 458 Calculated P Smithers 71 Calculated R Smithers -25 Calculated T Smithers 63 Impression SINUS RHYTHM WITH OCCASIONAL PREMATURE VENTRICULAR COMPLEXES AND POSSIBLE PREMATURE ATRIAL COMPLEXES WITH Aberrant conduction POSSIBLE LEFT ATRIAL ENLARGEMENT SEPTAL INFARCT , AGE UNDETERMINED ABNORMAL ECG NO PREVIOUS ECGS AVAILABLE Confirmed by MD RODRIGUEZ GREGORY () on 01/29/2024 8:07:58 AM No results found for this or any previous visit (from the past 93185 hour(s)). Instructions Given to Patient: Instructions located in the after visit summary. Patient given verbal and written preop instructions and voices comprehension and compliance. SIGNATURE: Edis Brandon PA-C PATIENT NAME: Gillian Luis DATE: March 05, 2024 TIME: 11:03 AM PAGER/CONTACT #: documented in this encounter [facility] 03-04-2024 Note HNO ID: [id number] Author: TING POLO MD Service: ? Author Type: Physician Type: Progress Notes Filed: 03/04/2024 19:15 Note Text: HISTORY AND PHYSICAL Gillian Luis 1965 REFERRING PHYSICIAN: No ref. provider found CHIEF COMPLAINT: Consult (Port consultation. Chemotherapy begins 03/13/2024. 1 month follow up breast surgery. ) HPI: The patient is a 58 year old female with a diagnosis of right breast cancver. Gillian is currently scheduled to undergo chemotherapy and needs vascular access for treatment. The patient denies a prior history of central venous access. The patient is right hand dominant. PAST MEDICAL HISTORY No date: Benign hypertension 11/2023: Breast cancer (HCC) Comment: Right Breast No date: Decreased GFR No date: Dysphagia, pharyngeal No date: Generalized osteoarthrosis, involving multiple sites No date: GERD (gastroesophageal reflux disease) No date: High blood pressure No date: Hyperlipemia No date: Knee pain Comment: right Knee No date: Mild major depression (HCC) No date: Noncompliance with medication regimen No date: Sarcoidosis No date: TIA (transient ischemic attack) PAST SURGICAL HISTORY No date: LIGATE FALLOPIAN TUBE 02/04/2024: MASTECTOMY, PARTIAL; Right No date: PAST SURGICAL HISTORY OF Comment: Wedge Resection, Right Lung No date: TONSILLECTOMY AND ADENOIDECTOMY No date: TOTAL ABDOM HYSTERECTOMY Current Outpatient Medications Medication Sig Dispense Refill ibuprofen (ADVIL) 200 mg tablet Take 200 mg by mouth every 6 hours as needed for pain. metoprolol succinate ER (TOPROL XL) 50 mg 24 hr tablet Take 50 mg by mouth once daily. lisinopril-hydroCHLOROthiazide (ZESTORETIC) 20-25 mg per tablet Take 1 tablet by mouth once daily. rosuvastatin (CRESTOR) 10 mg tablet Take 10 mg by mouth once daily. amLODIPine (NORVASC) 5 mg tablet Take by mouth as directed. sertraline (ZOLOFT) 50 mg tablet Take 50 mg by mouth once daily. No current facility-administered medications for this visit. ALLERGIES: Latex PERSONAL HISTORY: Social History Tobacco Use Smoking status: Every Day Packs/day: 1.00 Years: 20.00 Additional pack years: 0.00 Total pack years: 20.00 Types: Cigarettes Smokeless tobacco: Never Vaping Use Vaping Use: Never used Substance Use Topics Alcohol use: Not Currently Drug use: Never FAMILY HISTORY: FAMILY HISTORY Problem Relation Age of Onset Hypertension Mother Hypertension Father other (Basal Cell Carcinoma) Father Cancer Father Hypertension Maternal Grandmother Hypertension Maternal Grandfather Hypertension Paternal Grandmother Hypertension Paternal Grandfather REVIEW OF SYMPTOMS: The review of systems data was entered by the nurse and reviewed by me There are no exam notes on file for this visit. PHYSICAL EXAMINATION: General: The patient is 58 year old female, well nourished, well hydrated in no acute distress. The patient is oriented to time, place, and person. VITALS: There were no vitals taken for this visit. There is no height or weight on file to calculate BMI. HEENT: Normal cephalic, ataumatic, pupils are equally round, sclera are anicteric, mucous membranes are moist, oropharynx is clear. Neck has no masses, asymmetry or lymphadenopathy. Thyroid is unremarkable. Respiratory: Clear to auscultation and percussion. Normal respiratory excursion and pattern. Cardiac: Examination is regular rate and rhythm. Abdominal exam: Soft, nontender, with no palpable masses. No hepatosplenomegaly. No palpable hernias. Rectal exam: exam deferred Extremities: no clubbing, cyanosis or edema. No adenopathy. Other: LABORATORY VALUES: As Noted RADIOLOGIC STUDIES: As Noted Assessment IMPRESSION: right breast cancer, need for IV access PLAN: I plan to perform a left internal jugular port a cath placement. The planned surgical procedure was discussed extensively with the patient. The risks, benefits, anticipated outcomes and possible complications were mentioned. My staff has also explained the procedure in understandable terms and the patient was given the option to take printed material concerning the planned procedure. The patient had the opportunity to ask questions concerning the planned procedure. The patient freely consents to the planned procedure. Planned Procedure: left Internal Jugular Portacath - 25640-766, Ultrasound for vascular access - 88180-793-93, and Fluoroscopic for vascular access - 85858-796-58 Patient Weight Last 1 Encounter Wt Readings: Date: Wt: 01/28/2024 74.8 kg (164 lb 14.5 oz) Antibiotic: Ancef 2gm IVPB front office attendant to OR Planned Anesthetic: MAC with local I do not plan to access the port at the time of surgery. Diagnoses: (C50.911, Z17.0) Malignant neoplasm of right breast in female, estrogen receptor positive, unspecified site of breast (HCC) (primary encounter diagnosis) Ting Polo MD [facility] [place] 03-04-2024 History of Present illness Narrative HISTORY AND PHYSICAL Gillian Luis 1965 REFERRING PHYSICIAN: No ref. provider found CHIEF COMPLAINT: Consult (Port consultation. Chemotherapy begins 03/13/2024. 1 month follow up breast surgery. ) HPI: The patient is a 58 year old female with a diagnosis of right breast cancver. Gillian is currently scheduled to undergo chemotherapy and needs vascular access for treatment. The patient denies a prior history of central venous access. The patient is right hand dominant. PAST MEDICAL HISTORY No date: Benign hypertension 11/2023: Breast cancer (HCC) Comment: Right Breast No date: Decreased GFR No date: Dysphagia, pharyngeal No date: Generalized osteoarthrosis, involving multiple sites No date: GERD (gastroesophageal reflux disease) No date: High blood pressure No date: Hyperlipemia No date: Knee pain Comment: right Knee No date: Mild major depression (HCC) No date: Noncompliance with medication regimen No date: Sarcoidosis No date: TIA (transient ischemic attack) PAST SURGICAL HISTORY No date: LIGATE FALLOPIAN TUBE 02/04/2024: MASTECTOMY, PARTIAL; Right No date: PAST SURGICAL HISTORY OF Comment: Wedge Resection, Right Lung No date: TONSILLECTOMY & ADENOIDECTOMY <AGE 10 No date: TOTAL ABDOM HYSTERECTOMY Current Outpatient Medications Medication Sig Dispense Refill ibuprofen (ADVIL) 200 mg tablet Take 200 mg by mouth every 6 hours as needed for pain. metoprolol succinate ER (TOPROL XL) 50 mg 24 hr tablet Take 50 mg by mouth once daily. lisinopril-hydroCHLOROthiazide (ZESTORETIC) 20-25 mg per tablet Take 1 tablet by mouth once daily. rosuvastatin (CRESTOR) 10 mg tablet Take 10 mg by mouth once daily. amLODIPine (NORVASC) 5 mg tablet Take by mouth as directed. sertraline (ZOLOFT) 50 mg tablet Take 50 mg by mouth once daily. No current facility-administered medications for this visit. ALLERGIES: Latex PERSONAL HISTORY: Social History Tobacco Use Smoking status: Every Day Packs/day: 1.00 Years: 20.00 Additional pack years: 0.00 Total pack years: 20.00 Types: Cigarettes Smokeless tobacco: Never Vaping Use Vaping Use: Never used Substance Use Topics Alcohol use: Not Currently Drug use: Never FAMILY HISTORY: FAMILY HISTORY Problem Relation Age of Onset Hypertension Mother Hypertension Father other (Basal Cell Carcinoma) Father Cancer Father Hypertension Maternal Grandmother Hypertension Maternal Grandfather Hypertension Paternal Grandmother Hypertension Paternal Grandfather REVIEW OF SYMPTOMS: The review of systems data was entered by the nurse and reviewed by me There are no exam notes on file for this visit. PHYSICAL EXAMINATION: General: The patient is 58 year old female, well nourished, well hydrated in no acute distress. The patient is oriented to time, place, and person. VITALS: There were no vitals taken for this visit. There is no height or weight on file to calculate BMI. HEENT: Normal cephalic, ataumatic, pupils are equally round, sclera are anicteric, mucous membranes are moist, oropharynx is clear. Neck has no masses, asymmetry or lymphadenopathy. Thyroid is unremarkable. Respiratory: Clear to auscultation and percussion. Normal respiratory excursion and pattern. Cardiac: Examination is regular rate and rhythm. Abdominal exam: Soft, nontender, with no palpable masses. No hepatosplenomegaly. No palpable hernias. Rectal exam: exam deferred Extremities: no clubbing, cyanosis or edema. No adenopathy. Other: LABORATORY VALUES: As Noted RADIOLOGIC STUDIES: As Noted Assessment IMPRESSION: right breast cancer, need for IV access PLAN: I plan to perform a left internal jugular port a cath placement. The planned surgical procedure was discussed extensively with the patient. The risks, benefits, anticipated outcomes and possible complications were mentioned. My staff has also explained the procedure in understandable terms and the patient was given the option to take printed material concerning the planned procedure. The patient had the opportunity to ask questions concerning the planned procedure. The patient freely consents to the planned procedure. Planned Procedure: left Internal Jugular Portacath - [id number], Ultrasound for vascular access - 52560-925-44, and Fluoroscopic for vascular access - 30863-259-69 Patient Weight Last 1 Encounter Wt Readings: Date: Wt: 01/28/2024 74.8 kg (164 lb 14.5 oz) Antibiotic: Ancef 2gm IVPB front office attendant to OR Planned Anesthetic: MAC with local I do not plan to access the port at the time of surgery. Diagnoses: (C50.911, Z17.0) Malignant neoplasm of right breast in female, estrogen receptor positive, unspecified site of breast (HCC) (primary encounter diagnosis) Ting Polo MD documented in this encounter [facility] 03-04-2024 Telephone encounter Note Fax received, in scanned documents in [facility]. [facility] 03-04-2024 Miscellaneous Notes Fax received, in scanned documents in [facility]. [facility] calling to verify our office received a fax from them re: patient getting a port placement? She is scheduled to see us on 03/04 for a post op mastectomy appt. Arianne Vogt LPN documented in this encounter [facility] 02-29-2024 Telephone encounter Note [facility] calling to verify our office received a fax from [facility] re: patient getting a port placement? She is scheduled to see us on 03/04 for a post op mastectomy appt. Arianne Vogt LPN [facility] 02-18-2024 History of Present illness Narrative FOLLOW UP VISIT - POST OP BREAST CANCER NAME: Gillian Luis CLINIC NO.: [id number] DATE OF SERVICE: 02/12/2024 : 1965 REFERRING PHYSICIAN: Gertrudis De Leon MD Gillian is a patient I am following for right sided breast cancer. : Gillian Luis is a 58-year-old female who presents with right breast cancer at 2 sites. No information was received prior to the patient being seen in my office. I understand the patient had palpable masses in her right breast she underwent mammogram and ultrasound at [facility]. I have her copy of her ultrasound report dated October 16, 2023 which demonstrated suspicious solid-appearing lesions at both the 11 and 12:00 positions 2 foci are noted 1 measuring 17 x 17 x 21 mm and the additional measuring 12 x 24 x 8 mm they were uncertain whether these were 2 separate lesions or a single dumbbell shaped lesion. The patient then underwent core biopsy of this site on November 21, 2023. The 11:00 and 12:00 sites both returned as invasive ductal carcinoma-grade 2. Receptor status was estrogen positive progesterone negative HER2 indeterminant. FISH was negative for HER2 Addendum-having now received copies of her radiology reports a ribbon clip was placed at breast biopsy site a, a coil clip was placed at the breast biopsy site B. The patient notes some bruising of the site We extensively discussed her diagnosis including breast conservation surgical procedures, mastectomy without reconstruction and mastectomy with reconstruction. Reviewing care everywhere did not provide additional information however she did have ED visit on October 20, 2023 for alcohol intoxication related to anxiety and depression with what was felt to be homicidal suicidal intent initially due to the recent loss of her and the new diagnosis of breast cancer. This was not noted at the time of her visit nor discussed in the office setting The patient is being seen by me at the request of Dr. Gertrudis De Leon MD for my opinion and advice regarding locally advanced right-sided breast cancer. Bone scan was obtained on December 14, 2023 which demonstrated no evidence of metastatic deposits. The patient was also referred to Dr. Brown Woody, medical oncology at [facility]. A CT scan of the chest was obtained which demonstrated no metastatic disease, but suggested a possible 1.5cm mass in the left breast. MRI which was obtained on December 18, 2023. This demonstrated the index lesion in the right breast and measured as 3.5cm x 1.5cm x 1.7cm. There was also an 11mm x 8mm x 5mm noted in the 12-1 o'clock position of the left breast noted 5.2cm behind the nipple. I performed office-based ultrasound on December 20 and found no abnormalities. I ordered a formal ultrasound which was obtained this morning. This also demonstrated no abnormalities. Given the MRI findings my plan is to schedule the patient for an MRI based evaluation/biopsy. The patient underwent MRI imaging/biopsy of the left breast abnormality. Biopsy was performed on January 08, 2024. This returned as: FINAL DIAGNOSIS A. Left breast, upper outer quadrant mass, biopsy: - Sclerosing adenosis, columnar cell change and focal fibroadenomatoid change. - Focal intraductal microcalcifications. - No evidence of malignancy. This is felt to be concordant with the MRI findings. The patient is decided she would like to proceed with lumpectomy and sentinel lymph node biopsy. I performed a right needle localization lumpectomy with sentinel lymph node biopsy on February 04, 2024. Intraoperative findings: SPECIMENS: 1. Axillary contents with the 2nd hottest area with 80 counts. 2. [place] lymph node with 160 counts. Both were very slightly blue. 3. Lumpectomy with the single tail marking the specimen cranially, the double tail laterally, and the specimen measured 9 cm in the transverse plane, 7 cm craniocaudal plane, and 5.5 cm in the superficial deep plane. COCO marked margins were superficial 8 mm, cranial 16 mm, medial 9 mm, lateral 10 mm, caudal 11 mm, deep 12 mm. Radiographic margins were good. The pathology demonstrated: FINAL DIAGNOSIS A. Right axillary contents, excision: -- Six lymph nodes, negative for carcinoma (0/6). B. Right sentinel lymph node, hottest (count 160), excision: -- One lymph node, negative for carcinoma (0/1). C. Right breast, lumpectomy: -- Invasive ductal carcinoma, see synoptic report. D. Right breast, lateral margin medial aspect, excision: -- Negative for carcinoma. Synoptic Report INVASIVE CARCINOMA OF THE BREAST: Resection 8th Edition - Protocol posted: 07/11/2023INVASIVE CARCINOMA OF THE BREAST: EXCISION - All Specimens SPECIMEN Procedure Excision (less than total mastectomy) Specimen Laterality Right TUMOR Histologic Type Invasive carcinoma of no special type (ductal) Histologic Grade (Tony Histologic Score) Glandular (Acinar) / Tubular Differentiation Score 3 Nuclear Pleomorphism Score 2 Mitotic Rate Score 1 Overall Grade Grade 2 (scores of 6 or 7) Tumor Size Greatest dimension of largest invasive focus (Millimeters): 36 mm Tumor Focality Single focus of invasive carcinoma Ductal Carcinoma In Situ (DCIS) Present Negative for extensive intraductal component (EIC) Architectural Patterns Cribriform Nuclear Grade Grade II (intermediate) Necrosis Not identified Lobular Carcinoma In Situ (LCIS) Not identified Lymphatic and / or Vascular Invasion Not identified Microcalcifications Present in non-neoplastic tissue Treatment Effect in the Breast No known presurgical therapy MARGINS Margin Status for Invasive Carcinoma All margins negative for invasive carcinoma Distance from Invasive Carcinoma to Closest Margin Greater than: 2 mm Closest Margin(s) to Invasive Carcinoma Anterior Margin Status for DCIS All margins negative for DCIS Distance from DCIS to Closest Margin Greater than: 2 mm REGIONAL LYMPH NODES Regional Lymph Node Status All regional lymph nodes negative for tumor Total Number of Lymph Nodes Examined (sentinel and non-sentinel) 7 Number of [place] Nodes Examined 1 pTNM CLASSIFICATION (AJCC 8th Edition) Reporting of pT, pN, and (when applicable) pM categories is based on information available to the pathologist at the time the report is issued. As per the AJCC (Chapter 1, 8th Ed.) it is the managing physician s responsibility to establish the final pathologic stage based upon all pertinent information, including but potentially not limited to this pathology report. pT Category pT2 pN Category pN0 Comment(s) Grossly, two masses were identified that were connected by fibrous tissue. Microscopically the invasive carcinoma appears continuous and measures up to 36 mm in greatest dimension. . Component ER status Positive (greater than 10%) ER % staining >95 Estrogen Receptor (Staining Intensity) Strong Estrogen Receptor Internal Control Present and Stained as Expected Estrogen Receptor External Control Present and Stained as Expected ND status Positive (greater than or equal to 1%) ND % staining 10 Progesterone Receptor (Staining Intensity) Moderate Progesterone Receptor Internal Control Present and Stained as Expected Progesterone Receptor External Control Present and Stained as Expected HER2 IHC Status Negative for HER2 Overexpression HER2 IHC Score 1+ Tumor Type Primary Invasive Breast Carcinoma Breast Tumor Grade Grade 2 [facility] Gillian notes no significant complaints. Post operative pain has been well controlled. The patient denies nausea. The patient`s appetite has been good. VITALS: Temperature 36.9 C (98.4 F). On examination, the right skin incision is clean, dry, and intact. The axillary portion of the incision is clean, dry and intact. The patient's range of motion with her arm is excellent. Assessment IMPRESSION: Status Post needle localization lumpectomy with sentinel lymph node biopsy for right invasive breast cancer. PLAN: Gillian may return to regular activities as tolerated with the exception of no heavy lifting. .she should continue her arm range of motion exercises. The patient may now drive as long as she is no longer taking narcotic pain medication. If she notes any difficulties, she should contact me immediately. I plan to have her return to Dr. Woody for further adjuvant treatment. Diagnoses: (C50.911, Z17.0) Malignant neoplasm of right breast in female, estrogen receptor positive, unspecified site of breast (HCC) (primary encounter diagnosis) Return to Clinic: The patient is instructed to follow-up with me in 1 month. Ting Polo MD documented in this encounter [facility] 02-18-2024 Note HNO ID: [id number] Author: TING POLO MD Service: ? Author Type: Physician Type: Progress Notes Filed: 02/18/2024 05:59 Note Text: FOLLOW UP VISIT - POST OP BREAST CANCER NAME: Gillian Luis [facility] NO.: [id number] DATE OF SERVICE: 02/12/2024 : 1965 REFERRING PHYSICIAN: Gertrudis De Leon MD Gillian is a patient I am following for right sided breast cancer. : Gillian Luis is a 58-year-old female who presents with right breast cancer at 2 sites. No information was received prior to the patient being seen in my office. I understand the patient had palpable masses in her right breast she underwent mammogram and ultrasound at [facility]. I have her copy of her ultrasound report dated October 16, 2023 which demonstrated suspicious solid-appearing lesions at both the 11 and 12:00 positions 2 foci are noted 1 measuring 17 x 17 x 21 mm and the additional measuring 12 x 24 x 8 mm they were uncertain whether these were 2 separate lesions or a single dumbbell shaped lesion. The patient then underwent core biopsy of this site on November 21, 2023. The 11:00 and 12:00 sites both returned as invasive ductal carcinoma-grade 2. Receptor status was estrogen positive progesterone negative HER2 indeterminant. FISH was negative for HER2 Addendum-having now received copies of her radiology reports a ribbon clip was placed at breast biopsy site a, a coil clip was placed at the breast biopsy site B. The patient notes some bruising of the site We extensively discussed her diagnosis including breast conservation surgical procedures, mastectomy without reconstruction and mastectomy with reconstruction. Reviewing care everywhere did not provide additional information however she did have ED visit on October 20, 2023 for alcohol intoxication related to anxiety and depression with what was felt to be homicidal suicidal intent initially due to the recent loss of her and the new diagnosis of breast cancer. This was not noted at the time of her visit nor discussed in the office setting The patient is being seen by me at the request of Dr. Gertrudis De Leon MD for my opinion and advice regarding locally advanced right-sided breast cancer. Bone scan was obtained on December 14, 2023 which demonstrated no evidence of metastatic deposits. The patient was also referred to Dr. Brown Woody, medical oncology at [facility]. A CT scan of the chest was obtained which demonstrated no metastatic disease, but suggested a possible 1.5cm mass in the left breast. MRI which was obtained on December 18, 2023. This demonstrated the index lesion in the right breast and measured as 3.5cm x 1.5cm x 1.7cm. There was also an 11mm x 8mm x 5mm noted in the 12-1 o'clock position of the left breast noted 5.2cm behind the nipple. I performed office-based ultrasound on December 20 and found no abnormalities. I ordered a formal ultrasound which was obtained this morning. This also demonstrated no abnormalities. Given the MRI findings my plan is to schedule the patient for an MRI based evaluation/biopsy. The patient underwent MRI imaging/biopsy of the left breast abnormality. Biopsy was performed on January 08, 2024. This returned as: FINAL DIAGNOSIS A. Left breast, upper outer quadrant mass, biopsy: - Sclerosing adenosis, columnar cell change and focal fibroadenomatoid change. - Focal intraductal microcalcifications. - No evidence of malignancy. This is felt to be concordant with the MRI findings. The patient is decided she would like to proceed with lumpectomy and sentinel lymph node biopsy. I performed a right needle localization lumpectomy with sentinel lymph node biopsy on February 04, 2024. Intraoperative findings: SPECIMENS: 1. Axillary contents with the 2nd hottest area with 80 counts. 2. [place] lymph node with 160 counts. Both were very slightly blue. 3. Lumpectomy with the single tail marking the specimen cranially, the double tail laterally, and the specimen measured 9 cm in the transverse plane, 7 cm craniocaudal plane, and 5.5 cm in the superficial deep plane. COCO marked margins were superficial 8 mm, cranial 16 mm, medial 9 mm, lateral 10 mm, caudal 11 mm, deep 12 mm. Radiographic margins were good. The pathology demonstrated: FINAL DIAGNOSIS A. Right axillary contents, excision: -- Six lymph nodes, negative for carcinoma (0/6). B. Right sentinel lymph node, hottest (count 160), excision: -- One lymph node, negative for carcinoma (0/1). C. Right breast, lumpectomy: -- Invasive ductal carcinoma, see synoptic report. D. Right breast, lateral margin medial aspect, excision: -- Negative for carcinoma. Synoptic Report INVASIVE CARCINOMA OF THE BREAST: Resection 8th Edition - Protocol posted: 07/11/2023INVASIVE CARCINOMA OF THE BREAST: EXCISION - All Specimens SPECIMEN Procedure Excision (less than total mastectomy) Specimen Laterality Right TUMOR (more content not included)... [facility] [place] 02-04-2024 Note HNO ID: [id number] Author: AYESHA ALTMAN APRN.IMPORT COORDINATION AND PRODUCTION HEAD Service: Anesthesiology Author Type: Nurse Glass Sander Belt Type: Anesthesia Procedure Notes Filed: 02/04/2024 12:55 Note Text: ANESTHESIOLOGY PROCEDURE NOTE Airway General Information Procedure Start Time/Medication Administration: 02/04/2024 12:52 PM Procedure End Time: 02/04/2024 12:54 PM Patient location during procedure: OR Timeout Performed Pre-procedure: timeout performed Consent Obtained: Yes Staffing IMPORT COORDINATION AND PRODUCTION HEAD: Ayesha Altman APRN.IMPORT COORDINATION AND PRODUCTION HEAD Performed by: IMPORT COORDINATION AND PRODUCTION HEAD Indications and Patient Condition Indications for airway management: anesthesia Preoxygenated: yes anesthesia circuit Cricoid Pressure: No Manual In-Line Stabilization: No Difficult Mask: No Airway Accessory: LMA Final Airway Details Final airway type: supraglottic airway Number of attempts at approach: 1 Final Supraglottic Airway: i-gel Size 3 Seal Adequate: yes Failed airway: no Unrecognized esophageal intubation: no Airway not difficult SIGNATURE: Ayesha Altman APRN.CRNA PATIENT NAME: Gillian Luis DATE: February 04, 2024 TIME: 12:54 PM CSN: [id number] [facility] 02-04-2024 History of Present illness Narrative RADIOLOGY SERVICE PROGRESS NOTE SERVICE DATE: 02/04/2024 SERVICE TIME: 10:22 AM PATIENT IDENTITY VERIFICATION COMPLETED USING TWO (2) STANDARD IDENTIFIERS: Name and Date of confirmed by patient verbally FALL SCREENING: Has the patient had 2 falls in the last year or 1 fall with injury or currently using an Ambulatory Assistive Device (Walker, Cane, Wheelchair, Crutches, etc.)? Inpatient: Screened on floor / surgical patient PATIENT GENDER DATA: .female : No ALLERGIES: Reviewed and unchanged MEDICATIONS REVIEWED: Not applicable PATIENT RELEVANT IMPLANT DATA REVIEWED: Not Applicable PATIENT PRESENTS WITH AN IMPLANTABLE OR ATTACHED OPTICAL TECHNICIAN: No CREATININE: Creatinine Date Value Ref Range Status 01/28/2024 0.84 0.58 - 0.96 mg/dL Final 11/07/2015 0.89 0.50 - 0.90 mg/dL Final Comment: PEDIATRIC REFERENCE RANGES HAVE BEEN ADDED. LOWER DETECTION LIMIT HAS BEEN EXTENDED TO 0.17 mg/dL. EFFECTIVE 4-4-16. 11/06/2015 0.69 0.50 - 0.90 mg/dL Final Comment: PEDIATRIC REFERENCE RANGES HAVE BEEN ADDED. LOWER DETECTION LIMIT HAS BEEN EXTENDED TO 0.17 mg/dL. EFFECTIVE 4-4-16. Estimated Glomerular Filtration Rate Date Value Ref Range Status 01/28/2024 80 >=60 mL/min/1.73m Final Comment: Estimated Glomerular Filtration Rate (eGFR) is calculated using the 2020 CKD-EPI creatinine equation. This equation utilizes serum creatinine, sex, and age as parameters. The creatinine assay has traceable calibration to isotope dilution-mass spectrometry. Refer to KDIGO guidelines for clinical interpretation. In patients with unstable renal function, e.g. those with acute kidney injury, the eGFR may not accurately reflect actual GFR. eGFR- Date Value Ref Range Status 11/07/2015 > 60 ml/min/1.73m2 Final Comment: Kidney Damage Description eGFR Stage (mL/Min/1.73m2) 1 Kidney damage with normal or high GFR >90 2 Mild decrease in GFR 60-89 3 Moderate decrease in GFR 30-59 4 Severe decrease in GFR 15-29 5 Kidney failure <15 * eGFR IS AN ESTIMATE * (AFR MATEUS = ) MDRD calculation used in the eGFR should not be used to dose medications. For further limitations of the eGFR please refer to the Physician Website or the National Kidney Disease Education Program website (www.nkdep.nih.gov). Tests performed at: [place] [address] [address] RESULTS: N/A February 04, [address] PERFORMED: No IV SITE: NM only - not applicable, oral or physician administered agents given to patient POST EXAM PIV STATUS: Not applicable PROCEDURE TYPE: NM lymphoscintigraphy: Breast 480 microcuries Tc99m SULFUR COLLOID injected by Dr. Bailey. Site of injection: Right Administered time: 9:56 Procedure time out completed at: 09:45 Informed consent visualized: N/A Site (laterality) maurice visualized/completed: Yes PATIENT DISCHARGED TO: Patient taken to IP transport area for return to RNF/ICU/ED. A Diagnostic radioactive procedure has taken place, with no further precautions necessary other than routine body substance precautions. More information regarding radiation safety can be found using this link: [email or web address]%20N uclear%20Medicine%20Procedures.p df SIGNATURE: Lenny Ugarte, RT(R) PATIENT NAME: Gillian Luis DATE: February 04, 2024 TIME: 10:22 AM PAGER/CONTACT #: documented in this encounter [facility] 02-04-2024 Note HNO ID: [id number] Author: LENNY UGARTE RT(R) Service: Nuclear Medicine Author Type: Technologist Type: Progress Notes Filed: 02/04/2024 12:13 Note Text: RADIOLOGY SERVICE PROGRESS NOTE SERVICE DATE: 02/04/2024 SERVICE TIME: 10:22 AM PATIENT IDENTITY VERIFICATION COMPLETED USING TWO (2) STANDARD IDENTIFIERS: Name and Date of confirmed by patient verbally FALL SCREENING: Has the patient had 2 falls in the last year or 1 fall with injury or currently using an Ambulatory Assistive Device (Walker, Cane, Wheelchair, Crutches, etc.)? Inpatient: Screened on floor / surgical patient PATIENT GENDER DATA: .female : No ALLERGIES: Reviewed and unchanged MEDICATIONS REVIEWED: Not applicable PATIENT RELEVANT IMPLANT DATA REVIEWED: Not Applicable PATIENT PRESENTS WITH AN IMPLANTABLE OR ATTACHED OPTICAL TECHNICIAN: No CREATININE: Creatinine Date Value Ref Range Status 01/28/2024 0.84 0.58 - 0.96 mg/dL Final 11/07/2015 0.89 0.50 - 0.90 mg/dL Final Comment: PEDIATRIC REFERENCE RANGES HAVE BEEN ADDED. LOWER DETECTION LIMIT HAS BEEN EXTENDED TO 0.17 mg/dL. EFFECTIVE 4-4-16. 11/06/2015 0.69 0.50 - 0.90 mg/dL Final Comment: PEDIATRIC REFERENCE RANGES HAVE BEEN ADDED. LOWER DETECTION LIMIT HAS BEEN EXTENDED TO 0.17 mg/dL. EFFECTIVE 4-4-16. Estimated Glomerular Filtration Rate Date Value Ref Range Status 01/28/2024 80 >=60 mL/min/1.73m? Final Comment: Estimated Glomerular Filtration Rate (eGFR) is calculated using the 2020 CKD-EPI creatinine equation. This equation utilizes serum creatinine, sex, and age as parameters. The creatinine assay has traceable calibration to isotope dilution-mass spectrometry. Refer to KDIGO guidelines for clinical interpretation. In patients with unstable renal function, e.g. those with acute kidney injury, the eGFR may not accurately reflect actual GFR. eGFR- Date Value Ref Range Status 11/07/2015 > 60 ml/min/1.73m2 Final Comment: Kidney Damage Description eGFR Stage (mL/Min/1.73m2) 1 Kidney damage with normal or high GFR >90 2 Mild decrease in GFR 60-89 3 Moderate decrease in GFR 30-59 4 Severe decrease in GFR 15-29 5 Kidney failure <15 * eGFR IS AN ESTIMATE * (AFR MATEUS = ) MDRD calculation used in the eGFR should not be used to dose medications. For further limitations of the eGFR please refer to the Physician Website or the National Kidney Disease Education Program website (www.nkdep.nih.gov). Tests performed at: [place] [address] [address] RESULTS: N/A February 04, [address] PERFORMED: No IV SITE: NM only - not applicable, oral or physician administered agents given to patient POST EXAM PIV STATUS: Not applicable PROCEDURE TYPE: NM lymphoscintigraphy: Breast 480 microcuries Tc99m SULFUR COLLOID injected by Dr. Bailey. Site of injection: Right Administered time: 9:56 Procedure time out completed at: 09:45 Informed consent visualized: N/A Site (laterality) maurice visualized/completed: Yes PATIENT DISCHARGED TO: Patient taken to IP transport area for return to RNF/ICU/ED. A Diagnostic radioactive procedure has taken place, with no further precautions necessary other than routine body substance precautions. More information regarding radiation safety can be found using this link: [email or web address] [email or web address]-% 20Diagnostic%20Nuclear%20Medicin e%20Procedures.pdf SIGNATURE: RT Natalie(R) PATIENT NAME: Gillian Luis DATE: February 04, 2024 TIME: 10:22 AM PAGER/CONTACT #: [facility] 01-29-2024 History of Present illness Narrative Radiology Service Progress Note PATIENT NAME: Gillian Luis DATE OF SERVICE: January 29, 2024 TIME: 10:13 AM PATIENT IDENTITY VERIFICATION COMPLETED USING TWO (2) IDENTIFIERS: Name and Date of confirmed by patient verbally. FALL SCREENING: Has the patient had 2 falls in the last year or 1 fall with injury or currently using an Ambulatory Assistive Device (Walker, Cane, Wheelchair, Crutches, etc.)? No PATIENT GENDER DATA: Female. status: : No status: NO. PATIENT RELEVANT IMPLANT DATA REVIEWED: Not Applicable PATIENT PRESENTS WITH AN IMPLANTABLE OR ATTACHED OPTICAL TECHNICIAN: No RADIOLOGY DEPARTMENT: Mammography PERIPHERAL IV DATA: Not applicable SIGNED BY: Jb Weeks January 29, 2024 10:13 AM documented in this encounter [facility] 01-29-2024 Note HNO ID: [id number] Author: JUMANA SPARKS Mammo Tech Service: ? Author Type: Oxygen Plant Operator Type: Progress Notes Filed: 01/29/2024 10:13 Note Text: Radiology Service Progress Note PATIENT NAME: Gillian Luis DATE OF SERVICE: January 29, 2024 TIME: 10:13 AM PATIENT IDENTITY VERIFICATION COMPLETED USING TWO (2) IDENTIFIERS: Name and Date of confirmed by patient verbally. FALL SCREENING: Has the patient had 2 falls in the last year or 1 fall with injury or currently using an Ambulatory Assistive Device (Walker, Cane, Wheelchair, Crutches, etc.)? No PATIENT GENDER DATA: Female. status: : No status: NO. PATIENT RELEVANT IMPLANT DATA REVIEWED: Not Applicable PATIENT PRESENTS WITH AN IMPLANTABLE OR ATTACHED OPTICAL TECHNICIAN: No RADIOLOGY DEPARTMENT: Mammography PERIPHERAL IV DATA: Not applicable SIGNED BY: Jb Weeks January 29, 2024 10:13 AM [facility] 01-28-2024 History and physical note HISTORY AND PHYSICAL EXAMINATION SERVICE DATE: 01/28/2024 SERVICE TIME: 3:34 PM PRIMARY CARE PHYSICIAN: Gertrudis De Leon MD Assessment Patient has the following medical conditions which may affect dora-operative course: TIA (transient ischemic attack) Assessment: no deficits Mild major depression (HCC) Assessment: Stable on RX, denies concerning symptoms Sarcoidosis Assessment: reports breast lump that was unable to get good biopsy, with further work up lesions were found in lungs, spleen, kidneys. Had right lung resection and dx with sarcoid, treated with prednisone x 1 yr. Now in remission. Denies concerning symptoms. Benign hypertension Assessment: BP today in clinic 151/82. Stable on RX. Smoker Assessment: reports 1 ppd x 20 yrs Hyperlipidemia Assessment: Stable on RX Seizure-like activity (HCC) Assessment: reports one time event in September 2023 with shaking and 5 hour period of amnesia. No meds, no follow up with neurology. Believes related to stress. MELECIO (obstructive sleep apnea) Assessment: + CPAP [place] Activity Status Index: METS: Climb a flight of stairs or walk up a hill (5.50 METs) DASI Score: 5.5 Patient denies any chest pain or undue shortness of breath with the above physical activity. Clinical Frailty Scale: 3. Well, with treated comorbid disease STOP-Bang Score: STOP-Bang Score: (+ CPAP) [id number] Score: Age: <65 Sex: female CHF history: No Hypertension history: Yes Stroke/TIA/thromboembolism history: Yes Vascular disease history: No Diabetes history: No [id number] Score: 4 ARISCAT Score: Age: 51-80 Preoperative SpO2: >=96% Respiratory infection in the last month: No Preoperative anemia: Yes Surgical incision: peripheral Duration of surgery: <2 hrs Emergency procedure: No ARISCAT Score: 14 ANESTHESIA FINDINGS: Intubation History: No history of difficult intubation. No abnormal airway history Significant Anesthesia Considerations: none Airway History: No history of difficult airway No abnormal airway history I - PHYSICAL EVALUATION AIRWAY Patient intubated: No. Tracheostomy tube not present Mallampati: III. TM distance: >3 FB. Neck ROM: full ROM without neurological symptoms. Mouth opening: adequate. Short neck: no. Thick neck: no Lip Bite Test: I DENTAL Dentures, upper: complete. Dentures, lower: complete. Additional comments: Doesn't wear bottom plate. II - ANESTHESIA PLAN Anesthetic Plan: other Anesthetic plan additional comments: *PACC/TCI - anesthesia choice. Beta Cecil Monitoring Plan Post Procedure Analgesic Plan Prepared for Surgery: optimally prepared for surgery, pending [see comment]. Labs, EKG CONSULTS: Patient does not require consults for optimization at this time Planned Anesthetic: other anesthesia choice REASON FOR VISIT: Gillian Luis is a 58 year old female who is scheduled for Procedure(s) with comments: MASTECTOMY PARTIAL (Right) - MASTECTOMY PARTIAL [2572] BIOPSY NODE SENTINEL AXILLARY (Right) - BIOPSY NODE SENTINEL AXILLARY [1219] INJ 10:15 am at the request of Dr. Polo, Ting Jackson MD for consultation. My final recommendation will be communicated back to the requesting physician by way of shared medical record or letter. Subjective The patient has the following: ACTIVE PROBLEM LIST Benign Hypertension Breast Cancer (Hcc) Sarcoidosis Tia (Transient Ischemic Attack) Mild Major Depression (Hcc) Smoker Hyperlipidemia Seizure-Like Activity (Hcc) Melecio (Obstructive Sleep Apnea) COVID-19 Immunization Status Overdue - Covid-19 Vaccine ( season) Never done No completion, postpone, frequency change, or communication history exists for this topic. CHIEF COMPLAINT: Pre-anesthesia optimization HPI: Gillian Luis is a 58 year old female presenting for pre-anesthesia consultation. Pt has history of right breast CA dx on mammogram with positive biopsy. Above procedure recommended to manage symptoms. Procedure scheduled on 02/04/2024 at [place]. REVIEW OF SYSTEMS: General: No weight loss, malaise or fevers. Neurological: Positive for: seizures (x 1, shaking and 5 hour period of amnesia) and TIA. Negative for: strokes. Respiratory: + sarcoidosis- breast nodule and lung nodules, right wedge resection 2003 and steroid tx x 1 yr Positive for: tobacco use (1 ppd x 20 yrs), obstructive sleep apnea and CPAP/BiPAP compliant. Negative for: asthma, COPD, current cough, dyspnea and URI < 2 weeks. Cardiovascular: Positive for: hyperlipidemia and hypertension Negative for: arrhythmia, atrial fibrillation, CAD, chest pain, DVT/PE and murmur/valvular heart disease. GI: Positive for: GERD (tums prn) Negative for: dysphagia, heartburn, irritable bowel syndrome, inflammatory bowel disease, liver disease and ETOH >2 drinks/day. : No history of dysuria, frequency or incontinence, stones or chronic kidney disease. No difficulty urinating, nocturia > 1 time per night or hematuria. MATERIALS RECYCLER: + hysterectomy Endocrine: No history of diabetes. Has not taken steroids within the past 30 days. No history of endocrinological symptoms or problems. Negative for: steroid for chronic problem. Hematology: No history of bleeding or clotting disorder. Patient is not taking anti-coagulation or platelet medications. No history of hematological symptoms or problems. Oncology: See HPI. Psych: Positive for: depression. Negative for: anxiety. Musculoskeletal: Negative for joint pain or swelling, back pain or muscle pain. Skin: Negative for lesions, rash and itching. PAST MEDICAL HISTORY Diagnosis Date Benign hypertension Breast cancer (HCC) 11/2023 Right Breast Decreased GFR Dysphagia, pharyngeal Generalized osteoarthrosis, involving multiple sites GERD (gastroesophageal reflux disease) High blood pressure Hyperlipemia Knee pain right Knee Mild major depression (HCC) Noncompliance with medication regimen Sarcoidosis TIA (transient ischemic attack) PAST SURGICAL HISTORY Procedure Laterality Date LIGATE FALLOPIAN TUBE PAST SURGICAL HISTORY OF Wedge Resection, Right Lung TONSILLECTOMY & ADENOIDECTOMY TOTAL ABDOM HYSTERECTOMY FAMILY HISTORY Problem Relation Age of Onset Hypertension Mother Hypertension Father other (Basal Cell Carcinoma) Father Cancer Father Hypertension Maternal Grandmother Hypertension Maternal Grandfather Hypertension Paternal Grandmother Hypertension Paternal Grandfather Social History Tobacco Use Smoking status: Every Day Packs/day: 1.00 Years: 20.00 Additional pack years: 0.00 Total pack years: 20.00 Types: Cigarettes Smokeless tobacco: Never Vaping Use Vaping Use: Never used Substance Use Topics Alcohol use: Not Currently Drug use: Never Prior to Admission medications as of 01/28/24 1507 Medication Sig Last Dose Taking ibuprofen (ADVIL) 200 mg tablet Take 200 mg by mouth every 6 hours as needed for pain. Taking Yes metoprolol succinate ER (TOPROL XL) 50 mg 24 hr tablet Take 50 mg by mouth once daily. Yes lisinopril-hydroCHLOROthiazide (ZESTORETIC) 20-25 mg per tablet Take 1 tablet by mouth once daily. Taking Yes rosuvastatin (CRESTOR) 10 mg tablet Take 10 mg by mouth once daily. Taking Yes amLODIPine (NORVASC) 5 mg tablet Take by mouth as directed. Taking Yes sertraline (ZOLOFT) 50 mg tablet Take 50 mg by mouth once daily. Taking Yes No medication comments found. ALLERGIES Allergen Reactions Latex Hives Objective PHYSICAL EXAM: General: alert and oriented, healthy appearance and obese. Pertinent negatives noted - not distressed. Skin: normal color, no rash or lesions. HEENT: EOM intact and pupils equal round. Pertinent negatives noted - no carotid bruit. Cardiovascular: Pulse characterized as irregular.Pertinent negatives noted - no murmur, no rub and no gallop. Respiratory: normal breath sounds, no wheezes or crackles. No chest wall deformity or tenderness. Abdomen: soft. Pertinent negatives noted - not tender. Extremities: no deformity, no edema or tenderness, no joint swelling or clubbing. Neurological: normal cognition and motor skills. Gait normal. No weakness or sensory deficit. PAIN ASSESSMENT: VITALS: BP 151/82 Pulse 55 Temp 98.4 Resp 18 Ht 5' 2 (1.58m) Wt 164 lb 14.5 oz (74.8kg) SpO2 99% BMI 30.15 kg/(m^2). Diagnostic tests reviewed for today's visit: Lab Value Units Date High Low HB No results within date range. HCT No results within date range. WBC No results within date range. PLT No results within date range. NA No results within date range. K No results within date range. GLUC No results within date range. BUN No results within date range. CREAT No results within date range. PTSEC No results within date range. INR No results within date range. APTT No results within date range. ALT No results within date range. AST No results within date range. TBILI No results within date range. TSH No results within date range. Lab Value Units Date High Low HCGQT No results within date range. UHCG No results within date range. HCG, BODY* No results within date range. Lab Value Units Date High Low ABORHD No results within date range. ABSCREEN No results within date range. No results found for: HBA1C No results found for this or any previous visit (from the past 8760 hour(s)). No results found for this or any previous visit (from the past 34902 hour(s)). The Following Tests/Procedures Have Been Initiated: Orders Placed This Encounter BMP Standing Status: Future Standing Expiration Date: 04/28/2024 Complete Blood Count and Differential Standing Status: Future Standing Expiration Date: 04/28/2024 ibuprofen (ADVIL) 200 mg tablet Sig: Take 200 mg by mouth every 6 hours as needed for pain. metoprolol succinate ER (TOPROL XL) 50 mg 24 hr tablet Sig: Take 50 mg by mouth once daily. ECG (IN OFFICE) Instructions Given to Patient: Instructions located in the after visit summary. Patient given verbal and written preop instructions and voices comprehension and compliance. SIGNATURE: Kris Polanco PA-C PATIENT NAME: Gillian Luis DATE: 01/28/2024 TIME: 10:10 AM PAGER/CONTACT #: [facility] 01-28-2024 History and physical note HISTORY AND PHYSICAL EXAMINATION SERVICE DATE: 01/28/2024 SERVICE TIME: 3:34 PM PRIMARY CARE PHYSICIAN: Gertrudis De Leon MD Assessment Patient has the following medical conditions which may affect dora-operative course: TIA (transient ischemic attack) Assessment: no deficits Mild major depression (HCC) Assessment: Stable on RX, denies concerning symptoms Sarcoidosis Assessment: reports breast lump that was unable to get good biopsy, with further work up lesions were found in lungs, spleen, kidneys. Had right lung resection and dx with sarcoid, treated with prednisone x 1 yr. Now in remission. Denies concerning symptoms. Benign hypertension Assessment: BP today in clinic 151/82. Stable on RX. Smoker Assessment: reports 1 ppd x 20 yrs Hyperlipidemia Assessment: Stable on RX Seizure-like activity (HCC) Assessment: reports one time event in September 2023 with shaking and 5 hour period of amnesia. No meds, no follow up with neurology. Believes related to stress. MELECIO (obstructive sleep apnea) Assessment: + CPAP [place] Activity Status Index: METS: Climb a flight of stairs or walk up a hill (5.50 METs) DASI Score: 5.5 Patient denies any chest pain or undue shortness of breath with the above physical activity. Clinical Frailty Scale: 3. Well, with treated comorbid disease STOP-Bang Score: STOP-Bang Score: (+ CPAP) [id number] Score: Age: <65 Sex: female CHF history: No Hypertension history: Yes Stroke/TIA/thromboembolism history: Yes Vascular disease history: No Diabetes history: No [id number] Score: 4 ARISCAT Score: Age: 51-80 Preoperative SpO2: >=96% Respiratory infection in the last month: No Preoperative anemia: Yes Surgical incision: peripheral Duration of surgery: <2 hrs Emergency procedure: No ARISCAT Score: 14 ANESTHESIA FINDINGS: Intubation History: No history of difficult intubation. No abnormal airway history Significant Anesthesia Considerations: none Airway History: No history of difficult airway No abnormal airway history I - PHYSICAL EVALUATION AIRWAY Patient intubated: No. Tracheostomy tube not present Mallampati: III. TM distance: >3 FB. Neck ROM: full ROM without neurological symptoms. Mouth opening: adequate. Short neck: no. Thick neck: no Lip Bite Test: I DENTAL Dentures, upper: complete. Dentures, lower: complete. Additional comments: Doesn't wear bottom plate. II - ANESTHESIA PLAN Anesthetic Plan: other Anesthetic plan additional comments: *PACC/TCI - anesthesia choice. Beta Cecil Monitoring Plan Post Procedure Analgesic Plan Prepared for Surgery: optimally prepared for surgery, pending [see comment]. Labs, EKG CONSULTS: Patient does not require consults for optimization at this time Planned Anesthetic: other anesthesia choice REASON FOR VISIT: Gillian Luis is a 58 year old female who is scheduled for Procedure(s) with comments: MASTECTOMY PARTIAL (Right) - MASTECTOMY PARTIAL [2572] BIOPSY NODE SENTINEL AXILLARY (Right) - BIOPSY NODE SENTINEL AXILLARY [1219] INJ 10:15 am at the request of Dr. Polo, Ting Jackson MD for consultation. My final recommendation will be communicated back to the requesting physician by way of shared medical record or letter. Subjective The patient has the following: ACTIVE PROBLEM LIST Benign Hypertension Breast Cancer (Hcc) Sarcoidosis Tia (Transient Ischemic Attack) Mild Major Depression (Hcc) Smoker Hyperlipidemia Seizure-Like Activity (Hcc) Melecio (Obstructive Sleep Apnea) COVID-19 Immunization Status Overdue - Covid-19 Vaccine ( season) Never done No completion, postpone, frequency change, or communication history exists for this topic. CHIEF COMPLAINT: Pre-anesthesia optimization HPI: Gillian Luis is a 58 year old female presenting for pre-anesthesia consultation. Pt has history of right breast CA dx on mammogram with positive biopsy. Above procedure recommended to manage symptoms. Procedure scheduled on 02/04/2024 at [place]. REVIEW OF SYSTEMS: General: No weight loss, malaise or fevers. Neurological: Positive for: seizures (x 1, shaking and 5 hour period of amnesia) and TIA. Negative for: strokes. Respiratory: + sarcoidosis- breast nodule and lung nodules, right wedge resection 2003 and steroid tx x 1 yr Positive for: tobacco use (1 ppd x 20 yrs), obstructive sleep apnea and CPAP/BiPAP compliant. Negative for: asthma, COPD, current cough, dyspnea and URI < 2 weeks. Cardiovascular: Positive for: hyperlipidemia and hypertension Negative for: arrhythmia, atrial fibrillation, CAD, chest pain, DVT/PE and murmur/valvular heart disease. GI: Positive for: GERD (tums prn) Negative for: dysphagia, heartburn, irritable bowel syndrome, inflammatory bowel disease, liver disease and ETOH >2 drinks/day. : No history of dysuria, frequency or incontinence, stones or chronic kidney disease. No difficulty urinating, nocturia > 1 time per night or hematuria. MATERIALS RECYCLER: + hysterectomy Endocrine: No history of diabetes. Has not taken steroids within the past 30 days. No history of endocrinological symptoms or problems. Negative for: steroid for chronic problem. Hematology: No history of bleeding or clotting disorder. Patient is not taking anti-coagulation or platelet medications. No history of hematological symptoms or problems. Oncology: See HPI. Psych: Positive for: depression. Negative for: anxiety. Musculoskeletal: Negative for joint pain or swelling, back pain or muscle pain. Skin: Negative for lesions, rash and itching. PAST MEDICAL HISTORY Diagnosis Date Benign hypertension Breast cancer (HCC) 11/2023 Right Breast Decreased GFR Dysphagia, pharyngeal Generalized osteoarthrosis, involving multiple sites GERD (gastroesophageal reflux disease) High blood pressure Hyperlipemia Knee pain right Knee Mild major depression (HCC) Noncompliance with medication regimen Sarcoidosis TIA (transient ischemic attack) PAST SURGICAL HISTORY Procedure Laterality Date LIGATE FALLOPIAN TUBE PAST SURGICAL HISTORY OF Wedge Resection, Right Lung TONSILLECTOMY & ADENOIDECTOMY <AGE 10 TOTAL ABDOM HYSTERECTOMY FAMILY HISTORY Problem Relation Age of Onset Hypertension Mother Hypertension Father other (Basal Cell Carcinoma) Father Cancer Father Hypertension Maternal Grandmother Hypertension Maternal Grandfather Hypertension Paternal Grandmother Hypertension Paternal Grandfather Social History Tobacco Use Smoking status: Every Day Packs/day: 1.00 Years: 20.00 Additional pack years: 0.00 Total pack years: 20.00 Types: Cigarettes Smokeless tobacco: Never Vaping Use Vaping Use: Never used Substance Use Topics Alcohol use: Not Currently Drug use: Never Prior to Admission medications as of 01/28/24 1507 Medication Sig Last Dose Taking ibuprofen (ADVIL) 200 mg tablet Take 200 mg by mouth every 6 hours as needed for pain. Taking Yes metoprolol succinate ER (TOPROL XL) 50 mg 24 hr tablet Take 50 mg by mouth once daily. Yes lisinopril-hydroCHLOROthiazide (ZESTORETIC) 20-25 mg per tablet Take 1 tablet by mouth once daily. Taking Yes rosuvastatin (CRESTOR) 10 mg tablet Take 10 mg by mouth once daily. Taking Yes amLODIPine (NORVASC) 5 mg tablet Take by mouth as directed. Taking Yes sertraline (ZOLOFT) 50 mg tablet Take 50 mg by mouth once daily. Taking Yes No medication comments found. ALLERGIES Allergen Reactions Latex Hives Objective PHYSICAL EXAM: General: alert and oriented, healthy appearance and obese. Pertinent negatives noted - not distressed. Skin: normal color, no rash or lesions. HEENT: EOM intact and pupils equal round. Pertinent negatives noted - no carotid bruit. Cardiovascular: Pulse characterized as irregular.Pertinent negatives noted - no murmur, no rub and no gallop. Respiratory: normal breath sounds, no wheezes or crackles. No chest wall deformity or tenderness. Abdomen: soft. Pertinent negatives noted - not tender. Extremities: no deformity, no edema or tenderness, no joint swelling or clubbing. Neurological: normal cognition and motor skills. Gait normal. No weakness or sensory deficit. PAIN ASSESSMENT: VITALS: BP 151/82 Pulse 55 Temp 98.4 Resp 18 Ht 5' 2 (1.58m) Wt 164 lb 14.5 oz (74.8kg) SpO2 99% BMI 30.15 kg/(m^2). Diagnostic tests reviewed for today's visit: Lab Value Units Date High Low HB No results within date range. HCT No results within date range. WBC No results within date range. PLT No results within date range. NA No results within date range. K No results within date range. GLUC No results within date range. BUN No results within date range. CREAT No results within date range. PTSEC No results within date range. INR No results within date range. APTT No results within date range. ALT No results within date range. AST No results within date range. TBILI No results within date range. TSH No results within date range. Lab Value Units Date High Low HCGQT No results within date range. UHCG No results within date range. HCG, BODY* No results within date range. Lab Value Units Date High Low ABORHD No results within date range. ABSCREEN No results within date range. No results found for: HBA1C No results found for this or any previous visit (from the past 8760 hour(s)). No results found for this or any previous visit (from the past 52309 hour(s)). The Following Tests/Procedures Have Been Initiated: Orders Placed This Encounter BMP Standing Status: Future Standing Expiration Date: 04/28/2024 Complete Blood Count and Differential Standing Status: Future Standing Expiration Date: 04/28/2024 ibuprofen (ADVIL) 200 mg tablet Sig: Take 200 mg by mouth every 6 hours as needed for pain. metoprolol succinate ER (TOPROL XL) 50 mg 24 hr tablet Sig: Take 50 mg by mouth once daily. ECG (IN OFFICE) Instructions Given to Patient: Instructions located in the after visit summary. Patient given verbal and written preop instructions and voices comprehension and compliance. SIGNATURE: Kris Polanco PA-C PATIENT NAME: Gillian Luis DATE: 01/28/2024 TIME: 10:10 AM PAGER/CONTACT #: documented in this encounter [facility] 01-28-2024 Instructions Kris Polanco PA-C - 01/28/2024 3:08 PM EDT PATIENT PREOPERATIVE INSTRUCTIONS Ting Polo MD has scheduled you for your procedure at this surgery center: [facility]: [phone] -- [address] [address]. Please read below carefully for your personalized instructions. Arrival Time for Surgery: - The Surgery Center or hospital where you are having surgery will call the afternoon before surgery (or Sunday for Sunday surgery) with a scheduled arrival time. - If you have not heard by 4 pm, please contact the surgery center above. Please be aware that emergency situations arise, which may delay or change your surgical time. If this happens, we will notify you as soon as possible and regret any inconvenience. Dietary Restrictions: - No solid food after midnight. - You may have 12 ounces of clear liquids (water, clear juices such as apple juice or gatorade, carbonated beverages, clear tea, black coffee, jello) until 2 hours before scheduled arrival at facility. - Do not drink any alcohol after midnight the night before your surgery. Medications: Unless instructed differently below, stay on all of your medications until your surgery. Approved medications to take the morning of surgery with a sip of water: metoprolol, amLODIPine (NORVASC) DO NOT TAKE YOUR lisinopril-hydroCHLOROthiazide (HYDRODIURIL, ESIDRIX) THE MORNING OF SURGERY. If you start any new medications after today's visit, please contact the surgeon's office. Blood Thinning Medications: - Stop NSAIDS (Ibuprofen, Advil, Aleve, Motrin, Celebrex, Mobic, etc.) 7 days before surgery, as directed by your surgeon. - Stop Aspirin 7 days before surgery, as directed by your surgeon. - Stop Vitamin E, ALL multi-vitamins, herbals and dietary supplements 14 days before surgery. - You may take Tylenol (Acetaminophen) or any of your pain medications that do not contain aspirin or NSAIDS as needed. Important Reminders: - If you use CPAP/BIPAP, bring the machine with you to the surgery center. - If you are prescribed inhalers for breathing, continue using them. - Candy, mints, and tobacco products are NOT permitted the morning of surgery. - Hearing aids, dentures and glasses may be worn the morning of surgery. - NO jewelry, body piercings, makeup, hairpins or contacts are to be worn the day of surgery. If you develop symptoms such as a fever, cold, or flu, or have other changes to your health within TWO DAYS of scheduled surgery or the morning of surgery, please contact the surgery center above. Personal Belongings: -Please have photo ID and insurance cards. -If you do not have a copy of advance directives on file with us, please bring a copy with you on the day of surgery. - Leave ALL valuables and money at home or with family members. For Outpatient Procedures: - YOU MUST HAVE A RESPONSIBLE WEB CONTENT COORDINATOR TAKE YOU HOME. A LEADERSHIP PROGRAM ASSOCIATE OR USER EXPERIENCE MANAGER CANNOT BE MADE A RESPONSIBLE WEB CONTENT COORDINATOR. - We recommend that a responsible person stays with you overnight to take care of you. - You cannot stay in a hotel alone after outpatient surgery. You will not be permitted to have your surgery, if you do not have someone to take care of you. If you already have an Advance Directive, please fax a copy to [phone] or email to for it to be added to your chart. If you do not have an Advance Directive, you can find the appropriate form and more information at [email or web address]. We recommend that you complete the Advance Directive form found on the website and bring it with you the day of your surgery. It can be witnessed and scanned into your chart that day. Kris Polanco PA-C documented in this encounter [facility] 01-18-2024 Telephone encounter Note I have reviewed and approved the localization plan (bracket COCO loc). Images dated 11/21/2023 are annotated. Radiologist: Aruna Joshua MD [facility] Work Phone: 01-18-2024 Miscellaneous Notes I have reviewed and approved the localization plan (bracket COCO loc). Images dated 11/21/2023 are annotated. Radiologist: Aruna Joshua MD Thanks for getting back to me! We'll plan for 2 SAVIs bracketing the two clips - I prefer at least a 2cm distance between clips/biopsy sites. Thank you! 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 I am fine if you want to place 2 wires the day of surgery. Her surgery scheduled for SundayFebruary 03 Since the whole thing was somewhat dumbbell shaped I was wondering about 2 COCO clips placed at the far end of both dumbbells not necessarily at the clip site. What is the distance you need to not have interference between the 2 clips being too close to each other? I remember they discussed that we are looking at the various options but forgot what the actual distance was. Thanks-Rich I reviewed the images for preoperative localization planning. The biopsy proven carcinomas are very close together (distance between the biopsy clips is less than 2 cm). Options to be considered are to place a COCO reflector between the two clips or bracket wire localization. LOCALIZATION IMAGE REVIEW (Please do NOT submit until entire workup complete) (if > 3 reflectors to be placed in one breast, please review with radiologist) Gillian Luis [id number] 1965 WORK- UP COMPLETE? Yes Order Placed Yes Right - Site 1 Location 11 oclock Clip Shape ribbon Clip Migration No Pathology IDC Preferred Localization coco Right - Site 2 Location 11 oclock Clip Shape Coil Clip Migration No Pathology IDC Preferred Localization coco * If clip migrated, please review with radiologist This Form Has Been Completed By Paulina Mccain On Behalf Of Dr. Ting Polo documented in this encounter [facility] 01-18-2024 Telephone encounter Note Thanks for getting back to me! We'll plan for 2 SAVIs bracketing the two clips - I prefer at least a 2cm distance between clips/biopsy sites. Thank you! 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 I am fine if you want to place 2 wires the day of surgery. Her surgery scheduled for SundayFebruary 03 Since the whole thing was somewhat dumbbell shaped I was wondering about 2 COCO clips placed at the far end of both dumbbells not necessarily at the clip site. What is the distance you need to not have interference between the 2 clips being too close to each other? I remember they discussed that we are looking at the various options but forgot what the actual distance was. Thanks-Rich [facility] Work Phone: 01-17-2024 Telephone encounter Note I reviewed the images for preoperative localization planning. The biopsy proven carcinomas are very close together (distance between the biopsy clips is less than 2 cm). Options to be considered are to place a COCO reflector between the two clips or bracket wire localization. [facility] 01-17-2024 Telephone encounter Note LOCALIZATION IMAGE REVIEW (Please do NOT submit until entire workup complete) (if > 3 reflectors to be placed in one breast, please review with radiologist) Gillian Luis [id number] 1965 WORK- UP COMPLETE? Yes Order Placed Yes Right - Site 1 Location 11 oclock Clip Shape ribbon Clip Migration No Pathology IDC Preferred Localization coco Right - Site 2 Location 11 oclock Clip Shape Coil Clip Migration No Pathology IDC Preferred Localization coco * If clip migrated, please review with radiologist This Form Has Been Completed By Paulina Mccain On Behalf Of Dr. Ting Polo [facility] 01-17-2024 Telephone encounter Note LOCALIZATION IMAGE REVIEW (Please do NOT submit until entire workup complete) (if > 3 reflectors to be placed in one breast, please review with radiologist) Gillian Luis [id number] 1965 WORK- UP COMPLETE? Yes Order Placed Yes Right - Site 1 Location 11 oclock Clip Shape ribbon Clip Migration No Pathology IDC Preferred Localization coco * If clip migrated, please review with radiologist - Site 2 Location 12 oclock Clip Shape coil Clip Migration No Pathology IDC Preferred Localization coco * If clip migrated, please review with radiologist This Form Has Been Completed By Ting Polo MD On Behalf Of tn [facility] Work Phone: 01-17-2024 Miscellaneous Notes LOCALIZATION IMAGE REVIEW (Please do NOT submit until entire workup complete) (if > 3 reflectors to be placed in one breast, please review with radiologist) Gillian Luis [id number] 1965 WORK- UP COMPLETE? Yes Order Placed Yes Right - Site 1 Location 11 oclock Clip Shape ribbon Clip Migration No Pathology IDC Preferred Localization coco * If clip migrated, please review with radiologist - Site 2 Location 12 oclock Clip Shape coil Clip Migration No Pathology IDC Preferred Localization coco * If clip migrated, please review with radiologist This Form Has Been Completed By Ting Polo MD On Behalf Of tn documented in this encounter [facility] 01-17-2024 History of Present illness Narrative HISTORY AND PHYSICAL - BREAST CANCER - RIGHT BREAST - 2 SITES Gillian Luis 1965 December 25, 2023 REFERRING PHYSICIAN: Gertrudis De Leon MD CHIEF COMPLAINT: BREAST CANCER - RIGHT - INVASIVE DUCTAL CARCINOMA HPI: Gillian Luis is a 58-year-old female who presents with right breast cancer at 2 sites. No information was received prior to the patient being seen in my office. I understand the patient had palpable masses in her right breast she underwent mammogram and ultrasound at [facility]. I have her copy of her ultrasound report dated October 16, 2023 which demonstrated suspicious solid-appearing lesions at both the 11 and 12:00 positions 2 foci are noted 1 measuring 17 x 17 x 21 mm and the additional measuring 12 x 24 x 8 mm they were uncertain whether these were 2 separate lesions or a single dumbbell shaped lesion. The patient then underwent core biopsy of this site on November 21, 2023. The 11:00 and 12:00 sites both returned as invasive ductal carcinoma-grade 2. Receptor status was estrogen positive progesterone negative HER2 indeterminant. FISH was negative for HER2 Addendum-having now received copies of her radiology reports a ribbon clip was placed at breast biopsy site a, a coil clip was placed at the breast biopsy site B. The patient notes some bruising of the site We extensively discussed her diagnosis including breast conservation surgical procedures, mastectomy without reconstruction and mastectomy with reconstruction. Reviewing care everywhere did not provide additional information however she did have ED visit on October 20, 2023 for alcohol intoxication related to anxiety and depression with what was felt to be homicidal suicidal intent initially due to the recent loss of her and the new diagnosis of breast cancer. This was not noted at the time of her visit nor discussed in the office setting The patient is being seen by me at the request of Dr. Gertrudis De Leon MD for my opinion and advice regarding locally advanced right-sided breast cancer. Bone scan was obtained on December 14, 2023 which demonstrated no evidence of metastatic deposits. The patient was also referred to Dr. Brown Woody, medical oncology at [facility]. A CT scan of the chest was obtained which demonstrated no metastatic disease, but suggested a possible 1.5cm mass in the left breast. MRI which was obtained on December 18, 2023. This demonstrated the index lesion in the right breast and measured as 3.5cm x 1.5cm x 1.7cm. There was also an 11mm x 8mm x 5mm noted in the 12-1 o'clock position of the left breast noted 5.2cm behind the nipple. I performed office-based ultrasound on December 20 and found no abnormalities. I ordered a formal ultrasound which was obtained this morning. This also demonstrated no abnormalities. Given the MRI findings my plan is to schedule the patient for an MRI based evaluation/biopsy. The patient underwent MRI imaging/biopsy of the left breast abnormality. Biopsy was performed on January 08, 2024. This returned as: FINAL DIAGNOSIS A. Left breast, upper outer quadrant mass, biopsy: - Sclerosing adenosis, columnar cell change and focal fibroadenomatoid change. - Focal intraductal microcalcifications. - No evidence of malignancy. This is felt to be concordant with the MRI findings. The patient is decided she would like to proceed with lumpectomy and sentinel lymph node biopsy. PAST MEDICAL HISTORY Diagnosis Date Benign hypertension Breast cancer (HCC) 11/2023 Right Breast Decreased GFR Dysphagia, pharyngeal Generalized osteoarthrosis, involving multiple sites GERD (gastroesophageal reflux disease) High blood pressure Hyperlipemia Knee pain right Knee Mild major depression (HCC) Noncompliance with medication regimen Sarcoidosis TIA (transient ischemic attack) PAST SURGICAL HISTORY Procedure Laterality Date LIGATE FALLOPIAN TUBE PAST SURGICAL HISTORY OF Wedge Resection, Right Lung TONSILLECTOMY & ADENOIDECTOMY <AGE 10 TOTAL ABDOM HYSTERECTOMY Current Outpatient Medications Medication Sig Dispense Refill metoprolol succinate ER (TOPROL XL) 100 mg Take 50 mg by mouth once daily. lisinopril-hydroCHLOROthiazide (ZESTORETIC) 20-25 mg per tablet Take 1 tablet by mouth once daily. rosuvastatin (CRESTOR) 10 mg tablet Take 10 mg by mouth once daily. amLODIPine (NORVASC) 5 mg tablet Take by mouth as directed. metoprolol tartrate, short acting, (LOPRESSOR) 50 mg tablet Take by mouth as directed. lisinopril-hydroCHLOROthiazide (ZESTORETIC) 10-12.5 mg per tablet Take 1 tablet by mouth once daily. sertraline (ZOLOFT) 50 mg tablet Take 50 mg by mouth once daily. simvastatin (ZOCOR) 40 mg tablet Take 40 mg by mouth daily at bedtime. No current facility-administered medications for this visit. ALLERGIES: Latex PERSONAL HISTORY: Social History Tobacco Use Smoking status: Every Day Types: Cigarettes Smokeless tobacco: Never FAMILY HISTORY: FAMILY HISTORY Problem Relation Age of Onset Hypertension Mother Hypertension Father other (Basal Cell Carcinoma) Father Cancer Father Hypertension Maternal Grandmother Hypertension Maternal Grandfather Hypertension Paternal Grandmother Hypertension Paternal Grandfather REVIEW OF SYMPTOMS: The review of systems data was entered by the nurse and reviewed by me There are no exam notes on file for this visit. PHYSICAL EXAMINATION: General: The patient is 58 year old female, well nourished, well hydrated in no acute distress. The patient is oriented to time, place, and person. VITALS: There were no vitals taken for this visit. There is no height or weight on file to calculate BMI. HEENT: Normal cephalic, ataumatic, pupils are equally round, sclera are anicteric, mucous membranes are moist, oropharynx is clear. Neck has no masses, asymmetry or lymphadenopathy. Thyroid is unremarkable. Respiratory: Clear to auscultation and percussion. Normal respiratory excursion and pattern. Cardiac: Examination is regular rate and rhythm. Abdominal exam: Soft, nontender, with no palpable masses. No hepatosplenomegaly. No palpable hernias. Rectal exam: exam deferred Extremities: no clubbing, cyanosis or edema. No adenopathy. Breast: Visual inspection reveals no retractions, nipple inversion, or skin changes. Palpation of the right breast reveals the mass of concern at the upper central breast with some bruising of the area. Palpation of the left breast reveals no dominant or suspicious masses, but multiple benign-feeling nodules. Axillary exam demonstrates no suspicious masses in either the left or right axilla. There is no nipple discharge expressed from either the left or right breast. LABORATORY VALUES: As Noted RADIOLOGIC STUDIES: As Noted In office ultrasound failed to identify an obvious abnormality in the left breast Assessment IMPRESSION: BREAST CANCER - RIGHT - INVASIVE DUCTAL CARCINOMA PLAN: I plan obtain an MRI guided MRI biopsy. We discussed genetic counseling and the patient would like to have this performed. The patient states she was not contacted by genetic counseling I placed a second order for genetic counseling. She is still depressed over the loss of her and relays that, but for her children, she would likely not seek treatment. We discussed how she has not signs of metastatic disease and I feel we will be able to cure her of this cancer. I plan to perform a right COCO Critical Systems Technician localized lumpectomy with sentinel lymph node biopsy with radiotracer and Lymphazurin identification. The planned surgical procedure was discussed extensively with the patient. The risks, benefits and anticipated outcomes of the procedure, the risks and benefits of the alternatives to the procedure, and the roles and tasks of the personnel to be involved, were discussed with the patient. My staff has also explained the procedure in understandable terms and the patient was given the option to take printed material concerning the planned procedure. The patient had the opportunity to ask questions concerning the planned procedure. The patient freely consents to the planned procedure. Anticipated Anesthetic: General Patient weight: There were no vitals taken for this visit. BMI: There is no height or weight on file to calculate BMI. Planned antibiotic: Ancef 2gm IVPB front office attendant to OR SCDs needed: No Melt Helper Needed: No Pre Op Clearance: None Anticoagulation: No Diabetic: No Location: [place] A letter was sent to Dr. Gertrudis De Leon MD indicating the above finding for this patient. Diagnoses: (K22.70, K20.90) Winslow's esophagus with esophagitis (primary encounter diagnosis) Return to Clinic: The patient is instructed to follow-up with me 1 week postoperatively Ting Polo MD documented in this encounter [facility] 01-17-2024 Note HNO ID: [id number] Author: TING POLO MD Service: ? Author Type: Physician Type: Progress Notes Filed: 01/17/2024 12:55 Note Text: HISTORY AND PHYSICAL - BREAST CANCER - RIGHT BREAST - 2 SITES Gillian Luis 1965 December 25, 2023 REFERRING PHYSICIAN: Gertrudsi De Leon MD CHIEF COMPLAINT: BREAST CANCER - RIGHT - INVASIVE DUCTAL CARCINOMA HPI: Gillian Luis is a 58-year-old female who presents with right breast cancer at 2 sites. No information was received prior to the patient being seen in my office. I understand the patient had palpable masses in her right breast she underwent mammogram and ultrasound at [facility]. I have her copy of her ultrasound report dated October 16, 2023 which demonstrated suspicious solid-appearing lesions at both the 11 and 12:00 positions 2 foci are noted 1 measuring 17 x 17 x 21 mm and the additional measuring 12 x 24 x 8 mm they were uncertain whether these were 2 separate lesions or a single dumbbell shaped lesion. The patient then underwent core biopsy of this site on November 21, 2023. The 11:00 and 12:00 sites both returned as invasive ductal carcinoma-grade 2. Receptor status was estrogen positive progesterone negative HER2 indeterminant. FISH was negative for HER2 Addendum-having now received copies of her radiology reports a ribbon clip was placed at breast biopsy site a, a coil clip was placed at the breast biopsy site B. The patient notes some bruising of the site We extensively discussed her diagnosis including breast conservation surgical procedures, mastectomy without reconstruction and mastectomy with reconstruction. Reviewing care everywhere did not provide additional information however she did have ED visit on October 20, 2023 for alcohol intoxication related to anxiety and depression with what was felt to be homicidal suicidal intent initially due to the recent loss of her and the new diagnosis of breast cancer. This was not noted at the time of her visit nor discussed in the office setting The patient is being seen by me at the request of Dr. Gertrudis De Leon MD for my opinion and advice regarding locally advanced right-sided breast cancer. Bone scan was obtained on December 14, 2023 which demonstrated no evidence of metastatic deposits. The patient was also referred to Dr. Brown Woody, medical oncology at [facility]. A CT scan of the chest was obtained which demonstrated no metastatic disease, but suggested a possible 1.5cm mass in the left breast. MRI which was obtained on December 18, 2023. This demonstrated the index lesion in the right breast and measured as 3.5cm x 1.5cm x 1.7cm. There was also an 11mm x 8mm x 5mm noted in the 12-1 o'clock position of the left breast noted 5.2cm behind the nipple. I performed office-based ultrasound on December 20 and found no abnormalities. I ordered a formal ultrasound which was obtained this morning. This also demonstrated no abnormalities. Given the MRI findings my plan is to schedule the patient for an MRI based evaluation/biopsy. The patient underwent MRI imaging/biopsy of the left breast abnormality. Biopsy was performed on January 08, 2024. This returned as: FINAL DIAGNOSIS A. Left breast, upper outer quadrant mass, biopsy: - Sclerosing adenosis, columnar cell change and focal fibroadenomatoid change. - Focal intraductal microcalcifications. - No evidence of malignancy. This is felt to be concordant with the MRI findings. The patient is decided she would like to proceed with lumpectomy and sentinel lymph node biopsy. PAST MEDICAL HISTORY Diagnosis Date Benign hypertension Breast cancer (HCC) 11/2023 Right Breast Decreased GFR Dysphagia, pharyngeal Generalized osteoarthrosis, involving multiple sites GERD (gastroesophageal reflux disease) High blood pressure Hyperlipemia Knee pain right Knee Mild major depression (HCC) Noncompliance with medication regimen Sarcoidosis TIA (transient ischemic attack) PAST SURGICAL HISTORY Procedure Laterality Date LIGATE FALLOPIAN TUBE PAST SURGICAL HISTORY OF Wedge Resection, Right Lung TONSILLECTOMY AND ADENOIDECTOMY TOTAL ABDOM HYSTERECTOMY Current Outpatient Medications Medication Sig Dispense Refill metoprolol succinate ER (TOPROL XL) 100 mg Take 50 mg by mouth once daily. lisinopril-hydroCHLOROthiazide (ZESTORETIC) 20-25 mg per tablet Take 1 tablet by mouth once daily. rosuvastatin (CRESTOR) 10 mg tablet Take 10 mg by mouth once daily. amLODIPine (NORVASC) 5 mg tablet Take by mouth as directed. metoprolol tartrate, short acting, (LOPRESSOR) 50 mg tablet Take by mouth as directed. lisinopril-hydroCHLOROthiazide (ZESTORETIC) 10-12.5 mg per tablet Take 1 tablet by mouth once daily. sertraline (ZOLOFT) 50 mg tablet Take 50 mg by mouth once daily. simvastatin (ZOCOR) 40 mg tablet Take 40 mg by mouth daily at bedtime. No current facility-administered medicatio (more content not included)... [facility] [place] 01-14-2024 Telephone encounter Note Gillian calls in today and asks if she can get surgery scheduled for her lumpectomy. [facility] 01-14-2024 Miscellaneous Notes Gillian calls in today and asks if she can get surgery scheduled for her lumpectomy. documented in this encounter [facility] 01-08-2024 History of Present illness Narrative Radiology Service Progress Note PATIENT NAME: Gillian Luis DATE OF SERVICE: January 08, 2024 TIME: 2:31 PM PATIENT IDENTITY VERIFICATION COMPLETED USING TWO (2) IDENTIFIERS: Name and Date of confirmed by patient verbally. FALL SCREENING: Has the patient had 2 falls in the last year or 1 fall with injury or currently using an Ambulatory Assistive Device (Walker, Cane, Wheelchair, Crutches, etc.)? No PATIENT GENDER DATA: Female. status: : No status: NO. PATIENT RELEVANT IMPLANT DATA REVIEWED: Not Applicable PATIENT PRESENTS WITH AN IMPLANTABLE OR ATTACHED OPTICAL TECHNICIAN: No RADIOLOGY DEPARTMENT: Mammography PERIPHERAL IV DATA: Not applicable SIGNED BY: KATELYNN Kern) January 08, 2024 2:31 PM documented in this encounter [facility] 01-08-2024 Note HNO ID: [id number] Author: JOSEFINA AKINS RT (R) Service: Radiology Author Type: Technologist Type: Progress Notes Filed: 01/08/2024 14:32 Note Text: Radiology Service Progress Note PATIENT NAME: Gillian Luis DATE OF SERVICE: January 08, 2024 TIME: 2:31 PM PATIENT IDENTITY VERIFICATION COMPLETED USING TWO (2) IDENTIFIERS: Name and Date of confirmed by patient verbally. FALL SCREENING: Has the patient had 2 falls in the last year or 1 fall with injury or currently using an Ambulatory Assistive Device (Walker, Cane, Wheelchair, Crutches, etc.)? No PATIENT GENDER DATA: Female. status: : No status: NO. PATIENT RELEVANT IMPLANT DATA REVIEWED: Not Applicable PATIENT PRESENTS WITH AN IMPLANTABLE OR ATTACHED OPTICAL TECHNICIAN: No RADIOLOGY DEPARTMENT: Mammography PERIPHERAL IV DATA: Not applicable SIGNED BY: KATELYNN Kern) January 08, 2024 2:31 PM [facility] 01-08-2024 History of Present illness Narrative Radiology Service Progress Note DATE OF SERVICE: January 08, 2024 TIME: 1:43 PM PATIENT IDENTITY VERIFICATION COMPLETED USING TWO (2) STANDARD IDENTIFIERS: Name and Date of confirmed by patient verbally. FALL SCREENING: Has the patient had 2 falls in the last year or 1 fall with injury or currently using an Ambulatory Assistive Device (Walker, Cane, Wheelchair, Crutches, etc.)? No PATIENT GENDER DATA: Female. status: : No status: NO. PATIENT RELEVANT IMPLANT DATA REVIEWED: Yes PATIENT PRESENTS WITH AN IMPLANTABLE OR ATTACHED OPTICAL TECHNICIAN: No ALLERGIES: Reviewed and unchanged CONTRAST ALLERGY: NO. EXAM: MRI - CONTRAST TYPE: GROUP II PERIPHERAL IV DATA: Ambulatory: A peripheral IV was started in the Right antecubital site with a Angio cath: 22 gauge. RADIOLOGY DEPARTMENT: MR; Exam(s) Completed: Chest: Breast biopsy of left side SIGNATURE: RT Redd(R) PATIENT NAME: Gillian Luis DATE: January 08, 2024 TIME: 1:43 PM documented in this encounter [facility] 01-08-2024 Note HNO ID: [id number] Author: CAITLIN BLUE RT (R) Service: Radiology Author Type: Technologist Type: Progress Notes Filed: 01/08/2024 13:44 Note Text: Radiology Service Progress Note DATE OF SERVICE: January 08, 2024 TIME: 1:43 PM PATIENT IDENTITY VERIFICATION COMPLETED USING TWO (2) STANDARD IDENTIFIERS: Name and Date of confirmed by patient verbally. FALL SCREENING: Has the patient had 2 falls in the last year or 1 fall with injury or currently using an Ambulatory Assistive Device (Walker, Cane, Wheelchair, Crutches, etc.)? No PATIENT GENDER DATA: Female. status: : No status: NO. PATIENT RELEVANT IMPLANT DATA REVIEWED: Yes PATIENT PRESENTS WITH AN IMPLANTABLE OR ATTACHED OPTICAL TECHNICIAN: No ALLERGIES: Reviewed and unchanged CONTRAST ALLERGY: NO. EXAM: MRI - CONTRAST TYPE: GROUP II PERIPHERAL IV DATA: Ambulatory: A peripheral IV was started in the Right antecubital site with a Angio cath: 22 gauge. RADIOLOGY DEPARTMENT: MR; Exam(s) Completed: Chest: Breast biopsy of left side SIGNATURE: RT Redd(R) PATIENT NAME: Gillian Luis DATE: January 08, 2024 TIME: 1:43 PM [facility] 01-08-2024 Telephone encounter Note Received fax from patients Cancer doctor at [facility] - Dr. Woody - that stated HOLD PORT PLACEMENT SHE MAY NOT NEED CHEMOTHERAPY/MONOCLONAL ANTIBODY THERAPY Patient currently scheduled with Dr. Polo in [place] on 01/14/2024. Please see and review scanned doc and advise Pardeep [employer] Presentation Associate [facility] 01-08-2024 Miscellaneous Notes Received fax from patients Cancer doctor at [facility] - Dr. Woody - that stated HOLD PORT PLACEMENT SHE MAY NOT NEED CHEMOTHERAPY/MONOCLONAL ANTIBODY THERAPY Patient currently scheduled with Dr. Polo in [place] on 01/14/2024. Please see and review scanned doc and advise Pardeep [employer] Presentation Associate documented in this encounter [facility] 12-27-2023 History of Present illness Narrative Images from the original note were not included. The below documentation is based on a tumor board discussion amongst the multidisciplinary team and should NOT be used for insurance verification or coverage purposes or interpreted as the final plan of care: Date of Presentation: December 27, 2023 Presenter: Ting Polo MD Team Members: Dr. Brown Woody with [facility] medical oncology Primary reason for presentation: discussion of pt presentation / treatment options Anatomic stage: Right breast IDC at least stage [id number] Pathway discussed: Yes, not applicable for pt presentation Clinical trial discussion: Yes, not applicable for pt presentation Genetics: not completed Supportive Care: breast psychology Discussion / recommendations: After review and discussion of patient presentation, the following thoughts / recommendations were made. Right breast IDC at 11:00 measuring 1.7 cm x 1.7 cm x 2.1 cm Right breast IDC at 12:00 measuring 1.2 cm x 2.4 cm x 0.8 cm MRI breast on 12/18/2023: Right breast index lesion measuring 3.5 cm x 1.5 cm x 1.7 cm Left breast lesion measuring 11 mm at 12:00-1:00 1) Surgery: surgery upfront can be considered based on hormone positive HER2 negative status. Obtain left breast biopsy. 2) Medical Oncology: Oncotype DX on core biopsy to determine benefit from neoadjuvant chemotherapy 3) Radiation Oncology: based on final pathology 4) Genetic counseling 5) Breast psychology with Dr. Luna 6) Left breast biopsy This abstract and interpretation of the conversation at tumor board has been completed by Tamie Sanchez MD, a medical pathology teacher. The final recommendations / treatment plan will be made by the patient's primary health care team and patient, after full discussion as appropriate. documented in this encounter [facility] 12-27-2023 Note HNO ID: [id number] Author: TAMIE SANCHEZ MD Service: ? Author Type: Physician Type: Progress Notes Filed: 01/10/2024 04:00 Note Text: The below documentation is based on a tumor board discussion amongst the multidisciplinary team and should NOT be used for insurance verification or coverage purposes or interpreted as the final plan of care: Date of Presentation: December 27, 2023 Presenter: Ting Polo MD Team Members: Dr. Brown Woody with [facility] medical oncology Primary reason for presentation: discussion of pt presentation / treatment options Anatomic stage: Right breast IDC at least stage [id number] Pathway discussed: Yes, not applicable for pt presentation Clinical trial discussion: Yes, not applicable for pt presentation Genetics: not completed Supportive Care: breast psychology Discussion / recommendations: After review and discussion of patient presentation, the following thoughts / recommendations were made. Right breast IDC at 11:00 measuring 1.7 cm x 1.7 cm x 2.1 cm Right breast IDC at 12:00 measuring 1.2 cm x 2.4 cm x 0.8 cm MRI breast on 12/18/2023: Right breast index lesion measuring 3.5 cm x 1.5 cm x 1.7 cm Left breast lesion measuring 11 mm at 12:00-1:00 1) Surgery: surgery upfront can be considered based on hormone positive HER2 negative status. Obtain left breast biopsy. 2) Medical Oncology: Oncotype DX on core biopsy to determine benefit from neoadjuvant chemotherapy 3) Radiation Oncology: based on final pathology 4) Genetic counseling 5) Breast psychology with Dr. Luna 6) Left breast biopsy This abstract and interpretation of the conversation at tumor board has been completed by Tamie Sanchez MD, a medical pathology teacher. The final recommendations / treatment plan will be made by the patient's primary health care team and patient, after full discussion as appropriate. [facility] 12-25-2023 Note HNO ID: [id number] Author: TING POLO MD Service: ? Author Type: Physician Type: Progress Notes Filed: 12/25/2023 11:16 Note Text: HISTORY AND PHYSICAL - BREAST CANCER - RIGHT BREAST - 2 SITES Gillian Luis 1965 December 25, 2023 REFERRING PHYSICIAN: Gertrudis De Leon MD CHIEF COMPLAINT: BREAST CANCER - RIGHT - INVASIVE DUCTAL CARCINOMA HPI: Gillian Luis is a 58-year-old female who presents with right breast cancer at 2 sites. No information was received prior to the patient being seen in my office. I understand the patient had palpable masses in her right breast she underwent mammogram and ultrasound at [facility]. I have her copy of her ultrasound report dated October 16, 2023 which demonstrated suspicious solid-appearing lesions at both the 11 and 12:00 positions 2 foci are noted 1 measuring 17 x 17 x 21 mm and the additional measuring 12 x 24 x 8 mm they were uncertain whether these were 2 separate lesions or a single dumbbell shaped lesion. The patient then underwent core biopsy of this site on November 21, 2023. The 11:00 and 12:00 sites both returned as invasive ductal carcinoma-grade 2. Receptor status was estrogen positive progesterone negative HER2 indeterminant. FISH was negative for HER2 Addendum-having now received copies of her radiology reports a ribbon clip was placed at breast biopsy site a, a coil clip was placed at the breast biopsy site B. The patient notes some bruising of the site We extensively discussed her diagnosis including breast conservation surgical procedures, mastectomy without reconstruction and mastectomy with reconstruction. Reviewing care everywhere did not provide additional information however she did have ED visit on October 20, 2023 for alcohol intoxication related to anxiety and depression with what was felt to be homicidal suicidal intent initially due to the recent loss of her and the new diagnosis of breast cancer. This was not noted at the time of her visit nor discussed in the office setting The patient is being seen by me at the request of Dr. Gertrudis De Leon MD for my opinion and advice regarding locally advanced right-sided breast cancer. Bone scan was obtained on December 14, 2023 which demonstrated no evidence of metastatic deposits. The patient was also referred to Dr. Brown Woody, medical oncology at [facility]. A CT scan of the chest was obtained which demonstrated no metastatic disease, but suggested a possible 1.5cm mass in the left breast. MRI which was obtained on December 18, 2023. This demonstrated the index lesion in the right breast and measured as 3.5cm x 1.5cm x 1.7cm. There was also an 11mm x 8mm x 5mm noted in the 12-1 o'clock position of the left breast noted 5.2cm behind the nipple. I performed office-based ultrasound on December 20 and found no abnormalities. I ordered a formal ultrasound which was obtained this morning. This also demonstrated no abnormalities. Given the MRI findings my plan is to schedule the patient for an MRI based evaluation/biopsy. The patient is also considered her options and does believe she would wish to have neoadjuvant chemotherapy performed prior to surgery. Dr. Woody had asked if I place a Port-A-Cath if that would be the plan. PAST MEDICAL HISTORY Diagnosis Date Benign hypertension Breast cancer (HCC) 11/2023 Right Breast Decreased GFR Dysphagia, pharyngeal Generalized osteoarthrosis, involving multiple sites GERD (gastroesophageal reflux disease) High blood pressure Hyperlipemia Knee pain right Knee Mild major depression (HCC) Noncompliance with medication regimen Sarcoidosis TIA (transient ischemic attack) PAST SURGICAL HISTORY Procedure Laterality Date LIGATE FALLOPIAN TUBE PAST SURGICAL HISTORY OF Wedge Resection, Right Lung TONSILLECTOMY AND ADENOIDECTOMY TOTAL ABDOM HYSTERECTOMY Current Outpatient Medications Medication Sig Dispense Refill metoprolol succinate ER (TOPROL XL) 100 mg Take 50 mg by mouth once daily. lisinopril-hydroCHLOROthiazide (ZESTORETIC) 20-25 mg per tablet Take 1 tablet by mouth once daily. rosuvastatin (CRESTOR) 10 mg tablet Take 10 mg by mouth once daily. amLODIPine (NORVASC) 5 mg tablet Take by mouth as directed. sertraline (ZOLOFT) 50 mg tablet Take 50 mg by mouth once daily. iv contrast (will be provided with radiology test) MRI LT Breast Bx Inject, intravenously, once for 1 dose. No IV access, insert saline lock prior to the beginning of sedation, infusion, injection of imaging exam. Discontinue saline lock post exam. If Pt has a central line or IVAD, may access for administration according to line specific nursing protocol. Once exam is complete flush line and de-access according to line specific nursing protocol in the MR contrast administration guidelines link 1 Each 0 metoprolol tartrate, short acting, (LOPRESSOR) 50 mg tablet Take by mouth as directed. lis (more content not included)... [facility] [place] 12-25-2023 History of Present illness Narrative HISTORY AND PHYSICAL - BREAST CANCER - RIGHT BREAST - 2 SITES Gillian Luis 1965 December 25, 2023 REFERRING PHYSICIAN: Gertrudis De Leon MD CHIEF COMPLAINT: BREAST CANCER - RIGHT - INVASIVE DUCTAL CARCINOMA HPI: Gillian Luis is a 58-year-old female who presents with right breast cancer at 2 sites. No information was received prior to the patient being seen in my office. I understand the patient had palpable masses in her right breast she underwent mammogram and ultrasound at [facility]. I have her copy of her ultrasound report dated October 16, 2023 which demonstrated suspicious solid-appearing lesions at both the 11 and 12:00 positions 2 foci are noted 1 measuring 17 x 17 x 21 mm and the additional measuring 12 x 24 x 8 mm they were uncertain whether these were 2 separate lesions or a single dumbbell shaped lesion. The patient then underwent core biopsy of this site on November 21, 2023. The 11:00 and 12:00 sites both returned as invasive ductal carcinoma-grade 2. Receptor status was estrogen positive progesterone negative HER2 indeterminant. FISH was negative for HER2 Addendum-having now received copies of her radiology reports a ribbon clip was placed at breast biopsy site a, a coil clip was placed at the breast biopsy site B. The patient notes some bruising of the site We extensively discussed her diagnosis including breast conservation surgical procedures, mastectomy without reconstruction and mastectomy with reconstruction. Reviewing care everywhere did not provide additional information however she did have ED visit on October 20, 2023 for alcohol intoxication related to anxiety and depression with what was felt to be homicidal suicidal intent initially due to the recent loss of her and the new diagnosis of breast cancer. This was not noted at the time of her visit nor discussed in the office setting The patient is being seen by me at the request of Dr. Gertrudis De Leon MD for my opinion and advice regarding locally advanced right-sided breast cancer. Bone scan was obtained on December 14, 2023 which demonstrated no evidence of metastatic deposits. The patient was also referred to Dr. Brown Woody, medical oncology at [facility]. A CT scan of the chest was obtained which demonstrated no metastatic disease, but suggested a possible 1.5cm mass in the left breast. MRI which was obtained on December 18, 2023. This demonstrated the index lesion in the right breast and measured as 3.5cm x 1.5cm x 1.7cm. There was also an 11mm x 8mm x 5mm noted in the 12-1 o'clock position of the left breast noted 5.2cm behind the nipple. I performed office-based ultrasound on December 20 and found no abnormalities. I ordered a formal ultrasound which was obtained this morning. This also demonstrated no abnormalities. Given the MRI findings my plan is to schedule the patient for an MRI based evaluation/biopsy. The patient is also considered her options and does believe she would wish to have neoadjuvant chemotherapy performed prior to surgery. Dr. Woody had asked if I place a Port-A-Cath if that would be the plan. PAST MEDICAL HISTORY Diagnosis Date Benign hypertension Breast cancer (HCC) 11/2023 Right Breast Decreased GFR Dysphagia, pharyngeal Generalized osteoarthrosis, involving multiple sites GERD (gastroesophageal reflux disease) High blood pressure Hyperlipemia Knee pain right Knee Mild major depression (HCC) Noncompliance with medication regimen Sarcoidosis TIA (transient ischemic attack) PAST SURGICAL HISTORY Procedure Laterality Date LIGATE FALLOPIAN TUBE PAST SURGICAL HISTORY OF Wedge Resection, Right Lung TONSILLECTOMY & ADENOIDECTOMY <AGE 12 TOTAL ABDOM HYSTERECTOMY Current Outpatient Medications Medication Sig Dispense Refill metoprolol succinate ER (TOPROL XL) 100 mg Take 50 mg by mouth once daily. lisinopril-hydroCHLOROthiazide (ZESTORETIC) 20-25 mg per tablet Take 1 tablet by mouth once daily. rosuvastatin (CRESTOR) 10 mg tablet Take 10 mg by mouth once daily. amLODIPine (NORVASC) 5 mg tablet Take by mouth as directed. sertraline (ZOLOFT) 50 mg tablet Take 50 mg by mouth once daily. iv contrast (will be provided with radiology test) MRI LT Breast Bx Inject, intravenously, once for 1 dose. No IV access, insert saline lock prior to the beginning of sedation, infusion, injection of imaging exam. Discontinue saline lock post exam. If Pt has a central line or IVAD, may access for administration according to line specific nursing protocol. Once exam is complete flush line and de-access according to line specific nursing protocol in the MR contrast administration guidelines link 1 Each 0 metoprolol tartrate, short acting, (LOPRESSOR) 50 mg tablet Take by mouth as directed. lisinopril-hydroCHLOROthiazide (ZESTORETIC) 10-12.5 mg per tablet Take 1 tablet by mouth once daily. simvastatin (ZOCOR) 40 mg tablet Take 40 mg by mouth daily at bedtime. No current facility-administered medications for this visit. ALLERGIES: Latex PERSONAL HISTORY: Social History Tobacco Use Smoking status: Every Day Types: Cigarettes Smokeless tobacco: Never FAMILY HISTORY: FAMILY HISTORY Problem Relation Age of Onset Hypertension Mother Hypertension Father other (Basal Cell Carcinoma) Father Cancer Father Hypertension Maternal Grandmother Hypertension Maternal Grandfather Hypertension Paternal Grandmother Hypertension Paternal Grandfather REVIEW OF SYMPTOMS: The review of systems data was entered by the nurse and reviewed by me There are no exam notes on file for this visit. PHYSICAL EXAMINATION: General: The patient is 58 year old female, well nourished, well hydrated in no acute distress. The patient is oriented to time, place, and person. VITALS: There were no vitals taken for this visit. There is no height or weight on file to calculate BMI. HEENT: Normal cephalic, ataumatic, pupils are equally round, sclera are anicteric, mucous membranes are moist, oropharynx is clear. Neck has no masses, asymmetry or lymphadenopathy. Thyroid is unremarkable. Respiratory: Clear to auscultation and percussion. Normal respiratory excursion and pattern. Cardiac: Examination is regular rate and rhythm. Abdominal exam: Soft, nontender, with no palpable masses. No hepatosplenomegaly. No palpable hernias. Rectal exam: exam deferred Extremities: no clubbing, cyanosis or edema. No adenopathy. Breast: Visual inspection reveals no retractions, nipple inversion, or skin changes. Palpation of the right breast reveals the mass of concern at the upper central breast with some bruising of the area. Palpation of the left breast reveals no dominant or suspicious masses, but multiple benign-feeling nodules. Axillary exam demonstrates no suspicious masses in either the left or right axilla. There is no nipple discharge expressed from either the left or right breast. LABORATORY VALUES: As Noted RADIOLOGIC STUDIES: As Noted In office ultrasound failed to identify an obvious abnormality in the left breast Assessment IMPRESSION: BREAST CANCER - RIGHT - INVASIVE DUCTAL CARCINOMA PLAN: I plan obtain an MRI guided MRI biopsy. We discussed genetic counseling and the patient would like to have this performed. Order was placed Sunday they will be contacting her. She is still depressed over the loss of her and relays that, but for her children, she would likely not seek treatment. We discussed how she has not signs of metastatic disease and I feel we will be able to cure her of this cancer. We did discuss the options of neoadjuvant chemotherapy given the size versus up front surgery. Patient anticipates she wishes to have neoadjuvant treatment. I will therefore plan to place a left internal jugular Port-A-Cath. The planned surgical procedure was discussed extensively with the patient. The risks, benefits and anticipated outcomes of the procedure, the risks and benefits of the alternatives to the procedure, and the roles and tasks of the personnel to be involved, were discussed with the patient. My staff has also explained the procedure in understandable terms and the patient was given the option to take printed material concerning the planned procedure. The patient had the opportunity to ask questions concerning the planned procedure. The patient freely consents to the planned procedure. Anticipated Surgical Procedure/ CPT Code: left Internal Jugular Portacath - 71595-303, Ultrasound for vascular access - 92363-567-79, and Fluoroscopic for vascular access - 95817-162-44 Anticipated Anesthetic: MAC with local Patient weight: There were no vitals taken for this visit. BMI: There is no height or weight on file to calculate BMI. Planned antibiotic: Ancef 2gm IVPB front office attendant to OR SCDs needed: No Melt Helper Needed: No Pre Op Clearance: None Anticoagulation: No Diabetic: No Location: [place] A letter was sent to Dr. Gertrudis De Leon MD indicating the above finding for this patient. Diagnoses: (C50.811, Z17.0) Malignant neoplasm of overlapping 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, estrogen receptor positive (HCC) (primary encounter diagnosis) (R92.8) Abnormal finding on breast imaging Return to Clinic: The patient is instructed to follow-up with me after left MRI breast biopsy Ting Polo MD documented in this encounter [facility] 12-25-2023 History of Present illness Narrative Radiology Service Progress Note PATIENT NAME: Gillian Luis DATE OF SERVICE: December 25, 2023 TIME: 10:13 AM PATIENT IDENTITY VERIFICATION COMPLETED USING TWO (2) IDENTIFIERS: Name and Date of confirmed by patient verbally. FALL SCREENING: Has the patient had 2 falls in the last year or 1 fall with injury or currently using an Ambulatory Assistive Device (Walker, Cane, Wheelchair, Crutches, etc.)? No PATIENT GENDER DATA: Female. status: : No status: NO. PATIENT RELEVANT IMPLANT DATA REVIEWED: Not Applicable PATIENT PRESENTS WITH AN IMPLANTABLE OR ATTACHED OPTICAL TECHNICIAN: No RADIOLOGY DEPARTMENT: Ultrasound PERIPHERAL IV DATA: Not applicable SIGNED BY: Tresa Larkin RDMS December 25, 2023 10:13 AM documented in this encounter [facility] 12-25-2023 Note HNO ID: [id number] Author: TRESA LARKIN RDMS Service: ? Author Type: Oxygen Plant Operator Type: Progress Notes Filed: 12/25/2023 10:13 Note Text: Radiology Service Progress Note PATIENT NAME: Gillian Luis DATE OF SERVICE: December 25, 2023 TIME: 10:13 AM PATIENT IDENTITY VERIFICATION COMPLETED USING TWO (2) IDENTIFIERS: Name and Date of confirmed by patient verbally. FALL SCREENING: Has the patient had 2 falls in the last year or 1 fall with injury or currently using an Ambulatory Assistive Device (Walker, Cane, Wheelchair, Crutches, etc.)? No PATIENT GENDER DATA: Female. status: : No status: NO. PATIENT RELEVANT IMPLANT DATA REVIEWED: Not Applicable PATIENT PRESENTS WITH AN IMPLANTABLE OR ATTACHED OPTICAL TECHNICIAN: No RADIOLOGY DEPARTMENT: Ultrasound PERIPHERAL IV DATA: Not applicable SIGNED BY: Tresa Larkin RDMS December 25, 2023 10:13 AM [facility] [place] 12-22-2023 Note HNO ID: [id number] Author: TING POLO MD Service: ? Author Type: Physician Type: Progress Notes Filed: 12/22/2023 07:05 Note Text: HISTORY AND PHYSICAL - BREAST CANCER - RIGHT BREAST - 2 SITES Gillian Luis 1965 December 08, 2023 REFERRING PHYSICIAN: Gertrudis De Leon MD CHIEF COMPLAINT: BREAST CANCER - RIGHT - INVASIVE DUCTAL CARCINOMA HPI: Gillian Luis is a 58-year-old female who presents with right breast cancer at 2 sites. No information was received prior to the patient being seen in my office. I understand the patient had palpable masses in her right breast she underwent mammogram and ultrasound at [facility]. I have her copy of her ultrasound report dated October 16, 2023 which demonstrated suspicious solid-appearing lesions at both the 11 and 12:00 positions 2 foci are noted 1 measuring 17 x 17 x 21 mm and the additional measuring 12 x 24 x 8 mm they were uncertain whether these were 2 separate lesions or a single dumbbell shaped lesion. The patient then underwent core biopsy of this site on November 21, 2023. The 11:00 and 12:00 sites both returned as invasive ductal carcinoma-grade 2. Receptor status was estrogen positive progesterone negative HER2 indeterminant. FISH was negative for HER2 Addendum-having now received copies of her radiology reports a ribbon clip was placed at breast biopsy site a, a coil clip was placed at the breast biopsy site B. The patient notes some bruising of the site We extensively discussed her diagnosis including breast conservation surgical procedures, mastectomy without reconstruction and mastectomy with reconstruction. Reviewing care everywhere did not provide additional information however she did have ED visit on October 20, 2023 for alcohol intoxication related to anxiety and depression with what was felt to be homicidal suicidal intent initially due to the recent loss of her and the new diagnosis of breast cancer. This was not noted at the time of her visit nor discussed in the office setting The patient is being seen by me at the request of Dr. Gertrudis De Leon MD for my opinion and advice regarding locally advanced right-sided breast cancer. Bone scan was obtained on December 14, 2023 which demonstrated no evidence of metastatic deposits. The patient was also referred to Dr. Brown Woody, medical oncology at [facility]. A CT scan of the chest was obtained which demonstrated no metastatic disease, but suggested a possible 1.5cm mass in the left breast. MRI which was obtained on December 18, 2023. This demonstrated the index lesion in the right breast and measured as 3.5cm x 1.5cm x 1.7cm. There was also an 11mm x 8mm x 5mm noted in the 12-1 o'clock position of the left breast noted 5.2cm behind the nipple. PAST MEDICAL HISTORY Diagnosis Date Benign hypertension Breast cancer (HCC) 11/2023 Right Breast Decreased GFR Dysphagia, pharyngeal Generalized osteoarthrosis, involving multiple sites GERD (gastroesophageal reflux disease) High blood pressure Hyperlipemia Knee pain right Knee Mild major depression (HCC) Noncompliance with medication regimen Sarcoidosis TIA (transient ischemic attack) PAST SURGICAL HISTORY Procedure Laterality Date LIGATE FALLOPIAN TUBE PAST SURGICAL HISTORY OF Wedge Resection, Right Lung TONSILLECTOMY AND ADENOIDECTOMY TOTAL ABDOM HYSTERECTOMY Current Outpatient Medications Medication Sig Dispense Refill metoprolol succinate ER (TOPROL XL) 100 mg Take 50 mg by mouth once daily. lisinopril-hydroCHLOROthiazide (ZESTORETIC) 20-25 mg per tablet Take 1 tablet by mouth once daily. rosuvastatin (CRESTOR) 10 mg tablet Take 10 mg by mouth once daily. amLODIPine (NORVASC) 5 mg tablet Take by mouth as directed. sertraline (ZOLOFT) 50 mg tablet Take 50 mg by mouth once daily. metoprolol tartrate, short acting, (LOPRESSOR) 50 mg tablet Take by mouth as directed. lisinopril-hydroCHLOROthiazide (ZESTORETIC) 10-12.5 mg per tablet Take 1 tablet by mouth once daily. simvastatin (ZOCOR) 40 mg tablet Take 40 mg by mouth daily at bedtime. No current facility-administered medications for this visit. ALLERGIES: Latex PERSONAL HISTORY: Social History Tobacco Use Smoking status: Every Day Types: Cigarettes Smokeless tobacco: Never FAMILY HISTORY: FAMILY HISTORY Problem Relation Age of Onset Hypertension Mother Hypertension Father other (Basal Cell Carcinoma) Father Cancer Father Hypertension Maternal Grandmother Hypertension Maternal Grandfather Hypertension Paternal Grandmother Hypertension Paternal Grandfather REVIEW OF SYMPTOMS: The review of systems data was entered by the nurse and reviewed by me There are no exam notes on file for this visit. PHYSICAL EXAMINATION: General: The patient is 58 year old female, well nourished, well hydrated in no acute distress. The patient is oriented to time, place, and person. (more content not included)... [facility] [place] 12-22-2023 History of Present illness Narrative HISTORY AND PHYSICAL - BREAST CANCER - RIGHT BREAST - 2 SITES Gillian Luis 1965 December 08, 2023 REFERRING PHYSICIAN: Gertrudis De Leon MD CHIEF COMPLAINT: BREAST CANCER - RIGHT - INVASIVE DUCTAL CARCINOMA HPI: Gillian Luis is a 58-year-old female who presents with right breast cancer at 2 sites. No information was received prior to the patient being seen in my office. I understand the patient had palpable masses in her right breast she underwent mammogram and ultrasound at [facility]. I have her copy of her ultrasound report dated October 16, 2023 which demonstrated suspicious solid-appearing lesions at both the 11 and 12:00 positions 2 foci are noted 1 measuring 17 x 17 x 21 mm and the additional measuring 12 x 24 x 8 mm they were uncertain whether these were 2 separate lesions or a single dumbbell shaped lesion. The patient then underwent core biopsy of this site on November 21, 2023. The 11:00 and 12:00 sites both returned as invasive ductal carcinoma-grade 2. Receptor status was estrogen positive progesterone negative HER2 indeterminant. FISH was negative for HER2 Addendum-having now received copies of her radiology reports a ribbon clip was placed at breast biopsy site a, a coil clip was placed at the breast biopsy site B. The patient notes some bruising of the site We extensively discussed her diagnosis including breast conservation surgical procedures, mastectomy without reconstruction and mastectomy with reconstruction. Reviewing care everywhere did not provide additional information however she did have ED visit on October 20, 2023 for alcohol intoxication related to anxiety and depression with what was felt to be homicidal suicidal intent initially due to the recent loss of her and the new diagnosis of breast cancer. This was not noted at the time of her visit nor discussed in the office setting The patient is being seen by me at the request of Dr. Gertrudis De Leon MD for my opinion and advice regarding locally advanced right-sided breast cancer. Bone scan was obtained on December 14, 2023 which demonstrated no evidence of metastatic deposits. The patient was also referred to Dr. Brown Woody, medical oncology at [facility]. A CT scan of the chest was obtained which demonstrated no metastatic disease, but suggested a possible 1.5cm mass in the left breast. MRI which was obtained on December 18, 2023. This demonstrated the index lesion in the right breast and measured as 3.5cm x 1.5cm x 1.7cm. There was also an 11mm x 8mm x 5mm noted in the 12-1 o'clock position of the left breast noted 5.2cm behind the nipple. PAST MEDICAL HISTORY Diagnosis Date Benign hypertension Breast cancer (HCC) 11/2023 Right Breast Decreased GFR Dysphagia, pharyngeal Generalized osteoarthrosis, involving multiple sites GERD (gastroesophageal reflux disease) High blood pressure Hyperlipemia Knee pain right Knee Mild major depression (HCC) Noncompliance with medication regimen Sarcoidosis TIA (transient ischemic attack) PAST SURGICAL HISTORY Procedure Laterality Date LIGATE FALLOPIAN TUBE PAST SURGICAL HISTORY OF Wedge Resection, Right Lung TONSILLECTOMY & ADENOIDECTOMY <AGE 10 TOTAL ABDOM HYSTERECTOMY Current Outpatient Medications Medication Sig Dispense Refill metoprolol succinate ER (TOPROL XL) 100 mg Take 50 mg by mouth once daily. lisinopril-hydroCHLOROthiazide (ZESTORETIC) 20-25 mg per tablet Take 1 tablet by mouth once daily. rosuvastatin (CRESTOR) 10 mg tablet Take 10 mg by mouth once daily. amLODIPine (NORVASC) 5 mg tablet Take by mouth as directed. sertraline (ZOLOFT) 50 mg tablet Take 50 mg by mouth once daily. metoprolol tartrate, short acting, (LOPRESSOR) 50 mg tablet Take by mouth as directed. lisinopril-hydroCHLOROthiazide (ZESTORETIC) 10-12.5 mg per tablet Take 1 tablet by mouth once daily. simvastatin (ZOCOR) 40 mg tablet Take 40 mg by mouth daily at bedtime. No current facility-administered medications for this visit. ALLERGIES: Latex PERSONAL HISTORY: Social History Tobacco Use Smoking status: Every Day Types: Cigarettes Smokeless tobacco: Never FAMILY HISTORY: FAMILY HISTORY Problem Relation Age of Onset Hypertension Mother Hypertension Father other (Basal Cell Carcinoma) Father Cancer Father Hypertension Maternal Grandmother Hypertension Maternal Grandfather Hypertension Paternal Grandmother Hypertension Paternal Grandfather REVIEW OF SYMPTOMS: The review of systems data was entered by the nurse and reviewed by me There are no exam notes on file for this visit. PHYSICAL EXAMINATION: General: The patient is 58 year old female, well nourished, well hydrated in no acute distress. The patient is oriented to time, place, and person. VITALS: Blood pressure 132/84, pulse 82, temperature 36.3 C (97.3 F), SpO2 97%. There is no height or weight on file to calculate BMI. HEENT: Normal cephalic, ataumatic, pupils are equally round, sclera are anicteric, mucous membranes are moist, oropharynx is clear. Neck has no masses, asymmetry or lymphadenopathy. Thyroid is unremarkable. Respiratory: Clear to auscultation and percussion. Normal respiratory excursion and pattern. Cardiac: Examination is regular rate and rhythm. Abdominal exam: Soft, nontender, with no palpable masses. No hepatosplenomegaly. No palpable hernias. Rectal exam: exam deferred Extremities: no clubbing, cyanosis or edema. No adenopathy. Breast: Visual inspection reveals no retractions, nipple inversion, or skin changes. Palpation of the right breast reveals the mass of concern at the upper central breast with some bruising of the area. Palpation of the left breast reveals no dominant or suspicious masses, but multiple benign-feeling nodules. Axillary exam demonstrates no suspicious masses in either the left or right axilla. There is no nipple discharge expressed from either the left or right breast. LABORATORY VALUES: As Noted RADIOLOGIC STUDIES: As Noted In office ultrasound failed to identify an obvious abnormality in the left breast Assessment IMPRESSION: BREAST CANCER - RIGHT - INVASIVE DUCTAL CARCINOMA PLAN: I plan obtain an ultrasound of her left breast and then plan for ultrasound versus MRI biopsy. We discussed genetic counseling and the patient would like to have this performed. She is still depressed over the loss of her and relays that, but for her children, she would likely not seek treatment. We discussed how she has not signs of metastatic disease and I feel we will be able to cure her of this cancer. We did discuss the options of neoadjuvant chemotherapy given the size versus up front surgery A letter was sent to Dr. Gertrudis De Leon MD indicating the above finding for this patient. Diagnoses: (C50.811, Z17.0) Malignant neoplasm of overlapping 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, estrogen receptor positive (HCC) (primary encounter diagnosis) Return to Clinic: The patient is instructed to follow-up with me after left breast biopsy Ting Polo MD documented in this encounter [facility] 12-19-[address] Brown Woody called. He saw patient in consultation. MRI was ordered by him and obtained at [facility]. Patient also has a lesion in her left breast approximately 11 mm and needs to be biopsied. Discussed with Dr. Woody I will try to get the patient in her office this Sunday for evaluation and biopsy. I will have my office load imaging from [facility] into our system. [facility] 12-19-[address] Brown Woody called. He saw patient in consultation. MRI was ordered by him and obtained at [facility]. Patient also has a lesion in her left breast approximately 11 mm and needs to be biopsied. Discussed with Dr. Woody I will try to get the patient in her office this Sunday for evaluation and biopsy. I will have my office load imaging from [facility] into our system. documented in this encounter [facility] 12-10-2023 Telephone encounter Note Medical records requested from [facility] and images requested.Albina Vera RN [facility] 12-10-2023 Miscellaneous Notes Medical records requested from [facility] and images requested.Albina Vera RN documented in this encounter [facility] 12-08-2023 Note HNO ID: [id number] Author: TING POLO MD Service: ? Author Type: Physician Type: Progress Notes Filed: 12/14/2023 07:39 Note Text: HISTORY AND PHYSICAL - BREAST CANCER - RIGHT BREAST - 2 SITES Gillian Luis 1965 December 08, 2023 REFERRING PHYSICIAN: Gertrudis De Leon MD CHIEF COMPLAINT: BREAST CANCER - RIGHT - INVASIVE DUCTAL CARCINOMA HPI: Gillian Luis is a 58-year-old female who presents with right breast cancer at 2 sites. No information was received prior to the patient being seen in my office. I understand the patient had palpable masses in her right breast she underwent mammogram and ultrasound at [facility]. I have her copy of her ultrasound report dated October 16, 2023 which demonstrated suspicious solid-appearing lesions at both the 11 and 12:00 positions 2 foci are noted 1 measuring 17 x 17 x 21 mm and the additional measuring 12 x 24 x 8 mm they were uncertain whether these were 2 separate lesions or a single dumbbell shaped lesion. The patient then underwent core biopsy of this site on November 21, 2023. The 11:00 and 12:00 sites both returned as invasive ductal carcinoma-grade 2. I understand her receptor status was estrogen positive progesterone negative HER2 indeterminant. I understand she is waiting for Herceptin results. Again we do not have images or official reports other than what she was able to show me on her cell phone. Addendum-having now received copies of her radiology reports a ribbon clip was placed at breast biopsy site a, a coil clip was placed at the breast biopsy site B. The patient notes some bruising of the site We extensively discussed her diagnosis including breast conservation surgical procedures, mastectomy without reconstruction and mastectomy with reconstruction. Reviewing care everywhere did not provide additional information however she did have ED visit on October 20, 2023 for alcohol intoxication related to anxiety and depression with what was felt to be homicidal suicidal intent initially due to the recent loss of her and the new diagnosis of breast cancer. This was not noted at the time of her visit nor discussed in the office setting The patient is being seen by me today at the request of Dr. Gertrudis De Leon MD for my opinion and advice regarding locally advanced right-sided breast cancer. PAST MEDICAL HISTORY Diagnosis Date Breast cancer (HCC) 11/2023 Right Breast High blood pressure Knee pain right Knee Sarcoidosis TIA (transient ischemic attack) PAST SURGICAL HISTORY Procedure Laterality Date LIGATE FALLOPIAN TUBE PAST SURGICAL HISTORY OF Wedge Resection, Right Lung TONSILLECTOMY AND ADENOIDECTOMY TOTAL ABDOM HYSTERECTOMY Current Outpatient Medications Medication Sig Dispense Refill amLODIPine (NORVASC) 5 mg tablet Take by mouth as directed. metoprolol tartrate, short acting, (LOPRESSOR) 50 mg tablet Take by mouth as directed. lisinopril-hydroCHLOROthiazide (ZESTORETIC) 10-12.5 mg per tablet Take 1 tablet by mouth once daily. sertraline (ZOLOFT) 50 mg tablet Take 50 mg by mouth once daily. simvastatin (ZOCOR) 40 mg tablet Take 40 mg by mouth daily at bedtime. No current facility-administered medications for this visit. ALLERGIES: Latex PERSONAL HISTORY: Social History Tobacco Use Smoking status: Every Day Types: Cigarettes Smokeless tobacco: Never FAMILY HISTORY: FAMILY HISTORY Problem Relation Age of Onset Hypertension Mother Hypertension Father other (Basal Cell Carcinoma) Father Cancer Father Hypertension Maternal Grandmother Hypertension Maternal Grandfather Hypertension Paternal Grandmother Hypertension Paternal Grandfather REVIEW OF SYMPTOMS: The review of systems data was entered by the nurse and reviewed by me There are no exam notes on file for this visit. PHYSICAL EXAMINATION: General: The patient is 58 year old female, well nourished, well hydrated in no acute distress. The patient is oriented to time, place, and person. VITALS: Blood pressure 164/94, pulse 70, height 157.5 cm (5' 2), weight 77.5 kg (170 lb 13.7 oz), SpO2 96%. Body mass index is 31.25 kg/m?. HEENT: Normal cephalic, ataumatic, pupils are equally round, sclera are anicteric, mucous membranes are moist, oropharynx is clear. Neck has no masses, asymmetry or lymphadenopathy. Thyroid is unremarkable. Respiratory: Clear to auscultation and percussion. Normal respiratory excursion and pattern. Cardiac: Examination is regular rate and rhythm. Abdominal exam: Soft, nontender, with no palpable masses. No hepatosplenomegaly. No palpable hernias. Rectal exam: exam deferred Extremities: no clubbing, cyanosis or edema. No adenopathy. Breast: Visual inspection reveals no retractions, nipple inversion, or skin changes. Palpation of the right breast reveals the mass of concern at the upper central breast with some bruising of the area. Palpation of th (more content not included)... [facility] 12-08-2023 History of Present illness Narrative HISTORY AND PHYSICAL - BREAST CANCER - RIGHT BREAST - 2 SITES Gillian Luis 1965 December 08, 2023 REFERRING PHYSICIAN: Gertrudis De Leon MD CHIEF COMPLAINT: BREAST CANCER - RIGHT - INVASIVE DUCTAL CARCINOMA HPI: Gillian Luis is a 58-year-old female who presents with right breast cancer at 2 sites. No information was received prior to the patient being seen in my office. I understand the patient had palpable masses in her right breast she underwent mammogram and ultrasound at [facility]. I have her copy of her ultrasound report dated October 16, 2023 which demonstrated suspicious solid-appearing lesions at both the 11 and 12:00 positions 2 foci are noted 1 measuring 17 x 17 x 21 mm and the additional measuring 12 x 24 x 8 mm they were uncertain whether these were 2 separate lesions or a single dumbbell shaped lesion. The patient then underwent core biopsy of this site on November 21, 2023. The 11:00 and 12:00 sites both returned as invasive ductal carcinoma-grade 2. I understand her receptor status was estrogen positive progesterone negative HER2 indeterminant. I understand she is waiting for Herceptin results. Again we do not have images or official reports other than what she was able to show me on her cell phone. The patient notes some bruising of the site We extensively discussed her diagnosis including breast conservation surgical procedures, mastectomy without reconstruction and mastectomy with reconstruction. Reviewing care everywhere did not provide additional information however she did have ED visit on October 20, 2023 for alcohol intoxication related to anxiety and depression with what was felt to be homicidal suicidal intent initially due to the recent loss of her and the new diagnosis of breast cancer. This was not noted at the time of her visit nor discussed in the office setting The patient is being seen by me today at the request of Dr. Gertrudis De Leon MD for my opinion and advice regarding locally advanced right-sided breast cancer. PAST MEDICAL HISTORY Diagnosis Date Breast cancer (HCC) 11/2023 Right Breast High blood pressure Knee pain right Knee Sarcoidosis TIA (transient ischemic attack) PAST SURGICAL HISTORY Procedure Laterality Date LIGATE FALLOPIAN TUBE PAST SURGICAL HISTORY OF Wedge Resection, Right Lung TONSILLECTOMY & ADENOIDECTOMY <AGE 10 TOTAL ABDOM HYSTERECTOMY Current Outpatient Medications Medication Sig Dispense Refill amLODIPine (NORVASC) 5 mg tablet Take by mouth as directed. metoprolol tartrate, short acting, (LOPRESSOR) 50 mg tablet Take by mouth as directed. lisinopril-hydroCHLOROthiazide (ZESTORETIC) 10-12.5 mg per tablet Take 1 tablet by mouth once daily. sertraline (ZOLOFT) 50 mg tablet Take 50 mg by mouth once daily. simvastatin (ZOCOR) 40 mg tablet Take 40 mg by mouth daily at bedtime. No current facility-administered medications for this visit. ALLERGIES: Latex PERSONAL HISTORY: Social History Tobacco Use Smoking status: Every Day Types: Cigarettes Smokeless tobacco: Never FAMILY HISTORY: FAMILY HISTORY Problem Relation Age of Onset Hypertension Mother Hypertension Father other (Basal Cell Carcinoma) Father Cancer Father Hypertension Maternal Grandmother Hypertension Maternal Grandfather Hypertension Paternal Grandmother Hypertension Paternal Grandfather REVIEW OF SYMPTOMS: The review of systems data was entered by the nurse and reviewed by me There are no exam notes on file for this visit. PHYSICAL EXAMINATION: General: The patient is 58 year old female, well nourished, well hydrated in no acute distress. The patient is oriented to time, place, and person. VITALS: Blood pressure 164/94, pulse 70, height 157.5 cm (5' 2), weight 77.5 kg (170 lb 13.7 oz), SpO2 96%. Body mass index is 31.25 kg/m . HEENT: Normal cephalic, ataumatic, pupils are equally round, sclera are anicteric, mucous membranes are moist, oropharynx is clear. Neck has no masses, asymmetry or lymphadenopathy. Thyroid is unremarkable. Respiratory: Clear to auscultation and percussion. Normal respiratory excursion and pattern. Cardiac: Examination is regular rate and rhythm. Abdominal exam: Soft, nontender, with no palpable masses. No hepatosplenomegaly. No palpable hernias. Rectal exam: exam deferred Extremities: no clubbing, cyanosis or edema. No adenopathy. Breast: Visual inspection reveals no retractions, nipple inversion, or skin changes. Palpation of the right breast reveals the mass of concern at the upper central breast with some bruising of the area. Palpation of the left breast reveals no dominant or suspicious masses, but multiple benign-feeling nodules. Axillary exam demonstrates no suspicious masses in either the left or right axilla. There is no nipple discharge expressed from either the left or right breast. LABORATORY VALUES: As Noted RADIOLOGIC STUDIES: As Noted Assessment IMPRESSION: BREAST CANCER - RIGHT - INVASIVE DUCTAL CARCINOMA PLAN: I plan obtain official reports, images transferred to the clinical system and hopefully pathology slides be able to sent to pathology for review. Given the size I discussed with the patient will most likely be considering neoadjuvant treatment will also await status for FISH for Her2 A letter was sent to Dr. Gertrudis De Leon MD indicating the above finding for this patient. Diagnoses: (C50.811, Z17.0) Malignant neoplasm of overlapping 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, estrogen receptor positive (HCC) (primary encounter diagnosis) Return to Clinic: The patient is instructed to follow-up with me after results received in the [facility] system. Ting Polo MD REVIEW OF SYSTEMS: General: The patient denies fatigue, denies weight loss, denies weight gain, denies feeling hot, and denies feelings of cold. Eyes: The patient denies glaucoma, denies eye injury/surgery, wears glasses or contacts. Ear/Nose/Throat: The patient NOTES allergies, denies hayfever, denies ear infections, and denies bloody noses. Cardiovascular: The patient denies chest pain, denies heart disease, NOTES high blood pressure, denies high cholesterol, and denies poor circulation. Respiratory: The patient denies tuberculosis, denies pneumonia, denies frequent cough, denies shortness of breath, and denies coughing up blood. Gastrointestinal: The patient denies difficulty swallowing, denies acid reflux, denies ulcers, denies jaundice/hepatitis, denies gallbladder problems, denies vomiting, denies black or tarry stools, denies hemorrhoids, denies bleeding from rectum, denies diverticulitis, denies constipation, denies diarrhea, denies loss of stool control, and denies hernias. Kidney/Bladder: The patient denies kidney stones, denies urine infections, and denies bloody urine. Skin: The patient denies a history of skin cancer, denies bleeding/changing moles, and denies a history of skin rash. Neurologic: The patient denies a history of epilepsy/convulsions, denies headaches, denies head/spinal injuries, and NOTES stroke/TIA. Psychiatric: The patient denies psychiatric medications, NOTES depression, and denies voices. Endocrine: The patient denies thyroid disorders, denies diabetes, and denies hormonal problems. Hematologic: The patient denies a history of bruising, denies bleeding, and denies anemia. Infections: The patient NOTES a history of measles and mumps, denies rheumatic fever, and denies sexually transmitted diseases. Musculoskeletal: The patient denies back pain/injury, denies back problems, NOTES sciatica, denies knee/foot trouble, NOTES arthritis, or denies gout. documented in this encounter [facility] 12-06-2023 Note HNO ID: [id number] Author: BROOKE CALDERÓN LPN Service: ? Author Type: LICENSED NURSE Type: Progress Notes Filed: 12/08/2023 07:43 Note Text: REVIEW OF SYSTEMS: General: The patient denies fatigue, denies weight loss, denies weight gain, denies feeling hot, and denies feelings of cold. Eyes: The patient denies glaucoma, denies eye injury/surgery, wears glasses or contacts. Ear/Nose/Throat: The patient NOTES allergies, denies hayfever, denies ear infections, and denies bloody noses. Cardiovascular: The patient denies chest pain, denies heart disease, NOTES high blood pressure, denies high cholesterol, and denies poor circulation. Respiratory: The patient denies tuberculosis, denies pneumonia, denies frequent cough, denies shortness of breath, and denies coughing up blood. Gastrointestinal: The patient denies difficulty swallowing, denies acid reflux, denies ulcers, denies jaundice/hepatitis, denies gallbladder problems, denies vomiting, denies black or tarry stools, denies hemorrhoids, denies bleeding from rectum, denies diverticulitis, denies constipation, denies diarrhea, denies loss of stool control, and denies hernias. Kidney/Bladder: The patient denies kidney stones, denies urine infections, and denies bloody urine. Skin: The patient denies a history of skin cancer, denies bleeding/changing moles, and denies a history of skin rash. Neurologic: The patient denies a history of epilepsy/convulsions, denies headaches, denies head/spinal injuries, and NOTES stroke/TIA. Psychiatric: The patient denies psychiatric medications, NOTES depression, and denies voices. Endocrine: The patient denies thyroid disorders, denies diabetes, and denies hormonal problems. Hematologic: The patient denies a history of bruising, denies bleeding, and denies anemia. Infections: The patient NOTES a history of measles and mumps, denies rheumatic fever, and denies sexually transmitted diseases. Musculoskeletal: The patient denies back pain/injury, denies back problems, NOTES sciatica, denies knee/foot trouble, NOTES arthritis, or denies gout. [facility] [place] 10-20-2023 Emergency department Note Patient discharge instructions reviewed. Patient verbalized understanding and denies any farther questions at this time. Patient Iv removed. Bleeding controled and dressing applied. Patient Id band and all monitoring devices removed. [facility] 10-20-2023 Emergency department Note Patient discharge instructions reviewed. Patient verbalized understanding and denies any farther questions at this time. Patient Iv removed. Bleeding controled and dressing applied. Patient Id band and all monitoring devices removed. Pt attempting to provide urine sample at this time. Pt family at bed side. Pt is alert and oriented x 4. Pt states that she does not want to hurt anyone. States that I am just angry at the universe, and I do not normally drink Pt state that she is remorseful and embarrassed by behavior. Pt is corporative with care and pleasant at this time. Pt request something to eat to settle her stomach. Per ERP pt provided snack. ED Course as of 10/20/232118 Sat Oct 20, [id number] Patient received in signout. Presenting with alcohol intoxication. Patient pink slipped by previous provider due to expressing homicidal ideation multiple stressors recently. CT head, UDS pending 1925 CT head with no acute intracranial findings noted 2030 UA does not indicate infection. 2044 UDS negative. 2116 On reassessment patient clinically sober. On multiple evaluations patient laughing, chatting with family in the room. Alert, oriented. Patient stating she is not currently experiencing any homicidal ideation she does state that she has had worse anger recently due to life events however is adamant that she would not harm anyone. Continues to decline suicidal ideation. 2117 Discussed with patient that our largest concern was her safety as well as the safety of others. Patient stating she does feel safe going home does not believe she would harm anyone and is alert, oriented. Given that she is now clinically sober and does not appear to be experiencing homicidal ideation. She has no previous history of psychiatric admissions, suicide attempt. Cyndi Jon MD 10/20/231925 Cyndi Jon MD 10/20/232118 Mst SW sitting 1:1 with PT at this time. Report to Britney MYERS ED Diagnosis and Summary 1. Alcohol intoxication with delirium (HCC) 2. Depression, unspecified depression type 3. Homicidal ideation 4. Malignant neoplasm of female breast, unspecified estrogen receptor status, unspecified laterality, unspecified site of breast (HCC) ED Summary Assessment and Initial Plan: Gillian Luis is an 57 y.o. female who presents with severe alcohol intoxication and homicidal ideation and depression related to recent loss of her and recent breast cancer diagnosis. Plan for labs including toxicology work-up. She was placed on writ of care home. She will require admission to [facility] to [facility] until sobriety and then can be transferred to behavioral health. Differential Diagnosis includes but is not limited to: intoxication, suicidal ideation, homicidal ideation, toxic ingestion, metabolic derangement Workup Results and Data Review: Labs: Admission on 10/20/2023 Component Date Value White Blood Cells 10/20/2023 9.4 RBC 10/20/2023 5.30 (H) Hgb 10/20/2023 14.5 Hematocrit 10/20/2023 45.0 MCV 10/20/2023 84.9 MCH 10/20/2023 27.4 (L) MCHC 10/20/2023 32.2 RDW-CV 10/20/2023 13.7 Platelets 10/20/2023 256 Neutrophil % 10/20/2023 64.9 Absolute Neutrophil 10/20/2023 6.1 Lymphocyte % 10/20/2023 26.8 Absolute Lymph 10/20/2023 2.5 Monocytes % 10/20/2023 6.2 Absolute [place] 10/20/2023 0.6 Eosinophil % 10/20/2023 1.8 Absolute Eosinophil 10/20/2023 0.2 Basophil % 10/20/2023 0.1 Absolute Basophil 10/20/2023 0.0 Immature Granulocytes % 10/20/2023 0.2 Absolute Immature Granul* 10/20/2023 0.0 Sodium 10/20/2023 141 Potassium 10/20/2023 3.3 (L) Chloride 10/20/2023 101 CO2 10/20/2023 28 Glucose 10/20/2023 99 BUN 10/20/2023 14 Creatinine 10/20/2023 0.72 Total Protein 10/20/2023 8.3 (H) Albumin 10/20/2023 4.9 Alk Phos 10/20/2023 81 ALT 10/20/2023 29 AST 10/20/2023 28 Calcium 10/20/2023 9.6 Total Bilirubin 10/20/2023 0.4 EGFR 10/20/2023 96.5 Anion Gap 10/20/2023 12 Magnesium 10/20/2023 2.0 Troponin I 10/20/2023 <0.012 Lipase 10/20/2023 298 Lactate 10/20/2023 1.8 Ethanol-Serum 10/20/2023 120 (H) Imaging: CT Head Without IV Contrast (Results Pending) ECG: None ED Course: Signed out to Dr. Jon awaiting the pending labs. She will be admitted to [facility] to await sobriety. Evaluation and treatment of this patient was significantly limited by the following social determinants of health as detailed in the HPI: Alcohol and/or substance abuse Impression: 1. Alcohol intoxication with delirium (HCC) 2. Depression, unspecified depression type 3. Homicidal ideation 4. Malignant neoplasm of female breast, unspecified estrogen receptor status, unspecified laterality, unspecified site of breast (HCC) Disposition: Pending work-up Signed, Elliot Newell MD Emergency Medicine and Internal Medicine Pertinent chart review was performed including recent visits, laboratory testing, procedures, and imaging if applicable. Any interpretation of radiology tests by me is preliminary in nature in order to assess for immediately dangerous pathology in need of urgent or emergent intervention. Unless explicitly documented otherwise, final radiology reads guide the ultimate treatment plan including disposition. Nursing documentation of past medical history, surgical history, family history, and social history and medications reviewed and are accurate to the best of my knowledge except as detailed in the body of this note. Some or all of this note was created using voice recognition software. Efforts were made to proofread but errors in grammar, syntax, punctuation as well as transcriptional errors may persist. History Chief Complaint Patient presents with Alcohol Intoxication Patient's medications and allergies were reviewed and updated as appropriate. 57 year old female presents via EMS with severe intoxication and reports of seizure like activity. She is now alert and oriented to person, place, time, and situation but heavily intoxicated. She reports that her was recently killed and then she was recently diagnosed with breast cancer. She is depressed and angry and decided to drink heavily today. She also reports homicidal ideation toward everyone because she is so angry. No other complaints. The history is provided by the patient and the EMS personnel. The history is limited by the condition of the patient. Review of Systems Unable to complete review of systems due to intoxication. Physical Exam ED Triage Vitals [10/20/23 1800] BP 130/82 Heart Rate 76 Resp 20 Temp 98 F (36.7 C) Temp src SpO2 98 % Weight 171 lb (77.6 kg) Height BMI (Calculated) Physical Exam Constitutional: Appearance: Normal appearance. HENT: Head: Normocephalic and atraumatic. Mouth/Throat: Mouth: Mucous membranes are moist. Pharynx: Oropharynx is clear. No oropharyngeal exudate. Eyes: Extraocular Movements: Extraocular movements intact. Conjunctiva/sclera: Conjunctivae normal. Pupils: Pupils are equal, round, and reactive to light. Cardiovascular: Rate and Rhythm: Normal rate and regular rhythm. Pulses: Normal pulses. Heart sounds: Normal heart sounds. No murmur heard. Pulmonary: Effort: Pulmonary effort is normal. Breath sounds: Normal breath sounds. No wheezing, rhonchi or rales. Abdominal: General: Abdomen is flat. There is no distension. Palpations: Abdomen is soft. Tenderness: There is no abdominal tenderness. Musculoskeletal: Cervical back: Normal range of motion and neck supple. Skin: General: Skin is warm and dry. Capillary Refill: Capillary refill takes less than 2 seconds. Findings: No rash. Neurological: General: No focal deficit present. Mental Status: She is alert and oriented to person, place, and time. GCS: GCS eye subscore is 4. GCS verbal subscore is 5. GCS motor subscore is 6. Comments: Intoxicated. Procedures: Procedures Harriett Newell MD 10/20/231908 Per ems they were called for a patient having seizure like activity. States that patient has consumed a large amount of alcohol today. Pt arrives via ems PT noted to have a GCS 15 documented in this encounter [facility] 10-20-2023 Emergency department Note Pt attempting to provide urine sample at this time. [facility] 10-20-2023 Emergency department Note Pt family at bed side. Pt is alert and oriented x 4. Pt states that she does not want to hurt anyone. States that I am just angry at the universe, and I do not normally drink Pt state that she is remorseful and embarrassed by behavior. [facility] 10-20-2023 Emergency department Note Pt is corporative with care and pleasant at this time. Pt request something to eat to settle her stomach. Per ERP pt provided snack. [facility] 10-20-2023 Physician Emergency department Note ED Course as of 10/20/232118 Sat Oct 20, 20231924 Patient received in signout. Presenting with alcohol intoxication. Patient pink slipped by previous provider due to expressing homicidal ideation multiple stressors recently. CT head, UDS pending 1925 CT head with no acute intracranial findings noted 2030 UA does not indicate infection. 2044 UDS negative. 2116 On reassessment patient clinically sober. On multiple evaluations patient laughing, chatting with family in the room. Alert, oriented. Patient stating she is not currently experiencing any homicidal ideation she does state that she has had worse anger recently due to life events however is adamant that she would not harm anyone. Continues to decline suicidal ideation. 2117 Discussed with patient that our largest concern was her safety as well as the safety of others. Patient stating she does feel safe going home does not believe she would harm anyone and is alert, oriented. Given that she is now clinically sober and does not appear to be experiencing homicidal ideation. She has no previous history of psychiatric admissions, suicide attempt. Cyndi Jon MD 10/20/231925 Cyndi Jon MD 10/20/232118 [facility] Work Phone: 10-20-2023 Emergency department Note Mst SW sitting 1:1 with PT at this time. [facility] 10-20-2023 Emergency department Note Report to Britney MYERS [facility] 10-20-2023 Physician Emergency department Note ED Diagnosis and Summary 1. Alcohol intoxication with delirium (HCC) 2. Depression, unspecified depression type 3. Homicidal ideation 4. Malignant neoplasm of female breast, unspecified estrogen receptor status, unspecified laterality, unspecified site of breast (HCC) ED Summary Assessment and Initial Plan: Gillian Luis is an 57 y.o. female who presents with severe alcohol intoxication and homicidal ideation and depression related to recent loss of her and recent breast cancer diagnosis. Plan for labs including toxicology work-up. She was placed on writ of care home. She will require admission to [facility] to [facility] until sobriety and then can be transferred to behavioral health. Differential Diagnosis includes but is not limited to: intoxication, suicidal ideation, homicidal ideation, toxic ingestion, metabolic derangement Workup Results and Data Review: Labs: Admission on 10/20/2023 Component Date Value White Blood Cells 10/20/2023 9.4 RBC 10/20/2023 5.30 (H) Hgb 10/20/2023 14.5 Hematocrit 10/20/2023 45.0 MCV 10/20/2023 84.9 MCH 10/20/2023 27.4 (L) MCHC 10/20/2023 32.2 RDW-CV 10/20/2023 13.7 Platelets 10/20/2023 256 Neutrophil % 10/20/2023 64.9 Absolute Neutrophil 10/20/2023 6.1 Lymphocyte % 10/20/2023 26.8 Absolute Lymph 10/20/2023 2.5 Monocytes % 10/20/2023 6.2 Absolute [place] 10/20/2023 0.6 Eosinophil % 10/20/2023 1.8 Absolute Eosinophil 10/20/2023 0.2 Basophil % 10/20/2023 0.1 Absolute Basophil 10/20/2023 0.0 Immature Granulocytes % 10/20/2023 0.2 Absolute Immature Granul* 10/20/2023 0.0 Sodium 10/20/2023 141 Potassium 10/20/2023 3.3 (L) Chloride 10/20/2023 101 CO2 10/20/2023 28 Glucose 10/20/2023 99 BUN 10/20/2023 14 Creatinine 10/20/2023 0.72 Total Protein 10/20/2023 8.3 (H) Albumin 10/20/2023 4.9 Alk Phos 10/20/2023 81 ALT 10/20/2023 29 AST 10/20/2023 28 Calcium 10/20/2023 9.6 Total Bilirubin 10/20/2023 0.4 EGFR 10/20/2023 96.5 Anion Gap 10/20/2023 12 Magnesium 10/20/2023 2.0 Troponin I 10/20/2023 <0.012 Lipase 10/20/2023 298 Lactate 10/20/2023 1.8 Ethanol-Serum 10/20/2023 120 (H) Imaging: CT Head Without IV Contrast (Results Pending) ECG: None ED Course: Signed out to Dr. Jon awaiting the pending labs. She will be admitted to [facility] to await sobriety. Evaluation and treatment of this patient was significantly limited by the following social determinants of health as detailed in the HPI: Alcohol and/or substance abuse Impression: 1. Alcohol intoxication with delirium (HCC) 2. Depression, unspecified depression type 3. Homicidal ideation 4. Malignant neoplasm of female breast, unspecified estrogen receptor status, unspecified laterality, unspecified site of breast (HCC) Disposition: Pending work-up Signed, Elliot Newell MD Emergency Medicine and Internal Medicine Pertinent chart review was performed including recent visits, laboratory testing, procedures, and imaging if applicable. Any interpretation of radiology tests by me is preliminary in nature in order to assess for immediately dangerous pathology in need of urgent or emergent intervention. Unless explicitly documented otherwise, final radiology reads guide the ultimate treatment plan including disposition. Nursing documentation of past medical history, surgical history, family history, and social history and medications reviewed and are accurate to the best of my knowledge except as detailed in the body of this note. Some or all of this note was created using voice recognition software. Efforts were made to proofread but errors in grammar, syntax, punctuation as well as transcriptional errors may persist. History Chief Complaint Patient presents with Alcohol Intoxication Patient's medications and allergies were reviewed and updated as appropriate. 57 year old female presents via EMS with severe intoxication and reports of seizure like activity. She is now alert and oriented to person, place, time, and situation but heavily intoxicated. She reports that her was recently killed and then she was recently diagnosed with breast cancer. She is depressed and angry and decided to drink heavily today. She also reports homicidal ideation toward everyone because she is so angry. No other complaints. The history is provided by the patient and the EMS personnel. The history is limited by the condition of the patient. Review of Systems Unable to complete review of systems due to intoxication. Physical Exam ED Triage Vitals [10/20/23 1800] BP 130/82 Heart Rate 76 Resp 20 Temp 98 F (36.7 C) Temp src SpO2 98 % Weight 171 lb (77.6 kg) Height BMI (Calculated) Physical Exam Constitutional: Appearance: Normal appearance. HENT: Head: Normocephalic and atraumatic. Mouth/Throat: Mouth: Mucous membranes are moist. Pharynx: Oropharynx is clear. No oropharyngeal exudate. Eyes: Extraocular Movements: Extraocular movements intact. Conjunctiva/sclera: Conjunctivae normal. Pupils: Pupils are equal, round, and reactive to light. Cardiovascular: Rate and Rhythm: Normal rate and regular rhythm. Pulses: Normal pulses. Heart sounds: Normal heart sounds. No murmur heard. Pulmonary: Effort: Pulmonary effort is normal. Breath sounds: Normal breath sounds. No wheezing, rhonchi or rales. Abdominal: General: Abdomen is flat. There is no distension. Palpations: Abdomen is soft. Tenderness: There is no abdominal tenderness. Musculoskeletal: Cervical back: Normal range of motion and neck supple. Skin: General: Skin is warm and dry. Capillary Refill: Capillary refill takes less than 2 seconds. Findings: No rash. Neurological: General: No focal deficit present. Mental Status: She is alert and oriented to person, place, and time. GCS: GCS eye subscore is 4. GCS verbal subscore is 5. GCS motor subscore is 6. Comments: Intoxicated. Procedures: Procedures Harriett Newell MD 10/20/230 [facility] 10-20-2023 Emergency department Triage note Per ems they were called for a patient having seizure like activity. States that patient has consumed a large amount of alcohol today. Pt arrives via ems PT noted to have a GCS 15 [facility] Evaluation note Diagnosis Alcohol intoxication with delirium (HCC)- Primary Malignant neoplasm of female breast, unspecified estrogen receptor status, unspecified laterality, unspecified site of breast (HCC) [facility] Diagnosis Malignant neoplasm of overlapping 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, estrogen receptor positive (HCC)- Primary [facility] Malignant neoplasm of overlapping 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, estrogen receptor positive (HCC)- Primary [facility] Diagnosis Malignant neoplasm of overlapping 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, estrogen receptor positive (HCC)- Primary Abnormal finding on breast imaging Other (abnormal) findings on radiological examination of breast Malignant neoplasm of overlapping 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, estrogen receptor positive (HCC) Abnormal finding on breast imaging Other (abnormal) findings on radiological examination of breast [facility] Diagnosis Malignant neoplasm of overlapping 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, estrogen receptor positive (HCC) Malignant neoplasm of overlapping 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, estrogen receptor positive (HCC) Abnormal finding on breast imaging Other (abnormal) findings on radiological examination of breast [facility] Diagnosis Malignant neoplasm of overlapping 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, estrogen receptor positive (HCC) Abnormal finding on breast imaging Other (abnormal) findings on radiological examination of breast [facility] Diagnosis Malignant neoplasm of right breast in female, estrogen receptor positive, unspecified site of breast (HCC)- Primary Malignant neoplasm of overlapping 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, estrogen receptor positive (HCC) [facility] Diagnosis Benign hypertension- Primary Essential hypertension, benign Sarcoidosis TIA (transient ischemic attack) Unspecified transient cerebral ischemia Mild major depression (HCC) Major depressive disorder, single episode, mild Pre-op evaluation Preoperative examination, unspecified Smoker Tobacco use disorder Seizure-like activity (HCC) Other convulsions MELECIO (obstructive sleep apnea) Obstructive sleep apnea (adult) (pediatric) Malignant neoplasm of right breast in female, estrogen receptor positive, unspecified site of breast (HCC) * Assessment & Plan Note - Kris Polanco PA-C - 01/28/2024 3:34 PM EDTAssociated Problem(s): MELECIO (obstructive sleep apnea) Assessment: + CPAP * Assessment & Plan Note - Kris Polanco PA-C - 01/28/2024 3:33 PM EDTAssociated Problem(s): Seizure-like activity (HCC) Assessment: reports one time event in September 2023 with shaking and 5 hour period of amnesia. No meds, no follow up with neurology. Believes related to stress. * Assessment & Plan Note - Kris Polanco PA-C - 01/28/2024 3:32 PM EDTAssociated Problem(s): Hyperlipidemia Assessment: Stable on RX * Assessment & Plan Note - Kris Polanco PA-C - 01/28/2024 3:31 PM EDTAssociated Problem(s): Smoker Assessment: reports 1 ppd x 20 yrs * Assessment & Plan Note - Kris Polanco PA-C - 01/28/2024 3:31 PM EDTAssociated Problem(s): Benign hypertension Assessment: BP today in clinic 151/82. Stable on RX. * Assessment & Plan Note - Kris Polanco PA-C - 01/28/2024 3:31 PM EDTAssociated Problem(s): Sarcoidosis Assessment: reports breast lump that was unable to get good biopsy, with further work up lesions were found in lungs, spleen, kidneys. Had right lung resection and dx with sarcoid, treated with prednisone x 1 yr. Now in remission. Denies concerning symptoms. * Assessment & Plan Note - Kris Polanco PA-C - 01/28/2024 3:29 PM EDTAssociated Problem(s): Mild major depression (HCC) Assessment: Stable on RX, denies concerning symptoms * Assessment & Plan Note - Kris Polanco PA-C - 01/28/2024 3:29 PM EDTAssociated Problem(s): TIA (transient ischemic attack) Assessment: no deficits [facility] Diagnosis Malignant neoplasm of right breast in female, estrogen receptor positive, unspecified site of breast (HCC) Malignant neoplasm of overlapping 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, estrogen receptor positive (HCC) Malignant neoplasm of right breast in female, estrogen receptor positive, unspecified site of breast (HCC) [facility] Malignant neoplasm of right breast in female, estrogen receptor positive, unspecified site of breast (HCC)- Primary [facility] Diagnosis Malignant neoplasm of right breast in female, estrogen receptor positive, unspecified site of breast (HCC)- Primary Malignant neoplasm of right breast in female, estrogen receptor positive, unspecified site of breast (HCC) [facility] Pre-op evaluation- Primary Preoperative examination, unspecified Hypokalemia Hypopotassemia Benign hypertension Essential hypertension, benign Mild major depression (HCC) Major depressive disorder, single episode, mild Seizure-like activity (HCC) Other convulsions TIA (transient ischemic attack) Unspecified transient cerebral ischemia Malignant neoplasm of right breast in female, estrogen receptor positive, unspecified site of breast (HCC) * Assessment & Plan Note - Edis Brandon PA-C - 03/05/2024 11:19 AM EDT Associated Problem(s): Breast cancer (HCC) Assessment: s/p partial mastectomy. Starting chemo next week, scheduled for port placement on 03/07 * Assessment & Plan Note - Edis Brandon PA-C - 03/05/2024 11:18 AM EDT Associated Problem(s): Hypokalemia Assessment: K+ 3.3 early January. Recommend increasing potassium rich foods daily and follow up with PCP for future monitoring [facility] Diagnosis Malignant neoplasm of right breast in female, estrogen receptor negative, unspecified site of breast (HCC)- Primary Malignant neoplasm of right breast in female, estrogen receptor positive, unspecified site of breast (HCC) [facility] Diagnosis Malignant neoplasm of right breast in female, estrogen receptor positive, unspecified site of breast (HCC)- Primary Family history of lung cancer Family history of malignant neoplasm of trachea, bronchus, and lung Family history of leukemia Family history of colon cancer Family history of malignant neoplasm of gastrointestinal tract Family history of testicular cancer Family history of malignant neoplasm of testis Family history of basal cell carcinoma Family history of other specified malignant neoplasm documented in this encounter [facility] Discharge instructions* Attachments The following attachments cannot be sent through Care Everywhere. * Alcohol Intoxication: Acute ([place]izen [place] [facility] (n[facility]ative)* Diagnostic Procedure Only (Routine) - Closed Specialty Diagnoses / Procedures Referred By Contalondra t Referred To Contact [facility] Diagnoses Malignant neoplasm of overlapping 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, estrogen receptor positive (HCC) Procedures US BREAST LTD LEFT US BREAST UNI REAL TIME WITH IMAGE LIMITED Ting Polo MD [address] [address] [facility] [address] [place] [address] Referral ID Status Reason Start Date Expiration Date V isits Requested Visits Authorized [id number] Closed Auto-Generate d Referral 12/21/2023 01/19/2025 1 1 [facility] for referral (narrative)* Outpatient Procedure (Routine) - Pending Review Specialty Diagnoses / Procedures Referred By Javi jackson [facility] Diagnoses Pre-op evaluation Procedures ECG COMPLETE ECG ROUTINE ECG W/LEAST 12 LDS W/I&R Kris Polanco PA-C [address] [place] [address] [facility] [address] [address] Referral ID Status Reason Start Date Expiration Date Visits Requested Visits Authorized [id number] Pending Review Auto-Generat ed Referral 01/28/2024 01/27/2025 1 1 [facility] for visit Narrative* Diagnostic Procedure Only (Routine) - Closed Specialty Diagnoses / Procedures Referred By Javi jackson Referred To Contact [facility] Diagnoses Malignant neoplasm of right breast in female, estrogen receptor positive, unspecified site of breast (HCC) Malignant neoplasm of overlapping 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, estrogen receptor positive (HCC) Procedures DARON NDL LOC W DARON GD RIGHT PERQ DEVICE PLACEMENT BREAST LOC 1ST LES W/GDBRUNOE Ting Polo MD [address] [place] [address] [facility] [address] [place] [address] Referral ID Status Reason Start Date Expiration Date V isits Requested Visits Authorized [id number] Closed Auto-Generate d Referral 01/18/2024 02/16/2025 1 1 [facility] Summary Purpose Family History No Family History Records FoundNo Family History Records FoundNo Family History Records FoundNo Family History Records FoundNo Family History Records FoundNo Family History Records FoundNo Family History Records FoundNo Family History Records FoundNo Family History Records FoundNo Family History Records FoundNo Family History Records FoundNo Family History Records Found Advance Directives No Advanced Directives Records FoundNo Advanced Directives Records FoundNo Advanced Directives Records FoundNo Advanced Directives Records FoundNo Advanced Directives Records FoundNo Advanced Directives Records FoundNo Advanced Directives Records FoundNo Advanced Directives Records FoundNo Advanced Directives Records FoundNo Advanced Directives Records FoundNo Advanced Directives Records FoundNo Advanced Directives Records Found Reason for Referral Specialty Diagnoses / Procedures Referred By Javi jackson Referred To Contact Diagnoses Malignant neoplasm of overlapping 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, estrogen receptor positive (HCC) Procedures CONSULT TO MEDICAL GENETICS - CANCER MEDICAL GENETICS COUNSELING EACH 30 MINUTES Ting Polo MD [address] [facility] [place] [address] [facility] [address] [place] [address] Referral ID Status Reason Start Date Expiration Date Visits Requested Visits Authorized [id number] Pending Review PCP Requested Referral Auto-Generate d Referral 12/22/2023 12/21/2024 1 1 Specialty Diagnoses / Procedures Referred By Javi jackson Referred To Contact [facility] Diagnoses Malignant neoplasm of overlapping 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, estrogen receptor positive (HCC) Procedures US BREAST LTD LEFT US BREAST UNI REAL TIME WITH IMAGE LIMITED Ting Polo MD [address] [address] [facility] [address] [place] [id number] Referral ID Status Reason Start Date Expiration Date Visits Requested Visits Authorized [id number] Authorized Auto-Generat ed Referral 12/21/2023 01/19/2025 1 1 Specialty Diagnoses / Procedures Referred By Javi jackson Referred To Contact [facility] Diagnoses Malignant neoplasm of overlapping 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, estrogen receptor positive (HCC) Abnormal finding on breast imaging Procedures MRI BREAST BX WO/W IVCON LEFT BX BREAST W/DEVICE 1ST LESION MAGNETIC RES GUID Ting Polo MD [address] [address] [place] [address] Referral ID Status Reason Start Date Expiration Date Visits Requested Visits Authorized [id number] Authorized Auto-Generat ed Referral 12/25/2023 01/23/2025 1 1 Referral ID Status Reason Start Date Expiration Date V isits Requested Visits Authorized [id number] Closed Auto-Generate d Referral 12/25/2023 01/23/2025 1 1 Specialty Diagnoses / Procedures Referred By Javi jackson Referred To Contact Diagnoses Malignant neoplasm of right breast in female, estrogen receptor positive, unspecified site of breast (HCC) Procedures CONSULT TO MEDICAL GENETICS - CANCER MEDICAL GENETICS COUNSELING EACH 30 MINUTES Ting Polo MD [address] [address] Referral ID Status Reason Start Date Expiration Date Visits Requested Visits Authorized [id number] Pending Review PCP Requested Referral Auto-Generate d Referral 01/17/2024 01/16/2025 1 1 Additional Source Comments INFORMATION SOURCE (unrecogn ized section and content) DATE CREATED AUTHOR 04/21/2020 [facility] DATE CREATED AUTHOR AUTHOR'S ORGANIZ ATION 11/06/2020 [facility] DATE CREATED AUTHOR AUTHOR'S ORGANIZ ATION [facility]2023 [facility] DATE CREATED AUTHOR AUTHOR'S ORGANIZ ATION 12/13/2023 [facility] ([place]) DATE CREATED AUTHOR AUTHOR'S ORGANIZ ATION 01/11/2024 [facility] DATE CREATED AUTHOR AUTHOR'S ORGANIZ ATION 01/30/2024 [facility] DATE CREATED AUTHOR AUTHOR'S ORGANIZ ATION 03/14/2024 [facility] DATE CREATED AUTHOR AUTHOR'S ORGANIZ ATION 03/16/2024 [facility] DATE CREATED AUTHOR AUTHOR'S ORGANIZ ATION 03/25/2024 [facility] DATE CREATED AUTHOR AUTHOR'S ORGANIZ ATION 04/06/2024 [facility] DATE CREATED AUTHOR AUTHOR'S ORGANIZ ATION 12/13/2024 [facility] DATE CREATED AUTHOR AUTHOR'S ORGANIZ ATION 01/07/2025 [facility] Reason for Visit (unrecogniz ed section and content) Reason Comments Alcohol Intoxication Reason Comments Consult Right Breast Reason Comments Patient Update Reason Comments Procedure Left breast biopsy Reason Comments Follow Up Ultrasound 12/25/2023 Reason Comments Radiology US Specialty Diagnoses / Procedures Referred By Javi jackson Referred To Contact [facility] Diagnoses Malignant neoplasm of overlapping 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, estrogen receptor positive (HCC) Procedures US BREAST LTD LEFT US BREAST UNI REAL TIME WITH IMAGE LIMITED Ting Polo MD [address] [address] [facility] [address] [place] [address] Referral ID Status Reason Start Date Expiration Date V isits Requested Visits Authorized [id number] Closed Auto-Generate d Referral 12/21/2023 01/19/2025 1 1 Specialty Diagnoses / Procedures Referred By Javi jackson Referred To Contact [facility] Diagnoses Malignant neoplasm of overlapping 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, estrogen receptor positive (HCC) Abnormal finding on breast imaging Procedures MRI BREAST BX WO/W IVCON LEFT BX BREAST W/DEVICE 1ST LESION MAGNETIC RES GUID Ting Polo MD [address] [address] [place] [address] Referral ID Status Reason Start Date Expiration Date V isits Requested Visits Authorized [id number] Closed Auto-Generate d Referral 12/25/2023 01/23/2025 1 1 Reason Comments Tumor Board Breast Reason Comments Patient Question Reason Comments Breast Localization Reason Comments Follow Up L breast biopsy 01/07 - discuss surgery Reason Comments [employer] Breast Localization Reason Comments Anesthesia Consult Specialty Diagnoses / Procedures Referred By Javi jackson Referred To Contact Diagnoses Malignant neoplasm of right breast in female, estrogen receptor positive, unspecified site of breast (HCC) Procedures MASTECTOMY, PARTIAL BX/EXC LYMPH NODE OPEN DEEP AXILLARY NODE MASTECTOMY PARTIAL BIOPSY NODE SENTINEL AXILLARY [facility] [address] [place] [address] Referral ID Status Reason Start Date Expiration Date Visits Re quested Visits Authorized [id number] 1 1 Reason Comments Post Op Follow Up Partial mastectomy R ight Reason Comments Orders Reason Comments Consult Port consultation. C hemotherapy begins 03/13/2024. 1 month follow up breast surgery. Reason Comments Anesthesia Consult Reason Comments Breast Cancer Specialty Diagnoses / Procedures Referred By Javi ajckson Referred To Contact Diagnoses Malignant neoplasm of right breast in female, estrogen receptor positive, unspecified site of breast (HCC) Procedures CONSULT TO MEDICAL GENETICS - CANCER MEDICAL GENETICS COUNSELING EACH 30 MINUTES Ting Polo MD [address] [address] [facility] [address] [place] [address] Referral ID Status Reason Start Date Expiration Date Visits Requested Visits Authorized [id number] Pending Review PCP Requested Referral Auto-Generate d Referral 01/17/2024 01/16/2025 1 1 Reason Comments Received Outside Medical Records [facility] Source Comments (unrecognize d section and content) In the event this informatio n is protected by the Federal Confidentiality of Alcohol and Drug Abuse Patient Records regulations: The Federal rules restrict any use of the information to criminally investigate or prosecute any alcohol or drug abuse patient.[facility] the event this information is protected by the Federal Confidentiality of Alcohol and Drug Abuse Patient Records regulations: The Federal rules restrict any use of the information to criminally investigate or prosecute any alcohol or drug abuse patient.[facility] Hospital[facility] the event this information is protected by the Federal Confidentiality of Alcohol and Drug Abuse Patient Records regulations: The Federal rules restrict any use of the information to criminally investigate or prosecute any alcohol or drug abuse patient.[facility] Hospital[facility] the event this information is protected by the Federal Confidentiality of Alcohol and Drug Abuse Patient Records regulations: The Federal rules restrict any use of the information to criminally investigate or prosecute any alcohol or drug abuse patient.[facility] HospitalIn the event this information is protected by the Federal Confidentiality of Alcohol and Drug Abuse Patient Records regulations: The Federal rules restrict any use of the information to criminally investigate or prosecute any alcohol or drug abuse patient.[facility] HospitalIn the event this information is protected by the Federal Confidentiality of Alcohol and Drug Abuse Patient Records regulations: The Federal rules restrict any use of the information to criminally investigate or prosecute any alcohol or drug abuse patient.[facility] HospitalIn the event this information is protected by the Federal Confidentiality of Alcohol and Drug Abuse Patient Records regulations: The Federal rules restrict any use of the information to criminally investigate or prosecute any alcohol or drug abuse patient.[facility] HospitalIn the event this information is protected by the Federal Confidentiality of Alcohol and Drug Abuse Patient Records regulations: The Federal rules restrict any use of the information to criminally investigate or prosecute any alcohol or drug abuse patient.[facility] HospitalIn the event this information is protected by the Federal Confidentiality of Alcohol and Drug Abuse Patient Records regulations: The Federal rules restrict any use of the information to criminally investigate or prosecute any alcohol or drug abuse patient.[facility] Hospital[facility] the event this information is protected by the Federal Confidentiality of Alcohol and Drug Abuse Patient Records regulations: The Federal rules restrict any use of the information to criminally investigate or prosecute any alcohol or drug abuse patient.[facility] HospitalIn the event this information is protected by the Federal Confidentiality of Alcohol and Drug Abuse Patient Records regulations: The Federal rules restrict any use of the information to criminally investigate or prosecute any alcohol or drug abuse patient.[facility] HospitalIn the event this information is protected by the Federal Confidentiality of Alcohol and Drug Abuse Patient Records regulations: The Federal rules restrict any use of the information to criminally investigate or prosecute any alcohol or drug abuse patient.[facility] HospitalIn the event this information is protected by the Federal Confidentiality of Alcohol and Drug Abuse Patient Records regulations: The Federal rules restrict any use of the information to criminally investigate or prosecute any alcohol or drug abuse patient.[facility] HospitalIn the event this information is protected by the Federal Confidentiality of Alcohol and Drug Abuse Patient Records regulations: The Federal rules restrict any use of the information to criminally investigate or prosecute any alcohol or drug abuse patient.[facility] HospitalIn the event this information is protected by the Federal Confidentiality of Alcohol and Drug Abuse Patient Records regulations: The Federal rules restrict any use of the information to criminally investigate or prosecute any alcohol or drug abuse patient.[facility] HospitalIn the event this information is protected by the Federal Confidentiality of Alcohol and Drug Abuse Patient Records regulations: The Federal rules restrict any use of the information to criminally investigate or prosecute any alcohol or drug abuse patient.[facility] HospitalIn the event this information is protected by the Federal Confidentiality of Alcohol and Drug Abuse Patient Records regulations: The Federal rules restrict any use of the information to criminally investigate or prosecute any alcohol or drug abuse patient.[facility] HospitalIn the event this information is protected by the Federal Confidentiality of Alcohol and Drug Abuse Patient Records regulations: The Federal rules restrict any use of the information to criminally investigate or prosecute any alcohol or drug abuse patient.[facility] HospitalIn the event this information is protected by the Federal Confidentiality of Alcohol and Drug Abuse Patient Records regulations: The Federal rules restrict any use of the information to criminally investigate or prosecute any alcohol or drug abuse patient.[facility] HospitalIn the event this information is protected by the Federal Confidentiality of Alcohol and Drug Abuse Patient Records regulations: The Federal rules restrict any use of the information to criminally investigate or prosecute any alcohol or drug abuse patient.[facility] HospitalIn the event this information is protected by the Federal Confidentiality of Alcohol and Drug Abuse Patient Records regulations: The Federal rules restrict any use of the information to criminally investigate or prosecute any alcohol or drug abuse patient.[facility] HospitalIn the event this information is protected by the Federal Confidentiality of Alcohol and Drug Abuse Patient Records regulations: The Federal rules restrict any use of the information to criminally investigate or prosecute any alcohol or drug abuse patient.[facility] the event this information is protected by the Federal Confidentiality of Alcohol and Drug Abuse Patient Records regulations: The Federal rules restrict any use of the information to criminally investigate or prosecute any alcohol or drug abuse patient.[facility] HospitalIn the event this information is protected by the Federal Confidentiality of Alcohol and Drug Abuse Patient Records regulations: The Federal rules restrict any use of the information to criminally investigate or prosecute any alcohol or drug abuse patient.[facility] HospitalIn the event this information is protected by the Federal Confidentiality of Alcohol and Drug Abuse Patient Records regulations: The Federal rules restrict any use of the information to criminally investigate or prosecute any alcohol or drug abuse patient.[facility] HospitalIn the event this information is protected by the Federal Confidentiality of Alcohol and Drug Abuse Patient Records regulations: The Federal rules restrict any use of the information to criminally investigate or prosecute any alcohol or drug abuse patient.[facility] HospitalIn the event this information is protected by the Federal Confidentiality of Alcohol and Drug Abuse Patient Records regulations: The Federal rules restrict any use of the information to criminally investigate or prosecute any alcohol or drug abuse patient.[facility] HospitalIn the event this information is protected by the Federal Confidentiality of Alcohol and Drug Abuse Patient Records regulations: The Federal rules restrict any use of the information to criminally investigate or prosecute any alcohol or drug abuse patient.[facility] HospitalIn the event this information is protected by the Federal Confidentiality of Alcohol and Drug Abuse Patient Records regulations: The Federal rules restrict any use of the information to criminally investigate or prosecute any alcohol or drug abuse patient.[facility] Care Teams (unrecognized sec tion and content) Project Management It Specialist Relationship Specialty Start Date End Date Gertrudis De Leon MD [address] [place] [address] PCP - General Internal Medicine 12/04/23 Project Management It Specialist Relationship Specialty Start Date End Date Gertrudis De Leon MD [address] [place] [address] PCP - General Internal Medicine 12/04/23 Project Management It Specialist Relationship Specialty Start Date End Date Gertrudis De Leon MD [address] [place] [address] PCP - General Internal Medicine 12/04/23 Project Management It Specialist Relationship Specialty Start Date End Date Gertrudis De Leon MD [address] [place] [address] PCP - General Internal Medicine 12/04/23 Project Management It Specialist Relationship Specialty Start Date End Date Gertrudis De Leon MD [address] [place] [address] PCP - General Internal Medicine 12/04/23 Project Management It Specialist Relationship Specialty Start Date End Date Gertrudis De Leon MD [address] [place] [address] PCP - General Internal Medicine 12/04/23 Project Management It Specialist Relationship Specialty Start Date End Date Gertrudis De Leon MD [address] [place] [address] PCP - General Internal Medicine 12/04/23 Project Management It Specialist Relationship Specialty Start Date End Date Gertrudis De Leon MD [address] [place] [address] PCP - General Internal Medicine 12/04/23 Project Management It Specialist Relationship Specialty Start Date End Date Gertrudis De Leon MD [address] [place] [address] PCP - General Internal Medicine 12/04/23 Project Management It Specialist Relationship Specialty Start Date End Date Gertrudis De Leon MD [address] [place] [address] PCP - General Internal Medicine 12/04/23 Project Management It Specialist Relationship Specialty Start Date End Date Gertrudis De Leon MD [address] [place] [address] PCP - General Internal Medicine 12/04/23 Project Management It Specialist Relationship Specialty Start Date End Date Gertrudis De Leon MD [address] [place] [address] PCP - General Internal Medicine 12/04/23 Project Management It Specialist Relationship Specialty Start Date End Date Gertrudis De Leon MD [address] [place] [address] PCP - General Internal Medicine 12/04/23 Project Management It Specialist Relationship Specialty Start Date End Date Gertrudis De Leon MD [address] [place] [address] PCP - General Internal Medicine 12/04/23 Project Management It Specialist Relationship Specialty Start Date End Date Gertrudis De Leon MD [address] [place] [address] PCP - General Internal Medicine 12/04/23 Project Management It Specialist Relationship Specialty Start Date End Date Gertrudis De Leon MD [address] [place] [address] PCP - General Internal Medicine 12/04/23 Project Management It Specialist Relationship Specialty Start Date End Date Gertrudis De Leon MD [address] [place] [address] PCP - General Internal Medicine 12/04/23 Project Management It Specialist Relationship Specialty Start Date End Date Gertrudis De Leon MD [address] [place] [address] PCP - General Internal Medicine 12/04/23 Project Management It Specialist Relationship Specialty Start Date End Date Gertrudis De Leon MD [address] [place] [address] PCP - General Internal Medicine 12/04/23 Project Management It Specialist Relationship Specialty Start Date End Date Gertrudis DeL eon MD [address] [place] [address] PCP - General Internal Medicine 12/04/23 Project Management It Specialist Relationship Specialty Start Date End Date Gertrudis De Leon MD [address] [place] [address] PCP - General Internal Medicine 12/04/23 FOR RECORDS PERTAINING TO PATIENTS WHO ARE OR HAVE BEEN ENROLLED IN A CHEMICAL DEPENDENCY/SUBSTANCEABUSE PROGRAM, SOME INFORMATION MAY BE OMITTED. This clinical summary was aggregated from multiple sources. Caution should be exercised in using it in the provision of clinical care. This summary normalizes information from multiple sources, and as a consequence, information in this document may materially change the coding, format and clinical context of patient data. In addition, data may be omitted in some cases. CLINICAL DECISIONS SHOULD BE BASED ON THE PRIMARY CLINICAL RECORDS. [facility]. provides no warranty or guarantee of the accuracy or completeness of information in this document.
== END | disposition home or self-care (01) ==
PROVIDERS: PCP Student in an Organized Health Care Education/Training Program; Referring Provider Student in an Organized Health Care Education/Training Program; Visit Provider Student in an Organized Health Care Education/Training Program
DX: R92.8 Other abnormal and inconclusive findings on diagnostic imaging of breast (principal); C50.811 Malignant neoplasm of overlapping sites of right female breast; Z17.0 Estrogen receptor positive status [ER+]
CPT/HCPCS: 76642; 77062; 77066; G0279

== ENCOUNTER → 2025-01-27 | Outpatient (CLI) | payer BC, SELFPAY ==
--- NOTE | 2025-01-27 11:08 | RAD_ITS ---
PROCEDURE: CHEST PA AND LATERAL 01/27/2025 REASON FOR EXAM: PERSISTENT COUGH WITH OCC. BLOOD TECHNIQUE: CHEST PA AND LATERAL FINDINGS: Left chest port. Manohar overlie the right breast and right chest wall. No focal consolidation. No pleural effusion or pneumothorax. Cardiac silhouette is within normal limits. No acute fractures. RAD/Chest PA and Lateral IMPRESSION: No focal consolidations. Reading Location: [id number]
== END | disposition home or self-care (01) ==
LOC: RAD 11:07
PROVIDERS: PCP Student in an Organized Health Care Education/Training Program; Referring Provider Student in an Organized Health Care Education/Training Program; Visit Provider Student in an Organized Health Care Education/Training Program
DX: R05.3 Chronic cough (principal); R04.2 Hemoptysis
CPT/HCPCS: 71046

== ENCOUNTER → 2025-01-28 | Outpatient (CLI) | payer BC, SELFPAY ==
--- NOTE | 2025-01-28 10:05 | RAD_ITS ---
PROCEDURE: SHOULDER MIN 2 VIEWS 01/28/2025 REASON FOR EXAM: LEFT UPPER EXTREMITY PAIN TECHNIQUE: SHOULDER MIN 2 VIEWS COMPARISON: None. FINDINGS: No evidence acute fracture or dislocation. The acromial and glenohumeral joint spaces are maintained. Partially visualized left chest infusion port. RAD/Shoulder min 2 Views IMPRESSION: No acute abnormality. Reading Location: [place] [address]
--- NOTE | 2025-01-28 10:05 | RAD_ITS ---
PROCEDURE: SHOULDER MIN 2 VIEWS 01/28/2025 REASON FOR EXAM: LEFT UPPER EXTREMITY PAIN TECHNIQUE: SHOULDER MIN 2 VIEWS COMPARISON: None. FINDINGS: No evidence acute fracture or dislocation. Mild acromioclavicular degenerative changes. The glenohumeral joint space is maintained. Left apical suture. Left axillary surgical clips. RAD/Shoulder min 2 Views IMPRESSION: Mild acromioclavicular osteoarthrosis. Reading Location: [place] [address]
== END | disposition home or self-care (01) ==
LOC: RAD 09:58
PROVIDERS: PCP Student in an Organized Health Care Education/Training Program; Referring Provider Internal Medicine Medical Oncology; Visit Provider Internal Medicine Medical Oncology
DX: M25.511 Pain in right shoulder (principal); M25.512 Pain in left shoulder
CPT/HCPCS: 73030

== ENCOUNTER → 2025-03-02 | Outpatient (CLI) | payer BC, SELFPAY ==
--- NOTE | 2025-03-02 08:53 | NM_ITS ---
PROCEDURE: BONE SCAN WHOLE BODY 03/02/2025 REASON FOR EXAM: BREAST CA History of left arm pain and bilateral mid femoral pain. TECHNIQUE: Whole-body bone scan with anterior and posterior views. Imaging at 3.5 hours. RADIOPHARMACEUTICAL: 26.7 mCi Technetium-99m MDP IV COMPARISON: Prior study dated December 14, 2023. FINDINGS: Bones: Increased uptake in the medial compartments of both knee joints more prominent on the right side suggestive of osteoarthritis. Minimal increased uptake in the 1st carpometacarpal joints of both wrists suggestive of degenerative change. No evidence of bony metastasis. Kidneys: Unremarkable. NM/Bone Scan Whole Body IMPRESSION: Findings suggestive of degenerative changes of both knee joints worse on the ri ght side as well as both wrist joints. No evidence of bony metastasis. Reading Location: [id number]
== END | disposition home or self-care (01) ==
PROVIDERS: PCP Student in an Organized Health Care Education/Training Program; Referring Provider Internal Medicine Medical Oncology; Visit Provider Internal Medicine Medical Oncology
DX: C50.811 Malignant neoplasm of overlapping sites of right female breast (principal); Z17.0 Estrogen receptor positive status [ER+]; N60.22 Fibroadenosis of left breast; M79.602 Pain in left arm
CPT/HCPCS: 78306; A9503

== ENCOUNTER → 2025-04-07 | Outpatient (CLI) | payer BC, SELFPAY ==
--- NOTE | 2025-04-07 12:38 | CT_ITS ---
PROCEDURE: LOW DOSE CT LUNG SCREENING 04/07/2025 REASON FOR EXAM: LUNG CANCER SCREENING Current smoker. Patient has smoked 1 pack per day for 30 years. History of breast cancer with radiation and chemotherapy. TECHNIQUE: Procedure Code: [id number] Modality: CT Procedure: LOW DOSE CT LUNG SCREENING Coronal and Sagittal reconstruction series were provided. One or more dose reduction techniques were used (e.g., Automated exposure control, adjustment of the mA and/or kV according to patient size, use of iterative reconstruction technique). REFERENCE LINK: [facility] Lung-RADS RADIATION DOSE SUMMARY: CTDlvol: 2.39 mGy DLP: 72.36 mGycm COMPARISON: Prior CT scan of the chest dated December 17, 2023. FINDINGS: PULMONARY NODULES: (Only nodules >3mm are reported) Nodules described below are on series 1 unless otherwise specified. Pulmonary Nodules: There is a 2.9 mm noncalcified nodule in the lateral anterior aspect of the left lower lobe as seen on axial image number 92. Hardware:A left-sided port a catheter is seen with the tip in the superior vena cava. Lymph Nodes:Enlarged right axillary lymph nodes. There is evidence of prior surgery in the inferior aspect of the right breast with surgical clips. There is diffuse thickening of the skin overlying the right breast. Heart and Vasculature:The heart is nonenlargedmild atherosclerotic plaque formation of the aortic arch. Coronary Artery Calcifications: Present Lungs and Airways: Scarring in the right upper lobe. No suspicious pulmonary nodules are seen. Pleura:Unremarkable Upper Abdomen:Unremarkable Bones:Degenerative changes of the thoracic spine. CT/Low Dose CT Lung Screening IMPRESSION: Enlarged right axillary lymph nodes. Scarring in the right upper lobe. Fibrocalcific scarring in the right upper lo be. Calcified granulomas in the right lower lobe. 2.9 mm noncalcified nodule in the lateral aspect of the left lower lobe as seen on axial image number 92 Coronary artery calcification (CAC) is is present Lung-RADS Category: 2 BENIGN (BASED ON IMAGING FEATURES OR INDOLENT BEHAVIOR). RECOMMEND 12-MONTH SCREENING LDCT. Other Significant Findings: Reading Location: [id number]
== END | disposition home or self-care (01) ==
LOC: CT 12:38
PROVIDERS: PCP Student in an Organized Health Care Education/Training Program; Referring Provider Nurse Practitioner Family; Visit Provider Nurse Practitioner Family
DX: Z12.2 Encounter for screening for malignant neoplasm of respiratory organs (principal); Z87.891 Personal history of nicotine dependence
CPT/HCPCS: 71271